=== PATIENT | male | born 1960 | race Caucasian/White ===

== ENCOUNTER 2017-05-15 12:25 | Emergency (ER) | payer BC, MEDICARE ==
[2017-05-15 12:45] VITALS: BP 142/89; PULSE 74; RESP 17; TEMP 98
--- NOTE | 2017-05-15 12:57 | ED ---
Extremity Problem HPI - General Chief complaint: Extremity Problem,Nontraumatic Stated complaint: Pain in left hand Time Seen by Provider: 05/15/17 12:48 Source: patient, RN notes reviewed Mode of arrival: ambulatory Limitations: no limitations - History of Present Illness Initial comments: This is a 56 year old male who presents with a chief complaint of left dorsal hand pain and arm pain which began this morning. Patient states he woke up with her after sleeping on his left arm The patient denies injury. He denies shortness of breath, difficulty breathing, chest pain or jaw pain. He states he recently went to the chiropractor 3 days ago and believes his pain is likely related to this. He reports a nonspecific pain from his posterior arm through his wrist that is not tingling and is more of a "dull" type of pain. He states that his pain is currently mild. - Related Data Home Medications Medication Instructions Recorded Confirmed RX: Lovastatin [Mevacor] 40 mg PO HS 10/18/13 01/23/16 Aspirin EC [Ecotrin] 325 mg PO DAILY 01/23/16 01/23/16 Previous Rx's Medication Instructions Recorded RX: Ibuprofen [Motrin] 600 mg PO Q8HR PRN #30 tab 05/15/17 Allergies Allergy/AdvReac Type Severity Reaction Status Date / Time No Known Allergies Allergy Verified 05/15/17 12:45 Review of Systems ROS Statement: Those systems with pertinent positive or pertinent negative responses have been documented in the HPI. ROS Other: All systems not noted in ROS Statement are negative. Past Medical History Past Medical History: Coronary Artery Disease (CAD), Chest Pain / Angina, Deep Vein Thrombosis (DVT), GERD/Reflux, Hyperlipidemia, Myocardial Infarction ([place]), Sleep Apnea/CPAP/BIPAP Additional Past Medical History / Comment(s): DVT 2002, no current problems w/ chest pain, uses CPAP Last Myocardial Infarction Date:: 08/2006 History of Any Multi-Drug Resistant Organisms: None Reported Past Surgical History: Heart Catheterization With Stent Additional Past Surgical History / Comment(s): left leg surgery r/t DVT, ORIF right femur Past Anesthesia/Blood Transfusion Reactions: No Reported Reaction Additional Past Anesthesia/Blood Transfusion Reaction / Comment(s): no previous transfusion Date of Last Stent Placement:: 2006 Past Psychological History: No Psychological Hx Reported Smoking Status: Former smoker Past Alcohol Use History: Occasional Past Drug Use History: None Reported - Past Family History Mother Family Medical History: COPD, Diabetes Mellitus, Myocardial Infarction ([place]) General Exam Limitations: no limitations General appearance: alert, in no apparent distress Head exam: Present: atraumatic, normocephalic, normal inspection Eye exam: Present: normal appearance, PERRL, EOMI. Absent: scleral icterus, conjunctival injection, periorbital swelling ENT exam: Present: normal exam, mucous membranes moist Neck exam: Present: normal inspection, tenderness (Mild tenderness along the left paraspinal), full ROM. Absent: meningismus, lymphadenopathy Respiratory exam: Present: normal lung sounds bilaterally. Absent: respiratory distress, wheezes, rales, rhonchi, stridor Cardiovascular Exam: Present: regular rate, normal rhythm, normal heart sounds. Absent: systolic murmur, diastolic murmur, rubs, gallop, clicks Extremities exam: Present: normal inspection, full ROM, normal capillary refill , other (The left arm and hand is nontender with palpation. There are no visible signs of ecchymosis or abnormalities. Upper extremity strength equal bilaterally, neurovascular intact). Absent: tenderness, pedal edema, joint swelling, calf tenderness Neurological exam: Present: alert, oriented X3, CN II-XII intact, reflexes normal. Absent: motor sensory deficit Psychiatric exam: Present: normal affect, normal mood Skin exam: Present: warm, dry, intact, normal color. Absent: rash Course Vital Signs 05/15/17 12:41 Temperature 98 F Pulse Rate 74 Respiratory 17 Rate Blood Pressure 142/89 O2 Sat by Pulse 98 Oximetry Medical Decision Making - Medical Decision Making This 56 year old male presented for left arm pain . He was not having chest pain , shortness of breath or diaphoretic. EKG was negative for myocardial infarction. The patient's symptoms are consistent with cervical radiculopathy, likely exacerbated by chiropractor adjustments. The physical exam and clinical findings were discussed with the patient. The patient was instructed to take anti-inflammatory medication to relieve the symptoms. - EKG Data EKG Comments: EKG performed at 13:21 sinus bradycardia first-degree block, rate 57 ID interval 220 QRS 100 QT/QTC 412/401 Disposition Clinical Impression: Cervical radiculopathy Disposition: HOME SELF-CARE Condition: Stable Instructions: Cervical Radiculopathy (ED) Additional Instructions: Please return to the emergency department if experiencing new or worsening symptoms. Prescriptions: RX: Ibuprofen [Motrin] 600 mg PO Q8HR PRN #30 tab PRN Reason: Pain Referrals: Hank Lopes MD [Primary Care Provider] - 1-2 days Time of Disposition: 13:20
== END 2017-05-15 13:34 | disposition home or self-care (01) ==
LOC: EC 12:25
DX: M54.12 Radiculopathy, cervical region (principal); E78.5 Hyperlipidemia, unspecified; G47.30 Sleep apnea, unspecified; Z99.89 Dependence on other enabling machines and devices; Z86.718 Personal history of other venous thrombosis and embolism; Z87.891 Personal history of nicotine dependence; Z79.82 Long term (current) use of aspirin; Z79.899 Other long term (current) drug therapy
CPT/HCPCS: 93005; 99283

== ENCOUNTER 2017-05-15 20:15 | Emergency (ER) | payer MEDICARE ==
[2017-05-15] MEDS ORDERED: RX INFO: IV CONTRAST WAS GIVEN 1 EACH MISC MISCELLANE PRN (21:57)
[2017-05-15] MEDS ORDERED: KETOROLAC 30 MG/ML 1 ML VIAL IVP STA (21:57)
[2017-05-15 22:29] LABS: Basophils % (A) 1 %; Eosinophils # (A) 0.2 k/uL (0-0.7); Eosinophils % (A) 3 %; HCT 40.7 % (39.0-53.0); HGB 13.6 gm/dL (13.0-17.5); Lymphocytes # (A) 2.2 k/uL (1.0-4.8); Lymphocytes % (A) 29 %; MCH 30.5 pg (25.0-35.0); MCHC 33.4 g/dL (31.0-37.0); MCV 91.1 fL (80.0-100.0); Mean Platelet Volume 6.4; Monocytes # (A) 0.5 k/uL (0-1.0); Monocytes % (A) 7 %; Neutrophils # (A) 4.5 k/uL (1.3-7.7); Neutrophils % (A) 58 %; Platelet Count 285 k/uL (150-450); RBC 4.47 m/uL (4.30-5.90); RDW 12.7 % (11.5-15.5); WBC 7.7 k/uL (3.8-10.6)
[2017-05-15 22:35] VITALS: RESP 16
[2017-05-15 22:37] LABS: ALT 21 U/L (21-72); AST 14 U/L (17-59); Albumin 4.1 g/dL (3.5-5.0); Alkaline Phosphatase 66 U/L (38-126); Anion Gap 13 mmol/L; Blood Urea Nitrogen 15 mg/dL (9-20); Calcium 9.8 mg/dL (8.4-10.2); Carbon Dioxide 25 mmol/L (22-30); Chloride 103 mmol/L (98-107); Glucose 98 mg/dL (74-99); Magnesium 1.9 mg/dL (1.6-2.3); Potassium 3.7 mmol/L (3.5-5.1); Sodium 141 mmol/L (137-145); Total Bilirubin 0.3 mg/dL (0.2-1.3); Total Protein 6.8 g/dL (6.3-8.2)
--- NOTE | 2017-05-15 22:51 | CT ---
EXAMINATION TYPE: CT abdomen pelvis w con DATE OF EXAM: 05/15/2017 COMPARISON: NONE HISTORY: left groin pain CT DLP: 1159.10 mGycm Automated exposure control for dose reduction was used. TECHNIQUE: Helical acquisition of images was performed from the lung bases through the pelvis. CONTRAST: Performed without Oral Contrast and with IV Contrast, patient injected with 100 mL of Omnipaque 300. FINDINGS: The lung bases are clear. There is no pleural effusion. Heart size is normal. Liver and spleen appear normal. Bile ducts are not dilated. Pancreas appears normal. Gallbladder appe ars normal. There is no adrenal mass. Kidneys show satisfactory contrast opacification. There is no hydronephrosi s. There is no ascites. Bladder distends smoothly. There is no sign of a pelvic mass. Appendix appear s normal. There is no sign of free air. There are few sigmoid diverticula. There is no sign of divert iculitis. Bony structures appear intact. There are bilateral varicose veins in the upper left and rig ht scrotum region. There is no evidence of inguinal mass. There is no evidence of a hernia. The lumba r spine is intact. Vertebra have normal alignment. I see no bony destructive process. IMPRESSION: THERE ARE A FEW SIGMOID DIVERTICULA WITHOUT EVIDENCE OF DIVERTICULITIS. NORMAL APPENDIX. THERE ARE BILATERAL VARICOSE VEINS IN THE PUBIC REGION AND WORSE ON THE LEFT SIDE THAT COULD BE CLINI MARTHA SIGNIFICANT. I DO NOT SEE EVIDENCE FOR VENOUS OBSTRUCTION.
[2017-05-15 23:52] LABS: Appearance,Urine Clear (Clear); Bilirubin,Urine Negative (Negative); Blood,Urine Negative (Negative); Color,Urine Light Yellow; Glucose,Urine (UA) Negative (Negative); Ketones,Urine Negative (Negative); Leukocyte Esterase,Urine Negative (Negative); Nitrite,Urine Negative (Negative); Protein,Urine Negative (Negative); Specific Gravity,Urine 1.031 (1.001-1.035); Urobilinogen,Urine <2.0 mg/dL (<2.0)
--- NOTE | 2017-05-15 23:55 | ED ---
Abdominal Pain HPI - General Chief Complaint: Abdominal Pain Stated Complaint: Abd pain Time Seen by Provider: 05/15/17 21:37 Source: patient Mode of arrival: ambulatory Limitations: no limitations - History of Present Illness Initial Comments: Patient is a 56-year-old male presenting for left inguinal pain. Patient states that it started tonight and feels an achy sharp sensation with radiation upwards. Her no modifying factors and not associated with nausea/vomiting/ diarrhea. He also denies any fevers or chills as well as dysuria or testicular pain. He states that he has no history of STDs he currently denies any penile discharge. - Related Data Home Medications Medication Instructions Recorded Confirmed Lovastatin [Mevacor] 40 mg PO HS 10/18/13 01/23/16 Aspirin EC [Ecotrin] 325 mg PO DAILY 01/23/16 01/23/16 Previous Rx's Medication Instructions Recorded Hydrocodone/Acetaminophen [[place] 1 tab PO Q6HR PRN #15 tab 05/15/17 7.5-325] Ibuprofen [Motrin] 600 mg PO Q8HR PRN #30 tab 05/15/17 Allergies Allergy/AdvReac Type Severity Reaction Status Date / Time No Known Allergies Allergy Verified 05/15/17 20:58 Review of Systems ROS Statement: Those systems with pertinent positive or pertinent negative responses have been documented in the HPI. Constitutional: Negative for chills, fatigue and fever. HENT: Negative for congestion. Respiratory: Negative for chest tightness, shortness of breath and wheezing. Cardiovascular: Negative for chest pain and palpitations. Gastrointestinal: Positive for abdominal pain. Negative for abdominal distention , diarrhea, nausea and vomiting. Genitourinary: Negative for dysuria. Negative for testicular pain or discharge Musculoskeletal: Negative for back pain, neck pain and neck stiffness. Skin: Negative for color change. Neurological: Negative for dizziness, speech difficulty, weakness and light- headedness. Psychiatric/Behavioral: Negative for agitation and confusion. The patient is not nervous/anxious. ROS Other: All systems not noted in ROS Statement are negative. Past Medical History Past Medical History: Coronary Artery Disease (CAD), Chest Pain / Angina, Deep Vein Thrombosis (DVT), GERD/Reflux, Hyperlipidemia, Myocardial Infarction ([place]), Sleep Apnea/CPAP/BIPAP Additional Past Medical History / Comment(s): DVT 2002, no current problems w/ chest pain, uses CPAP Last Myocardial Infarction Date:: 08/2006 History of Any Multi-Drug Resistant Organisms: None Reported Past Surgical History: Heart Catheterization With Stent Additional Past Surgical History / Comment(s): left leg surgery r/t DVT, ORIF right femur Past Anesthesia/Blood Transfusion Reactions: No Reported Reaction Additional Past Anesthesia/Blood Transfusion Reaction / Comment(s): no previous transfusion Date of Last Stent Placement:: 2006 Past Psychological History: No Psychological Hx Reported Smoking Status: Former smoker Past Alcohol Use History: None Reported, Occasional Past Drug Use History: None Reported - Past Family History Mother Family Medical History: COPD, Diabetes Mellitus, Myocardial Infarction ([place]) General Exam - General Exam Comments Initial Comments: Physical Exam Constitutional: Pt is oriented to person, place, and time. Pt appears well- developed and well-nourished. No distress. HENT: Head: Normocephalic and atraumatic. Eyes: EOM are normal. Neck: Normal range of motion. Neck supple. Cardiovascular: Normal rate, regular rhythm, S1 normal, S2 normal and normal heart sounds. Exam reveals no gallop and no friction rub. No murmur heard. Pulmonary/Chest: Effort normal and breath sounds normal. No tachypnea and no bradypnea. No respiratory distress. No wheezes or rales noted. Abdominal: Soft. Bowel sounds are normal. Pt exhibits no shifting dullness, no distension, no pulsatile liver, no fluid wave, no abdominal bruit and no ascites. There is no tenderness. There is no rigidity, no rebound, no guarding, no tenderness at McBurney's point and negative Montalvo's sign. Musculoskeletal: Normal range of motion. Neurological: Pt is alert and oriented to person, place, and time. No cranial nerve deficit. : Testicular lie bilaterally is normal. There is no evidence of inguinal hernias. There is no tenderness to palpation of the testes there is mild tenderness to palpation on the suprapubic region in the inguinal crease on the left side. There is no lymphadenopathy Skin: Skin is warm and dry. No rash noted. Pt is not diaphoretic. No erythema. No pallor. Psychiatric: Pt has a normal mood and affect. Pt behavior is normal. Thought content normal. Limitations: no limitations Course Vital Signs 05/15/17 05/15/17 20:54 22:34 Temperature 98 F Pulse Rate 70 Respiratory 18 16 Rate Blood Pressure 125/73 O2 Sat by Pulse 99 Oximetry Medical Decision Making - Medical Decision Making Laboratory studies revealed that there was no significant leukocytosis and urinalysis was also negative for infection. CT of the abdomen was performed and showed that there is prominent varicose veins with the left greater than the right. It is felt that this is a reasonable next phonation for the patient' s pain and the patient did state that he had surgery for varicose veins approximately 2015. Therefore he was advised to follow back up with that surgeon. Patient was agreeable to plan and noted to be resting in bed comfortably prior to discharge. - Lab Data Result diagrams: 05/15/17 22:17 05/15/17 22:17 Lab Results 05/15/17 05/15/17 05/15/17 Range/Units 22:17 22:17 23:44 WBC 7.7 (3.8-10.6) k/uL RBC 4.47 (4.30-5.90) m/uL Hgb 13.6 (13.0-17.5) gm/dL Hct 40.7 (39.0-53.0) % MCV 91.1 (80.0-100.0) fL MCH 30.5 (25.0-35.0) pg MCHC 33.4 (31.0-37.0) g/dL RDW 12.7 (11.5-15.5) % Plt Count 285 (150-450) k/uL Neutrophils % 58 % Lymphocytes % 29 % Monocytes % 7 % Eosinophils % 3 % Basophils % 1 % Neutrophils # 4.5 (1.3-7.7) k/uL Lymphocytes # 2.2 (1.0-4.8) k/uL Monocytes # 0.5 (0-1.0) k/uL Eosinophils # 0.2 (0-0.7) k/uL Basophils # 0.0 (0-0.2) k/uL Sodium 141 (137-145) mmol/L Potassium 3.7 (3.5-5.1) mmol/L Chloride 103 (98-107) mmol/L Carbon Dioxide 25 (22-30) mmol/L Anion Gap 13 mmol/L BUN 15 (9-20) mg/dL Creatinine 1.10 (0.66-1.25) mg/dL Est GFR (MDRD) Af Amer >60 (>60 ml/min/1.73 sqM) Est GFR (MDRD) Non-Af >60 (>60 ml/min/1.73 sqM) Glucose 98 (74-99) mg/dL Calcium 9.8 (8.4-10.2) mg/dL Magnesium 1.9 (1.6-2.3) mg/dL Total Bilirubin 0.3 (0.2-1.3) mg/dL AST 14 L (17-59) U/L ALT 21 (21-72) U/L Alkaline Phosphatase 66 (38-126) U/L Total Protein 6.8 (6.3-8.2) g/dL Albumin 4.1 (3.5-5.0) g/dL Urine Color Light Yellow Urine Appearance Clear (Clear) Urine pH 6.0 (5.0-8.0) Ur Specific [place] 1.031 (1.001-1.035) Urine Protein Negative (Negative) Urine Glucose (UA) Negative (Negative) Urine Ketones Negative (Negative) Urine Blood Negative (Negative) Urine Nitrite Negative (Negative) Urine Bilirubin Negative (Negative) Urine Urobilinogen <2.0 (<2.0) mg/dL Ur Leukocyte Esterase Negative (Negative) Disposition Clinical Impression: Abdominal pain Disposition: HOME SELF-CARE Condition: Good Instructions: Abdominal Pain (ED) Prescriptions: Hydrocodone/Acetaminophen [[place] 7.5-325] 1 tab PO Q6HR PRN #15 tab PRN Reason: Pain Referrals: Hank Lopes MD [Primary Care Provider] - 1-2 days Time of Disposition: 23:59
[2017-05-16 00:37] VITALS: BP 126/62; PULSE 60; TEMP 98.4
== END 2017-05-16 00:30 | disposition home or self-care (01) ==
LOC: EC 20:15
DX: R10.32 Left lower quadrant pain (principal); I86.1 Scrotal varices; E78.5 Hyperlipidemia, unspecified; I25.10 Atherosclerotic heart disease of native coronary artery without angina pectoris; G47.30 Sleep apnea, unspecified; I25.2 Old myocardial infarction; Z87.891 Personal history of nicotine dependence; Z79.82 Long term (current) use of aspirin; Z79.899 Other long term (current) drug therapy; Z99.89 Dependence on other enabling machines and devices
CPT/HCPCS: 99284 ×2; 96374 ×2; 99283; 36415; 93005; 80053; 83735; 85025; 81003; 74177; J1885; Q9967

== ENCOUNTER 2017-08-01 19:03 | Emergency (ER) | payer MEDICARE ==
[2017-08-01 19:18] VITALS: RESP 18
--- NOTE | 2017-08-01 19:46 | ED ---
Extremity Problem HPI - General Chief complaint: Extremity Problem,Nontraumatic Stated complaint: Poss Blood Clot L Leg Time Seen by Provider: 08/01/17 19:22 Source: patient Mode of arrival: ambulatory Limitations: no limitations - History of Present Illness Initial comments: 57-year-old male patient presents to the emergency department today for complaints of left lower leg swelling and calf pain. Patient states that symptoms started yesterday. Patient states that he does have a history of DVT and is concerned that they may have another one. Patient states that the pain to the calf is resolved today however the swelling remains. Patient states that he stopped taking Coumadin approximately 2 years ago. Denies any recent travel. Denies any injury to the leg. He denies any palpitations, shortness of breath, or chest pain. Patient denies any recent rash, fever, chills, abdominal pain, nausea, vomiting, diarrhea, constipation, back pain, numbness, tingling, dizziness, weakness, hematuria, dysuria, urinary urgency, urinary frequency, headache, visual changes, or any other complaints. - Related Data Home Medications Medication Instructions Recorded Confirmed Lovastatin [Mevacor] 40 mg PO HS 10/18/13 01/23/16 Aspirin EC [Ecotrin] 325 mg PO DAILY 01/23/16 01/23/16 Previous Rx's Medication Instructions Recorded Hydrocodone/Acetaminophen [[place] 1 tab PO Q6HR PRN #15 tab 05/15/17 7.5-325] Ibuprofen [Motrin] 600 mg PO Q8HR PRN #30 tab 05/15/17 Apixaban [Eliquis] 0 mg PO BID #70 tab 08/01/17 Allergies Allergy/AdvReac Type Severity Reaction Status Date / Time No Known Allergies Allergy Verified 05/15/17 20:58 Review of Systems ROS Statement: Those systems with pertinent positive or pertinent negative responses have been documented in the HPI. ROS Other: All systems not noted in ROS Statement are negative. Past Medical History Past Medical History: Coronary Artery Disease (CAD), Chest Pain / Angina, Deep Vein Thrombosis (DVT), GERD/Reflux, Hyperlipidemia, Myocardial Infarction ([place]), Sleep Apnea/CPAP/BIPAP Additional Past Medical History / Comment(s): DVT 2002, no current problems w/ chest pain, uses CPAP Last Myocardial Infarction Date:: 08/2006 History of Any Multi-Drug Resistant Organisms: None Reported Past Surgical History: Heart Catheterization With Stent Additional Past Surgical History / Comment(s): left leg surgery r/t DVT, ORIF right femur Past Anesthesia/Blood Transfusion Reactions: No Reported Reaction Additional Past Anesthesia/Blood Transfusion Reaction / Comment(s): no previous transfusion Date of Last Stent Placement:: 2006 Past Psychological History: No Psychological Hx Reported Smoking Status: Former smoker Past Alcohol Use History: None Reported, Occasional Past Drug Use History: None Reported - Past Family History Mother Family Medical History: COPD, Diabetes Mellitus, Myocardial Infarction ([place]) General Exam Limitations: no limitations General appearance: alert, in no apparent distress, other (This is a well- developed, well-nourished adult male patient in no acute distress. Vital signs upon presentation are temperature 98.1F, pulse 72, respirations 18, blood pressure 111/67, pulse ox 98% on room air.) Eye exam: Present: normal appearance, PERRL, EOMI. Absent: scleral icterus, conjunctival injection, periorbital swelling ENT exam: Present: normal exam, normal oropharynx, mucous membranes moist Respiratory exam: Present: normal lung sounds bilaterally. Absent: respiratory distress, wheezes, rales, rhonchi, stridor Cardiovascular Exam: Present: regular rate, normal rhythm, normal heart sounds. Absent: systolic murmur, diastolic murmur, rubs, gallop, clicks GI/Abdominal exam: Present: soft, normal bowel sounds. Absent: distended, tenderness, guarding, rebound, rigid Extremities exam: Present: full ROM, normal capillary refill, calf tenderness ( Left), other (Patient has nonpitting edema to the left lower leg and ankle. Skin is warm, pink, and dry. Cap refills less than 3 seconds. Pedal and posttibial pulses are 2+ and equal bilaterally.). Absent: normal inspection, tenderness, pedal edema, joint swelling Neurological exam: Present: alert, oriented X3, CN II-XII intact Psychiatric exam: Present: normal affect, normal mood Skin exam: Present: warm, dry, intact, normal color. Absent: rash Course Vital Signs 08/01/17 08/01/17 19:15 21:30 Temperature 98.1 F 97.8 F Pulse Rate 72 87 Respiratory 18 18 Rate Blood Pressure 111/67 145/77 O2 Sat by Pulse 98 98 Oximetry Medical Decision Making - Medical Decision Making 57-year-old male patient presented to the emergency department today for complaints of left leg swelling and calf pain. Physical examination did reveal nonpitting edema to the left lower extremity. Distal pulses are intact. Skin was pink warm and dry. We did perform ultrasound of the left lower extremity which did show a DVT extending from the common femoral vein to the popliteal vein. I did discuss findings with the patient. Patient will be started on Eliquis. We did discuss safe use of anticoagulants. We did discuss risk of bleeding and head injury. He is instructed to follow-up with his primary care physician for recheck as soon as possible. Return parameters discussed in detail. He verbalizes understanding and agrees with this plan. - Radiology Data Radiology results: report reviewed Ultrasound of the left lower extremity was obtained. Left leg was positive for DVT. 34 with incomplete compression of the left CFV extending into popliteal vein. Impression by Dr. Wesley shows deep venous thrombosis within the distal left common femoral vein extending into the popliteal vein. Disposition Clinical Impression: Left leg DVT Disposition: HOME SELF-CARE Condition: Good Instructions: Deep Venous Thrombosis (ED), Safe Use of Anticoagulants (ED), Blood Thinners (ED) Additional Instructions: Take medications as directed. Follow-up with your primary care physician for recheck in 1-2 days. Return here immediately for any new, worsening, or concerning symptoms. Prescriptions: Apixaban [Eliquis] 0 mg PO BID #70 tab Is patient prescribed a controlled substance at d/c from ED?: No Referrals: Hank Lopes MD [Primary Care Provider] - 1-2 days Time of Disposition: 21:05
--- NOTE | 2017-08-01 20:49 | US ---
EXAMINATION TYPE: US venous doppler duplex LE LT DATE OF EXAM: 08/01/2017 8:20 PM COMPARISON: NONE CLINICAL HISTORY: Pain. Pain and edema left lower leg. History of DVT left leg SIDE PERFORMED: Left TECHNIQUE: The lower extremity deep venous system is examined utilizing real time linear array sonog lenore with graded compression, doppler sonography and color-flow sonography. VESSELS IMAGED: External Iliac Vein (EIV) Common Femoral Vein Deep Femoral Vein Greater Saphenous Vein * Femoral Vein Popliteal Vein Small Saphenous Vein * Proximal Calf Veins (* superficial vessels) Left Leg: +Positive for DVT. Thready flow with incomplete compression left CFV extending into poplit eal vein IMPRESSION: 1. Deep venous thrombosis within the distal left common femoral vein extending into the popliteal vei n.
[2017-08-01] MEDS ORDERED: APIXABAN 5 MG TAB PO STA (21:01)
[2017-08-01 21:30] VITALS: BP 145/77; PULSE 87; TEMP 97.8
== END 2017-08-01 21:33 | disposition home or self-care (01) ==
LOC: EC 19:03
DX: I82.4Z2 Acute embolism and thrombosis of unspecified deep veins of left distal lower extremity (principal); I25.10 Atherosclerotic heart disease of native coronary artery without angina pectoris; E78.5 Hyperlipidemia, unspecified; I25.2 Old myocardial infarction; G47.30 Sleep apnea, unspecified; Z99.89 Dependence on other enabling machines and devices; Z95.5 Presence of coronary angioplasty implant and graft; Z87.891 Personal history of nicotine dependence; Z79.82 Long term (current) use of aspirin; Z79.899 Other long term (current) drug therapy
CPT/HCPCS: 99283

== ENCOUNTER → 2017-08-25 | Outpatient (CLI) | payer MEDICARE ==
[2017-08-25 14:14] LABS: INR 1.1 (<1.2); Prothrombin Time 10.8 sec (9.0-12.0)
== END | disposition home or self-care (01) ==
LOC: LABWHC1 13:00
PROVIDERS: ATTEND Nurse Practitioner Primary Care
DX: R25.2 Cramp and spasm (principal)
CPT/HCPCS: 36415; 85610

== ENCOUNTER 2017-08-29 19:40 | Emergency (ER) | payer MEDICARE ==
[2017-08-29 19:53] VITALS: RESP 18
--- NOTE | 2017-08-29 20:14 | ED ---
General Adult HPI - General Chief complaint: Extremity Injury, Lower Stated complaint: left leg heaviness Time Seen by Provider: 08/29/17 19:59 Source: patient Mode of arrival: ambulatory Limitations: no limitations - History of Present Illness Initial comments: Patient is a 57-year-old male presenting for complaints of left leg abnormalities. He states that approximately at the end of June, he was diagnosed with a DVT in that left leg and that he was started on L Santy. Since then intermittently he has been having charley horses and decided to come into the emergency department because he described a "heaviness" of the left leg while he was watching TV today. However, he adamantly denies any pain in the leg as well as paresthesias weakness or other abnormal sensations and he stated that at this sensation lasted only seconds. He also states that he is a "a hypochondriac and has a lot of weird sensations"and is not sure really what he felt. He denies any other symptoms such as facial droop, slurred speech, generalized weakness, chest pain, shortness of breath, nausea/vomiting/diarrhea. - Related Data Home Medications Medication Instructions Recorded Confirmed Lovastatin [Mevacor] 40 mg PO HS 10/18/13 01/23/16 Aspirin EC [Ecotrin] 325 mg PO DAILY 01/23/16 01/23/16 Previous Rx's Medication Instructions Recorded Hydrocodone/Acetaminophen [[place] 1 tab PO Q6HR PRN #15 tab 05/15/17 7.5-325] Ibuprofen [Motrin] 600 mg PO Q8HR PRN #30 tab 05/15/17 Apixaban [Eliquis] 0 mg PO BID #70 tab 08/01/17 Allergies Allergy/AdvReac Type Severity Reaction Status Date / Time No Known Allergies Allergy Verified 08/29/17 19:53 Review of Systems ROS Statement: Those systems with pertinent positive or pertinent negative responses have been documented in the HPI. Constitutional: Negative for chills, fatigue and fever. HENT: Negative for congestion. Respiratory: Negative for chest tightness, shortness of breath and wheezing. Negative for cough Cardiovascular: Negative for chest pain and palpitations. Gastrointestinal: Negative for abdominal pain. Negative for abdominal distention , diarrhea, nausea and vomiting. Genitourinary: Negative for dysuria. Musculoskeletal: Negative for back pain, neck pain and neck stiffness. "Left leg heaviness" Skin: Negative for color change. Neurological: Negative for dizziness, speech difficulty, weakness and light- headedness. Psychiatric/Behavioral: Negative for agitation and confusion. The patient is not nervous/anxious. ROS Other: All systems not noted in ROS Statement are negative. Past Medical History Past Medical History: Coronary Artery Disease (CAD), Chest Pain / Angina, Deep Vein Thrombosis (DVT), GERD/Reflux, Hyperlipidemia, Myocardial Infarction ([place]), Sleep Apnea/CPAP/BIPAP Additional Past Medical History / Comment(s): DVT 2002, no current problems w/ chest pain, uses CPAP Last Myocardial Infarction Date:: 08/2006 History of Any Multi-Drug Resistant Organisms: None Reported Past Surgical History: Heart Catheterization With Stent Additional Past Surgical History / Comment(s): left leg surgery r/t DVT, ORIF right femur Past Anesthesia/Blood Transfusion Reactions: No Reported Reaction Additional Past Anesthesia/Blood Transfusion Reaction / Comment(s): no previous transfusion Date of Last Stent Placement:: 2006 Past Psychological History: No Psychological Hx Reported Smoking Status: Former smoker Past Alcohol Use History: None Reported, Occasional Past Drug Use History: None Reported - Past Family History Mother Family Medical History: COPD, Diabetes Mellitus, Myocardial Infarction ([place]) General Exam - General Exam Comments Initial Comments: Constitutional: Pt is oriented to person, place, and time. Pt appears well- developed and well-nourished. No distress. HENT: Head: Normocephalic and atraumatic. Eyes: EOM are normal. Neck: Normal range of motion. Neck supple. Cardiovascular: Normal rate, regular rhythm, S1 normal, S2 normal and normal heart sounds. Exam reveals no gallop and no friction rub. No murmur heard. 2+ PT/DP pulses in both feet Pulmonary/Chest: Effort normal and breath sounds normal. No tachypnea and no bradypnea. No respiratory distress. No wheezes or rales noted. Abdominal: Soft. Bowel sounds are normal. Pt exhibits no shifting dullness, no distension, no pulsatile liver, no fluid wave, no abdominal bruit and no ascites. There is no tenderness. There is no rigidity, no rebound, no guarding, no tenderness at McBurney's point and negative Montalvo's sign. Musculoskeletal: Normal range of motion. Muscle strength 5 out of 5 in the lower extremities, no neurosensory deficits Neurological: Pt is alert and oriented to person, place, and time. No cranial nerve deficit. Skin: Skin is warm and dry. No rash noted. Pt is not diaphoretic. No erythema. No pallor. Psychiatric: Pt has a normal mood and affect. Pt behavior is normal. Thought content normal. Limitations: no limitations Course Vital Signs 08/29/17 19:50 Temperature 98.2 F Pulse Rate 76 Respiratory 18 Rate Blood Pressure 123/87 O2 Sat by Pulse 98 Oximetry Medical Decision Making - Medical Decision Making Laboratory studies show that hemoglobin was stable and a letter lites were within normal limits. Extensive discussion was had with the patient and it was decided that because the patient is currently on appropriate anticoagulation, ultrasound of the legs would not reveal any significant information that would change the management especially since the patient was pain-free and had no symptoms upon examination. Patient was advised to follow up with PCP in 1-2 days and results were discussed with the patient. Patient is agreeable to plan. - Lab Data Result diagrams: 08/29/17 20:28 08/29/17 20:28 Lab Results 08/29/17 08/29/17 Range/Units 20:28 20:28 WBC 5.3 (3.8-10.6) k/uL RBC 4.32 (4.30-5.90) m/uL Hgb 12.9 L (13.0-17.5) gm/dL Hct 39.2 (39.0-53.0) % MCV 90.7 (80.0-100.0) fL MCH 29.9 (25.0-35.0) pg MCHC 33.0 (31.0-37.0) g/dL RDW 13.4 (11.5-15.5) % Plt Count 267 (150-450) k/uL Neutrophils % 47 % Lymphocytes % 38 % Monocytes % 8 % Eosinophils % 4 % Basophils % 0 % Neutrophils # 2.5 (1.3-7.7) k/uL Lymphocytes # 2.0 (1.0-4.8) k/uL Monocytes # 0.4 (0-1.0) k/uL Eosinophils # 0.2 (0-0.7) k/uL Basophils # 0.0 (0-0.2) k/uL Sodium 144 (137-145) mmol/L Potassium 4.4 (3.5-5.1) mmol/L Chloride 106 (98-107) mmol/L Carbon Dioxide 26 (22-30) mmol/L Anion Gap 12 mmol/L BUN 17 (9-20) mg/dL Creatinine 0.90 (0.66-1.25) mg/dL Est GFR (CKD-EPI)AfAm >90 (>60 ml/min/1.73 sqM) Est GFR (CKD-EPI)NonAf >90 (>60 ml/min/1.73 sqM) Glucose 94 (74-99) mg/dL Calcium 9.5 (8.4-10.2) mg/dL Magnesium 1.8 (1.6-2.3) mg/dL Disposition Clinical Impression: DVT (deep venous thrombosis) Disposition: HOME SELF-CARE Condition: Good Instructions: Deep Venous Thrombosis (ED) Is patient prescribed a controlled substance at d/c from ED?: No Referrals: Hank Lopes MD [Primary Care Provider] - 1-2 days Time of Disposition: 22:52
[2017-08-29 22:21] LABS: Basophils % (A) 0 %; Eosinophils # (A) 0.2 k/uL (0-0.7); Eosinophils % (A) 4 %; HCT 39.2 % (39.0-53.0); HGB 12.9 gm/dL (13.0-17.5); Lymphocytes % (A) 38 %; MCH 29.9 pg (25.0-35.0); MCV 90.7 fL (80.0-100.0); Monocytes # (A) 0.4 k/uL (0-1.0); Monocytes % (A) 8 %; Neutrophils # (A) 2.5 k/uL (1.3-7.7); Neutrophils % (A) 47 %; Platelet Count 267 k/uL (150-450); RBC 4.32 m/uL (4.30-5.90); RDW 13.4 % (11.5-15.5); WBC 5.3 k/uL (3.8-10.6)
[2017-08-29 22:35] LABS: Anion Gap 12 mmol/L; Blood Urea Nitrogen 17 mg/dL (9-20); Calcium 9.5 mg/dL (8.4-10.2); Carbon Dioxide 26 mmol/L (22-30); Chloride 106 mmol/L (98-107); Glucose 94 mg/dL (74-99); Magnesium 1.8 mg/dL (1.6-2.3); Potassium 4.4 mmol/L (3.5-5.1); Sodium 144 mmol/L (137-145)
[2017-08-29 23:02] VITALS: BP 124/69; PULSE 68; TEMP 98.3
== END 2017-08-29 23:06 | disposition home or self-care (01) ==
LOC: EC 19:40
DX: I82.4Z2 Acute embolism and thrombosis of unspecified deep veins of left distal lower extremity (principal); I25.119 Atherosclerotic heart disease of native coronary artery with unspecified angina pectoris; I25.2 Old myocardial infarction; E78.5 Hyperlipidemia, unspecified; G47.30 Sleep apnea, unspecified; Z99.89 Dependence on other enabling machines and devices; Z87.891 Personal history of nicotine dependence; Z95.5 Presence of coronary angioplasty implant and graft; Z79.82 Long term (current) use of aspirin; Z79.899 Other long term (current) drug therapy
CPT/HCPCS: 36415; 80048; 83735; 85025; 99283

== ENCOUNTER 2017-10-06 18:51 | Emergency (ER) | payer MEDICARE ==
[2017-10-06 18:57] VITALS: RESP 18
--- NOTE | 2017-10-06 21:03 | ED ---
Chest Pain HPI - General Chief Complaint: Chest Pain Stated Complaint: left side pain from arm Time Seen by Provider: 10/06/17 20:43 Source: patient Mode of arrival: ambulatory Limitations: no limitations - History of Present Illness Initial Comments: 57-year-old male patient presents to emergency department today for evaluation of left lateral chest pain. Patient states the pain did radiate up into his shoulder. States that it started earlier today. Patient states that the pain has been intermittent. States he did have an episode where he became very hot and sweaty, and then started to have chills. Patient states he has been doing a lot of yard work over the last couple of days including mowing the lawn. Patient does have an extensive cardiac history with myocardial infarction, stents, and DVT. Patient denies any shortness of breath, nausea, or vomiting with this. States this does feel different than his previous [place]. Patient states the area was tender to touch earlier today. Patient denies any recent rash, fever, chills, abdominal pain, diarrhea, constipation, back pain, numbness , tingling, dizziness, weakness, hematuria, dysuria, urinary urgency, urinary frequency, headache, visual changes, or any other complaints. - Related Data Home Medications Medication Instructions Recorded Confirmed Aspirin EC [Ecotrin Low Dose] 81 mg PO DAILY 10/06/17 10/06/17 Cholecalciferol [Vitamin D3] 1,000 unit PO DAILY 10/06/17 10/06/17 Allergies Allergy/AdvReac Type Severity Reaction Status Date / Time No Known Allergies Allergy Verified 10/06/17 20:53 Review of Systems ROS Statement: Those systems with pertinent positive or pertinent negative responses have been documented in the HPI. ROS Other: All systems not noted in ROS Statement are negative. EKG Findings - EKG Comments: EKG Findings:: EKG obtained at 1916 shows sinus rhythm with first-degree AV block. Ventricular rate is 69, CO interval 242, QRS duration 100, QT 390, QTC 417. Past Medical History Past Medical History: Coronary Artery Disease (CAD), Chest Pain / Angina, Deep Vein Thrombosis (DVT), GERD/Reflux, Hyperlipidemia, Myocardial Infarction ([place]), Sleep Apnea/CPAP/BIPAP Additional Past Medical History / Comment(s): DVT 2002, no current problems w/ chest pain, uses CPAP Last Myocardial Infarction Date:: 08/2006 History of Any Multi-Drug Resistant Organisms: None Reported Past Surgical History: Heart Catheterization With Stent Additional Past Surgical History / Comment(s): left leg surgery r/t DVT, ORIF right femur Past Anesthesia/Blood Transfusion Reactions: No Reported Reaction Additional Past Anesthesia/Blood Transfusion Reaction / Comment(s): no previous transfusion Date of Last Stent Placement:: 2006 Past Psychological History: No Psychological Hx Reported Smoking Status: Former smoker Past Alcohol Use History: None Reported, Occasional Past Drug Use History: None Reported - Past Family History Mother Family Medical History: COPD, Diabetes Mellitus, Myocardial Infarction ([place]) General Exam Limitations: no limitations General appearance: alert, in no apparent distress, other (This is a well- developed, well-nourished adult male patient in no acute distress. Vital signs upon presentation are temperature 97.8F, pulse 83, respirations 18, blood pressure 128/76, pulse ox 97% on room air.) Eye exam: Present: normal appearance, PERRL, EOMI. Absent: scleral icterus, conjunctival injection, periorbital swelling ENT exam: Present: normal exam, normal oropharynx, mucous membranes moist Respiratory exam: Present: normal lung sounds bilaterally, chest wall tenderness (Left lateral at the midaxillary line around ribs 6 and 7. ). Absent : respiratory distress, wheezes, rales, rhonchi, stridor Cardiovascular Exam: Present: regular rate, normal rhythm, normal heart sounds. Absent: systolic murmur, diastolic murmur, rubs, gallop, clicks GI/Abdominal exam: Present: soft, normal bowel sounds. Absent: distended, tenderness, guarding, rebound, rigid Neurological exam: Present: alert, oriented X3, CN II-XII intact Psychiatric exam: Present: normal affect, normal mood Skin exam: Present: warm, dry, intact, normal color. Absent: rash Course Vital Signs 10/06/17 10/06/17 10/06/17 18:52 21:05 22:23 Temperature 97.8 F Pulse Rate 83 58 L 67 Respiratory 18 18 18 Rate Blood Pressure 128/76 129/79 139/63 O2 Sat by Pulse 97 99 100 Oximetry 10/06/17 10/07/17 23:26 00:02 Temperature 98.4 F Pulse Rate 71 Respiratory 18 Rate Blood Pressure 122/66 O2 Sat by Pulse 100 Oximetry Chest Pain MDM - [facility] RADIOLOGY:Two-view x-ray of the chest is obtained. Heart mediastinum are normal. Lungs are clear. Diaphragm is normal. Bony thorax is intact. There are chest leads. Impression by Dr. Brito shows normal chest with no change. MDM: 57-year-old male patient presented to the emergency department today for complaints of atypical left lateral chest pain near the midaxillary line. Area was tender to touch. He did have an episode of diaphoresis earlier today so I did perform cardiac evaluation. Initial troponin was negative. Symptoms started around 3 PM this afternoon. Chest x-ray showed no acute cardiopulmonary process. Labs were unremarkable. Did discuss findings and results with the patient. I did offer admission to see cardiology in the morning and given his history, He does feel comfortable being discharged home at this time to follow-up with his coach cleaner. Return parameters were discussed in detail. He verbalizes understanding and agreed with this plan. Disposition Clinical Impression: Chest wall pain, Atypical chest pain Disposition: HOME SELF-CARE Condition: Good Instructions: Chest Pain (ED) Additional Instructions: Follow-up through primary care physician for recheck as soon as possible. Have repeat labs performed as directed. Follow-up with your coach cleaner for recheck as soon as possible. Return here immediately for any new, worsening, or concerning symptoms. Is patient prescribed a controlled substance at d/c from ED?: No Referrals: Hank Lopes MD [Primary Care Provider] - 1-2 days Time of Disposition: 23:50
[2017-10-06 21:20] LABS: Basophils % (A) 0 %; Eosinophils # (A) 0.1 k/uL (0-0.7); Eosinophils % (A) 2 %; HCT 42.9 % (39.0-53.0); HGB 14.4 gm/dL (13.0-17.5); Lymphocytes # (A) 2.2 k/uL (1.0-4.8); Lymphocytes % (A) 25 %; MCH 30.3 pg (25.0-35.0); MCHC 33.5 g/dL (31.0-37.0); MCV 90.4 fL (80.0-100.0); Mean Platelet Volume 6.3; Monocytes # (A) 0.6 k/uL (0-1.0); Monocytes % (A) 7 %; Neutrophils # (A) 5.5 k/uL (1.3-7.7); Neutrophils % (A) 64 %; Platelet Count 284 k/uL (150-450); RBC 4.74 m/uL (4.30-5.90); RDW 13.1 % (11.5-15.5); WBC 8.6 k/uL (3.8-10.6)
[2017-10-06 21:38] LABS: INR 1.1 (<1.2); Prothrombin Time 10.4 sec (9.0-12.0)
[2017-10-06 21:39] LABS: Partial Thromboplastin Time 20.9 sec (22.0-30.0)
[2017-10-06 21:43] LABS: Albumin 4.7 g/dL (3.5-5.0); Creatine Kinase 100 U/L (55-170); Potassium 3.9 mmol/L (3.5-5.1); Total Bilirubin 0.5 mg/dL (0.2-1.3); Total Protein 7.5 g/dL (6.3-8.2)
[2017-10-06 21:56] LABS: Creatine Kinase MB 0.6 ng/mL (0.0-2.4); Troponin I <0.012 ng/mL (0.000-0.034)
[2017-10-06] MEDS ORDERED: SODIUM CHLORIDE 0.9% 1,000 ML IV ONE (22:05)
--- NOTE | 2017-10-06 23:12 | XR ---
EXAMINATION TYPE: XR chest 2V DATE OF EXAM: 10/06/2017 COMPARISON: 08/07/2014 HISTORY: Heart attack. Left-sided chest pain TECHNIQUE: Frontal and lateral views of the chest are obtained. FINDINGS: Heart and mediastinum are normal. Lungs are clear. Diaphragm is normal. Bony thorax is int act. There are chest leads. IMPRESSION: Normal chest. No change.
[2017-10-06 23:27] VITALS: BP 122/66; PULSE 71
[2017-10-07 00:02] VITALS: TEMP 98.4
== END 2017-10-07 00:02 | disposition home or self-care (01) ==
LOC: EC 18:51
DX: R07.89 Other chest pain (principal); R61 Generalized hyperhidrosis; R68.83 Chills (without fever); I25.10 Atherosclerotic heart disease of native coronary artery without angina pectoris; K21.9 Gastro-esophageal reflux disease without esophagitis; I25.2 Old myocardial infarction; G47.30 Sleep apnea, unspecified; Z90.89 Acquired absence of other organs; Z95.5 Presence of coronary angioplasty implant and graft; Z87.891 Personal history of nicotine dependence; Z79.82 Long term (current) use of aspirin
CPT/HCPCS: 36415; 71046; 80053; 82550; 82553; 83735; 84484; 85025; 85610; 85730; 93005; 96360; 99285

== ENCOUNTER 2017-10-08 05:58 | Emergency (ER) | payer MEDICARE ==
--- NOTE | 2017-10-08 06:25 | ED ---
General Adult HPI - General Source: patient, RN notes reviewed, old records reviewed Mode of arrival: wheelchair Limitations: no limitations <London Cruz - Last Filed: 10/08/17 06:48> <London Burton - Last Filed: 10/08/17 08:40> - General Chief complaint: Chest Pain Stated complaint: chest pain Time Seen by Provider: 10/08/17 06:07 - History of Present Illness Initial comments: 57-year-old male presents for evaluation of central chest pain. Patient states he has been dealing with chest pain for the past 6 months. He has history of CAD with previous stenting. He states that he was seen at an outside hospital 6 months ago and diagnosed with costochondritis. He states his symptoms have been ongoing and he is seeking reevaluation. Patient was in the emergency department 2 days ago with left lateral chest pain and left arm pain. He was offered admission for cardiology evaluation he declined. 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 Patient describes central chest pain that went to his neck. This sharp in nature. It has been dull and aggravating since its initial onset. No nausea or vomiting. No diaphoresis. No abdominal pain. Back pain. (London Cruz) - Related Data Home Medications Medication Instructions Recorded Confirmed Aspirin EC [Ecotrin Low Dose] 81 mg PO DAILY 10/06/17 10/08/17 Cholecalciferol [Vitamin D3] 1,000 unit PO DAILY 10/06/17 10/08/17 Allergies Allergy/AdvReac Type Severity Reaction Status Date / Time No Known Allergies Allergy Verified 10/08/17 07:36 Review of Systems ROS Other: All systems not noted in ROS Statement are negative. <London Cruz - Last Filed: 10/08/17 06:48> ROS Other: All systems not noted in ROS Statement are negative. <London Burton - Last Filed: 10/08/17 08:40> ROS Statement: Those systems with pertinent positive or pertinent negative responses have been documented in the HPI. Past Medical History Past Medical History: Coronary Artery Disease (CAD), Chest Pain / Angina, Deep Vein Thrombosis (DVT), GERD/Reflux, Hyperlipidemia, Myocardial Infarction ([place]), Sleep Apnea/CPAP/BIPAP Additional Past Medical History / Comment(s): DVT 2002, no current problems w/ chest pain, uses CPAP Last Myocardial Infarction Date:: 08/2006 History of Any Multi-Drug Resistant Organisms: None Reported Past Surgical History: Heart Catheterization With Stent Additional Past Surgical History / Comment(s): left leg surgery r/t DVT, ORIF right femur Past Anesthesia/Blood Transfusion Reactions: No Reported Reaction Additional Past Anesthesia/Blood Transfusion Reaction / Comment(s): no previous transfusion Date of Last Stent Placement:: 2006 Past Psychological History: No Psychological Hx Reported Smoking Status: Former smoker Past Alcohol Use History: None Reported Past Drug Use History: None Reported - Past Family History Mother Family Medical History: COPD, Diabetes Mellitus, Myocardial Infarction ([place]) <London Cruz - Last Filed: 10/08/17 06:48> General Exam Limitations: no limitations General appearance: alert, in no apparent distress Head exam: Present: atraumatic, normocephalic Eye exam: Present: normal appearance, PERRL ENT exam: Present: normal exam, normal oropharynx Neck exam: Present: normal inspection. Absent: tenderness, meningismus Respiratory exam: Present: normal lung sounds bilaterally. Absent: respiratory distress, wheezes Cardiovascular Exam: Present: regular rate, normal rhythm GI/Abdominal exam: Present: soft. Absent: distended, tenderness Extremities exam: Present: normal inspection, normal capillary refill. Absent: pedal edema Neurological exam: Present: alert, oriented X3, CN II-XII intact. Absent: motor sensory deficit Psychiatric exam: Present: normal affect, normal mood Skin exam: Present: warm, dry, intact. Absent: cyanosis, diaphoretic <London Cruz N - Last Filed: 10/08/17 06:48> Vital Signs 10/08/17 10/08/17 06:00 08:15 Temperature 98.1 F 97.4 F L Pulse Rate 65 64 Respiratory 18 18 Rate Blood Pressure 118/74 114/75 O2 Sat by Pulse 98 98 Oximetry EKG Findings - EKG Comments: EKG Findings:: EKG: Sinus rhythm with first-degree AV block, inferior infarct age indeterminate, rate of 64, NC interval 246, QTC 412, QRS duration [address] segment elevation or depression <London Cruz - Last Filed: 10/08/17 06:48> Medical Decision Making <London Cruz - Last Filed: 10/08/17 06:48> - Lab Data Result diagrams: 10/08/17 06:52 10/08/17 06:52 - Radiology Data Radiology results: report reviewed (I did review the imaging and report no acute findings are seen.), image reviewed <London Burton - Last Filed: 10/08/17 08:40> - Medical Decision Making I did reevaluate the patient did discuss findings with him. Thus far the workup was negative for acute findings. He does relate that the pain seems to be reproducible. Is very similarly to his had over the past with respect to chest wall pain. He does have an appointment with his asphalt spreader operator to 1:30 PM today. He was offered admission he would prefer to follow up with asphalt spreader operator. He will do this. (London Burton) - Lab Data Lab Results 10/08/17 10/08/17 10/08/17 Range/Units 06:52 06:52 06:52 WBC 5.9 (3.8-10.6) k/uL RBC 4.43 (4.30-5.90) m/uL Hgb 13.5 (13.0-17.5) gm/dL Hct 40.0 (39.0-53.0) % MCV 90.3 (80.0-100.0) fL MCH 30.6 (25.0-35.0) pg MCHC 33.8 (31.0-37.0) g/dL RDW 13.0 (11.5-15.5) % Plt Count 255 (150-450) k/uL Neutrophils % 63 % Lymphocytes % 23 % Monocytes % 9 % Eosinophils % 2 % Basophils % 0 % Neutrophils # 3.7 (1.3-7.7) k/uL Lymphocytes # 1.3 (1.0-4.8) k/uL Monocytes # 0.6 (0-1.0) k/uL Eosinophils # 0.1 (0-0.7) k/uL Basophils # 0.0 (0-0.2) k/uL PT (9.0-12.0) sec INR (<1.2) APTT (22.0-30.0) sec Sodium 140 (137-145) mmol/L Potassium 4.3 (3.5-5.1) mmol/L Chloride 106 (98-107) mmol/L Carbon Dioxide 26 (22-30) mmol/L Anion Gap 8 mmol/L BUN 17 (9-20) mg/dL Creatinine 0.90 (0.66-1.25) mg/dL Est GFR (CKD-EPI)AfAm >90 (>60 ml/min/1.73 sqM) Est GFR (CKD-EPI)NonAf >90 (>60 ml/min/1.73 sqM) Glucose 101 H (74-99) mg/dL Calcium 9.5 (8.4-10.2) mg/dL Magnesium 1.9 (1.6-2.3) mg/dL Total Bilirubin 0.8 (0.2-1.3) mg/dL AST 17 (17-59) U/L ALT 29 (21-72) U/L Alkaline Phosphatase 64 (38-126) U/L Total Creatine Kinase 95 (55-170) U/L CK-MB (CK-2) 0.6 (0.0-2.4) ng/mL CK-MB (CK-2) Rel Index 0.6 Troponin I <0.012 (0.000-0.034) ng/mL Total Protein 6.8 (6.3-8.2) g/dL Albumin 4.3 (3.5-5.0) g/dL Lipase 50 (23-300) U/L 10/08/17 Range/Units 06:52 WBC (3.8-10.6) k/uL RBC (4.30-5.90) m/uL Hgb (13.0-17.5) gm/dL Hct (39.0-53.0) % MCV (80.0-100.0) fL MCH (25.0-35.0) pg MCHC (31.0-37.0) g/dL RDW (11.5-15.5) % Plt Count (150-450) k/uL Neutrophils % % Lymphocytes % % Monocytes % % Eosinophils % % Basophils % % Neutrophils # (1.3-7.7) k/uL Lymphocytes # (1.0-4.8) k/uL Monocytes # (0-1.0) k/uL Eosinophils # (0-0.7) k/uL Basophils # (0-0.2) k/uL PT 10.8 (9.0-12.0) sec INR 1.1 (<1.2) APTT 18.6 L (22.0-30.0) sec Sodium (137-145) mmol/L Potassium (3.5-5.1) mmol/L Chloride (98-107) mmol/L Carbon Dioxide (22-30) mmol/L Anion Gap mmol/L BUN (9-20) mg/dL Creatinine (0.66-1.25) mg/dL Est GFR (CKD-EPI)AfAm (>60 ml/min/1.73 sqM) Est GFR (CKD-EPI)NonAf (>60 ml/min/1.73 sqM) Glucose (74-99) mg/dL Calcium (8.4-10.2) mg/dL Magnesium (1.6-2.3) mg/dL Total Bilirubin (0.2-1.3) mg/dL AST (17-59) U/L ALT (21-72) U/L Alkaline Phosphatase (38-126) U/L Total Creatine Kinase (55-170) U/L CK-MB (CK-2) (0.0-2.4) ng/mL CK-MB (CK-2) Rel Index Troponin I (0.000-0.034) ng/mL Total Protein (6.3-8.2) g/dL Albumin (3.5-5.0) g/dL Lipase (23-300) U/L Disposition <London Cruz - Last Filed: 10/08/17 06:48> Is patient prescribed a controlled substance at d/c from ED?: No <London Burton - Last Filed: 10/08/17 08:40> Clinical Impression: Chest wall syndrome, Atypical chest pain Disposition: HOME SELF-CARE Condition: Good Instructions: Chest Pain (ED), Costochondritis (ED) Additional Instructions: Keep your follow-up appointment with cardiology today at 1:30 PM Referrals: Hank Lopes MD [Primary Care Provider] - 1-2 days
[2017-10-08 07:02] LABS: Basophils % (A) 0 %; Eosinophils # (A) 0.1 k/uL (0-0.7); Eosinophils % (A) 2 %; HGB 13.5 gm/dL (13.0-17.5); Lymphocytes # (A) 1.3 k/uL (1.0-4.8); Lymphocytes % (A) 23 %; MCH 30.6 pg (25.0-35.0); MCHC 33.8 g/dL (31.0-37.0); MCV 90.3 fL (80.0-100.0); Mean Platelet Volume 6.4; Monocytes # (A) 0.6 k/uL (0-1.0); Monocytes % (A) 9 %; Neutrophils # (A) 3.7 k/uL (1.3-7.7); Neutrophils % (A) 63 %; Platelet Count 255 k/uL (150-450); RBC 4.43 m/uL (4.30-5.90); WBC 5.9 k/uL (3.8-10.6)
[2017-10-08 07:12] LABS: ALT 29 U/L (21-72); AST 17 U/L (17-59); Albumin 4.3 g/dL (3.5-5.0); Alkaline Phosphatase 64 U/L (38-126); Anion Gap 8 mmol/L; Blood Urea Nitrogen 17 mg/dL (9-20); Calcium 9.5 mg/dL (8.4-10.2); Carbon Dioxide 26 mmol/L (22-30); Chloride 106 mmol/L (98-107); Glucose 101 mg/dL (74-99); Lipase 50 U/L (23-300); Magnesium 1.9 mg/dL (1.6-2.3); Potassium 4.3 mmol/L (3.5-5.1); Sodium 140 mmol/L (137-145); Total Bilirubin 0.8 mg/dL (0.2-1.3); Total Protein 6.8 g/dL (6.3-8.2)
[2017-10-08 07:23] LABS: Creatine Kinase 95 U/L (55-170); INR 1.1 (<1.2); Prothrombin Time 10.8 sec (9.0-12.0)
--- NOTE | 2017-10-08 07:28 | XR ---
EXAMINATION TYPE: XR chest 2V DATE OF EXAM: 10/08/2017 COMPARISON: 10/06/2017 HISTORY: Chest pain TECHNIQUE: Frontal and lateral views of the chest are obtained. FINDINGS: There is no focal air space opacity, pleural effusion, or pneumothorax seen. The cardiac silhouette size is within normal limits. The osseous structures are intact. IMPRESSION: No acute cardiopulmonary process, unchanged from the prior.
[2017-10-08 07:35] LABS: Creatine Kinase MB 0.6 ng/mL (0.0-2.4); Troponin I <0.012 ng/mL (0.000-0.034)
[2017-10-08 07:40] LABS: Partial Thromboplastin Time 18.6 sec (22.0-30.0)
[2017-10-08 08:48] VITALS: BP 116/64; PULSE 69; RESP 16; TEMP 98.3
== END 2017-10-08 08:59 | disposition home or self-care (01) ==
LOC: EC 05:58
DX: R07.1 Chest pain on breathing (principal); R07.89 Other chest pain; I25.10 Atherosclerotic heart disease of native coronary artery without angina pectoris; K21.9 Gastro-esophageal reflux disease without esophagitis; I25.2 Old myocardial infarction; G47.30 Sleep apnea, unspecified; Z99.89 Dependence on other enabling machines and devices; Z95.5 Presence of coronary angioplasty implant and graft; Z87.891 Personal history of nicotine dependence; Z79.82 Long term (current) use of aspirin
CPT/HCPCS: 36415; 71046; 80053; 82550; 82553; 83690; 83735; 84484; 85025; 85610; 85730; 93005; 99285

== ENCOUNTER 2017-10-17 23:58 | Observation (INO) | payer MEDICARE ==
[2017-10-18] MEDS ORDERED: SODIUM CHLORIDE 0.9% 1,000 ML IV STA (00:26)
[2017-10-18] MEDS ORDERED: ASPIRIN 81 MG PO STA (00:26)
[2017-10-18] MEDS ORDERED: NITROGLYCERIN OINT 1 INCH/GM PACKET TOPICAL STA (00:26)
[2017-10-18 00:38] LABS: Basophils % (A) 0 %; Eosinophils # (A) 0.1 k/uL (0-0.7); Eosinophils % (A) 2 %; HCT 38.7 % (39.0-53.0); HGB 12.9 gm/dL (13.0-17.5); Lymphocytes # (A) 1.8 k/uL (1.0-4.8); Lymphocytes % (A) 31 %; MCH 30.3 pg (25.0-35.0); MCHC 33.4 g/dL (31.0-37.0); MCV 90.9 fL (80.0-100.0); Mean Platelet Volume 6.3; Monocytes # (A) 0.5 k/uL (0-1.0); Monocytes % (A) 8 %; Neutrophils # (A) 3.3 k/uL (1.3-7.7); Neutrophils % (A) 57 %; Platelet Count 252 k/uL (150-450); RBC 4.26 m/uL (4.30-5.90); WBC 5.9 k/uL (3.8-10.6)
[2017-10-18 00:48] LABS: ALT 26 U/L (21-72); AST 15 U/L (17-59); Albumin 3.9 g/dL (3.5-5.0); Alkaline Phosphatase 59 U/L (38-126); Anion Gap 9 mmol/L; Blood Urea Nitrogen 20 mg/dL (9-20); Calcium 9.2 mg/dL (8.4-10.2); Carbon Dioxide 25 mmol/L (22-30); Chloride 106 mmol/L (98-107); Glucose 97 mg/dL (74-99); Magnesium 1.8 mg/dL (1.6-2.3); Sodium 140 mmol/L (137-145); Total Bilirubin 0.2 mg/dL (0.2-1.3); Total Protein 6.4 g/dL (6.3-8.2)
[2017-10-18 00:58] LABS: INR 1.1 (<1.2); Prothrombin Time 10.8 sec (9.0-12.0)
[2017-10-18 00:59] LABS: Creatine Kinase 60 U/L (55-170)
[2017-10-18 01:01] LABS: Partial Thromboplastin Time 20.7 sec (22.0-30.0)
[2017-10-18 01:11] LABS: Creatine Kinase MB 0.6 ng/mL (0.0-2.4); Troponin I <0.012 ng/mL (0.000-0.034)
--- NOTE | 2017-10-18 01:22 | XR ---
EXAMINATION TYPE: XR chest 2V DATE OF EXAM: 10/18/2017 COMPARISON: 10/08/2017 HISTORY: Chest pain TECHNIQUE: Frontal and lateral views of the chest are obtained. FINDINGS: Heart and mediastinum are normal. Lungs are clear. Diaphragm is normal. Bony thorax appear s intact. There are chest leads. IMPRESSION: Normal chest. No change.
--- NOTE | 2017-10-18 02:31 | ED ---
Chest Pain HPI - General Chief Complaint: Chest Pain Stated Complaint: chest pain Time Seen by Provider: 10/18/17 00:18 Source: patient Mode of arrival: EMS Limitations: no limitations - History of Present Illness Initial Comments: 87 years old male with a known history of ischemic heart disease has a history of myocardial infarction and stent in place he comes in with the chest pain started at 11 PM denies any nausea no vomiting he had a cold sweats he denies any pleuritic chest pain chest pain is all resolved now and is not short winded either review of systems all unremarkable at this point - Related Data Home Medications Medication Instructions Recorded Confirmed Aspirin EC [Ecotrin Low Dose] 81 mg PO DAILY 10/06/17 10/08/17 Cholecalciferol [Vitamin D3] 1,000 unit PO DAILY 10/06/17 10/08/17 Allergies Allergy/AdvReac Type Severity Reaction Status Date / Time No Known Allergies Allergy Verified 10/08/17 07:36 Review of Systems ROS Statement: Those systems with pertinent positive or pertinent negative responses have been documented in the HPI. ROS Other: All systems not noted in ROS Statement are negative. EKG Findings - EKG Comments: EKG Findings:: EKG is normal sinus ventricular rate is 68 MN interval is 258 QRS duration is 108 QT/QTC 392/416 review of this EKG does not reveal any ST elevation or ST depression Past Medical History Past Medical History: Coronary Artery Disease (CAD), Chest Pain / Angina, Deep Vein Thrombosis (DVT), GERD/Reflux, Hyperlipidemia, Myocardial Infarction ([place]), Sleep Apnea/CPAP/BIPAP Additional Past Medical History / Comment(s): DVT 2002, no current problems w/ chest pain, uses CPAP Last Myocardial Infarction Date:: 08/2006 History of Any Multi-Drug Resistant Organisms: None Reported Past Surgical History: Heart Catheterization With Stent Additional Past Surgical History / Comment(s): left leg surgery r/t DVT, ORIF right femur Past Anesthesia/Blood Transfusion Reactions: No Reported Reaction Additional Past Anesthesia/Blood Transfusion Reaction / Comment(s): no previous transfusion Date of Last Stent Placement:: 2006 Past Psychological History: No Psychological Hx Reported Smoking Status: Former smoker Past Alcohol Use History: None Reported Past Drug Use History: None Reported - Past Family History Mother Family Medical History: COPD, Diabetes Mellitus, Myocardial Infarction ([place]) General Exam Limitations: no limitations Course Vital Signs 10/18/17 10/18/17 00:09 01:05 Temperature 97.8 F Pulse Rate 69 63 Respiratory 18 19 Rate Blood Pressure 140/73 133/72 O2 Sat by Pulse 98 95 Oximetry Shouldn't is reassessed at term to 30, his troponin is EKG, INR, CBC, comprehensive metabolic panel all looked quite considering his age and known history of heart disease and admit him observation will consult cardiology this was discussed with the patient he agrees with that Disposition Clinical Impression: Chest pain Disposition: ADMITTED IP TO THIS HOSP Condition: Good Referrals: Hank Lopes MD [Primary Care Provider] - 1-2 days
[2017-10-18] MEDS ORDERED: MORPHINE SULFATE 2 MG/ML SYRINGE IVP PRN (02:45)
[2017-10-18] MEDS ORDERED: NITROGLYCERIN SL TABS 0.4 MG TAB SUBLINGUAL PRN (02:45)
[2017-10-18 03:23] VITALS: RESP 16
[2017-10-18 04:14] VITALS: BMI 29.5
[2017-10-18 07:00] LABS: Creatine Kinase 57 U/L (55-170)
[2017-10-18 07:12] LABS: Creatine Kinase MB 0.5 ng/mL (0.0-2.4); Troponin I <0.012 ng/mL (0.000-0.034)
[2017-10-18 08:52] VITALS: TEMP 97.1
[2017-10-18] MEDS ORDERED: CHOLECALCIFEROL 1,000 UNIT TAB PO SCH (09:00)
--- NOTE | 2017-10-18 09:06 | P.CRDCN ---
History of Present Illness Consult date: 10/18/17 Requesting physician: Marques Peacock Consult reason: chest pain Chief complaint: Chest pain History of present illness: This is a 57-year-old gentleman who follows regularly with Dr. Rodriguez in the office. He has a known history of coronary artery disease with prior stent placement, hyperlipidemia, nicotine dependence, patient states he has quit smoking, history of DVT, sleep apnea, hyperlipidemia, he presents to the hospital with symptoms of chest discomfort. Patient states that he always has some form of chest pain and was told by Dr. Rodriguez in the past to have costochondritis. Patient states that he woke up in the middle of the night with back discomfort, he refused to 2 pillows from behind his head and shortly thereafter developed a sharp stabbing chest pain in the center of his chest. He states that this pain was worse than what he normally experiences and for this reason he came to the hospital for further evaluation. According to the patient, he was scheduled to have an outpatient stress test with Dr. Rodriguez just over a week ago, he did miss that appointment. EKG on arrival here showed a normal sinus rhythm with first-degree AV block. Chest x-ray normal. Blood pressure 126/60 with a heart rate in the 70s, 98% on room air. White blood cell count 5.9, hemoglobin 12.9, sodium 140, potassium 4.0, BUN 20, creatinine 0.9, magnesium 1.8, troponins negative 2. At the time of my examination this morning, patient does state that he has mild chest discomfort, but he states this is his usual pain that he has all of the time. Blood pressure 126/60 with a heart rate in the 60s to 70s, 98% on room air. Past Medical History Past Medical History: Coronary Artery Disease (CAD), Chest Pain / Angina, Deep Vein Thrombosis (DVT), GERD/Reflux, Hyperlipidemia, Myocardial Infarction ([place]), Sleep Apnea/CPAP/BIPAP Additional Past Medical History / Comment(s): DVT 2002, no current problems w/ chest pain, uses CPAP Last Myocardial Infarction Date:: 08/2006 History of Any Multi-Drug Resistant Organisms: None Reported Past Surgical History: Heart Catheterization With Stent Additional Past Surgical History / Comment(s): left leg surgery r/t DVT, ORIF right femur Past Anesthesia/Blood Transfusion Reactions: No Reported Reaction Additional Past Anesthesia/Blood Transfusion Reaction / Comment(s): no previous transfusion Date of Last Stent Placement:: 2006 Past Psychological History: Anxiety Smoking Status: Former smoker Past Alcohol Use History: None Reported Additional Past Alcohol Use History / Comment(s): quit smoking this year, smoked for 30 yrs. Past Drug Use History: None Reported Additional Drug Use History / Comment(s): smokes approximately 6 cigarettes a day - Past Family History Mother Family Medical History: COPD, Diabetes Mellitus, Myocardial Infarction ([place]) Medications and Allergies Home Medications Medication Instructions Recorded Confirmed Type Aspirin EC [Ecotrin Low Dose] 81 mg PO DAILY 10/06/17 10/18/17 History Cholecalciferol [Vitamin D3] 1,000 unit PO DAILY 10/06/17 10/18/17 History Ibuprofen [Motrin] 800 mg PO Q8H PRN 10/18/17 10/18/17 History Allergies Allergy/AdvReac Type Severity Reaction Status Date / Time No Known Allergies Allergy Verified 10/18/17 08:44 Physical Exam Vitals: Vital Signs Temp Pulse Pulse Resp BP BP Pulse Ox 10/18/17 08:00 97.1 F L 73 126/66 98 10/18/17 04:00 16 10/18/17 03:23 97.8 F 59 L 16 121/64 99 10/18/17 03:22 97.8 F 66 16 131/67 96 10/18/17 02:45 99 10/18/17 01:05 63 19 133/72 95 10/18/17 00:09 97.8 F 69 18 140/73 98 Intake and Output 10/17/17 10/18/17 10/18/17 22:59 06:59 14:59 Intake Total 200 Balance 200 Intake: IV 200 Sodium Chloride 0.9% 1, 200 000 ml @ 100 mls/hr IV . Q10H STA Rx#:[id number] Other: Voiding Method Toilet Urinal Weight 88 kg PHYSICAL EXAMINATION: GENERAL: 57-year-old gentleman in no acute distress at the time of my examination HEENT: Head is atraumatic, normocephalic. Pupils equal, round. Sclera anicteric. Conjunctiva are clear. Mucous membranes of the mouth are moist. Neck is supple. There is no elevated jugular venous pressure. No carotid bruit is heard. HEART EXAMINATION: Heart S1, S2 normal. No murmur or gallop heard. CHEST EXAMINATION: Lungs are clear to auscultation and precussion. Positive chest wall tenderness is noted on palpation and with deep breathing. ABDOMEN: [Soft, nontender. Bowel sounds are heard. No organomegaly noted] EXTREMITIES:[1+ peripheral pulses with no evidence of peripheral edema, patient does have chronic discoloration of the left lower extremity no calf tenderness noted]. NUROLOGIC [patint is awake, alert and oriented X3.] . Results 10/18/17 00:20 10/18/17 00:20 Cardiac Enzymes 10/18/17 10/18/17 10/18/17 Range/Units 00:20 00:20 06:11 AST 15 L (17-59) U/L CK-MB (CK-2) 0.6 0.5 (0.0-2.4) ng/mL Troponin I <0.012 <0.012 (0.000-0.034) ng/mL Coagulation 10/18/17 Range/Units 00:20 PT 10.8 (9.0-12.0) sec APTT 20.7 L (22.0-30.0) sec CBC 10/18/17 Range/Units 00:20 WBC 5.9 (3.8-10.6) k/uL RBC 4.26 L (4.30-5.90) m/uL Hgb 12.9 L (13.0-17.5) gm/dL Hct 38.7 L (39.0-53.0) % Plt Count 252 (150-450) k/uL Comprehensive Metabolic Panel 10/18/17 Range/Units 00:20 Sodium 140 (137-145) mmol/L Potassium 4.0 (3.5-5.1) mmol/L Chloride 106 (98-107) mmol/L Carbon Dioxide 25 (22-30) mmol/L BUN 20 (9-20) mg/dL Creatinine 0.90 (0.66-1.25) mg/dL Glucose 97 (74-99) mg/dL Calcium 9.2 (8.4-10.2) mg/dL AST 15 L (17-59) U/L ALT 26 (21-72) U/L Alkaline Phosphatase 59 (38-126) U/L Total Protein 6.4 (6.3-8.2) g/dL Albumin 3.9 (3.5-5.0) g/dL Current Medications Generic Name Dose Route Start Last Admin Trade Name Kyle PRN Reason Stop Dose Admin Aspirin 325 mg 10/19/17 09:00 Aspirin PO DAILY CHANDANA Cholecalciferol 1,000 unit 10/18/17 09:00 Vitamin D3 PO DAILY CHANDANA Sodium Chloride 1,000 mls @ 100 mls/hr 10/18/17 00:26 10/18/17 00:46 Saline 0.9% IV 10/18/17 10:25 100 mls/hr .Q10H STA Administration Morphine Sulfate 2 mg 10/18/17 02:45 Morphine Sulfate (Inj) IVP Q5M PRN Chest Pain Nitroglycerin 0.4 mg 10/18/17 02:45 Nitrostat SUBLINGUAL Q5M PRN Chest Pain Intake and Output 10/17/17 10/18/17 10/18/17 22:59 06:59 14:59 Intake Total 200 Balance 200 Intake: IV 200 Sodium Chloride 0.9% 1, 200 000 ml @ 100 mls/hr IV . Q10H STA Rx#:[id number] Other: Voiding Method Toilet Urinal Weight 88 kg 10/18/17 00:20 10/18/17 00:20 EKG Interpretations (text) EKG shows normal sinus rhythm with first-degree AV block Assessment and Plan Plan: Assessment and plan #1 chest pain, atypical for acute coronary syndrome. Troponins negative 2. EKG shows normal sinus rhythm with first-degree AV block #2 known history of coronary artery disease with prior LAD stenting in 2006 #3 hypertension #4 hyperlipidemia #5 history of nicotine dependence although patient states he has quit smoking #6 sleep apnea #7 prior history of DVT Plan Upon review of the office note, it appears that the patient had been taking a statin although he states his cholesterol has been running normal so he stopped taking it. Patient also has been on Coumadin which she no longer takes. He takes only an aspirin and vitamin D at home. The patient's pain is very atypical and pleuritic in nature. We will decrease the aspirin to 81 mg daily, we will also add a statin to the patient's medication regime. We recommend patient undergo stress testing, further recommendations will be based on these findings and the patient's clinical course. DNP note has been reviewed, I agree with a documented findings and plan of care. Patient was seen and examined.
--- NOTE | 2017-10-18 11:56 | ECHOS ---
STRESS ECHOCARDIOGRAM DATE OF SERVICE: 10/18/2017 INDICATIONS: Chest pain. MEDICATIONS: BASELINE HEART RATE: 79 BASELINE BLOOD PRESSURE: 124/55 MAXIMUM HEART RATE: 139 MAXIMUM BLOOD PRESSURE: 157/43 85% MPHR: 139 100% MPHR: 163 METS: 6.4 MAXIMUM STAGE REACHED: II TOTAL EXERCISE TIME: 5 minutes CLINICAL INFORMATION: Baseline EKG shows sinus rhythm, normal axis, normal intervals, with nonspecific ST-T wave changes. Patient exercised on [place]o protocol for a total of 5 minutes achieving 6 METs, 85% of predicted maximal heart rate without chest pain or diagnostic ST-segment depression. Baseline echo shows normal left ventricular size, wall motion and systolic function. Postexercise, there is normal hyperdynamic response of all segments of myocardium noted. CONCLUSIONS: 1. Limited exercise tolerance. 2. Negative stress test by EKG criteria. 3. Negative stress echo. ABENA / CHUCKN: [id number] /
[2017-10-18 12:53] LABS: Creatine Kinase 58 U/L (55-170)
[2017-10-18 13:04] LABS: Creatine Kinase MB 0.5 ng/mL (0.0-2.4); Troponin I <0.012 ng/mL (0.000-0.034)
[2017-10-18 14:18] VITALS: BP 126/67; PULSE 75
--- NOTE | 2017-10-18 15:08 | P.HPIM ---
History of Present Illness H&P Date: 10/18/17 Chief Complaint: Chest pain This is a 57-year-old male patient of Dr. Lopes ([facility] ) with past history of coronary artery disease status post percutaneous coronary intervention stent placement of the LAD back in 2006, hypertension, hypertensive cardiovascular disease with left ventricular hypertrophy, hyperlipidemia myocardial infarction 2, DVT of the left lower extremity diagnosed in 2002 followed by locally infused TPA via catheter and attempted inferior vena cava filter placement without success. Patient's last hospitalization here was in 2013 at which time he was admitted for observation status for noncardiac chest pain. His echocardiogram at that time showed an 8F a 55-60% and mild mitral calcification, mild mitral regurgitation, normal TV with mild regurgitation, trace total pulmonic regurgitation and no pericardial effusion. He underwent stress testing with Cardiolite stress test that was negative for stress-induced ischemia and patient was discharged home. His last stress test was done in 2014 before he underwent septal deviation surgery. 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 He states his chest pain has been ongoing since March on and off. Pain is not worse with activity. He can do yard work okay. Seems to bother him more at nighttime. Regarding DVT, patient follows with Dr. Mccloud and had an appointment last week and was taken off eliquis. Patient states that he was trying to sleep when he was having back pain got up to take a drink of water and then he went back to bed. He then developed shooting pain that was sharp in the mid sternal area. He states he was hot and sweaty and the pain was coming and going. He took 4 aspirin at home and called EMS and was brought into [facility] emergency center for evaluation. His troponins have been negative on 3 draws. Electrolytes within normal limits , creatinine 0.9, hemoglobin 12.9. Patient was seen by cardiology. Stress echocardiogram was done and this was negative and patient will be discharged home in stable condition. Review of Systems All systems: negative Constitutional: Reports sweats, Denies chills, Denies fever, Denies poor appetite Eyes: denies blurred vision, denies pain Ears, nose, mouth and throat: Denies headache, Denies sore throat Cardiovascular: Reports chest pain, Denies lightheadedness, Denies shortness of breath, Denies syncope Respiratory: Denies cough Gastrointestinal: Denies abdominal pain, Denies diarrhea, Denies nausea, Denies vomiting Musculoskeletal: Denies frequent falls, Denies myalgias Integumentary: Denies pruritus, Denies rash Neurological: Denies change in mentation, Denies numbness, Denies weakness Psychiatric: Denies anxiety, Denies depression Endocrine: Denies fatigue, Denies weight change Past Medical History Past Medical History: Coronary Artery Disease (CAD), Chest Pain / Angina, Deep Vein Thrombosis (DVT), GERD/Reflux, Hyperlipidemia, Myocardial Infarction ([place]), Sleep Apnea/CPAP/BIPAP Additional Past Medical History / Comment(s): DVT 2002, uses CPAP Last Myocardial Infarction Date:: 08/2006 History of Any Multi-Drug Resistant Organisms: None Reported Past Surgical History: Heart Catheterization With Stent Additional Past Surgical History / Comment(s): left leg surgery r/t DVT, ORIF right femur septal deviation surgery in 2014, varicose vein removal in the left leg. Past Anesthesia/Blood Transfusion Reactions: No Reported Reaction Additional Past Anesthesia/Blood Transfusion Reaction / Comment(s): no previous transfusion Date of Last Stent Placement:: 2006 Past Psychological History: Anxiety Smoking Status: Former smoker Past Alcohol Use History: None Reported Additional Past Alcohol Use History / Comment(s): Patient was a smoker of half pack cigarette for 26 years and quit in 2014. He denies alcohol use. He denies any drug use or abuse. 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 Past Drug Use History: None Reported Additional Drug Use History / Comment(s): smokes approximately 6 cigarettes a day - Past Family History Mother Family Medical History: COPD, Diabetes Mellitus, Myocardial Infarction ([place]) Additional Family Medical History / Comment(s): Mother at age 75 with history of hypertension, renal failure on dialysis, CVA 6, diabetes mellitus type 2, congestive heart failure and COPD. Patient does not know his father. He has no brothers or sisters. He is single and no children. Medications and Allergies Home Medications Medication Instructions Recorded Confirmed Type Aspirin EC [Ecotrin Low Dose] 81 mg PO DAILY 10/06/17 10/18/17 History Cholecalciferol [Vitamin D3] 1,000 unit PO DAILY 10/06/17 10/18/17 History Atorvastatin [Lipitor] 40 mg PO HS #30 tab 10/18/17 Rx Ibuprofen [Motrin] 800 mg PO Q8H PRN 10/18/17 10/18/17 History Allergies Allergy/AdvReac Type Severity Reaction Status Date / Time No Known Allergies Allergy Verified 10/18/17 08:44 Physical Exam Vitals: Vital Signs Temp Pulse Pulse Resp BP BP Pulse Ox 10/18/17 08:00 97.1 F L 73 126/66 98 10/18/17 04:00 16 10/18/17 03:23 97.8 F 59 L 16 121/64 99 10/18/17 03:22 97.8 F 66 16 131/67 96 10/18/17 02:45 99 10/18/17 01:05 63 19 133/72 95 10/18/17 00:09 97.8 F 69 18 140/73 98 Intake and Output 10/17/17 10/18/17 10/18/17 22:59 06:59 14:59 Intake Total 200 Balance 200 Intake: IV 200 Sodium Chloride 0.9% 1, 200 000 ml @ 100 mls/hr IV . Q10H STA Rx#:[id number] Other: Voiding Method Toilet Urinal Weight 88 kg Gen: This is a 57-year-old male patient is sitting up in bed and appears to be comfortable and in no acute distress. HEENT: Head is atraumatic, normocephalic. Pupils equal, round. Sclerae is anicteric. NECK: Supple. No JVD. No lymphadenopathy. No thyromegaly. LUNGS: Clear to auscultation. No wheezes or rhonchi. No intercostal retractions. HEART: Regular rate and rhythm. No murmur. ABDOMEN: Soft. Bowel sounds are present. No masses. No tenderness. EXTREMITIES: No pedal edema. No calf tenderness. Dorsalis pedis +1 bilaterally. NEUROLOGICAL: Patient is awake, alert and oriented x3. Cranial nerves 2 through 12 are grossly intact. Results CBC & Chem 7: 10/18/17 00:20 10/18/17 00:20 Labs: Abnormal Lab Results - Last 24 Hours (Table) 10/18/17 10/18/17 10/18/17 Range/Units 00:20 00:20 00:20 RBC 4.26 L (4.30-5.90) m/uL Hgb 12.9 L (13.0-17.5) gm/dL Hct 38.7 L (39.0-53.0) % APTT 20.7 L (22.0-30.0) sec AST 15 L (17-59) U/L Thrombosis Risk Factor Assmnt - Choose All That Apply Any of the Below Risk Factors Present?: Yes Each Factor Represents 1 point: Acute [place], Age 41-60 years Other Risk Factors: No Other congenital or acquired thrombophilia - If yes, enter type in comment: No Thrombosis Risk Factor Assessment Total Risk Factor Score: 2 Thrombosis Risk Factor Assessment Level: Low Risk Assessment and Plan Plan: 1. Chest pain. Acute coronary syndrome ruled out. Stress testing is negative patient will be discharged home. 2. History of coronary artery disease status post PCI of the LAD, stable. 3. Hyperlipidemia. 4. Remote history of tobacco use and dependence. 5. History of DVT recently taken off eliquis. 6. Obstructive sleep apnea on CPAP. Patient placed as an observation status. Discharge plan: Return home Impression and plan of care have been directed as dictated by the signing physician. Fifi Reina nurse practitioner acting as scribe for signing physician.
[2017-10-18] MEDS ORDERED: ATORVASTATIN 40 MG TAB PO SCH (21:00)
[2017-10-19] MEDS ORDERED: ASPIRIN 325 MG TAB PO SCH (09:00)
[2017-10-19] MEDS ORDERED: ASPIRIN 81 MG PO SCH (09:00)
== END 2017-10-18 14:20 | disposition home or self-care (01) ==
LOC: EC 23:58 → 6SEL 10-18 02:45
PROVIDERS: ADMIT Internal Medicine Geriatric Medicine; ATTEND Internal Medicine Geriatric Medicine
DX: R07.89 Other chest pain (principal); R61 Generalized hyperhidrosis; I25.10 Atherosclerotic heart disease of native coronary artery without angina pectoris; I11.9 Hypertensive heart disease without heart failure; F41.9 Anxiety disorder, unspecified; I44.0 Atrioventricular block, first degree; M54.9 Dorsalgia, unspecified; K21.9 Gastro-esophageal reflux disease without esophagitis; E78.5 Hyperlipidemia, unspecified; G47.33 Obstructive sleep apnea (adult) (pediatric); Z99.89 Dependence on other enabling machines and devices; Z79.82 Long term (current) use of aspirin; I25.2 Old myocardial infarction; Z95.5 Presence of coronary angioplasty implant and graft; Z86.718 Personal history of other venous thrombosis and embolism; Z87.891 Personal history of nicotine dependence; Z83.3 Family history of diabetes mellitus; Z82.5 Family history of asthma and other chronic lower respiratory diseases; Z82.49 Family history of ischemic heart disease and other diseases of the circulatory system; Z84.1 Family history of disorders of kidney and ureter; Z82.3 Family history of stroke
CPT/HCPCS: 99285 ×2; 96360 ×2; 96361 ×12; 36415; 93005; 93351; 83880; 80053; 82550; 82553; 83735; 84484; 85025; 85610; 85730; 71046; G0378

== ENCOUNTER 2019-01-04 16:36 | Observation (INO) | payer MEDICARE ==
[2019-01-04] MEDS ORDERED: ASPIRIN 81 MG PO STA (17:15)
[2019-01-04] MEDS ORDERED: NITROGLYCERIN OINT 1 INCH/GM PACKET TOPICAL STA (17:15)
--- NOTE | 2019-01-04 17:18 | ED ---
General Adult HPI - General Chief complaint: Chest Pain Stated complaint: pain under lt arm Time Seen by Provider: 01/04/19 17:07 Source: patient, RN notes reviewed Mode of arrival: ambulatory Limitations: no limitations - History of Present Illness Initial comments: Patient is a pleasant 58-year-old male presenting to the emergency Department with left axillary discomfort. Patient was driving at the time of onset, prior to arrival. Patient had sudden sharp discomfort that lasted for a few minutes. Patient became sweaty. Patient denies having actual discomfort in his chest. Patient denies dyspnea or nausea. Patient did get sweaty with the discomfort. No history of similar symptoms previously. No radiation. Patient is currently symptom-free. - Related Data Home Medications Medication Instructions Recorded Confirmed Aspirin EC [Ecotrin Low Dose] 81 mg PO DAILY 10/06/17 01/04/19 Cholecalciferol [Vitamin D3 (25 5,000 unit PO DAILY 10/06/17 01/04/19 Mcg = 1000 Iu)] Atorvastatin [Lipitor] 20 mg PO AC-SUPPER 01/04/19 01/04/19 Allergies Allergy/AdvReac Type Severity Reaction Status Date / Time No Known Allergies Allergy Verified 01/04/19 17:12 Review of Systems ROS Statement: Those systems with pertinent positive or pertinent negative responses have been documented in the HPI. ROS Other: All systems not noted in ROS Statement are negative. Constitutional: Denies: fever Eyes: Denies: eye pain ENT: Denies: ear pain Respiratory: Denies: cough Cardiovascular: Reports: as per HPI Endocrine: Denies: fatigue Gastrointestinal: Denies: abdominal pain Genitourinary: Denies: urgency Musculoskeletal: Denies: back pain Skin: Denies: rash Neurological: Denies: headache, weakness Past Medical History Past Medical History: Coronary Artery Disease (CAD), Chest Pain / Angina, Deep Vein Thrombosis (DVT), GERD/Reflux, Hyperlipidemia, Myocardial Infarction ([place]), Sleep Apnea/CPAP/BIPAP Additional Past Medical History / Comment(s): DVT 2002, uses CPAP Last Myocardial Infarction Date:: 08/2006 History of Any Multi-Drug Resistant Organisms: None Reported Past Surgical History: Heart Catheterization With Stent Additional Past Surgical History / Comment(s): left leg surgery r/t DVT, ORIF right femur septal deviation surgery in 2014, varicose vein removal in the left leg. Past Anesthesia/Blood Transfusion Reactions: No Reported Reaction Additional Past Anesthesia/Blood Transfusion Reaction / Comment(s): no previous transfusion Date of Last Stent Placement:: 2006 Past Psychological History: Anxiety Smoking Status: Former smoker Past Alcohol Use History: None Reported Past Drug Use History: None Reported - Past Family History Mother Family Medical History: COPD, Diabetes Mellitus, Myocardial Infarction (OR) Additional Family Medical History / Comment(s): Mother at age 75 with history of hypertension, renal failure on dialysis, CVA 6, diabetes mellitus type 2, congestive heart failure and COPD. Patient does not know his father. He has no brothers or sisters. He is single and no children. General Exam Limitations: no limitations General appearance: alert, in no apparent distress Head exam: Present: normocephalic Eye exam: Present: normal appearance, PERRL ENT exam: Present: normal oropharynx Neck exam: Present: normal inspection Respiratory exam: Present: normal lung sounds bilaterally. Absent: chest wall tenderness Cardiovascular Exam: Present: regular rate, normal rhythm Expanded Peripheral pulses: 2+: Radial (R), Radial (L), Posterior Tibialis (R), Posterior Tibialis (L), Dorsalis Pedis (R), Dorsalis Pedis (L) Extremities exam: Present: normal inspection, other (No tenderness or erythema or swelling or warmth to the left axilla. Left leg is slightly swollen that patient states is unchanged and chronic.). Absent: tenderness, calf tenderness Neurological exam: Present: alert Psychiatric exam: Present: normal affect, normal mood Skin exam: Present: normal color Course Vital Signs 01/04/19 16:40 Temperature 97.3 F L Pulse Rate 84 Respiratory 16 Rate Blood Pressure 128/67 O2 Sat by Pulse 97 Oximetry EKG Findings - EKG Comments: EKG Findings:: Sinus rhythm at 75. For screening AV block NH 210. QRS 94. QT 390. QTC 435. Left axis. Normal QRS. No acute ST change. Medical Decision Making - Medical Decision Making Patient reevaluated and resting comfortably in bed. Patient updated on results and plan. Case was discussed in detail with Dr. moss, covering for hospital call, who will admit. - Lab Data Result diagrams: 01/04/19 17:08 01/04/19 17:08 Lab Results 01/04/19 01/04/19 01/04/19 Range/Units 17:08 17:08 17:08 WBC 7.3 (3.8-10.6) k/uL RBC 4.55 (4.30-5.90) m/uL Hgb 13.6 (13.0-17.5) gm/dL Hct 42.6 (39.0-53.0) % MCV 93.5 (80.0-100.0) fL MCH 29.8 (25.0-35.0) pg MCHC 31.9 (31.0-37.0) g/dL RDW 12.7 (11.5-15.5) % Plt Count 269 (150-450) k/uL Neutrophils % 59 % Lymphocytes % 27 % Monocytes % 8 % Eosinophils % 3 % Basophils % 1 % Neutrophils # 4.3 (1.3-7.7) k/uL Lymphocytes # 2.0 (1.0-4.8) k/uL Monocytes # 0.6 (0-1.0) k/uL Eosinophils # 0.2 (0-0.7) k/uL Basophils # 0.1 (0-0.2) k/uL PT 10.6 (9.0-12.0) sec INR 1.0 (<1.2) APTT 22.4 (22.0-30.0) sec D-Dimer 1.21 H (<0.60) mg/L FEU Sodium 139 (137-145) mmol/L Potassium 4.3 (3.5-5.1) mmol/L Chloride 103 (98-107) mmol/L Carbon Dioxide 25 (22-30) mmol/L Anion Gap 11 mmol/L BUN 21 H (9-20) mg/dL Creatinine 0.99 (0.66-1.25) mg/dL Est GFR (CKD-EPI)AfAm >90 (>60 ml/min/1.73 sqM) Est GFR (CKD-EPI)NonAf 84 (>60 ml/min/1.73 sqM) Glucose 95 (74-99) mg/dL Calcium 9.6 (8.4-10.2) mg/dL Magnesium 2.0 (1.6-2.3) mg/dL Total Bilirubin 0.6 (0.2-1.3) mg/dL AST 21 (17-59) U/L ALT 26 (21-72) U/L Alkaline Phosphatase 82 (38-126) U/L Troponin I (0.000-0.034) ng/mL Total Protein 7.7 (6.3-8.2) g/dL Albumin 4.5 (3.5-5.0) g/dL 01/04/19 Range/Units 17:08 WBC (3.8-10.6) k/uL RBC (4.30-5.90) m/uL Hgb (13.0-17.5) gm/dL Hct (39.0-53.0) % MCV (80.0-100.0) fL MCH (25.0-35.0) pg MCHC (31.0-37.0) g/dL RDW (11.5-15.5) % Plt Count (150-450) k/uL Neutrophils % % Lymphocytes % % Monocytes % % Eosinophils % % Basophils % % Neutrophils # (1.3-7.7) k/uL Lymphocytes # (1.0-4.8) k/uL Monocytes # (0-1.0) k/uL Eosinophils # (0-0.7) k/uL Basophils # (0-0.2) k/uL PT (9.0-12.0) sec INR (<1.2) APTT (22.0-30.0) sec D-Dimer (<0.60) mg/L FEU Sodium (137-145) mmol/L Potassium (3.5-5.1) mmol/L Chloride (98-107) mmol/L Carbon Dioxide (22-30) mmol/L Anion Gap mmol/L BUN (9-20) mg/dL Creatinine (0.66-1.25) mg/dL Est GFR (CKD-EPI)AfAm (>60 ml/min/1.73 sqM) Est GFR (CKD-EPI)NonAf (>60 ml/min/1.73 sqM) Glucose (74-99) mg/dL Calcium (8.4-10.2) mg/dL Magnesium (1.6-2.3) mg/dL Total Bilirubin (0.2-1.3) mg/dL AST (17-59) U/L ALT (21-72) U/L Alkaline Phosphatase (38-126) U/L Troponin I <0.012 (0.000-0.034) ng/mL Total Protein (6.3-8.2) g/dL Albumin (3.5-5.0) g/dL - Radiology Data Radiology results: report reviewed (Computed tomography scan of the chest shows no evidence of PE, no axillary abnormality. No acute process.), image reviewed (X-ray shows no acute) Disposition Clinical Impression: Chest pain Disposition: ADMITTED IP TO THIS HOSP Is patient prescribed a controlled substance at d/c from ED?: No Referrals: Niles Foster NPC [Primary Care Provider] - 1-2 days Decision Time: 19:09
[2019-01-04 17:25] LABS: Basophils # (A) 0.1 k/uL (0-0.2); Basophils % (A) 1 %; Eosinophils # (A) 0.2 k/uL (0-0.7); Eosinophils % (A) 3 %; HCT 42.6 % (39.0-53.0); HGB 13.6 gm/dL (13.0-17.5); Lymphocytes % (A) 27 %; MCH 29.8 pg (25.0-35.0); MCHC 31.9 g/dL (31.0-37.0); MCV 93.5 fL (80.0-100.0); Mean Platelet Volume 6.6; Monocytes # (A) 0.6 k/uL (0-1.0); Monocytes % (A) 8 %; Neutrophils # (A) 4.3 k/uL (1.3-7.7); Neutrophils % (A) 59 %; Platelet Count 269 k/uL (150-450); RBC 4.55 m/uL (4.30-5.90); RDW 12.7 % (11.5-15.5); WBC 7.3 k/uL (3.8-10.6)
[2019-01-04 17:33] LABS: ALT 26 U/L (21-72); AST 21 U/L (17-59); African American GFR (CKD) >90 (>60 ml/min/1.73 sqM); Albumin 4.5 g/dL (3.5-5.0); Alkaline Phosphatase 82 U/L (38-126); Anion Gap 11 mmol/L; Blood Urea Nitrogen 21 mg/dL (9-20); Calcium 9.6 mg/dL (8.4-10.2); Carbon Dioxide 25 mmol/L (22-30); Chloride 103 mmol/L (98-107); Glucose 95 mg/dL (74-99); Potassium 4.3 mmol/L (3.5-5.1); Sodium 139 mmol/L (137-145); Total Bilirubin 0.6 mg/dL (0.2-1.3); Total Protein 7.7 g/dL (6.3-8.2)
[2019-01-04 17:42] LABS: Partial Thromboplastin Time 22.4 sec (22.0-30.0); Prothrombin Time 10.6 sec (9.0-12.0)
[2019-01-04 17:50] LABS: D-Dimer 1.21 mg/L FEU (<0.60)
--- NOTE | 2019-01-04 17:50 | XR ---
EXAMINATION TYPE: XR chest 2V DATE OF EXAM: 01/04/2019 COMPARISON: Chest x-ray October 18, 2017. HISTORY: Chest pain. TECHNIQUE: Frontal and lateral views of the chest are obtained. FINDINGS: Overlying EKG leads are redemonstrated. There is some chronic parenchymal change without s uspicious new focal air space opacity, pleural effusion, or pneumothorax seen. The cardiac silhouett e size remains within normal limits. The osseous structures are intact. IMPRESSION: No acute cardiopulmonary process. No significant change from prior.
--- NOTE | 2019-01-04 18:33 | CT ---
EXAMINATION TYPE: CT angio chest DATE OF EXAM: 01/04/2019 COMPARISON: Chest x-ray earlier today HISTORY: SOB, pain under left axilla. hx of DVT, heart disease. CT DLP: 500.3 mGycm. Automated Exposure Control for Dose Reduction was Utilized. CONTRAST: CTA scan of the thorax is performed with IV Contrast, patient injected with 74cc mL of Isovue 370, pu lmonary embolism protocol. MIP Images are created on CT scanner and reviewed. FINDINGS: LUNGS: The lungs are grossly clear, there is no concerning parenchymal mass or nodule identified. T here is no pleural effusion or pneumothorax seen. The tracheobronchial tree is patent. MEDIASTINUM: There is satisfactory enhancement of the pulmonary artery and its branches, there is no CT evidence for pulmonary embolism. There are no greater than 1 cm hilar or mediastinal lymph nodes. No cardiomegaly or pericardial effusion is seen. Incidental satisfactory opacification of thoracic aorta without aneurysm or dissection. OTHER: Left axillary region shows no suspicious mass or adenopathy. No suspicious fluid collection. S mall degree of bilateral gynecomastia noted near axial image 68. Mild multilevel spurring in thoracic spine. IMPRESSION: No CT evidence for acute pulmonary embolism. Images acute pulmonary process.
[2019-01-04] MEDS ORDERED: NITROGLYCERIN SL TABS 0.4 MG TAB SUBLINGUAL PRN (19:09)
[2019-01-04 20:04] VITALS: RESP 18
[2019-01-05] MEDS ORDERED: NITROGLYCERIN OINT 1 INCH/GM PACKET TOPICAL SCH
[2019-01-05 06:27] LABS: Cholesterol 107 mg/dL (<200); HDL Cholesterol 33 mg/dL (40-60); LDL Cholesterol,Calculated 61 mg/dL (0-99); Triglycerides 67 mg/dL (<150)
[2019-01-05] MEDS ORDERED: ASPIRIN 325 MG TAB PO SCH (09:00)
--- NOTE | 2019-01-05 11:54 | P.CRDCN ---
History of Present Illness History of present illness: This is a pleasant 58-year-old male past medical history significant for coronary artery disease status post stent placement, history of DVT in left lower extremity, dyslipidemia, obstructive sleep apnea regular CPAP use and chronic nicotine dependence. We have been asked to see him in consultation secondary to chest discomfort. He follows in the office with Dr. Rodriguez. He states yesterday while driving he had an acute onset of a sharp pain in the left axillary region associated with intense sweaty and flushed". The symptoms persisted for approximately 3-4 minutes and ultimately subsided on their own. This was not associated with shortness of breath, dizziness, nausea, vomiting or palpitations. He is seen and examined sitting up in bed in no acute distress he has had no further symptoms of chest discomfort. EKG reveals sinus mechanism with a first-degree AV block. No acute ST or T wave abnormalities noted. Chest x-ray negative for an acute cardiopulmonary process. Laboratory data reviewed, CBC unremarkable, d-dimer 1.21, sodium 139, potassium 4.3, creatinine 0.99, GFR 84, magnesium 2.0, cardiac enzymes negative 3, LDL 61. Current cardiac medications include aspirin 81 mg daily and atorvastatin 20 mg daily., Most recent stress test performed in the office with a Lexiscan stress test in 2014 was negative for reversible cardiac ischemia. At the time of my exam: CONSTITUTIONAL: Denies fever. Denies chills. EYES: Denies blurred vision. Denies vision changes. Denies eye pain. EARS, NOSE, MOUTH & THROAT: Denies headache. Denies sore throat. Denies ear pain. CARDIOVASCULAR: Denies chest pain. Denies shortness of breath. Denies orthopnea. Denies PND. Denies palpitations. RESPIRATORY: Denies cough. GASTROINTESTINAL: Denies abdominal pain. Denies diarrhea. Denies constipation. Denies nausea. Denies vomiting. MUSCULOSKELETAL: Denies myalgias. INTEGUMENTARY: Denies pruitis. Denies rash. NEUROLOGIC: Denies numbness. Denies tingling. Denies weakness. PSYCHIATRIC: Denies anxiety. Denies depression. ENDOCRINE: Denies fatigue. Denies weight change. Denies polydipsia. Denies polyurina. GENITOURINARY: Denies burning, hematuria or urgency with micturation. HEMATOLOGIC: Denies history of anemia. Denies bleeding. Blood pressure 113/68 heart rate 60 afebrile maintaining oxygen saturation on room air GENERAL: This is a 58-year-old male in no apparent distress at the time of my examination. HEENT: Head is atraumatic, normocephalic. Pupils are equal, round. Sclerae anicteric. Conjunctivae are clear. Mucous membranes of the mouth are moist. Neck is supple. There is no jugular venous distention. No carotid bruit is heard. LUNGS: Clear to auscultation no wheezes, rales or rhonchi. No chest wall tenderness is noted on palpation or with deep breathing. HEART: Regular rate and rhythm without murmurs, rubs or gallops. S1 and S2 heard. ABDOMEN: Soft, nontender. Bowel sounds are heard. No organomegaly noted. EXTREMITIES: No evidence of peripheral edema and no calf tenderness noted. VASCULAR: Radial and dorsalis pedis pulses palpated, no evidence of clubbing. NEUROLOGIC: Patient is awake, alert and oriented x3. ASSESSMENT Chest pain, atypical. An acute coronary event has been ruled out. 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 Follows with a vascular surgeon. Obstructive sleep apnea Chronic nicotine dependence PLAN An acute coronary event has been ruled out. Recommend bilateral lower extremity venous duplex to assess for recurrence of DVT, the patient is declining and states he wants to follow with his physician as an outpatient. Discussion with the patient regarding proceeding with stress testing and he would prefer to do this as an outpatient in the office Dr. Rodriguez. This is a reasonable request. We will make sure he has an appointment to see him in the office next week. Thank you kindly for this consultation. Nurse Practitioner note has been reviewed, I agree with a documented findings and plan of care. Patient was seen and examined. Past Medical History Past Medical History: Coronary Artery Disease (CAD), Chest Pain / Angina, Deep Vein Thrombosis (DVT), GERD/Reflux, Hyperlipidemia, Myocardial Infarction ([place]), Sleep Apnea/CPAP/BIPAP Additional Past Medical History / Comment(s): DVT 2002, uses CPAP Last Myocardial Infarction Date:: 08/2006 History of Any Multi-Drug Resistant Organisms: None Reported Past Surgical History: Heart Catheterization With Stent Additional Past Surgical History / Comment(s): left leg surgery r/t DVT, ORIF right femur septal deviation surgery in 2015, varicose vein removal in the left leg. Past Anesthesia/Blood Transfusion Reactions: No Reported Reaction Additional Past Anesthesia/Blood Transfusion Reaction / Comment(s): no previous transfusion Date of Last Stent Placement:: 2006 Past Psychological History: Anxiety Smoking Status: Former smoker Past Alcohol Use History: None Reported Additional Past Alcohol Use History / Comment(s): Patient was a smoker of half pack cigarette for 26 years and quit in 2014. He denies alcohol use. He denies any drug use or abuse. 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 Past Drug Use History: None Reported - Past Family History Mother Family Medical History: COPD, Diabetes Mellitus, Myocardial Infarction ([place]) Additional Family Medical History / Comment(s): Mother at age 75 with history of hypertension, renal failure on dialysis, CVA 6, diabetes mellitus type 2, congestive heart failure and COPD. Patient does not know his father. He has no brothers or sisters. He is single and no children. Medications and Allergies Home Medications Medication Instructions Recorded Confirmed Type Aspirin EC [Ecotrin Low Dose] 81 mg PO DAILY 10/06/17 01/04/19 History Cholecalciferol [Vitamin D3 (25 5,000 unit PO DAILY 10/06/17 01/04/19 History Mcg = 1000 Iu)] Atorvastatin [Lipitor] 20 mg PO AC-SUPPER 01/04/19 01/04/19 History Allergies Allergy/AdvReac Type Severity Reaction Status Date / Time No Known Allergies Allergy Verified 01/04/19 17:12 Physical Exam Vitals: Vital Signs Temp Pulse Pulse Resp BP BP Pulse Ox 01/05/19 07:38 97.7 F 60 18 113/68 94 L 01/05/19 04:00 98.1 F 66 18 118/72 93 L 01/05/19 00:00 73 18 01/04/19 23:57 97.5 F L 73 18 124/68 98 01/04/19 20:30 75 18 01/04/19 20:25 97.6 F 75 18 132/70 99 01/04/19 20:00 77 113/62 94 L 01/04/19 18:30 77 18 126/73 95 01/04/19 18:00 80 18 147/86 96 01/04/19 17:30 70 13 148/84 96 01/04/19 17:24 74 20 148/84 97 01/04/19 16:40 97.3 F L 84 16 128/67 97 Intake and Output 01/04/19 01/05/19 01/05/19 22:59 06:59 14:59 Intake Total 200 Balance 200 Intake: Oral 200 Other: # Voids 1 Weight 88.451 kg Results 01/04/19 17:08 01/04/19 17:08 Cardiac Enzymes 01/04/19 01/04/19 01/04/19 Range/Units 17:08 17:08 23:11 AST 21 (17-59) U/L Troponin I <0.012 <0.012 (0.000-0.034) ng/mL 01/05/19 Range/Units 05:36 AST (17-59) U/L Troponin I <0.012 (0.000-0.034) ng/mL Coagulation 01/04/19 Range/Units 17:08 PT 10.6 (9.0-12.0) sec APTT 22.4 (22.0-30.0) sec Lipids 01/05/19 Range/Units 05:36 Triglycerides 67 (<150) mg/dL Cholesterol 107 (<200) mg/dL HDL Cholesterol 33 L (40-60) mg/dL CBC 01/04/19 Range/Units 17:08 WBC 7.3 (3.8-10.6) k/uL RBC 4.55 (4.30-5.90) m/uL Hgb 13.6 (13.0-17.5) gm/dL Hct 42.6 (39.0-53.0) % Plt Count 269 (150-450) k/uL Comprehensive Metabolic Panel 01/04/19 Range/Units 17:08 Sodium 139 (137-145) mmol/L Potassium 4.3 (3.5-5.1) mmol/L Chloride 103 (98-107) mmol/L Carbon Dioxide 25 (22-30) mmol/L BUN 21 H (9-20) mg/dL Creatinine 0.99 (0.66-1.25) mg/dL Glucose 95 (74-99) mg/dL Calcium 9.6 (8.4-10.2) mg/dL AST 21 (17-59) U/L ALT 26 (21-72) U/L Alkaline Phosphatase 82 (38-126) U/L Total Protein 7.7 (6.3-8.2) g/dL Albumin 4.5 (3.5-5.0) g/dL Current Medications Generic Name Dose Route Start Last Admin Trade Name Freq PRN Reason Stop Dose Admin Aspirin 325 mg 01/05/19 09:00 Aspirin PO DAILY CHANDANA Nitroglycerin 0.4 mg 01/04/19 19:09 Nitrostat SUBLINGUAL Q5M PRN Chest Pain Nitroglycerin 1 inch 01/05/19 00:00 01/04/19 23:12 Nitro-Bid Oint TOPICAL Not Given Q6HR CHANDANA Sodium Chloride 10 ml 01/04/19 21:00 01/04/19 20:30 Saline Flush IV 10 ml BID CHANDANA Administration Intake and Output 01/04/19 01/05/19 01/05/19 22:59 06:59 14:59 Intake Total 200 Balance 200 Intake: Oral 200 Other: # Voids 1 Weight 88.451 kg 01/04/19 17:08 01/04/19 17:08
[2019-01-05 11:58] VITALS: BP 117/74; PULSE 64; TEMP 97.4
--- NOTE | 2019-01-05 12:30 | P.HPIM ---
History of Present Illness This is combined H&P and discharge summary Neck no disease Chest pain, evaluated by rigging up man and recommended outpatient follow-up Elevated d-dimer with negative CTA of the chest for pulmonary embolism History of coronary artery disease GERD Hyperlipidemia Sleep apnea on CPAP/BiPAP Remote history of deep venous thrombosis not on anticoagulation Hospital course: This is a pleasant 58 years old male with past medical history of coronary artery disease, deep venous thrombosis, GERD, hyperlipidemia, sleep apnea on CPAP/BiPAP. He presents because of chest pain who presents because of chest pain. Patient states that chest pain on the left lateral side, nonradiating, nonspecific about 6-7/10 in severity thus completely resolved now Patient underwent chest CTA of the thorax showing no pulmonary embolism. Chest x-ray sh owing no acute process. Labs were unremarkable. Serial troponins were negative Patient has been evaluated by rigging up man, his chest pain has resolved and rigging up man commended patient can have a stress test and Doppler of the lower extremity to rule out recurrent DVT, however patient declined to do these tests in the hospital and wants to be discharged and follow-up as an outpatient. Risks benefits and alternatives are explained to the patient including but not limited to the risk of and he verbalized understanding of her distal wants to do the studies as an outpatient. On the time of discharge patient denies chest pain or dyspnea, no change in urine or bowel habits, no abdominal pain, no nausea or vomiting. No fever Problems and management plan were discussed with the patient and he verbalized understanding and acceptance Patient was found stable and can be discharged home however he needs follow-up as an outpatient. Patient was instructed to follow up with PCP within one week and patient agrees. Patient agrees with that appointment and timing with his rigging up man assessment follow-up Gen: patient is a AAOx3, no distress CVS: S1-S2, RRR, no murmur Lungs: B/L CTA, no wheezing Abdomen: soft, no distention, no tenderness, positive bowel sounds Extremity: no leg edema or induration Time spent more than 35 minutes Past Medical History Past Medical History: Coronary Artery Disease (CAD), Chest Pain / Angina, Deep Vein Thrombosis (DVT), GERD/Reflux, Hyperlipidemia, Myocardial Infarction ([place]), Sleep Apnea/CPAP/BIPAP Additional Past Medical History / Comment(s): DVT 2002, uses CPAP Last Myocardial Infarction Date:: 08/2006 History of Any Multi-Drug Resistant Organisms: None Reported Past Surgical History: Heart Catheterization With Stent Additional Past Surgical History / Comment(s): left leg surgery r/t DVT, ORIF right femur septal deviation surgery in 2015, varicose vein removal in the left leg. Past Anesthesia/Blood Transfusion Reactions: No Reported Reaction Additional Past Anesthesia/Blood Transfusion Reaction / Comment(s): no previous transfusion Date of Last Stent Placement:: 2006 Past Psychological History: Anxiety Smoking Status: Former smoker Past Alcohol Use History: None Reported Additional Past Alcohol Use History / Comment(s): Patient was a smoker of half pack cigarette for 26 years and quit in 2014. He denies alcohol use. He denies any drug use or abuse. 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 Past Drug Use History: None Reported - Past Family History Mother Family Medical History: COPD, Diabetes Mellitus, Myocardial Infarction ([place]) Additional Family Medical History / Comment(s): Mother at age 75 with history of hypertension, renal failure on dialysis, CVA 6, diabetes mellitus type 2, congestive heart failure and COPD. Patient does not know his father. He has no brothers or sisters. He is single and no children. Medications and Allergies Home Medications Medication Instructions Recorded Confirmed Type Aspirin EC [Ecotrin Low Dose] 81 mg PO DAILY 10/06/17 01/04/19 History Cholecalciferol [Vitamin D3 (25 5,000 unit PO DAILY 10/06/17 01/04/19 History Mcg = 1000 Iu)] Atorvastatin [Lipitor] 20 mg PO AC-SUPPER 01/04/19 01/04/19 History Nitroglycerin Sl Tabs [Nitrostat] 0.4 mg SUBLINGUAL Q5M PRN #20 tab 01/05/19 Rx Allergies Allergy/AdvReac Type Severity Reaction Status Date / Time No Known Allergies Allergy Verified 01/04/19 17:12 Physical Exam Vitals: Vital Signs Temp Pulse Pulse Resp BP BP Pulse Ox 01/05/19 11:56 97.4 F L 64 18 117/74 96 01/05/19 07:38 97.7 F 60 18 113/68 94 L 01/05/19 04:00 98.1 F 66 18 118/72 93 L 01/05/19 00:00 73 18 01/04/19 23:57 97.5 F L 73 18 124/68 98 01/04/19 20:30 75 18 01/04/19 20:25 97.6 F 75 18 132/70 99 01/04/19 20:00 77 113/62 94 L 01/04/19 18:30 77 18 126/73 95 01/04/19 18:00 80 18 147/86 96 01/04/19 17:30 70 13 148/84 96 01/04/19 17:24 74 20 148/84 97 01/04/19 16:40 97.3 F L 84 16 128/67 97 Intake and Output 01/04/19 01/05/19 01/05/19 22:59 06:59 14:59 Intake Total 200 Balance 200 Intake: Oral 200 Other: Voiding Method Toilet # Voids 1 Weight 88.451 kg Results CBC & Chem 7: 01/04/19 17:08 01/04/19 17:08 Labs: Abnormal Lab Results - Last 24 Hours (Table) 01/04/19 01/04/19 01/05/19 Range/Units 17:08 17:08 05:36 D-Dimer 1.21 H (<0.60) mg/L FEU BUN 21 H (9-20) mg/dL HDL Cholesterol 33 L (40-60) mg/dL Thrombosis Risk Factor Assmnt - Choose All That Apply Any of the Below Risk Factors Present?: Yes Each Factor Represents 1 point: Acute IA, Age 41-60 years, Obesity (BMI >25) Other Risk Factors: No Other congenital or acquired thrombophilia - If yes, enter type in comment: No Thrombosis Risk Factor Assessment Total Risk Factor Score: 3 Thrombosis Risk Factor Assessment Level: Moderate Risk
[2019-01-06] MEDS ORDERED: ASPIRIN 81 MG PO SCH (09:00)
== END 2019-01-05 12:45 | disposition home or self-care (01) ==
LOC: EC 16:36 → 1SOBS 19:11
PROVIDERS: ADMIT Internal Medicine; ATTEND Internal Medicine
DX: R07.89 Other chest pain (principal); R79.89 Other specified abnormal findings of blood chemistry; R61 Generalized hyperhidrosis; I25.10 Atherosclerotic heart disease of native coronary artery without angina pectoris; E78.5 Hyperlipidemia, unspecified; K21.9 Gastro-esophageal reflux disease without esophagitis; I44.0 Atrioventricular block, first degree; G47.33 Obstructive sleep apnea (adult) (pediatric); E66.9 Obesity, unspecified; Z68.29 Body mass index [BMI] 29.0-29.9, adult; F41.9 Anxiety disorder, unspecified; R23.2 Flushing; R22.42 Localized swelling, mass and lump, left lower limb; Z79.82 Long term (current) use of aspirin; Z79.899 Other long term (current) drug therapy; I25.2 Old myocardial infarction; Z86.718 Personal history of other venous thrombosis and embolism; Z99.89 Dependence on other enabling machines and devices; Z87.891 Personal history of nicotine dependence; Z95.5 Presence of coronary angioplasty implant and graft; Z83.3 Family history of diabetes mellitus; Z82.5 Family history of asthma and other chronic lower respiratory diseases; Z82.49 Family history of ischemic heart disease and other diseases of the circulatory system; Z82.3 Family history of stroke; Z84.1 Family history of disorders of kidney and ureter
CPT/HCPCS: 99285; 36415; 93005; 85379; 80061; 80053; 83735; 84484 ×2; 85025; 85610; 85730; 71046; 71275; G0378 ×2; Q9967

== ENCOUNTER → 2019-01-31 | Outpatient (CLI) | payer MEDICARE ==
--- NOTE | 2019-02-01 05:54 | MR ---
EXAMINATION TYPE: MR humerus LT wo con DATE OF EXAM: 01/31/2019 COMPARISON: None HISTORY: Pain in left shoulder /Left arm pain Standard multiplanar, multisequence MRI departmental protocol Multiplanar, multisequence images of the left humerus were acquired. FINDINGS: Left humerus has fairly normal signal pattern. There is no bone edema. There is no evidence of a fracture. I see no evidence of soft tissue mass. Muscle structures have normal signal pattern. There is no pathologic fluid collection. Elbow joint is not included on the exam. Shoulder joint appe ars anatomic. IMPRESSION: Negative MR scan of the left humerus. No fracture. No evidence of a mass.
== END | disposition home or self-care (01) ==
LOC: RADMRIMAIN 14:54
PROVIDERS: ATTEND Orthopaedic Surgery Sports Medicine
DX: M25.512 Pain in left shoulder (principal)

== ENCOUNTER → 2019-04-26 | Outpatient (CLI) | payer MEDICARE ==
--- NOTE | 2019-04-26 22:41 | CT ---
EXAMINATION TYPE: CT humerus LT wo con DATE OF EXAM: 04/26/2019 COMPARISON: MRI 01/31/2019 HISTORY: 58-year-old male with neoplasm of connective tissue, left-sided arm pain TECHNIQUE: Contiguous axial scanning of the left humerus without IV contrast. Coronal and sagittal re constructions performed. 3-D reconstructions generated on a dedicated independent workstation. CT DLP: 1275 mGycm Automated exposure control for dose reduction was used. FINDINGS: There is a 4.7 cm craniocaudal by 1.8 cm AP by 1.0 cm wide bony projection that seems to extend anter iorly from the lateral crest of the lower bicipital groove. Possible inserting fibers of the pectoral is major here, refer to axial image 43. The bony projection shows some chronic fragmentation. Adjacent mild cortical irregularity along the anterior margin of the upper humeral shaft. No suspicious periostitis or lytic destruction or evident soft tissue component. Moderate degenerative joint space narrowing at the AC joint. No atrophy of the rotator cuff musculature. Subacromial spaces preserved. Visualized left hemithorax is clear. IMPRESSION: 1. A 4.7 X 1.8 X 1.0 CM CHRONICALLY FRAGMENTED, BONY PROJECTION EXTENDING ANTERIORLY FROM THE LATERAL CREST OF THE LOWER BICIPITAL GROOVE. FINDINGS COULD REPRESENT CHRONIC AVULSION FRAGMENT OR HETEROTOP IC OSSIFICATION RELATING TO PRIOR INJURY TO THE PECTORALIS MAJOR INSERTION. CHRONICALLY FRACTURED OST EOCHONDROMA IS ALSO A LIKELY CONSIDERATION SUGGESTED ON THE 01/31/2019 MRI. 2. NO SUSPICIOUS SOFT TISSUE COMPONENT, SUSPICIOUS PERIOSTITIS, OR LYTIC DESTRUCTION.
== END | disposition home or self-care (01) ==
LOC: RADCTMAIN 14:14
PROVIDERS: ATTEND Surgery Surgical Oncology
DX: D48.1 Neoplasm of uncertain behavior of connective and other soft tissue (principal)

== ENCOUNTER → 2019-05-18 | Outpatient (CLI) | payer MEDICARE ==
--- NOTE | 2019-05-18 19:59 | MR ---
MR left humerus within without contrast HISTORY: D 48.1, pain Multiplanar multisequence and postcontrast images obtained through the proximal left humerus followin g 8.5 cc Gadavist IV Correlation to prior CT humerus 04/26/2019, MR left humerus 01/31/2019 The previously described excrescence at the level of the proximal humerus is again noted and is likel y related to chronic avulsion fragment with or without heterotopic ossification related to prior inju ry to the pectoralis major insertion. Excrescence extends medially along the course of the expected t endinous insertion of the pectoralis major. Fragmented appearance is again seen. There is no associat ed soft tissue mass or cartilage cap to suggest osteochondroma. Bone marrow signal is maintained. No abnormal enhancement following contrast menstruation. Soft tissues are otherwise unremarkable. IMPRESSION: Stable findings as described.
== END | disposition home or self-care (01) ==
LOC: RADMRIMAIN 14:38
PROVIDERS: ATTEND Surgery Surgical Oncology
DX: D48.1 Neoplasm of uncertain behavior of connective and other soft tissue (principal)
CPT/HCPCS: 73220; A9585

== ENCOUNTER 2019-12-24 07:52 | Emergency (ER) | payer MEDICARE ==
[2019-12-24 07:57] VITALS: TEMP 97.5
[2019-12-24] MEDS ORDERED: MAG HYDROX/AL HYDROX/SIMETH 30 ML, HYOSCYAMINE ELIXIR 10 ML PO STA ×2 (08:06)
[2019-12-24] MEDS ORDERED: FAMOTIDINE 20 MG/2 ML VIAL IV STA (08:06)
--- NOTE | 2019-12-24 08:09 | ED ---
General Adult HPI - General Chief complaint: Chest Pain Stated complaint: poss hernia Time Seen by Provider: 12/24/19 07:59 Source: patient, RN notes reviewed Mode of arrival: ambulatory Limitations: no limitations - History of Present Illness Initial comments: This is a 59-year-old male presents emergency from chief complaint reflux. Patient states she's been having issues over the last several weeks. Patient did see his primary care physician days ago was placed on Protonix. Patient states has not helped. Patient states he has been changing his diet and states his [place] strides to improve his symptoms states that he went to bed feeling well woke up around 6 and was having heartburn again. Patient states he always has it at nighttime does not feel daytime. Denies any current chest pain he states he just has not stomach, burning sensation. Patient denies fevers or chills no shortness of breath he does have prior cardiac history including the sent and is on hyperlipidemia meds. Patient denies any melena, hematochezia no diarrhea no constipation. - Related Data Home Medications Medication Instructions Recorded Confirmed Aspirin EC [Ecotrin Low Dose] 81 mg PO DAILY 10/06/17 01/04/19 Cholecalciferol [Vitamin D3 (25 5,000 unit PO DAILY 10/06/17 01/04/19 Mcg = 1000 Iu)] Atorvastatin [Lipitor] 20 mg PO AC-SUPPER 01/04/19 01/04/19 Previous Rx's Medication Instructions Recorded Nitroglycerin Sl Tabs [Nitrostat] 0.4 mg SUBLINGUAL Q5M PRN #20 tab 01/05/19 Allergies Allergy/AdvReac Type Severity Reaction Status Date / Time No Known Allergies Allergy Verified 12/24/19 07:57 Review of Systems ROS Statement: Those systems with pertinent positive or pertinent negative responses have been documented in the HPI. ROS Other: All systems not noted in ROS Statement are negative. Past Medical History Past Medical History: Coronary Artery Disease (CAD), Chest Pain / Angina, Deep Vein Thrombosis (DVT), GERD/Reflux, Hyperlipidemia, Myocardial Infarction (SC), Sleep Apnea/CPAP/BIPAP Additional Past Medical History / Comment(s): DVT 2002, uses CPAP Last Myocardial Infarction Date:: 08/2006 History of Any Multi-Drug Resistant Organisms: None Reported Past Surgical History: Heart Catheterization With Stent Additional Past Surgical History / Comment(s): left leg surgery r/t DVT, ORIF right femur septal deviation surgery in 2015, varicose vein removal in the left leg. Past Anesthesia/Blood Transfusion Reactions: No Reported Reaction Additional Past Anesthesia/Blood Transfusion Reaction / Comment(s): no previous transfusion Date of Last Stent Placement:: 2006 Past Psychological History: Anxiety Smoking Status: Former smoker Past Alcohol Use History: None Reported Past Drug Use History: None Reported - Past Family History Mother Family Medical History: COPD, Diabetes Mellitus, Myocardial Infarction (SC) Additional Family Medical History / Comment(s): Mother at age 75 with history of hypertension, renal failure on dialysis, CVA 6, diabetes mellitus type 2, congestive heart failure and COPD. Patient does not know his father. He has no brothers or sisters. He is single and no children. General Exam Limitations: no limitations General appearance: alert, in no apparent distress Head exam: Present: atraumatic, normocephalic, normal inspection Eye exam: Present: normal appearance, PERRL, EOMI. Absent: scleral icterus, conjunctival injection, periorbital swelling ENT exam: Present: normal exam, normal oropharynx, mucous membranes moist Neck exam: Present: normal inspection, full ROM. Absent: tenderness, meningismus, lymphadenopathy Respiratory exam: Present: normal lung sounds bilaterally. Absent: respiratory distress, wheezes, rales, rhonchi, stridor Cardiovascular Exam: Present: regular rate, normal rhythm, normal heart sounds. Absent: systolic murmur, diastolic murmur, rubs, gallop, clicks GI/Abdominal exam: Present: soft, tenderness (Mild epigastric), normal bowel sounds. Absent: distended, guarding, rebound, rigid Neurological exam: Present: alert, oriented X3 Skin exam: Present: warm, dry, intact, normal color. Absent: rash Course Vital Signs 12/24/19 12/24/19 07:55 09:00 Temperature 97.5 F L Pulse Rate 78 68 Respiratory 16 18 Rate Blood Pressure 128/78 110/82 O2 Sat by Pulse 99 95 Oximetry EKG Findings - EKG Comments: EKG Findings:: EKG performed at 8:10 sinus rhythm with first-degree block rate of 74 FL 222 QRS 94 QT/QTC 394/437 - EKG Results: EKG: interpreted by [facility] Medical Decision Making - Medical Decision Making 59-year-old male presented for epigastric some, burning feeling. Recent diagnosis of GERD patient's improved after GI cocktail there are still concerns about possible atypical chest pain but patient does not want to stay in the spital. Patient will be discharged he will follow-up with PCP tomorrow return for any worsening symptoms. - Lab Data Result diagrams: 12/24/19 08:14 12/24/19 08:14 Lab Results 12/24/19 12/24/19 12/24/19 Range/Units 08:14 08:14 08:14 WBC 5.6 (3.8-10.6) k/uL RBC 4.70 (4.30-5.90) m/uL Hgb 13.8 (13.0-17.5) gm/dL Hct 41.7 (39.0-53.0) % MCV 88.8 (80.0-100.0) fL MCH 29.3 (25.0-35.0) pg MCHC 33.1 (31.0-37.0) g/dL RDW 12.5 (11.5-15.5) % Plt Count 249 (150-450) k/uL Neutrophils % 59 % Lymphocytes % 29 % Monocytes % 7 % Eosinophils % 2 % Basophils % 1 % Neutrophils # 3.4 (1.3-7.7) k/uL Lymphocytes # 1.6 (1.0-4.8) k/uL Monocytes # 0.4 (0-1.0) k/uL Eosinophils # 0.1 (0-0.7) k/uL Basophils # 0.0 (0-0.2) k/uL PT (9.0-12.0) sec INR (<1.2) APTT (22.0-30.0) sec Sodium 139 (137-145) mmol/L Potassium 4.2 (3.5-5.1) mmol/L Chloride 106 (98-107) mmol/L Carbon Dioxide 24 (22-30) mmol/L Anion Gap 9 mmol/L BUN 22 H (9-20) mg/dL Creatinine 0.95 (0.66-1.25) mg/dL Est GFR (CKD-EPI)AfAm >90 (>60 ml/min/1.73 sqM) Est GFR (CKD-EPI)NonAf 88 (>60 ml/min/1.73 sqM) Glucose 104 H (74-99) mg/dL Calcium 9.6 (8.4-10.2) mg/dL Magnesium 1.9 (1.6-2.3) mg/dL Total Bilirubin 1.0 (0.2-1.3) mg/dL AST 21 (17-59) U/L ALT 15 (4-49) U/L Alkaline Phosphatase 62 (38-126) U/L Troponin I <0.012 (0.000-0.034) ng/mL Total Protein 7.3 (6.3-8.2) g/dL Albumin 4.6 (3.5-5.0) g/dL Lipase 108 (23-300) U/L 12/24/19 Range/Units 08:36 WBC (3.8-10.6) k/uL RBC (4.30-5.90) m/uL Hgb (13.0-17.5) gm/dL Hct (39.0-53.0) % MCV (80.0-100.0) fL MCH (25.0-35.0) pg MCHC (31.0-37.0) g/dL RDW (11.5-15.5) % Plt Count (150-450) k/uL Neutrophils % % Lymphocytes % % Monocytes % % Eosinophils % % Basophils % % Neutrophils # (1.3-7.7) k/uL Lymphocytes # (1.0-4.8) k/uL Monocytes # (0-1.0) k/uL Eosinophils # (0-0.7) k/uL Basophils # (0-0.2) k/uL PT 10.7 (9.0-12.0) sec INR 1.0 (<1.2) APTT 20.3 L (22.0-30.0) sec Sodium (137-145) mmol/L Potassium (3.5-5.1) mmol/L Chloride (98-107) mmol/L Carbon Dioxide (22-30) mmol/L Anion Gap mmol/L BUN (9-20) mg/dL Creatinine (0.66-1.25) mg/dL Est GFR (CKD-EPI)AfAm (>60 ml/min/1.73 sqM) Est GFR (CKD-EPI)NonAf (>60 ml/min/1.73 sqM) Glucose (74-99) mg/dL Calcium (8.4-10.2) mg/dL Magnesium (1.6-2.3) mg/dL Total Bilirubin (0.2-1.3) mg/dL AST (17-59) U/L ALT (4-49) U/L Alkaline Phosphatase (38-126) U/L Troponin I (0.000-0.034) ng/mL Total Protein (6.3-8.2) g/dL Albumin (3.5-5.0) g/dL Lipase (23-300) U/L Disposition Clinical Impression: GERD (gastroesophageal reflux disease) Disposition: HOME SELF-CARE Condition: Stable Instructions (If sedation given, give patient instructions): Gastroesophageal Reflux Disease (DC) Additional Instructions: Please return to the Emergency Department if symptoms worsen or any other concerns. Is patient prescribed a controlled substance at d/c from ED?: No Referrals: Jona Jaramillo MD [Primary Care Provider] - 1-2 days Time of Disposition: 09:31
[2019-12-24 08:33] LABS: Basophils % (A) 1 %; Eosinophils # (A) 0.1 k/uL (0-0.7); Eosinophils % (A) 2 %; HCT 41.7 % (39.0-53.0); HGB 13.8 gm/dL (13.0-17.5); Lymphocytes # (A) 1.6 k/uL (1.0-4.8); Lymphocytes % (A) 29 %; MCH 29.3 pg (25.0-35.0); MCHC 33.1 g/dL (31.0-37.0); MCV 88.8 fL (80.0-100.0); Mean Platelet Volume 6.8; Monocytes # (A) 0.4 k/uL (0-1.0); Monocytes % (A) 7 %; Neutrophils # (A) 3.4 k/uL (1.3-7.7); Neutrophils % (A) 59 %; Platelet Count 249 k/uL (150-450); RDW 12.5 % (11.5-15.5); WBC 5.6 k/uL (3.8-10.6)
[2019-12-24 08:43] LABS: ALT 15 U/L (4-49); AST 21 U/L (17-59); African American GFR (CKD) >90 (>60 ml/min/1.73 sqM); Albumin 4.6 g/dL (3.5-5.0); Alkaline Phosphatase 62 U/L (38-126); Anion Gap 9 mmol/L; Blood Urea Nitrogen 22 mg/dL (9-20); Calcium 9.6 mg/dL (8.4-10.2); Carbon Dioxide 24 mmol/L (22-30); Chloride 106 mmol/L (98-107); Glucose 104 mg/dL (74-99); Magnesium 1.9 mg/dL (1.6-2.3); Non-African American GFR(CKD) 88 (>60 ml/min/1.73 sqM); Potassium 4.2 mmol/L (3.5-5.1); Sodium 139 mmol/L (137-145); Total Protein 7.3 g/dL (6.3-8.2)
--- NOTE | 2019-12-24 08:45 | XR ---
EXAMINATION TYPE: XR chest 2V DATE OF EXAM: 12/24/2019 COMPARISON: 01/04/2019 INDICATION: Heartburn acid reflux chest pain TECHNIQUE: Frontal and lateral views of the chest are obtained. FINDINGS: The heart size is normal. The pulmonary vasculature is normal. The lungs are clear. IMPRESSION: 1. No acute pulmonary process.
[2019-12-24 09:11] LABS: Prothrombin Time 10.7 sec (9.0-12.0)
[2019-12-24 09:12] LABS: Partial Thromboplastin Time 20.3 sec (22.0-30.0)
[2019-12-24 09:51] VITALS: BP 115/70; PULSE 71; RESP 16
== END 2019-12-24 09:52 | disposition home or self-care (01) ==
LOC: EC 07:52
DX: K21.9 Gastro-esophageal reflux disease without esophagitis (principal); E78.5 Hyperlipidemia, unspecified; I25.119 Atherosclerotic heart disease of native coronary artery with unspecified angina pectoris; I25.2 Old myocardial infarction; R07.9 Chest pain, unspecified; G47.30 Sleep apnea, unspecified; Z79.82 Long term (current) use of aspirin; Z79.899 Other long term (current) drug therapy; Z82.49 Family history of ischemic heart disease and other diseases of the circulatory system; Z86.718 Personal history of other venous thrombosis and embolism; Z99.89 Dependence on other enabling machines and devices; Z95.5 Presence of coronary angioplasty implant and graft; Z87.891 Personal history of nicotine dependence
CPT/HCPCS: 36415; 71046; 80053; 83690; 83735; 84484; 85025; 85610; 85730; 96374; 99285

== ENCOUNTER 2021-05-27 08:17 | Observation (INO) | payer MEDICARE ==
[2021-05-27] MEDS ORDERED: LORazepam 2 MG/ML INJ IV STA (08:30)
[2021-05-27] MEDS ORDERED: NITROGLYCERIN OINT 1 INCH/GM PACKET TOPICAL STA (08:46)
[2021-05-27] MEDS ORDERED: ASPIRIN 81 MG PO STA (08:46)
--- NOTE | 2021-05-27 08:52 | ED ---
General Adult HPI - General Chief complaint: Chest Pain Stated complaint: chest pain Time Seen by Provider: 05/27/21 08:20 Source: patient, RN notes reviewed, old records reviewed Mode of arrival: ambulatory Limitations: no limitations - History of Present Illness Initial comments: This is a 60-year-old male who presents emergency Department with a past medical history significant for high cholesterol and a heart attack in the past. Patient also states he has a clot in his left calf. Patient states he has had a clot previously but he was taken off his anticoagulants years ago. Patient states today he was going to see his doctor for repeat ultrasound when he started expressing chest pain in the center of his chest. Patient states it lasted about 5 minutes he denied any radiation denied any difficulty breathing shortness of breath. Patient states he heard a taken 2 baby aspirin earlier today so he took nothing else at that time. Patient denied any recent fever chills or cough. Patient states the pain lasted for about 5-10 minutes. Bryant huynh denied abdominal pain patient denies nausea vomiting diarrhea. - Related Data Home Medications Medication Instructions Recorded Confirmed Aspirin EC [Ecotrin Low Dose] 81 mg PO PC-BRKFST 10/06/17 05/27/21 Atorvastatin [Lipitor] 20 mg PO PC-SUPPER 01/04/19 05/27/21 Cholecalciferol [Vitamin D3 (125 125 mcg PO PC-BRKFST 05/27/21 05/27/21 Mcg = 5000 Iu)] Pantoprazole [Protonix] 40 mg PO AC-BID 05/27/21 05/27/21 Allergies Allergy/AdvReac Type Severity Reaction Status Date / Time No Known Allergies Allergy Verified 05/27/21 09:09 Review of Systems ROS Statement: Those systems with pertinent positive or pertinent negative responses have been documented in the HPI. ROS Other: All systems not noted in ROS Statement are negative. Past Medical History Past Medical History: Coronary Artery Disease (CAD), Chest Pain / Angina, Deep Vein Thrombosis (DVT), GERD/Reflux, Hyperlipidemia, Myocardial Infarction (SC), Sleep Apnea/CPAP/BIPAP Additional Past Medical History / Comment(s): DVT 2002, uses CPAP Last Myocardial Infarction Date:: 08/2006 History of Any Multi-Drug Resistant Organisms: None Reported Past Surgical History: Heart Catheterization With Stent Additional Past Surgical History / Comment(s): left leg surgery r/t DVT, ORIF right femur septal deviation surgery in 2015, varicose vein removal in the left leg. Past Anesthesia/Blood Transfusion Reactions: No Reported Reaction Additional Past Anesthesia/Blood Transfusion Reaction / Comment(s): no previous transfusion Date of Last Stent Placement:: 2006 Past Psychological History: Anxiety Smoking Status: Former smoker Past Alcohol Use History: None Reported Past Drug Use History: None Reported - Past Family History Mother Family Medical History: COPD, Diabetes Mellitus, Myocardial Infarction (SC) Additional Family Medical History / Comment(s): Mother at age 75 with history of hypertension, renal failure on dialysis, CVA 6, diabetes mellitus type 2, congestive heart failure and COPD. Patient does not know his father. He has no brothers or sisters. He is single and no children. General Exam - General Exam Comments Initial Comments: GENERAL: Patient is well-developed and well-nourished. Patient is nontoxic and well- hydrated and is in no acute distress. ENT: Neck is soft and supple. No significant lymphadenopathy is noted. Oropharynx is clear. Moist mucous membranes. Neck has full range of motion without eliciting any pain. EYES: The sclera were anicteric and conjunctiva were pink and moist. Extraocular movements were intact and pupils were equal round and reactive to light. Eyelids were unremarkable. PULMONARY: Unlabored respirations. Good breath sounds bilaterally. No audible rales rhonchi or wheezing was noted. CARDIOVASCULAR: There is a regular rate and rhythm without any murmurs gallops or rubs. ABDOMEN: Soft and nontender with normal bowel sounds. SKIN: Skin is clear with no lesions or rashes and otherwise unremarkable. NEUROLOGIC: Patient is alert and oriented x3. Cranial nerves II through XII are grossly intact. Motor and sensory are also intact. Normal speech, volume and content. Symmetrical smile. MUSCULOSKELETAL: Normal extremities with adequate strength and full range of motion. Left leg looks swollen in comparison to the right. No calf tenderness. LYMPHATICS: No significant lymphadenopathy is noted PSYCHIATRIC: Normal psychiatric evaluation. Limitations: no limitations Course Vital Signs 05/27/21 05/27/21 05/27/21 08:19 09:36 11:32 Temperature 97.8 F 98.0 F Pulse Rate 74 68 75 Respiratory 18 16 18 Rate Blood Pressure 143/84 130/76 124/73 O2 Sat by Pulse 99 99 100 Oximetry Medical Decision Making - Medical Decision Making EKG shows sinus rhythm at 62 bpm SC interval is 263 QRS is 96 Q-T intervals 382 QTC is 390. Patient's EKG shows no ST segment elevation or depression. Ultrasound shows an acute blood clot in the saphenous vein right at the junction of the deep system. Patient was started on high dose heparin. I spoke with Dr. Fountain she agreed to admit the patient admitted the patient wrote admitting orders I consulted cardiology. - Lab Data Result diagrams: 05/27/21 09:00 05/27/21 09:00 Lab Results 05/27/21 05/27/21 05/27/21 Range/Units 09:00 09:00 09:00 WBC 4.5 (3.8-10.6) k/uL RBC 4.46 (4.30-5.90) m/uL Hgb 13.6 (13.0-17.5) gm/dL Hct 40.0 (39.0-53.0) % MCV 89.8 (80.0-100.0) fL MCH 30.4 (25.0-35.0) pg MCHC 33.9 (31.0-37.0) g/dL RDW 13.4 (11.5-15.5) % Plt Count 245 (150-450) k/uL MPV 6.4 Neutrophils % 65 % Lymphocytes % 23 % Monocytes % 7 % Eosinophils % 2 % Basophils % 0 % Neutrophils # 3.0 (1.3-7.7) k/uL Lymphocytes # 1.0 (1.0-4.8) k/uL Monocytes # 0.3 (0-1.0) k/uL Eosinophils # 0.1 (0-0.7) k/uL Basophils # 0.0 (0-0.2) k/uL PT 10.8 (9.0-12.0) sec INR 1.0 (<1.2) APTT 22.6 (22.0-30.0) sec Sodium 136 L (137-145) mmol/L Potassium 4.1 (3.5-5.1) mmol/L Chloride 103 (98-107) mmol/L Carbon Dioxide 27 (22-30) mmol/L Anion Gap 6 mmol/L BUN 16 (9-20) mg/dL Creatinine 0.96 (0.66-1.25) mg/dL Est GFR (CKD-EPI)AfAm >90 (>60 ml/min/1.73 sqM) Est GFR (CKD-EPI)NonAf 86 (>60 ml/min/1.73 sqM) Glucose 115 H (74-99) mg/dL Calcium 9.3 (8.4-10.2) mg/dL Magnesium 2.0 (1.6-2.3) mg/dL Total Bilirubin 1.1 (0.2-1.3) mg/dL AST 22 (17-59) U/L ALT 21 (4-49) U/L Alkaline Phosphatase 92 (38-126) U/L Troponin I (0.000-0.034) ng/mL Total Protein 7.2 (6.3-8.2) g/dL Albumin 4.1 (3.5-5.0) g/dL 05/27/21 Range/Units 09:00 WBC (3.8-10.6) k/uL RBC (4.30-5.90) m/uL Hgb (13.0-17.5) gm/dL Hct (39.0-53.0) % MCV (80.0-100.0) fL MCH (25.0-35.0) pg MCHC (31.0-37.0) g/dL RDW (11.5-15.5) % Plt Count (150-450) k/uL MPV Neutrophils % % Lymphocytes % % Monocytes % % Eosinophils % % Basophils % % Neutrophils # (1.3-7.7) k/uL Lymphocytes # (1.0-4.8) k/uL Monocytes # (0-1.0) k/uL Eosinophils # (0-0.7) k/uL Basophils # (0-0.2) k/uL PT (9.0-12.0) sec INR (<1.2) APTT (22.0-30.0) sec Sodium (137-145) mmol/L Potassium (3.5-5.1) mmol/L Chloride (98-107) mmol/L Carbon Dioxide (22-30) mmol/L Anion Gap mmol/L BUN (9-20) mg/dL Creatinine (0.66-1.25) mg/dL Est GFR (CKD-EPI)AfAm (>60 ml/min/1.73 sqM) Est GFR (CKD-EPI)NonAf (>60 ml/min/1.73 sqM) Glucose (74-99) mg/dL Calcium (8.4-10.2) mg/dL Magnesium (1.6-2.3) mg/dL Total Bilirubin (0.2-1.3) mg/dL AST (17-59) U/L ALT (4-49) U/L Alkaline Phosphatase (38-126) U/L Troponin I <0.012 (0.000-0.034) ng/mL Total Protein (6.3-8.2) g/dL Albumin (3.5-5.0) g/dL Disposition Clinical Impression: DVT (deep venous thrombosis), Unstable angina Disposition: ADMITTED IP TO THIS [facility] Referrals: Jona Jaramillo MD [Primary Care Provider] - 1-2 days Time of Disposition: 12:12
[2021-05-27 09:09] LABS: Basophils % (A) 0 %; Eosinophils # (A) 0.1 k/uL (0-0.7); Eosinophils % (A) 2 %; HGB 13.6 gm/dL (13.0-17.5); Lymphocytes % (A) 23 %; MCH 30.4 pg (25.0-35.0); MCHC 33.9 g/dL (31.0-37.0); MCV 89.8 fL (80.0-100.0); Mean Platelet Volume 6.4; Monocytes # (A) 0.3 k/uL (0-1.0); Monocytes % (A) 7 %; Neutrophils % (A) 65 %; Platelet Count 245 k/uL (150-450); RBC 4.46 m/uL (4.30-5.90); RDW 13.4 % (11.5-15.5); WBC 4.5 k/uL (3.8-10.6)
--- NOTE | 2021-05-27 09:12 | XR ---
EXAMINATION TYPE: XR chest 2V DATE OF EXAM: 05/27/2021 COMPARISON: Chest x-ray December 24, 2019 HISTORY: Chest pain today. TECHNIQUE: Frontal and lateral views of the chest are obtained. FINDINGS: There is no suspicious focal air space opacity, pleural effusion, or pneumothorax seen. T he cardiac silhouette size remains within normal limits. The osseous structures are intact. IMPRESSION: No acute process.
[2021-05-27 09:18] LABS: Partial Thromboplastin Time 22.6 sec (22.0-30.0); Prothrombin Time 10.8 sec (9.0-12.0)
[2021-05-27 09:19] LABS: ALT 21 U/L (4-49); AST 22 U/L (17-59); African American GFR (CKD) >90 (>60 ml/min/1.73 sqM); Albumin 4.1 g/dL (3.5-5.0); Alkaline Phosphatase 92 U/L (38-126); Anion Gap 6 mmol/L; Blood Urea Nitrogen 16 mg/dL (9-20); Calcium 9.3 mg/dL (8.4-10.2); Carbon Dioxide 27 mmol/L (22-30); Chloride 103 mmol/L (98-107); Glucose 115 mg/dL (74-99); Non-African American GFR(CKD) 86 (>60 ml/min/1.73 sqM); Potassium 4.1 mmol/L (3.5-5.1); Sodium 136 mmol/L (137-145); Total Bilirubin 1.1 mg/dL (0.2-1.3); Total Protein 7.2 g/dL (6.3-8.2)
[2021-05-27] MEDS ORDERED: HEPARIN SODIUM 1,000 UN/ML (10ML VL) IV ONE (12:10)
[2021-05-27] MEDS ORDERED: NITROGLYCERIN SL TABS 0.4 MG TAB SUBLINGUAL PRN (12:12)
[2021-05-27] MEDS: HEPARIN SOD,PORK IN 0.45% NACL 25,000 UNIT in 0.45% NACL 1 250ML.BAG IV SCH (12:31)
--- NOTE | 2021-05-27 12:54 | US ---
EXAMINATION TYPE: US venous doppler duplex LE LT DATE OF EXAM: 05/27/2021 10:54 AM COMPARISON: Venous Doppler dated 08/01/2017 CLINICAL HISTORY: DVT. h/o dvt 2018, pain in left thigh SIDE PERFORMED: Left TECHNIQUE: The lower extremity deep venous system is examined utilizing real time linear array sonog lenore with graded compression, doppler sonography and color-flow sonography. VESSELS IMAGED: Common Femoral Vein Deep Femoral Vein Greater Saphenous Vein * Femoral Vein Popliteal Vein Small Saphenous Vein * Proximal Calf Veins (* superficial vessels) Left Leg: Appearance of chronic nonocclusive DVT within popiteal vein, otherwise acute thrombus with in GSV seen extensively throughout leg and is very close to the GSV/CFV junction. IMPRESSION: Chronic nonocclusive DVT within the popliteal vein. Extensive acute thrombus within the g reater saphenous vein almost reaching the saphenofemoral junction. Patent remainder of the deep veins of the left lower extremity
--- NOTE | 2021-05-27 16:28 | P.HPIM ---
History of Present Illness H&P Date: 05/27/21 Chief Complaint: Chest pain 60 years old male with past medical history of hyperlipidemia, coronary artery disease, history of DVT in left leg around 2002 has been on Coumadin until 2012, history of GERD, hyperlipidemia, sleep apnea on CPAP at home comes in when the patient started experiencing chest pain while he was going to his appointment to his vascular physician for a repeat Doppler. This chest pain lasted 5 minutes but patient decided to come to the emergency room for evaluation. He did take 2 baby aspirin before he came to the hospital. He is currently denying any chest pain or shortness of breath, no nausea or vomiting or diarrhea. On evaluation in the emergency room, patient's vitals were reviewed afebrile pulse 68 respiratory rate 16 blood pressure 1:30/76 oxygenating at 99% on room air CBC is unremarkable on sodium 136 potassium 4.2 BUN 16 creatinine 0.96 troponin 2 negative EKG reviewed shows sinus rhythm with first-degree AV block. Venous Doppler shows chronic nonocclusive DVT within completely of vein extensive acute thrombus within the greater saphenous vein on was reaching the saphenofemoral junction. On further discussion patient does suggest that he is swelling involving the left lower extremity and has been seen the vascular surgeon as outpatient. No hypercoagulable workup has been done. ROS Constitutional: Denies chills, Denies fever, Denies lethargy, Denies malaise, Denies poor appetite, Denies weakness, Denies weight loss Eyes: denies decreased vision, denies diplopia, denies discharge, denies pain Ears: deny: decreased hearing Ears, nose, mouth and throat: Denies dental pain, Denies headache, Denies nasal discharge, Denies nose pain Cardiovascular: endorses chest pain, Denies decreased exercise tolerance, Denies edema, Denies high blood pressure, Denies irregular heart beat, Denies palpitations, Denies paroxysmal nocturnal dyspnea, Denies rapid heart beat, Denies shortness of breath Respiratory: Denies congestion, Denies cough, Denies cough with sputum, Denies dyspnea, Denies home oxygen, Denies wheezing Gastrointestinal: Denies abdominal pain, Denies change in bowel habits, Denies coffee ground emesis, Denies early satiety, Denies excessive gas, Denies heart burn, Denies hematemesis, Denies hematochezia, Denies loss of appetite, Denies nausea, Denies vomiting Genitourinary: Denies dysuria, Denies flank pain, Denies kidney stones, Denies menorrhagia, Denies urgency, Denies urinary frequency Musculoskeletal: Denies gait dysfunction, Denies limitation of motion, Denies morning stiffness, Denies muscle cramps Integumentary: Denies rash, Denies wounds, Denies brittle nails, Denies change in hair/nails, Denies darkening of skin Neurological: Denies balance difficulties, Denies change in speech, Denies double vision, Denies gait dysfunction, Denies loss of vision, Denies motor disturbance, Denies numbness, Denies paralysis, Denies paresthesias, Denies seizures Psychiatric: Denies anxiety, Denies depression Endocrine: Denies excessive sweating, Denies excessive thirst, Denies high blood sugars, Denies palpitations Hematologic/Lymphatic: Denies easy bruising, Denies lymphadenopathy, swelling left lower ext, skin changes Social history Smoker of half pack significant for 26 years quit in 2014 denies alcohol use denies any illicit drug use. Family history Mother at age 75 with history of hypertension and renal failure, stroke and diabetes, congestive heart failure and COPD. Does not know his father has no brothers or sisters single has noted Physical exam - Constitutional General appearance: cooperative, no acute distress, obese - EENT Eyes: anicteric sclerae, PERRLA, normal appearance ENT: hearing grossly normal - Neck Neck: no lymphadenopathy, normal ROM, no other, no rigidity, no stridor, no thyromegaly - Respiratory Respiratory: bilateral: CTA, negative: diminished, dullness, rales, rhonchi - Cardiovascular Rhythm: regular Heart sounds: normal: S1, S2 Abnormal Heart Sounds: no systolic murmur, no diastolic murmur, no rub, no S3 Gallop, no S4 Gallop, no click, no other - Gastrointestinal General gastrointestinal: normal bowel sounds, soft - Integumentary Integumentary: no rash, chronic dermatitis changes noted in the left lower extremity with swelling involving the lower extremity. - Neurologic Neurologic: No motor or sensory deficit in - Musculoskeletal Musculoskeletal: gait not assessed, strength equal bilaterally - Psychiatric Psychiatric: A&O x's 3, appropriate affect Assessment and plan #1 acute chest pain appears atypical. ECG with no ST or T wave changes . heparin drip . aspirin 81 mg po daily. Cardiology consult . Last stress test was 1 year ago and was normal #2 Acute saphenofemoral junction venous thromboembolism extending to saphenous vein with history of DVT in 2002. Continue heparin drip and transitioned to Eliquis on discharge. Patient follows up with the outpatient vascular surgeon for repeat Doppler in few weeks. Patient needs a hypercoagulable workup are to be performed as outpatient as this is his second DVT #3 hyperlipidemia on Lipitor 20 mg daily at bedtime #4 coronary artery disease with stent follows Dr. Rodriguez continue aspirin 81 mg by mouth dailycontinue Lipitor 20 mg daily at bedtime #5 GERD continue Protonix 40 twice a day #6 CODE STATUS full code #7 DVT prophylaxis encourage ambulation #8 disposition likely discharge tomorrow Past Medical History Past Medical History: Coronary Artery Disease (CAD), Chest Pain / Angina, Deep Vein Thrombosis (DVT), GERD/Reflux, Hyperlipidemia, Myocardial Infarction ([place]), Sleep Apnea/CPAP/BIPAP Additional Past Medical History / Comment(s): DVT 2002, uses CPAP Last Myocardial Infarction Date:: 08/2006 History of Any Multi-Drug Resistant Organisms: None Reported Past Surgical History: Heart Catheterization With Stent Additional Past Surgical History / Comment(s): left leg surgery r/t DVT, ORIF right femur septal deviation surgery in 2014, varicose vein removal in the left leg. Past Anesthesia/Blood Transfusion Reactions: No Reported Reaction Additional Past Anesthesia/Blood Transfusion Reaction / Comment(s): no previous transfusion Date of Last Stent Placement:: 2006 Smoking Status: Former smoker Past Alcohol Use History: None Reported Additional Past Alcohol Use History / Comment(s): Patient was a smoker of half pack cigarette for 26 years and quit in 2014. He denies alcohol use. He denies any drug use or abuse. 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 Past Drug Use History: None Reported Additional Drug Use History / Comment(s): smokes approximately 6 cigarettes a day - Past Family History Mother Family Medical History: COPD, Diabetes Mellitus, Myocardial Infarction ([place]) Additional Family Medical History / Comment(s): Mother at age 75 with history of hypertension, renal failure on dialysis, CVA 6, diabetes mellitus type 2, congestive heart failure and COPD. Patient does not know his father. He has no brothers or sisters. He is single and no children. Medications and Allergies Home Medications Medication Instructions Recorded Confirmed Type Aspirin EC [Ecotrin Low Dose] 81 mg PO PC-BRKFST 10/06/17 05/27/21 History Atorvastatin [Lipitor] 20 mg PO PC-SUPPER 01/04/19 05/27/21 History Cholecalciferol [Vitamin D3 (125 125 mcg PO PC-BRKFST 05/27/21 05/27/21 History Mcg = 5000 Iu)] Pantoprazole [Protonix] 40 mg PO AC-BID 05/27/21 05/27/21 History Allergies Allergy/AdvReac Type Severity Reaction Status Date / Time No Known Allergies Allergy Verified 05/27/21 09:09 Physical Exam Vitals: Vital Signs Temp Pulse Resp BP Pulse Ox 05/27/21 16:02 66 16 108/54 98 05/27/21 14:13 71 18 109/65 99 05/27/21 11:32 75 18 124/73 100 05/27/21 09:36 98.0 F 68 16 130/76 99 05/27/21 08:19 97.8 F 74 18 143/84 99 Intake and Output 05/27/21 05/27/21 05/27/21 06:59 14:59 22:59 Other: Weight 88.451 kg Results CBC & Chem 7: 05/27/21 09:00 05/27/21 09:00 Labs: Abnormal Lab Results - Last 24 Hours (Table) 05/27/21 Range/Units 09:00 Sodium 136 L (137-145) mmol/L Glucose 115 H (74-99) mg/dL Thrombosis Risk Factor Assmnt - Choose All That Apply Each Factor Represents 1 point: Age 41-60 years Each Risk Factor Represents 3 Points: History of DVT/PE Thrombosis Risk Factor Assessment Total Risk Factor Score: 4 Thrombosis Risk Factor Assessment Level: Moderate Risk
[2021-05-27] MEDS: PANTOPRAZOLE 40 MG TABLET PO SCH (18:02)
[2021-05-27] MEDS: NITROGLYCERIN OINT 1 INCH/GM PACKET TOPICAL SCH (18:11)
[2021-05-27] MEDS ORDERED: ATORVASTATIN 20 MG TAB PO SCH (18:30)
[2021-05-28] MEDS: NITROGLYCERIN OINT 1 INCH/GM PACKET TOPICAL SCH ×2 (00:50→06:22)
[2021-05-28] MEDS: HEPARIN SOD,PORK IN 0.45% NACL 25,000 UNIT in 0.45% NACL 1 250ML.BAG IV SCH (06:16)
[2021-05-28] MEDS: PANTOPRAZOLE 40 MG TABLET PO SCH (08:29)
[2021-05-28] MEDS ORDERED: ASPIRIN 81 MG PO SCH (08:30)
[2021-05-28] MEDS ORDERED: ASPIRIN 325 MG TAB PO SCH (09:00)
[2021-05-28] MEDS ORDERED: APIXABAN 5 MG TAB PO SCH (09:15)
[2021-05-28 09:56] LABS: Chol/HDL Ratio 2.59 Ratio; LDL Cholesterol,Calculated 56.2 mg/dL (0.0-131.0); VLDL Calculation 10.08 mg/dL (5.00-40.00)
--- NOTE | 2021-05-28 10:27 | P.CRDCN ---
History of Present Illness History of present illness: HISTORY OF PRESENTING ILLNESS This is a pleasant 60-year-old male past medical history significant for coronary artery disease status post stent placement in 2006, history of DVT in left lower extremity, dyslipidemia, obstructive sleep apnea regular CPAP use and fromer nicotine dependence. We have been asked to see him in consultation secondary to chest discomfort. He follows in the office with Dr. Rodriguez. Patient presents to the emergency department with complaints of epigastric aching discomfort. He states he was driving to his appointment to get a follow up ultrasound on his left leg. He states while he was driving he had epigastric aching pain. Non radiating. He had no other symptoms. He states it resolved on its own in about 5 minutes. He denies shortness of breath, nausea, diaphoresis, lightheadedness or dizziness. He also denies any symptoms of orthopnea or PND. This discomfort only occurred once and has not returned. DIAGNOSTICS EKG reveals sinus rhythm with first-degree AV block, heart rate 63, T wave inversion in lead III, Telemetry tracings indicate sinus mechanism Chest xray No acute cardiopulmonary process Laboratory reviewed, troponin negative x 3, CBC unremarkable, sodium 136, potassium 4.1, BUN 16, serum creatinine 0.9 Most recent echocardiogram in the 11/2020 revealed EF 55%, no significant wall motion abnormalities Most recent stress test in the office 01/2019 Lexiscan was negative for reversible ischemia, fixed defects involving the inferior lateral wall suggestive of previous myocardial infarction, fixed defect in the mid anterior wall appears to be secondary to soft tissue and tissue attenuation Current cardiac medications include aspirin 81 mg daily, atorvastatin 20 mg daily REVIEW OF SYSTEMS At the time of my exam: CONSTITUTIONAL: Denies fever or chills. CARDIOVASCULAR: Denies chest pain, shortness of breath, orthopnea, PND or palpitations. RESPIRATORY: Denies cough. GASTROINTESTINAL: Denies abdominal pain, diarrhea, constipation, nausea or vomiting. MUSCULOSKELETAL: Denies myalgias. NEUROLOGIC: Denies numbness, tingling, headacbe or weakness. ENDOCRINE: Denies fatigue, weight change, polydipsia or polyurina. GENITOURINARY: Denies burning, hematuria or urgency with micturation. HEMATOLOGIC: Denies history of anemia or bleeding. PHYSICAL EXAMINATION Blood pressure 107/63, heart rate 56, afebrile, saturations 98% on room air CONSTITUTIONAL: No apparent distress. HEENT: Head is normocephalic. Pupils are equal, round. Sclerae anicteric. Mucous membranes of the mouth are moist. No JVD. No carotid bruit. CHEST EXAMINATION: Lungs are clear to auscultation. No chest wall tenderness is noted on palpation or with deep breathing. HEART EXAMINATION: Regular rate and rhythm. S1, S2 heard. No murmurs, gallops or rub. ABDOMEN: Soft, nontender. Positive bowel sounds. EXTREMITIES: 2+ peripheral pulses, no lower extremity edema and no calf tenderness. NEUROLOGIC EXAMINATION: Patient is awake, alert and oriented x3. ASSESSMENT Chest pain, atypical acute coronary syndrome has been ruled out Acute saphenofemoral junction venous thromboembolism extending to saphenous vein Coronary artery disease status post stent placement in 2006 History of DVT in left lower extremity Dyslipidemia Obstructive sleep apnea Former nicotine dependence PLAN An acute coronary event has been ruled out with no EKG evidence of ischemia and negative cardiac enzymes. From a cardiology perspective, no inpatient workup is needed at this time. Recommend transition to PO anticoagulation. Patient may follow-up in the office with Dr. Rodriguez, cardiac testing as a stress test can be evaluated in the office. Continue home cardiac medications Nurse practitioner note has been reviewed by physician. Signing provider agrees with the documented findings, assessment, and plan of care. Past Medical History Past Medical History: Coronary Artery Disease (CAD), Chest Pain / Angina, Deep Vein Thrombosis (DVT), GERD/Reflux, Hyperlipidemia, Myocardial Infarction ([place]), Sleep Apnea/CPAP/BIPAP Additional Past Medical History / Comment(s): DVT 2002, uses CPAP Last Myocardial Infarction Date:: 08/2006 History of Any Multi-Drug Resistant Organisms: None Reported Past Surgical History: Heart Catheterization With Stent Additional Past Surgical History / Comment(s): left leg surgery r/t DVT, ORIF right femur septal deviation surgery in 2015, varicose vein removal in the left leg. Past Anesthesia/Blood Transfusion Reactions: No Reported Reaction Additional Past Anesthesia/Blood Transfusion Reaction / Comment(s): no previous transfusion Date of Last Stent Placement:: 2006 Past Psychological History: Anxiety Smoking Status: Former smoker Past Alcohol Use History: None Reported Past Drug Use History: None Reported - Past Family History Mother Family Medical History: COPD, Diabetes Mellitus, Myocardial Infarction ([place]) Additional Family Medical History / Comment(s): Mother at age 75 with history of hypertension, renal failure on dialysis, CVA 6, diabetes mellitus type 2, congestive heart failure and COPD. Patient does not know his father. He has no brothers or sisters. He is single and no children. Medications and Allergies Home Medications Medication Instructions Recorded Confirmed Type Aspirin EC [Ecotrin Low Dose] 81 mg PO PC-BRKFST 10/06/17 05/27/21 History Atorvastatin [Lipitor] 20 mg PO PC-SUPPER 01/04/19 05/27/21 History Cholecalciferol [Vitamin D3 (125 125 mcg PO PC-BRKFST 05/27/21 05/27/21 History Mcg = 5000 Iu)] Pantoprazole [Protonix] 40 mg PO AC-BID 05/27/21 05/27/21 History Apixaban [Eliquis Starter Pack 5 - 10 mg PO DIRECTED 30 Days 05/28/21 Rx (for VTE)] #1 each Allergies Allergy/AdvReac Type Severity Reaction Status Date / Time No Known Allergies Allergy Verified 05/27/21 09:09 Physical Exam Vitals: Vital Signs Temp Pulse Resp BP Pulse Ox 05/27/21 11:32 75 18 124/73 100 05/27/21 09:36 98.0 F 68 16 130/76 99 05/27/21 08:19 97.8 F 74 18 143/84 99 Intake and Output 05/26/21 05/27/21 05/27/21 22:59 06:59 14:59 Other: Weight 88.451 kg Results 05/27/21 09:00 05/27/21 09:00 Cardiac Enzymes 05/27/21 05/27/21 Range/Units 09:00 09:00 AST 22 (17-59) U/L Troponin I <0.012 (0.000-0.034) ng/mL Coagulation 05/27/21 Range/Units 09:00 PT 10.8 (9.0-12.0) sec APTT 22.6 (22.0-30.0) sec CBC 05/27/21 Range/Units 09:00 WBC 4.5 (3.8-10.6) k/uL RBC 4.46 (4.30-5.90) m/uL Hgb 13.6 (13.0-17.5) gm/dL Hct 40.0 (39.0-53.0) % Plt Count 245 (150-450) k/uL Comprehensive Metabolic Panel 05/27/21 Range/Units 09:00 Sodium 136 L (137-145) mmol/L Potassium 4.1 (3.5-5.1) mmol/L Chloride 103 (98-107) mmol/L Carbon Dioxide 27 (22-30) mmol/L BUN 16 (9-20) mg/dL Creatinine 0.96 (0.66-1.25) mg/dL Glucose 115 H (74-99) mg/dL Calcium 9.3 (8.4-10.2) mg/dL AST 22 (17-59) U/L ALT 21 (4-49) U/L Alkaline Phosphatase 92 (38-126) U/L Total Protein 7.2 (6.3-8.2) g/dL Albumin 4.1 (3.5-5.0) g/dL Current Medications Generic Name Dose Route Start Last Admin Trade Name Freq PRN Reason Stop Dose Admin Aspirin 81 mg 05/28/21 08:30 Aspirin 81 Mg PO PC-BRKFST [facility] Atorvastatin Calcium 20 mg 05/27/21 18:30 Atorvastatin 20 Mg Tab PO PC-SUPPER [facility] Heparin Sodium/Sodium Chloride 250 mls @ 15.921 mls/hr 05/27/21 12:15 05/27/21 12:31 25,000 unit/ Sodium Chloride IV 18 units/kg/hr .[id number] CHANDANA 15.921 mls/hr Administration Protocol 18 UNITS/KG/HR Nitroglycerin 0.4 mg 05/27/21 12:12 Nitroglycerin Sl Tabs 0.4 Mg Tab SUBLINGUAL Q5M PRN Chest Pain Nitroglycerin 1 inch 05/27/21 18:00 Nitroglycerin Oint 1 Inch/Gm Packet TOPICAL Q6HR [facility] Pantoprazole Sodium 40 mg 05/27/21 17:30 Pantoprazole 40 Mg Tablet PO AC-BID [facility] Intake and Output 05/26/21 05/27/21 05/27/21 22:59 06:59 14:59 Other: Weight 88.451 kg Patient Weight 05/28/21 06:59 Weight 88.451 kg 05/27/21 09:00 05/27/21 09:00
--- NOTE | 2021-05-28 12:18 | P.DS ---
Providers Date of admission: 05/27/21 12:13 Expected date of discharge: 05/28/21 Attending physician: Ermelinda Fountain MD Consults: 05/27/21 12:12 Consult Physician Urgent Consulting Provider: [facility] Consult Reason/Comments: Unstable angina Do you want consulting provider notified?: Yes Primary care physician: Jona Lane [facility] Course: 60 years old male with past medical history of hyperlipidemia, coronary artery disease, history of DVT in left leg around 2002 has been on Coumadin until 2012, history of GERD, hyperlipidemia, sleep apnea on CPAP at home comes in when the patient started experiencing chest pain while he was going to his appointment to his vascular physician for a repeat Doppler. This chest pain lasted 5 minutes but patient decided to come to the emergency room for evaluation. He did take 2 baby aspirin before he came to the hospital. He is currently denying any chest pain or shortness of breath, no nausea or vomiting or diarrhea. On evaluation in the emergency room, patient's vitals were reviewed afebrile pulse 68 respiratory rate 16 blood pressure 1:30/76 oxygenating at 99% on room air CBC is unremarkable on sodium 136 potassium 4.2 BUN 16 creatinine 0.96 troponin 2 negative EKG reviewed shows sinus rhythm with first-degree AV block. Venous Doppler shows chronic nonocclusive DVT within completely of vein extensive acute thrombus within the greater saphenous vein on was reaching the saphenofemoral junction. On further discussion patient does suggest that he is swelling involving the left lower extremity and has been seen the vascular surgeon as outpatient. No hypercoagulable workup has been done. 3/2: Patient is seen today in the emergency center waiting for a bed on the observation unit. He has been seen by cardiology and he normally follows with Dr. Rodriguez, plan is for outpatient workup. Patient is on heparin drip and will be transitioned to eliquis and prescription has been sent to pharmacy. Patient has been afebrile, heart rate in the 50s to 70s, blood pressure 107/63, pulse ox 90% on room air. Triglycerides 50.4, cholesterol 108, LDL 56, HDL 41. DISCHARGE DIAGNOSES #1 acute chest pain appears atypical. #2 Acute saphenofemoral junction venous thromboembolism extending to saphenous vein with history of DVT in 2002. #3 hyperlipidemia #4 coronary artery disease with stent follows Dr. Rodriguez #5 GERD DISCHARGE PLAN Home Discharge no Impression and plan of care have been directed as dictated by the signing physician. Fifi Reina nurse practitioner acting as scribe for signing physician. Patient Condition at Discharge: Good Plan - Discharge Summary New Discharge Prescriptions: New Apixaban [Eliquis Starter Pack (for VTE)] 5 - 10 mg PO DIRECTED 30 Days #1 each No Action Aspirin EC [Ecotrin Low Dose] 81 mg PO PC-BRKFST Atorvastatin [Lipitor] 20 mg PO PC-SUPPER Pantoprazole [Protonix] 40 mg PO AC-BID Cholecalciferol [Vitamin D3 (125 Mcg = 5000 Iu)] 125 mcg PO PC-BRKFST Discharge Medication List Aspirin EC [Ecotrin Low Dose] 81 mg PO PC-BRKFST 10/06/17 [History] Atorvastatin [Lipitor] 20 mg PO PC-SUPPER 01/04/19 [History] Cholecalciferol [Vitamin D3 (125 Mcg = 5000 Iu)] 125 mcg PO PC-BRKFST 05/27/21 [History] Pantoprazole [Protonix] 40 mg PO AC-BID 05/27/21 [History] Apixaban [Eliquis Starter Pack (for VTE)] 5 - 10 mg PO DIRECTED 30 Days #1 each 05/28/21 [Rx] Follow up Appointment(s)/Referral(s): Liz Rodriguez MD [STAFF PHYSICIAN] - 1 Week Randy Mahoney DO [REFERRING] - 1-2 Days Jona Jaramillo MD [Primary Care Provider] - 1 Week Discharge Disposition: HOME SELF-CARE
[2021-05-28 13:24] VITALS: BP 110/65; PULSE 60; RESP 18; TEMP 98
== END 2021-05-28 14:00 | disposition home or self-care (01) ==
LOC: EC 08:17 → 1SOBS 12:13 → 6NMEDSUR 17:59
PROVIDERS: ADMIT Internal Medicine; ATTEND Internal Medicine
DX: R07.89 Other chest pain (principal); E78.5 Hyperlipidemia, unspecified; I25.10 Atherosclerotic heart disease of native coronary artery without angina pectoris; K21.9 Gastro-esophageal reflux disease without esophagitis; I82.819 Embolism and thrombosis of superficial veins of unspecified lower extremity; I44.0 Atrioventricular block, first degree; E66.9 Obesity, unspecified; Z68.29 Body mass index [BMI] 29.0-29.9, adult; I25.2 Old myocardial infarction; G47.33 Obstructive sleep apnea (adult) (pediatric); R10.13 Epigastric pain; F41.9 Anxiety disorder, unspecified; E78.00 Pure hypercholesterolemia, unspecified; Z86.718 Personal history of other venous thrombosis and embolism; Z95.5 Presence of coronary angioplasty implant and graft; Z87.891 Personal history of nicotine dependence; Z86.711 Personal history of pulmonary embolism; Z79.899 Other long term (current) drug therapy; Z79.01 Long term (current) use of anticoagulants; Z79.82 Long term (current) use of aspirin; Z82.3 Family history of stroke; Z82.5 Family history of asthma and other chronic lower respiratory diseases; Z82.49 Family history of ischemic heart disease and other diseases of the circulatory system; Z83.3 Family history of diabetes mellitus; Z84.1 Family history of disorders of kidney and ureter
CPT/HCPCS: 96376; 96365; 96366 ×2; 99285; 36415; 93005; 80061; 80053; 83735; 84484; 85025; 85610; 85730 ×2; 71046; 93971; G0378 ×3; J1644 ×3

== ENCOUNTER 2021-06-05 06:36 | Emergency (ER) | payer MEDICARE ==
[2021-06-05 07:14] LABS: Appearance,Urine Clear (Clear); Bilirubin,Urine Negative (Negative); Blood,Urine Negative (Negative); Color,Urine Yellow; Glucose,Urine (UA) Negative (Negative); Ketones,Urine Negative (Negative); Leukocyte Esterase,Urine Negative (Negative); Nitrite,Urine Negative (Negative); PH, Urine 5.5 (5.0-8.0); Protein,Urine Negative (Negative); Specific Gravity,Urine 1.022 (1.001-1.035); Urobilinogen,Urine <2.0 mg/dL (<2.0)
--- NOTE | 2021-06-05 07:32 | ED ---
Back Pain HPI - General Chief Complaint: Back Pain/Injury Stated Complaint: Back Pain Time Seen by Provider: 06/05/21 06:45 Source: patient, RN notes reviewed Mode of arrival: ambulatory Limitations: no limitations - History of Present Illness Initial Comments: This a 61-year-old male presents emergency from chief complaint right flank pain. Patient states started swearing states she started having some tightness which was worse when he laid back or twisted. Patient denies any falls. Denies any abdominal pain nausea and diarrhea constipation or dysuria no hematuria he does have history kidney stones and felt initially that it seemed to be similar. Patient denies any other complaints at this time. He states the pain has actually improved prior arrival. - Related Data Home Medications Medication Instructions Recorded Confirmed Aspirin EC [Ecotrin Low Dose] 81 mg PO PC-BRKFST 10/06/17 05/27/21 Atorvastatin [Lipitor] 20 mg PO PC-SUPPER 01/04/19 05/27/21 Cholecalciferol [Vitamin D3 (125 125 mcg PO PC-BRKFST 05/27/21 05/27/21 Mcg = 5000 Iu)] Pantoprazole [Protonix] 40 mg PO AC-BID 05/27/21 05/27/21 Previous Rx's Medication Instructions Recorded Rivaroxaban [Xarelto Starter Pack] 0 mg PO DIRECTED 30 Days #1 05/28/21 packet Cyclobenzaprine [Flexeril] 10 mg PO TID PRN #15 tab 06/05/21 Allergies Allergy/AdvReac Type Severity Reaction Status Date / Time No Known Allergies Allergy Verified 06/05/21 06:41 Review of Systems ROS Statement: Those systems with pertinent positive or pertinent negative responses have been documented in the HPI. ROS Other: All systems not noted in ROS Statement are negative. Past Medical History Past Medical History: Coronary Artery Disease (CAD), Chest Pain / Angina, Deep Vein Thrombosis (DVT), GERD/Reflux, Hyperlipidemia, Myocardial Infarction ([place]), Sleep Apnea/CPAP/BIPAP Additional Past Medical History / Comment(s): DVT 2002, uses CPAP Last Myocardial Infarction Date:: 08/2006 History of Any Multi-Drug Resistant Organisms: None Reported Past Surgical History: Heart Catheterization With Stent Additional Past Surgical History / Comment(s): left leg surgery r/t DVT, ORIF right femur septal deviation surgery in 2014, varicose vein removal in the left leg. Past Anesthesia/Blood Transfusion Reactions: No Reported Reaction Additional Past Anesthesia/Blood Transfusion Reaction / Comment(s): no previous transfusion Date of Last Stent Placement:: 2006 Past Psychological History: Anxiety Smoking Status: Former smoker Past Alcohol Use History: None Reported Past Drug Use History: None Reported - Past Family History Mother Family Medical History: COPD, Diabetes Mellitus, Myocardial Infarction ([place]) Additional Family Medical History / Comment(s): Mother at age 75 with history of hypertension, renal failure on dialysis, CVA 6, diabetes mellitus type 2, congestive heart failure and COPD. Patient does not know his father. He has no brothers or sisters. He is single and no children. General Exam Limitations: no limitations General appearance: alert, in no apparent distress Head exam: Present: atraumatic, normocephalic, normal inspection Eye exam: Present: normal appearance, PERRL, EOMI. Absent: scleral icterus, conjunctival injection, periorbital swelling Neck exam: Present: normal inspection. Absent: tenderness, meningismus, lymphadenopathy Respiratory exam: Present: normal lung sounds bilaterally. Absent: respiratory distress, wheezes, rales, rhonchi, stridor Cardiovascular Exam: Present: regular rate, normal rhythm, normal heart sounds. Absent: systolic murmur, diastolic murmur, rubs, gallop, clicks GI/Abdominal exam: Present: soft, normal bowel sounds. Absent: distended, tenderness, guarding, rebound, rigid Extremities exam: Present: normal inspection, full ROM, normal capillary refill, other (Lower extremity pulses equal bilaterally, equal color equal warmth). Absent: tenderness, pedal edema, joint swelling, calf tenderness Back exam: Present: normal inspection, full ROM, tenderness (Right paraspinal), muscle spasm, paraspinal tenderness. Absent: CVA tenderness (R), CVA tenderness (L), vertebral tenderness Neurological exam: Present: alert, oriented X3, CN II-XII intact, reflexes normal. Absent: motor sensory deficit Course Vital Signs 06/05/21 06:37 Temperature 97.0 F L Pulse Rate 73 Respiratory 18 Rate Blood Pressure 126/72 O2 Sat by Pulse 99 Oximetry Medical Decision Making - Medical Decision Making Patient urinalysis unremarkable patient's pain is resolved at this time. Patient has no red flag symptoms I do believe this is related to muscle spasms. Patient feels comfortable discharge and return for any changing or worsening symptoms. - Lab Data Lab Results 06/05/21 Range/Units 06:57 Urine Color Yellow Urine Appearance Clear (Clear) Urine pH 5.5 (5.0-8.0) Ur Specific [place] 1.022 (1.001-1.035) Urine Protein Negative (Negative) Urine Glucose (UA) Negative (Negative) Urine Ketones Negative (Negative) Urine Blood Negative (Negative) Urine Nitrite Negative (Negative) Urine Bilirubin Negative (Negative) Urine Urobilinogen <2.0 (<2.0) mg/dL Ur Leukocyte Esterase Negative (Negative) Disposition Clinical Impression: Back pain Disposition: HOME SELF-CARE Condition: Stable Instructions (If sedation given, give patient instructions): Back Pain (ED) Additional Instructions: Please return to the Emergency Department if symptoms worsen or any other concerns. Prescriptions: Cyclobenzaprine [Flexeril] 10 mg PO TID PRN #15 tab PRN Reason: Muscle Spasm Is patient prescribed a controlled substance at d/c from ED?: No Referrals: Jona Jaramillo MD [Primary Care Provider] - 1-2 days Time of Disposition: 07:32
[2021-06-05 07:54] VITALS: BP 125/78; PULSE 78; RESP 16; TEMP 98
== END 2021-06-05 07:53 | disposition home or self-care (01) ==
LOC: EC 06:36
DX: M54.9 Dorsalgia, unspecified (principal); K21.9 Gastro-esophageal reflux disease without esophagitis; E78.5 Hyperlipidemia, unspecified; I25.2 Old myocardial infarction; Z87.891 Personal history of nicotine dependence; Z79.899 Other long term (current) drug therapy; Z79.82 Long term (current) use of aspirin; X58.XXXA Exposure to other specified factors, initial encounter
CPT/HCPCS: 81003; 99283

== ENCOUNTER 2021-06-09 07:19 | Emergency (ER) | payer MEDICARE ==
[2021-06-09 07:26] VITALS: RESP 18
--- NOTE | 2021-06-09 08:06 | ED ---
General Adult HPI - General Chief complaint: Abdominal Pain Stated complaint: heartburn Time Seen by Provider: 06/09/21 07:28 Source: patient Mode of arrival: ambulatory Limitations: no limitations - History of Present Illness Initial comments: Dictation was produced using [employer] dictation software. please excuse any grammatical, word or spelling errors. Chief Complaint: Patient's 64-year-old male presents to the emergency department for symptoms of reflux. History of Present Illness: 64-year-old male who states that he presents to the emergency department for increased symptoms of reflux. She reports that his symptoms have been ongoing for the last several days. He states that it started when he began taking Xarelto to treat a lower extremity DVT. Patient denies any chest pain or shortness of breath. He reports that he does not have any symptoms currently. Patient reports that he only gets his symptoms at night. He has past medical history of hiatal hernia that was last scoped 2 years ago. Patient does take an acid medications. Does not report any symptoms in his chest. He states that it's in his epigastric area. Nonradiating. Not associated with diaphoresis or nausea vomiting. The ROS documented in this emergency department record has been reviewed and confirmed by me. Those systems with pertinent positive or negative responses have been documented in the HPI. All other systems are other negative and/or noncontributory. PHYSICAL EXAM: General Impression: Alert and oriented x3, not in acute distress HEENT: Normocephalic atraumatic, extra-ocular movements intact, pupils equal and reactive to light bilaterally, mucous membranes moist. Cardiovascular: Heart regular rate and rhythm Chest: Able to complete full sentences, no retractions, no tachypnea Abdomen: abdomen soft, non-tender, non-distended, no organomegaly Musculoskeletal: Pulses present and equal in all extremities, no peripheral edema Motor: no focal deficits noted Neurological: CN II-XII grossly intact, no focal motor or sensory deficits noted Skin: Intact with no visualized rashes Psych: Normal affect and mood ED course: 64-year-old asymptomatic male presents to the emergency department for symptoms of reflux. Signs upon arrival shows findings within acceptable limits. EKG does not show any signs of ischemia or infarction. Patient reevaluated bedside at 10:50 AM he still asymptomatic. Blood work is unremarkable. Chest x-ray and abdominal x-ray shows no significant processes. Patient has an appointment with his primary care physician, not the near future. Patient will be discharge. Told of behavioral changes to help reduce feelings of gastroesophageal reflux disease. Return precautions discussed Discussed. Patient be discharge. EKG interpretation: Ventricular rate 79, sinus rhythm,. Interval to 34, care is 14, QTC 414. No DC prolongation, no QTC prolongation, no ST or T-wave changes noted. EKG compared to 05/27/2021 showing no changes. Overall, this EKG is unremarkable - Related Data Home Medications Medication Instructions Recorded Confirmed Aspirin EC [Ecotrin Low Dose] 81 mg PO PC-BRKFST 10/06/17 06/09/21 Atorvastatin [Lipitor] 20 mg PO PC-SUPPER 01/04/19 06/09/21 Cholecalciferol [Vitamin D3 (125 125 mcg PO PC-BRKFST 05/27/21 06/09/21 Mcg = 5000 Iu)] Pantoprazole [Protonix] 40 mg PO AC-BID 05/27/21 06/09/21 Rivaroxaban [Xarelto Starter Pack] See Taper PO DIRECTED 06/09/21 06/09/21 Previous Rx's Medication Instructions Recorded Cyclobenzaprine [Flexeril] 10 mg PO TID PRN #15 tab 06/05/21 Allergies Allergy/AdvReac Type Severity Reaction Status Date / Time No Known Allergies Allergy Verified 06/09/21 09:13 Review of Systems ROS Statement: Those systems with pertinent positive or pertinent negative responses have been documented in the HPI. ROS Other: All systems not noted in ROS Statement are negative. Past Medical History Past Medical History: Coronary Artery Disease (CAD), Chest Pain / Angina, Deep Vein Thrombosis (DVT), GERD/Reflux, Hyperlipidemia, Myocardial Infarction ([place]), Sleep Apnea/CPAP/BIPAP Additional Past Medical History / Comment(s): DVT 2002, uses CPAP Last Myocardial Infarction Date:: 08/2006 History of Any Multi-Drug Resistant Organisms: None Reported Past Surgical History: Heart Catheterization With Stent Additional Past Surgical History / Comment(s): left leg surgery r/t DVT, ORIF right femur septal deviation surgery in 2014, varicose vein removal in the left leg. Past Anesthesia/Blood Transfusion Reactions: No Reported Reaction Additional Past Anesthesia/Blood Transfusion Reaction / Comment(s): no previous transfusion Date of Last Stent Placement:: 2006 Past Psychological History: Anxiety Smoking Status: Former smoker Past Alcohol Use History: None Reported Past Drug Use History: None Reported - Past Family History Mother Family Medical History: COPD, Diabetes Mellitus, Myocardial Infarction ([place]) Additional Family Medical History / Comment(s): Mother at age 75 with history of hypertension, renal failure on dialysis, CVA 6, diabetes mellitus type 2, congestive heart failure and COPD. Patient does not know his father. He has no brothers or sisters. He is single and no children. General Exam Limitations: no limitations Course Vital Signs 06/09/21 06/09/21 06/09/21 07:21 07:40 09:30 Temperature 97.0 F L Pulse Rate 84 80 86 Respiratory 18 18 18 Rate Blood Pressure 133/75 130/73 132/74 O2 Sat by Pulse 100 97 99 Oximetry Medical Decision Making - Lab Data Result diagrams: 06/09/21 07:40 06/09/21 07:40 Lab Results 06/09/21 06/09/21 06/09/21 Range/Units 07:40 07:40 07:40 WBC 6.2 (3.8-10.6) k/uL RBC 4.40 (4.30-5.90) m/uL Hgb 13.2 (13.0-17.5) gm/dL Hct 39.9 (39.0-53.0) % MCV 90.8 (80.0-100.0) fL MCH 29.9 (25.0-35.0) pg MCHC 32.9 (31.0-37.0) g/dL RDW 13.6 (11.5-15.5) % Plt Count 276 (150-450) k/uL MPV 7.1 Neutrophils % 70 % Lymphocytes % 21 % Monocytes % 6 % Eosinophils % 1 % Basophils % 0 % Neutrophils # 4.3 (1.3-7.7) k/uL Lymphocytes # 1.3 (1.0-4.8) k/uL Monocytes # 0.4 (0-1.0) k/uL Eosinophils # 0.1 (0-0.7) k/uL Basophils # 0.0 (0-0.2) k/uL PT 12.5 H (9.0-12.0) sec INR 1.2 H (<1.2) APTT 25.9 (22.0-30.0) sec Sodium 137 (137-145) mmol/L Potassium 4.0 (3.5-5.1) mmol/L Chloride 105 (98-107) mmol/L Carbon Dioxide 26 (22-30) mmol/L Anion Gap 6 mmol/L BUN 22 H (9-20) mg/dL Creatinine 1.12 (0.66-1.25) mg/dL Est GFR (CKD-EPI)AfAm 82 (>60 ml/min/1.73 sqM) Est GFR (CKD-EPI)NonAf 71 (>60 ml/min/1.73 sqM) Glucose 109 H (74-99) mg/dL Calcium 9.2 (8.4-10.2) mg/dL Total Bilirubin 0.9 (0.2-1.3) mg/dL AST 21 (17-59) U/L ALT 18 (4-49) U/L Alkaline Phosphatase 92 (38-126) U/L Troponin I (0.000-0.034) ng/mL Total Protein 7.2 (6.3-8.2) g/dL Albumin 4.2 (3.5-5.0) g/dL Lipase 112 (23-300) U/L 06/09/21 Range/Units 07:40 WBC (3.8-10.6) k/uL RBC (4.30-5.90) m/uL Hgb (13.0-17.5) gm/dL Hct (39.0-53.0) % MCV (80.0-100.0) fL MCH (25.0-35.0) pg MCHC (31.0-37.0) g/dL RDW (11.5-15.5) % Plt Count (150-450) k/uL MPV Neutrophils % % Lymphocytes % % Monocytes % % Eosinophils % % Basophils % % Neutrophils # (1.3-7.7) k/uL Lymphocytes # (1.0-4.8) k/uL Monocytes # (0-1.0) k/uL Eosinophils # (0-0.7) k/uL Basophils # (0-0.2) k/uL PT (9.0-12.0) sec INR (<1.2) APTT (22.0-30.0) sec Sodium (137-145) mmol/L Potassium (3.5-5.1) mmol/L Chloride (98-107) mmol/L Carbon Dioxide (22-30) mmol/L Anion Gap mmol/L BUN (9-20) mg/dL Creatinine (0.66-1.25) mg/dL Est GFR (CKD-EPI)AfAm (>60 ml/min/1.73 sqM) Est GFR (CKD-EPI)NonAf (>60 ml/min/1.73 sqM) Glucose (74-99) mg/dL Calcium (8.4-10.2) mg/dL Total Bilirubin (0.2-1.3) mg/dL AST (17-59) U/L ALT (4-49) U/L Alkaline Phosphatase (38-126) U/L Troponin I <0.012 (0.000-0.034) ng/mL Total Protein (6.3-8.2) g/dL Albumin (3.5-5.0) g/dL Lipase (23-300) U/L Disposition Clinical Impression: Reflux esophagitis Disposition: HOME SELF-CARE Condition: Good Instructions (If sedation given, give patient instructions): GERD (Brenda roesophageal Reflux Disease) (ED) Is patient prescribed a controlled substance at d/c from ED?: No Referrals: Jona Jaramillo MD [Primary Care Provider] - 1-2 days
[2021-06-09 08:29] LABS: Basophils % (A) 0 %; Eosinophils # (A) 0.1 k/uL (0-0.7); Eosinophils % (A) 1 %; HCT 39.9 % (39.0-53.0); HGB 13.2 gm/dL (13.0-17.5); Lymphocytes # (A) 1.3 k/uL (1.0-4.8); Lymphocytes % (A) 21 %; MCH 29.9 pg (25.0-35.0); MCHC 32.9 g/dL (31.0-37.0); MCV 90.8 fL (80.0-100.0); Mean Platelet Volume 7.1; Monocytes # (A) 0.4 k/uL (0-1.0); Monocytes % (A) 6 %; Neutrophils # (A) 4.3 k/uL (1.3-7.7); Neutrophils % (A) 70 %; Platelet Count 276 k/uL (150-450); RDW 13.6 % (11.5-15.5); WBC 6.2 k/uL (3.8-10.6)
[2021-06-09 08:31] LABS: Albumin 4.2 g/dL (3.5-5.0); Calcium 9.2 mg/dL (8.4-10.2); Total Bilirubin 0.9 mg/dL (0.2-1.3); Total Protein 7.2 g/dL (6.3-8.2)
[2021-06-09 10:29] LABS: INR 1.2 (<1.2); Partial Thromboplastin Time 25.9 sec (22.0-30.0); Prothrombin Time 12.5 sec (9.0-12.0)
--- NOTE | 2021-06-09 10:31 | XR ---
EXAMINATION TYPE: XR abdomen acute w cxr DATE OF EXAM: 06/09/2021 COMPARISON: Chest 05/27/2021 HISTORY: 61-year-old male reflux symptoms, history of hiatal hernia TECHNIQUE: Supine, upright, and left side down lateral decubitus views of the abdomen are obtained. FINDINGS: Frontal view of the chest shows normal heart size, aorta, and pulmonary vasculature. There is mild hy perinflation which may relate to depth of inspiration or underlying emphysema. No consolidation or pl eural effusion. There is no evidence for pneumoperitoneum. Gassy but nondilated small bowel loops. No air-fluid levels are seen. Scattered air throughout the co [place] extending distally to the rectum. Mild stool within the right side of the colon. No suspicious calcifications are seen. IMPRESSION: 1. Hyperinflation may relate to depth of inspiration or underlying emphysema. Clinically correlate. 2. No evidence for free air or bowel obstruction. 3. Mild overall stool.
[2021-06-09 11:06] VITALS: BP 117/66; PULSE 79
[2021-06-09 11:10] VITALS: TEMP 98.4
== END 2021-06-09 11:11 | disposition home or self-care (01) ==
LOC: EC 07:19
DX: K21.00 Gastro-esophageal reflux disease with esophagitis, without bleeding (principal); Z87.891 Personal history of nicotine dependence; I10 Essential (primary) hypertension; I25.2 Old myocardial infarction
CPT/HCPCS: 36415; 74022; 80053; 83690; 84484; 85025; 85610; 85730; 93005; 99284

== ENCOUNTER 2021-06-13 04:23 | Emergency (ER) | payer MEDICARE ==
[2021-06-13 04:41] VITALS: RESP 18; TEMP 97.8
[2021-06-13] MEDS ORDERED: FAMOTIDINE 20 MG/2 ML VIAL IV STA (07:38)
[2021-06-13] MEDS ORDERED: MAG HYDROX/AL HYDROX/SIMETH 30 ML, HYOSCYAMINE ELIXIR 10 ML, LIDOCAINE VISCOUS 2% 10 ML PO STA ×3 (07:38)
--- NOTE | 2021-06-13 07:42 | ED ---
General Adult HPI - General Chief complaint: Abdominal Pain Stated complaint: Hiatal hernia Time Seen by Provider: 06/13/21 07:30 Source: patient, RN notes reviewed, old records reviewed Mode of arrival: ambulatory Limitations: no limitations - History of Present Illness Initial comments: 61-year-old male presents to the emergency room alert and oriented 4 with complaints of epigastric burning pain that woke him at 3:30 this morning. Patient does have a history of hiatal hernia and GERD. He has had these same symptoms in the past and diagnosed with reflux. His primary care doctor is told him that he needs to take Protonix which he has and also been taking Tums with only short relief. Patient states that he had a friend recently from car diac arrest and he is concerned that this may be his heart. He does have a history of DVTs and is on xarelto which he started 2 weeks ago. He believes that the Xarelto that maybe worsening his reflux. He is a non smoker, history of coronary artery disease and [place]. -: week(s) (2) Location: abdomen (epigastric) Severity scale (1-10): 9 Quality: burning Consistency: intermittent - Related Data Home Medications Medication Instructions Recorded Confirmed Aspirin EC [Ecotrin Low Dose] 81 mg PO PC-BRKFST 10/06/17 06/13/21 Atorvastatin [Lipitor] 20 mg PO PC-SUPPER 01/04/19 06/13/21 Cholecalciferol [Vitamin D3 (125 125 mcg PO PC-BRKFST 05/27/21 06/13/21 Mcg = 5000 Iu)] Pantoprazole [Protonix] 40 mg PO AC-BID 05/27/21 06/13/21 Rivaroxaban [Xarelto Starter Pack] See Taper PO DIRECTED 06/09/21 06/13/21 Previous Rx's Medication Instructions Recorded Cyclobenzaprine [Flexeril] 10 mg PO TID PRN #15 tab 06/05/21 Allergies Allergy/AdvReac Type Severity Reaction Status Date / Time No Known Allergies Allergy Verified 06/13/21 08:18 Review of Systems ROS Statement: Those systems with pertinent positive or pertinent negative responses have been documented in the HPI. ROS Other: All systems not noted in ROS Statement are negative. Past Medical History Past Medical History: Coronary Artery Disease (CAD), Chest Pain / Angina, Deep Vein Thrombosis (DVT), GERD/Reflux, Hyperlipidemia, Myocardial Infarction ([place]), Sleep Apnea/CPAP/BIPAP Additional Past Medical History / Comment(s): DVT 2002, uses CPAP Last Myocardial Infarction Date:: 08/2006 History of Any Multi-Drug Resistant Organisms: None Reported Past Surgical History: Heart Catheterization With Stent Additional Past Surgical History / Comment(s): left leg surgery r/t DVT, ORIF right femur septal deviation surgery in 2014, varicose vein removal in the left leg. Past Anesthesia/Blood Transfusion Reactions: No Reported Reaction Additional Past Anesthesia/Blood Transfusion Reaction / Comment(s): no previous transfusion Date of Last Stent Placement:: 2006 Past Psychological History: Anxiety Smoking Status: Former smoker Past Alcohol Use History: None Reported Past Drug Use History: None Reported - Past Family History Mother Family Medical History: COPD, Diabetes Mellitus, Myocardial Infarction ([place]) Additional Family Medical History / Comment(s): Mother at age 75 with history of hypertension, renal failure on dialysis, CVA 6, diabetes mellitus type 2, congestive heart failure and COPD. Patient does not know his father. He has no brothers or sisters. He is single and no children. General Exam Limitations: no limitations General appearance: alert, in no apparent distress Head exam: Present: atraumatic Eye exam: Present: normal appearance Respiratory exam: Present: normal lung sounds bilaterally. Absent: respiratory distress, accessory muscle use Cardiovascular Exam: Present: regular rate, normal rhythm, normal heart sounds. Absent: JVD GI/Abdominal exam: Present: soft, normal bowel sounds. Absent: distended, tenderness, guarding, rebound, rigid Extremities exam: Present: normal inspection, normal capillary refill. Absent: pedal edema Back exam: Present: normal inspection, full ROM. Absent: tenderness, rash noted Neurological exam: Present: alert, oriented X3 Psychiatric exam: Present: anxious Skin exam: Present: warm, dry, intact, normal color. Absent: cyanosis, diaphoretic, petechiae, pallor Course Vital Signs 06/13/21 06/13/21 04:37 07:57 Temperature 97.8 F Pulse Rate 86 71 Respiratory 18 18 Rate Blood Pressure 119/82 125/71 O2 Sat by Pulse 96 100 Oximetry EKG Findings - EKG Results: EKG: sinus rhythm (Ventricular rate of 65, CA interval 0.258, QRS 0.99, QTC 0.396) Medical Decision Making - Medical Decision Making 61-year-old male presents with epigastric burning that awoke him from sleep at 3:30 this morning. He does have a history of GERD. He is currently taking Protonix. Patient believes that his symptoms may be related to recently being placed on Xarelto for DVT. EKG shows no ST elevation or EKG changes. Troponin is negative. CBC and electrolytes are unremarkable. Patient states that he received immediate relief with the GI cocktail. He denies any chest pain, nausea vomiting or diarrhea. No fevers. No shortness of breath. Vital signs are stable. Pulse ox 100% on room air. He was directed to continue taking Protonix twice a day. Follow-up with your primary care doctor next week. Return to the emergency room with any new or concerning symptoms. Patient is agreeable to this plan of care. - Lab Data Result diagrams: 06/13/21 07:57 06/13/21 07:57 Lab Results 06/13/21 06/13/21 06/13/21 Range/Units 07:57 07:57 07:57 WBC 5.7 (3.8-10.6) k/uL RBC 4.72 (4.30-5.90) m/uL Hgb 14.1 (13.0-17.5) gm/dL Hct 43.0 (39.0-53.0) % MCV 91.1 (80.0-100.0) fL MCH 29.8 (25.0-35.0) pg MCHC 32.7 (31.0-37.0) g/dL RDW 13.0 (11.5-15.5) % Plt Count 254 (150-450) k/uL MPV 6.5 Neutrophils % 72 % Lymphocytes % 19 % Monocytes % 6 % Eosinophils % 1 % Basophils % 0 % Neutrophils # 4.1 (1.3-7.7) k/uL Lymphocytes # 1.1 (1.0-4.8) k/uL Monocytes # 0.4 (0-1.0) k/uL Eosinophils # 0.1 (0-0.7) k/uL Basophils # 0.0 (0-0.2) k/uL Sodium 137 (137-145) mmol/L Potassium 4.1 (3.5-5.1) mmol/L Chloride 104 (98-107) mmol/L Carbon Dioxide 27 (22-30) mmol/L Anion Gap 6 mmol/L BUN 20 (9-20) mg/dL Creatinine 1.15 (0.66-1.25) mg/dL Est GFR (CKD-EPI)AfAm 80 (>60 ml/min/1.73 sqM) Est GFR (CKD-EPI)NonAf 69 (>60 ml/min/1.73 sqM) Glucose 103 H (74-99) mg/dL Calcium 9.3 (8.4-10.2) mg/dL Total Bilirubin 1.2 (0.2-1.3) mg/dL AST 25 (17-59) U/L ALT 21 (4-49) U/L Alkaline Phosphatase 101 (38-126) U/L Troponin I <0.012 (0.000-0.034) ng/mL Total Protein 7.5 (6.3-8.2) g/dL Albumin 4.3 (3.5-5.0) g/dL Amylase 63 (30-110) U/L Lipase 91 (23-300) U/L Disposition Clinical Impression: Reflux esophagitis Disposition: HOME SELF-CARE Condition: Good Additional Instructions: Continue taking your Protonix twice a day, 30 minutes before breakfast and 30 minutes before dinner. Follow-up with your primary care doctor next week. Return to the emergency room with any new or concerning symptoms. Is patient prescribed a controlled substance at d/c from ED?: No Referrals: Jona Jaramillo MD [Primary Care Provider] - 1-2 days Time of Disposition: 09:22
[2021-06-13 08:01] VITALS: BP 125/71; PULSE 71
[2021-06-13 08:27] LABS: Basophils % (A) 0 %; Eosinophils # (A) 0.1 k/uL (0-0.7); Eosinophils % (A) 1 %; HGB 14.1 gm/dL (13.0-17.5); Lymphocytes # (A) 1.1 k/uL (1.0-4.8); Lymphocytes % (A) 19 %; MCH 29.8 pg (25.0-35.0); MCHC 32.7 g/dL (31.0-37.0); MCV 91.1 fL (80.0-100.0); Mean Platelet Volume 6.5; Monocytes # (A) 0.4 k/uL (0-1.0); Monocytes % (A) 6 %; Neutrophils # (A) 4.1 k/uL (1.3-7.7); Neutrophils % (A) 72 %; Platelet Count 254 k/uL (150-450); RBC 4.72 m/uL (4.30-5.90); WBC 5.7 k/uL (3.8-10.6)
[2021-06-13 08:39] LABS: Albumin 4.3 g/dL (3.5-5.0); Calcium 9.3 mg/dL (8.4-10.2); Potassium 4.1 mmol/L (3.5-5.1); Total Bilirubin 1.2 mg/dL (0.2-1.3); Total Protein 7.5 g/dL (6.3-8.2)
== END 2021-06-13 09:30 | disposition home or self-care (01) ==
LOC: EC 04:23
DX: K21.00 Gastro-esophageal reflux disease with esophagitis, without bleeding (principal); I10 Essential (primary) hypertension; I25.2 Old myocardial infarction; Z87.891 Personal history of nicotine dependence
CPT/HCPCS: 36415; 80053; 82150; 83690; 84484; 85025; 93005; 96374; 99284

== ENCOUNTER 2021-07-22 22:28 | Emergency (ER) | payer MEDICARE ==
[2021-07-23 00:34] VITALS: RESP 18
--- NOTE | 2021-07-23 04:32 | ED ---
General Adult HPI - General Chief complaint: Dizziness Stated complaint: Near Syncope Time Seen by Provider: 07/23/21 03:47 Source: patient Mode of arrival: ambulatory Limitations: no limitations - History of Present Illness Initial comments: Yousif is a pleasant 61-year-old gentleman with extensive past medical history. Patient reports that he was in his usual state of health throughout the day, this evening he was laying in bed wearing his CPAP when he realized he needed to fill the water reservoir in a CPAP machine he sat up and then leaned over to empty with the machine and got somewhat lightheaded. He then decided that he needed to go outside and get some fresh air, and sibling back down he stood up and walked outside, when standing up and walking he continued to feel lightheaded, he did not lose his balance he did not lay back down and he did not pass out. Patient reports to the persistence of lightheadedness he decided to come the hospital however when sitting in his car driving here is completely asymptomatic. He never had any chest pain palpitations or shortness of breath. - Related Data Home Medications Medication Instructions Recorded Confirmed Aspirin EC [Ecotrin Low Dose] 81 mg PO PC-BRKFST 10/06/17 06/13/21 Atorvastatin [Lipitor] 20 mg PO PC-SUPPER 01/04/19 06/13/21 Cholecalciferol [Vitamin D3 (125 125 mcg PO PC-BRKFST 05/27/21 06/13/21 Mcg = 5000 Iu)] Pantoprazole [Protonix] 40 mg PO AC-BID 05/27/21 06/13/21 Rivaroxaban [Xarelto Starter Pack] See Taper PO DIRECTED 06/09/21 06/13/21 Previous Rx's Medication Instructions Recorded Cyclobenzaprine [Flexeril] 10 mg PO TID PRN #15 tab 06/05/21 Allergies Allergy/AdvReac Type Severity Reaction Status Date / Time No Known Allergies Allergy Verified 07/23/21 00:29 Review of Systems ROS Statement: Those systems with pertinent positive or pertinent negative responses have been documented in the HPI. ROS Other: All systems not noted in ROS Statement are negative. Past Medical History Past Medical History: Coronary Artery Disease (CAD), Chest Pain / Angina, Deep Vein Thrombosis (DVT), GERD/Reflux, Hyperlipidemia, Myocardial Infarction ([place]), Sleep Apnea/CPAP/BIPAP Additional Past Medical History / Comment(s): DVT 2002, uses CPAP Last Myocardial Infarction Date:: 08/2006 History of Any Multi-Drug Resistant Organisms: None Reported Past Surgical History: Heart Catheterization With Stent Additional Past Surgical History / Comment(s): left leg surgery r/t DVT, ORIF right femur septal deviation surgery in 2015, varicose vein removal in the left leg. Past Anesthesia/Blood Transfusion Reactions: No Reported Reaction Additional Past Anesthesia/Blood Transfusion Reaction / Comment(s): no previous transfusion Date of Last Stent Placement:: 2006 Past Psychological History: Anxiety Smoking Status: Former smoker Past Alcohol Use History: None Reported Past Drug Use History: None Reported - Past Family History Mother Family Medical History: COPD, Diabetes Mellitus, Myocardial Infarction ([place]) Additional Family Medical History / Comment(s): Mother at age 75 with history of hypertension, renal failure on dialysis, CVA 6, diabetes mellitus ty pe 2, congestive heart failure and COPD. Patient does not know his father. He has no brothers or sisters. He is single and no children. General Exam - General Exam Comments Initial Comments: Physical Exam GENERAL: Patient is well-developed and well-nourished. Patient is nontoxic and well- hydrated and is in no distress. HENT: Normocephalic, Atraumatic. EYES: PERRL, EOMI PULMONARY: Unlabored respirations. No audible rales rhonchi or wheezing was noted. CARDIOVASCULAR: There is a regular rate and rhythm without any murmurs gallops or rubs. ABDOMEN: Soft and nontender with normal bowel sounds. SKIN: Skin is clear with no lesions or rashes and otherwise unremarkable. : Deferred NEUROLOGIC: Patient is alert and oriented x3. Moving all extremities spontaneously MUSCULOSKELETAL: Normal extremities with adequate strength and full range of motion. No lower extremity swelling or edema. No calf tenderness. PSYCHIATRIC: Normal psychiatric evaluation. Limitations: no limitations Course Vital Signs 07/23/21 07/23/21 00:30 04:56 Temperature 97.4 F L 98 F Pulse Rate 93 69 Respiratory 18 18 Rate Blood Pressure 128/64 122/77 O2 Sat by Pulse 96 Oximetry EKG Findings - EKG Comments: EKG Findings:: EKG was obtained due to near syncope, EKG obtained 417, rate is 55 rhythm is sinus bradycardia with a first-degree AV block, AR prolonged at 231, QRS 106, QTC 400. There are no acute ST elevations or depressions no evidence of ischemia, infarction or arrhythmia. When this EKG was compared to previous over the past year there was no change in morphology. Medical Decision Making - Medical Decision Making The patient was seen and evaluated, history is obtained from the patient and review of medical record. Patient had episode of lightheadedness when going from lying to sitting upright leaning forward and instead of laying back down and got up to walk around and continued to feel lightheaded. He had no sick giving of palpitations no shortness of breath. EKG was sinus bradycardia and unchanged from previous. Chest x-ray was unremarkable. Patient has normal vital signs here in the ER he's been asymptomatic waiting in the ER for nearly 5 hours. At this time and I'll feel further workup is indicated in a stable for discharge home. Disposition Clinical Impression: Near syncope Disposition: HOME SELF-CARE Condition: Stable Instructions (If sedation given, give patient instructions): Lightheadedness (ED) Is patient prescribed a controlled substance at d/c from ED?: No Referrals: Jona Jaramillo MD [Primary Care Provider] - 1-2 days
--- NOTE | 2021-07-23 04:45 | XR ---
EXAMINATION TYPE: XR chest 2V DATE OF EXAM: 07/23/2021 COMPARISON: 07/23/2021 HISTORY: Syncope TECHNIQUE: 2 views FINDINGS: Heart is normal. Lungs are clear of infiltrate. There is no heart failure. There are no hil ar masses. Costophrenic angles are clear. IMPRESSION: No active cardiopulmonary disease. Normal heart. No change.
[2021-07-23 04:58] VITALS: BP 122/77; PULSE 69; TEMP 98
== END 2021-07-23 04:56 | disposition home or self-care (01) ==
LOC: EC 22:28
DX: R55 Syncope and collapse (principal); I25.2 Old myocardial infarction; K21.9 Gastro-esophageal reflux disease without esophagitis; E78.5 Hyperlipidemia, unspecified; I25.10 Atherosclerotic heart disease of native coronary artery without angina pectoris; Z87.891 Personal history of nicotine dependence; Z79.82 Long term (current) use of aspirin; Z79.899 Other long term (current) drug therapy; Z79.01 Long term (current) use of anticoagulants
CPT/HCPCS: 71046; 93005; 99284

== ENCOUNTER 2021-07-23 08:02 | Emergency (ER) | payer MEDICARE ==
[2021-07-23 08:10] VITALS: RESP 18; TEMP 97
[2021-07-23] MEDS ORDERED: MAG HYDROX/AL HYDROX/SIMETH 30 ML, HYOSCYAMINE ELIXIR 10 ML, LIDOCAINE VISCOUS 2% 10 ML PO STA ×3 (08:32)
--- NOTE | 2021-07-23 09:16 | ED ---
Abdominal Pain HPI - General Chief Complaint: Abdominal Pain Stated Complaint: Revisit/Recheck Time Seen by Provider: 07/23/21 08:05 Source: patient Mode of arrival: ambulatory Limitations: no limitations - History of Present Illness Initial Comments: 61-year-old male presents emergency department and that his hiatal hernia and peptic ulcer are acting up on him. He was diagnosed with an ulcer one year ago by Dr. Sepulveda after endoscopy. States he is on Protonix twice daily and takes it as directed. He has not been using any NSAIDs or alcohol. No steroid use. He was seen in the emergency department 2 hours ago for complaint of near syncope. States that upon discharge he began having intense epigastric pain. He did not take any medications for his symptoms but does have Carafate available. He was directed to take this medication by his primary care office however reports that he does not take it as it causes ill side effects. He denies any chest pain or shortness of breath. No hematemesis. Denies any black or bloody stools. No fevers. Patient concerned as a friend from cardiac issues but had similar symptoms. Patient was seen in the emergency department twice last month for similar. No other alleviating, precipitating or modifying factors - Related Data Home Medications Medication Instructions Recorded Confirmed Aspirin EC [Ecotrin Low Dose] 81 mg PO PC-BRKFST 10/06/17 06/13/21 Atorvastatin [Lipitor] 20 mg PO PC-SUPPER 01/04/19 06/13/21 Cholecalciferol [Vitamin D3 (125 125 mcg PO PC-BRKFST 05/27/21 06/13/21 Mcg = 5000 Iu)] Pantoprazole [Protonix] 40 mg PO AC-BID 05/27/21 06/13/21 Rivaroxaban [Xarelto Starter Pack] See Taper PO DIRECTED 06/09/21 06/13/21 Previous Rx's Medication Instructions Recorded Cyclobenzaprine [Flexeril] 10 mg PO TID PRN #15 tab 06/05/21 Allergies Allergy/AdvReac Type Severity Reaction Status Date / Time No Known Allergies Allergy Verified 07/23/21 08:10 Review of Systems ROS Statement: Those systems with pertinent positive or pertinent negative responses have been documented in the HPI. ROS Other: All systems not noted in ROS Statement are negative. Past Medical History Past Medical History: Coronary Artery Disease (CAD), Chest Pain / Angina, Deep Vein Thrombosis (DVT), GERD/Reflux, Hyperlipidemia, Myocardial Infarction ([place]), Sleep Apnea/CPAP/BIPAP Additional Past Medical History / Comment(s): DVT 2002, uses CPAP Last Myocardial Infarction Date:: 08/2006 History of Any Multi-Drug Resistant Organisms: None Reported Past Surgical History: Heart Catheterization With Stent Additional Past Surgical History / Comment(s): left leg surgery r/t DVT, ORIF right femur septal deviation surgery in 2014, varicose vein removal in the left leg. Past Anesthesia/Blood Transfusion Reactions: No Reported Reaction Additional Past Anesthesia/Blood Transfusion Reaction / Comment(s): no previous transfusion Date of Last Stent Placement:: 2006 Past Psychological History: Anxiety Smoking Status: Former smoker Past Alcohol Use History: None Reported Past Drug Use History: None Reported - Past Family History Mother Family Medical History: COPD, Diabetes Mellitus, Myocardial Infarction ([place]) Additional Family Medical History / Comment(s): Mother at age 75 with history of hypertension, renal failure on dialysis, CVA 6, diabetes mellitus type 2, congestive heart failure and COPD. Patient does not know his father. He has no brothers or sisters. He is single and no children. General Exam Limitations: no limitations General appearance: alert, in no apparent distress Head exam: Present: atraumatic, normocephalic, normal inspection Eye exam: Present: normal appearance, PERRL, EOMI. Absent: scleral icterus, conjunctival injection, periorbital swelling ENT exam: Present: normal exam, mucous membranes moist Neck exam: Present: normal inspection. Absent: tenderness, meningismus, lymphadenopathy Respiratory exam: Present: normal lung sounds bilaterally. Absent: respiratory distress, wheezes, rales, rhonchi, stridor Cardiovascular Exam: Present: regular rate, normal rhythm, normal heart sounds. Absent: systolic murmur, diastolic murmur, rubs, gallop, clicks GI/Abdominal exam: Present: soft, normal bowel sounds. Absent: distended, tenderness, guarding, rebound, rigid Extremities exam: Present: normal inspection, full ROM, normal capillary refill. Absent: tenderness, pedal edema, joint swelling, calf tenderness Back exam: Present: normal inspection Neurological exam: Present: alert, oriented X3, CN II-XII intact Psychiatric exam: Present: normal affect, normal mood Skin exam: Present: warm, dry, intact, normal color. Absent: rash Course Vital Signs 07/23/21 07/23/21 08:05 09:40 Temperature 97.0 F L Pulse Rate 73 66 Respiratory 18 18 Rate Blood Pressure 129/69 117/66 O2 Sat by Pulse 99 99 Oximetry Medical Decision Making - Medical Decision Making Upon arrival patient was placed in room 30. A thorough history and physical exam was performed. EKG was obtained which demonstrates no acute changes. Patient given a GI cocktail for which she does have improvement in her symptoms. I discussed diagnosis, differential and treatment options. If patient is concerned about the status of his ulcer he needs to follow-up with Dr. Sepulveda. Patient reports that he woke over to Dr. Valenzuela's office today to make an appointment. He is to return for any new or worsening symptoms. Patient agreed to the treatment plan and was discharged home. - EKG Data EKG Comments: EKG demonstrates sinus rhythm with a rate of 66. NE interval 231. QRS 100. QTC of 402. No acute ST segment elevations or depressions Disposition Clinical Impression: GERD (gastroesophageal reflux disease) Disposition: HOME SELF-CARE Condition: Stable Instructions (If sedation given, give patient instructions): GERD (Gastroesophageal Reflux Disease) (ED) Additional Instructions: Please follow-up with Dr. Sepulveda for further evaluation. You may need endoscopy. Take Maalox, Pepcid or Tums when you have onset of worsening symptoms. Return for any new or worsening symptoms Is patient prescribed a controlled substance at d/c from ED?: No Referrals: Jona Jaramillo MD [Primary Care Provider] - 1-2 days Kailey Sepulveda DO [Doctor of Osteopathic Medicine] - 1-2 days Time of Disposition: 09:26
[2021-07-23 09:47] VITALS: BP 117/66; PULSE 66
== END 2021-07-23 09:47 | disposition home or self-care (01) ==
LOC: EC 08:02
DX: K21.9 Gastro-esophageal reflux disease without esophagitis (principal); I25.2 Old myocardial infarction; E78.5 Hyperlipidemia, unspecified; I25.10 Atherosclerotic heart disease of native coronary artery without angina pectoris; Z87.891 Personal history of nicotine dependence; Z79.899 Other long term (current) drug therapy; Z79.02 Long term (current) use of antithrombotics/antiplatelets; Z79.82 Long term (current) use of aspirin
CPT/HCPCS: 93005; 99284

== ENCOUNTER 2021-07-24 19:44 | Emergency (ER) | payer MEDICARE ==
[2021-07-24 20:45] VITALS: BP 141/76; PULSE 86; RESP 18; TEMP 98.2
[2021-07-24 21:16] LABS: Basophils % (A) 1 %; Eosinophils # (A) 0.1 k/uL (0-0.7); Eosinophils % (A) 2 %; HCT 43.5 % (39.0-53.0); HGB 14.3 gm/dL (13.0-17.5); Lymphocytes # (A) 1.8 k/uL (1.0-4.8); Lymphocytes % (A) 25 %; MCH 29.7 pg (25.0-35.0); MCHC 32.8 g/dL (31.0-37.0); MCV 90.5 fL (80.0-100.0); Mean Platelet Volume 6.6; Monocytes # (A) 0.4 k/uL (0-1.0); Monocytes % (A) 6 %; Neutrophils # (A) 4.6 k/uL (1.3-7.7); Neutrophils % (A) 64 %; Platelet Count 321 k/uL (150-450); RBC 4.81 m/uL (4.30-5.90); RDW 13.7 % (11.5-15.5); WBC 7.2 k/uL (3.8-10.6)
[2021-07-24 21:24] LABS: INR 1.4 (<1.2); Partial Thromboplastin Time 29.4 sec (22.0-30.0); Prothrombin Time 14.1 sec (9.0-12.0)
[2021-07-24 21:26] LABS: Albumin 4.7 g/dL (3.5-5.0)
[2021-07-24 21:27] LABS: Calcium 9.7 mg/dL (8.4-10.2)
--- NOTE | 2021-07-24 23:21 | ED ---
Recheck HPI - General Chief Complaint: Recheck/Abnormal Lab/Rx Stated Complaint: Took increased dose of blood thinner, Concerned Time Seen by Provider: 07/24/21 22:20 Source: patient, RN notes reviewed, old records reviewed Mode of arrival: ambulatory Limitations: no limitations - History of Present Illness Initial Comments: This is a 61-year-old male DF for evaluation. Patient is presenting for evaluation of a recheck recheck in regards to trying to find out if his blood thinner medication is off her not. Patient otherwise has no complaints no tr nikkie history or sick contacts no other change in medications. States his been doing with diarrhea lately which makes him concern for the mono his blood thinner medication is been taking. He has been changing his dose at home. Otherwise he has no complaints MD Complaint: medication refill request (Patient here for recheck of how much medication she's been taking) -: days(s) Returns Today for: Called Because of Abnormal Lab/Test, request for prescription Symptoms Since Prior Visit: no new symptoms Context: planned re-check Associated Symptoms: none Treatments Prior to Arrival: other medications - Related Data Home Medications Medication Instructions Recorded Confirmed Aspirin EC [Ecotrin Low Dose] 81 mg PO PC-BRKFST 10/06/17 06/13/21 Atorvastatin [Lipitor] 20 mg PO PC-SUPPER 01/04/19 06/13/21 Cholecalciferol [Vitamin D3 (125 125 mcg PO PC-BRKFST 05/27/21 06/13/21 Mcg = 5000 Iu)] Pantoprazole [Protonix] 40 mg PO AC-BID 05/27/21 06/13/21 Rivaroxaban [Xarelto Starter Pack] See Taper PO DIRECTED 06/09/21 06/13/21 Previous Rx's Medication Instructions Recorded Cyclobenzaprine [Flexeril] 10 mg PO TID PRN #15 tab 06/05/21 Allergies Allergy/AdvReac Type Severity Reaction Status Date / Time No Known Allergies Allergy Verified 07/24/21 20:45 Review of Systems ROS Statement: Those systems with pertinent positive or pertinent negative responses have been documented in the HPI. ROS Other: All systems not noted in ROS Statement are negative. Past Medical History Past Medical History: Coronary Artery Disease (CAD), Chest Pain / Angina, Deep Vein Thrombosis (DVT), GERD/Reflux, Hyperlipidemia, Myocardial Infarction ([place]), Sleep Apnea/CPAP/BIPAP Additional Past Medical History / Comment(s): DVT 2002, uses CPAP Last Myocardial Infarction Date:: 08/2006 History of Any Multi-Drug Resistant Organisms: None Reported Past Surgical History: Heart Catheterization With Stent Additional Past Surgical History / Comment(s): left leg surgery r/t DVT, ORIF right femur septal deviation surgery in 2014, varicose vein removal in the left leg. Past Anesthesia/Blood Transfusion Reactions: No Reported Reaction Additional Past Anesthesia/Blood Transfusion Reaction / Comment(s): no previous transfusion Date of Last Stent Placement:: 2006 Past Psychological History: Anxiety Smoking Status: Former smoker Past Alcohol Use History: None Reported Past Drug Use History: None Reported - Past Family History Mother Family Medical History: COPD, Diabetes Mellitus, Myocardial Infarction ([place]) Additional Family Medical History / Comment(s): Mother at age 75 with history of hypertension, renal failure on dialysis, CVA 6, diabetes mellitus type 2, congestive heart failure and COPD. Patient does not know his father. He has no brothers or sisters. He is single and no children. General Exam Limitations: no limitations General appearance: alert, in no apparent distress Head exam: Present: atraumatic, normocephalic, normal inspection Eye exam: Present: normal appearance, PERRL, EOMI. Absent: scleral icterus, conjunctival injection, periorbital swelling ENT exam: Present: normal exam, mucous membranes moist Neck exam: Present: normal inspection. Absent: tenderness, meningismus, lymphadenopathy Respiratory exam: Present: normal lung sounds bilaterally. Absent: respiratory distress, wheezes, rales, rhonchi, stridor Cardiovascular Exam: Present: regular rate, normal rhythm, normal heart sounds. Absent: systolic murmur, diastolic murmur, rubs, gallop, clicks GI/Abdominal exam: Present: soft, normal bowel sounds. Absent: distended, tenderness, guarding, rebound, rigid Extremities exam: Present: normal inspection, full ROM, normal capillary refill. Absent: tenderness, pedal edema, joint swelling, calf tenderness Back exam: Present: normal inspection Neurological exam: Present: alert, oriented X3, CN II-XII intact Psychiatric exam: Present: normal affect, normal mood Skin exam: Present: warm, dry, intact, normal color. Absent: rash Course Vital Signs 07/24/21 20:41 Temperature 98.2 F Pulse Rate 86 Respiratory 18 Rate Blood Pressure 141/76 O2 Sat by Pulse 98 Oximetry - Reevaluation(s) Reevaluation #1: 07/24/21 23:19 Medical record is reviewed Reevaluation #2: 07/24/21 23:19 Patient is without significant complaint here in the ER Reevaluation #3: 07/24/21 23:19 Patient informed results and questions are answered Medical Decision Making - Medical Decision Making 61 male to the emergency department for evaluation. Patient here for evaluation regards to how much of his blood thinning medications been taking. Medication results are evaluated here in the ER patient can be discharged - Lab Data Result diagrams: 07/24/21 21:08 07/24/21 21:08 Lab Results 07/24/21 07/24/21 07/24/21 Range/Units 21:08 21:08 21:08 WBC 7.2 (3.8-10.6) k/uL RBC 4.81 (4.30-5.90) m/uL Hgb 14.3 (13.0-17.5) gm/dL Hct 43.5 (39.0-53.0) % MCV 90.5 (80.0-100.0) fL MCH 29.7 (25.0-35.0) pg MCHC 32.8 (31.0-37.0) g/dL RDW 13.7 (11.5-15.5) % Plt Count 321 (150-450) k/uL MPV 6.6 Neutrophils % 64 % Lymphocytes % 25 % Monocytes % 6 % Eosinophils % 2 % Basophils % 1 % Neutrophils # 4.6 (1.3-7.7) k/uL Lymphocytes # 1.8 (1.0-4.8) k/uL Monocytes # 0.4 (0-1.0) k/uL Eosinophils # 0.1 (0-0.7) k/uL Basophils # 0.0 (0-0.2) k/uL PT 14.1 H (9.0-12.0) sec INR 1.4 H (<1.2) APTT 29.4 (22.0-30.0) sec Sodium 134 L (137-145) mmol/L Potassium 4.0 (3.5-5.1) mmol/L Chloride 100 (98-107) mmol/L Carbon Dioxide 24 (22-30) mmol/L Anion Gap 10 mmol/L BUN 22 H (9-20) mg/dL Creatinine 1.58 H (0.66-1.25) mg/dL Est GFR (CKD-EPI)AfAm 54 (>60 ml/min/1.73 sqM) Est GFR (CKD-EPI)NonAf 47 (>60 ml/min/1.73 sqM) Glucose 101 H (74-99) mg/dL Calcium 9.7 (8.4-10.2) mg/dL Total Bilirubin 1.0 (0.2-1.3) mg/dL AST 21 (17-59) U/L ALT 18 (4-49) U/L Alkaline Phosphatase 105 (38-126) U/L Total Protein 8.0 (6.3-8.2) g/dL Albumin 4.7 (3.5-5.0) g/dL Disposition Clinical Impression: Normal exam Disposition: HOME SELF-CARE Condition: Good Instructions (If sedation given, give patient instructions): Normal Exam (ED), Rivaroxaban (By mouth) Is patient prescribed a controlled substance at d/c from ED?: No Referrals: Jona Jaramillo MD [Primary Care Provider] - 1-2 days
== END 2021-07-24 23:42 | disposition home or self-care (01) ==
LOC: EC 19:44
DX: Z76.0 Encounter for issue of repeat prescription (principal); Z00.00 Encounter for general adult medical examination without abnormal findings; I25.10 Atherosclerotic heart disease of native coronary artery without angina pectoris; K21.9 Gastro-esophageal reflux disease without esophagitis; E78.5 Hyperlipidemia, unspecified; I25.2 Old myocardial infarction; F41.9 Anxiety disorder, unspecified; Z79.82 Long term (current) use of aspirin; Z86.718 Personal history of other venous thrombosis and embolism; Z87.891 Personal history of nicotine dependence
CPT/HCPCS: 36415; 80053; 85025; 85610; 85730; 99282

== ENCOUNTER 2021-10-31 04:32 | Emergency (ER) | payer MEDICARE ==
[2021-10-31 04:37] VITALS: RESP 18
[2021-10-31 06:01] LABS: Basophils % (A) 1 %; Eosinophils # (A) 0.1 k/uL (0-0.7); Eosinophils % (A) 2 %; HCT 43.1 % (39.0-53.0); HGB 14.1 gm/dL (13.0-17.5); Lymphocytes # (A) 1.1 k/uL (1.0-4.8); Lymphocytes % (A) 18 %; MCH 29.6 pg (25.0-35.0); MCHC 32.7 g/dL (31.0-37.0); MCV 90.4 fL (80.0-100.0); Mean Platelet Volume 7.1; Monocytes # (A) 0.4 k/uL (0-1.0); Monocytes % (A) 7 %; Neutrophils # (A) 4.4 k/uL (1.3-7.7); Neutrophils % (A) 72 %; Platelet Count 247 k/uL (150-450); RBC 4.77 m/uL (4.30-5.90); RDW 12.9 % (11.5-15.5); WBC 6.2 k/uL (3.8-10.6)
[2021-10-31 06:01] LABS: Appearance,Urine Clear (Clear); Bilirubin,Urine Negative (Negative); Blood,Urine Negative (Negative); Color,Urine Yellow; Glucose,Urine (UA) Negative (Negative); Ketones,Urine Trace (Negative); Leukocyte Esterase,Urine Negative (Negative); Nitrite,Urine Negative (Negative); PH, Urine 5.5 (5.0-8.0); Protein,Urine Negative (Negative); Specific Gravity,Urine 1.018 (1.001-1.035); Urobilinogen,Urine <2.0 mg/dL (<2.0)
[2021-10-31 06:10] LABS: Albumin 4.6 g/dL (3.5-5.0); Calcium 9.5 mg/dL (8.4-10.2); Potassium 4.1 mmol/L (3.5-5.1); Total Bilirubin 0.6 mg/dL (0.2-1.3); Total Protein 7.5 g/dL (6.3-8.2)
[2021-10-31 06:40] VITALS: BP 129/76; PULSE 72; TEMP 98.2
--- NOTE | 2021-12-09 17:35 | ED ---
Male Urogenital HPI - General Chief complaint: Urogenital Stated complaint: groin pain Time Seen by Provider: 10/31/21 05:03 Source: patient Limitations: no limitations - History of Present Illness MD Complaint: other (Groin pain) Onset/Timin -: hour(s) Location: left inguinal region Radiation: none Severity: mild Quality: other (Like a pinching) Consistency: now resolved Improves with: none Worsens with: none Reports: denies other symptoms - Related Data Home Medications Medication Instructions Recorded Confirmed Aspirin EC [Ecotrin Low Dose] 81 mg PO PC-BRKFST 10/06/17 06/13/21 Atorvastatin [Lipitor] 20 mg PO PC-SUPPER 01/04/19 06/13/21 Cholecalciferol [Vitamin D3 (125 125 mcg PO PC-BRKFST 05/27/21 06/13/21 Mcg = 5000 Iu)] Pantoprazole [Protonix] 40 mg PO AC-BID 05/27/21 06/13/21 Rivaroxaban [Xarelto Starter Pack] See Taper PO DIRECTED 06/09/21 06/13/21 Previous Rx's Medication Instructions Recorded Cyclobenzaprine [Flexeril] 10 mg PO TID PRN #15 tab 06/05/21 Allergies Allergy/AdvReac Type Severity Reaction Status Date / Time No Known Allergies Allergy Verified 11/30/21 20:38 Review of Systems ROS Statement: Those systems with pertinent positive or pertinent negative responses have been documented in the HPI. ROS Other: All systems not noted in ROS Statement are negative. Constitutional: Denies: fever, chills Respiratory: Denies: cough, dyspnea Cardiovascular: Denies: chest pain Gastrointestinal: Reports: as per HPI, abdominal pain. Denies: nausea, vomiting, diarrhea, constipation Genitourinary: Denies: dysuria, hematuria Musculoskeletal: Denies: back pain Skin: Denies: rash Past Medical History Past Medical History: Coronary Artery Disease (CAD), Chest Pain / Angina, Deep Vein Thrombosis (DVT), GERD/Reflux, Hyperlipidemia, Myocardial Infarction ([place]), Sleep Apnea/CPAP/BIPAP Additional Past Medical History / Comment(s): DVT 2002, uses CPAP Last Myocardial Infarction Date:: 08/2006 History of Any Multi-Drug Resistant Organisms: None Reported Past Surgical History: Heart Catheterization With Stent Additional Past Surgical History / Comment(s): left leg surgery r/t DVT, ORIF right femur septal deviation surgery in 2015, varicose vein removal in the left leg. Past Anesthesia/Blood Transfusion Reactions: No Reported Reaction Additional Past Anesthesia/Blood Transfusion Reaction / Comment(s): no previous transfusion Date of Last Stent Placement:: 2006 Past Psychological History: Anxiety Smoking Status: Former smoker Past Alcohol Use History: None Reported Past Drug Use History: None Reported - Past Family History Mother Family Medical History: COPD, Diabetes Mellitus, Myocardial Infarction ([place]) Additional Family Medical History / Comment(s): Mother at age 75 with history of hypertension, renal failure on dialysis, CVA 6, diabetes mellitus type 2, congestive heart failure and COPD. Patient does not know his father. He has no brothers or sisters. He is single and no children. General Exam Limitations: no limitations General appearance: alert, in no apparent distress Respiratory exam: Present: normal lung sounds bilaterally. Absent: respiratory distress, wheezes, rales, rhonchi, stridor Cardiovascular Exam: Present: regular rate, normal rhythm, normal heart sounds. Absent: systolic murmur, diastolic murmur, rubs, gallop GI/Abdominal exam: Present: soft. Absent: distended, tenderness, guarding, rebound, rigid, mass, pulsatile mass, hernia Extremities exam: Present: normal inspection, normal capillary refill. Absent: pedal edema, calf tenderness Back exam: Present: normal inspection. Absent: CVA tenderness (R), CVA tenderness (L) Neurological exam: Present: alert Skin exam: Present: warm, dry, intact, normal color. Absent: rash Course Vital Signs 10/31/21 10/31/21 04:35 06:39 Temperature 98 F 98.2 F Pulse Rate 80 72 Respiratory 18 18 Rate Blood Pressure 130/63 129/76 O2 Sat by Pulse 100 99 Oximetry Medical Decision Making - Lab Data Result diagrams: 10/31/21 05:47 10/31/21 05:47 Lab Results 10/31/21 10/31/21 10/31/21 Range/Units 05:47 05:47 05:48 WBC 6.2 (3.8-10.6) k/uL RBC 4.77 (4.30-5.90) m/uL Hgb 14.1 (13.0-17.5) gm/dL Hct 43.1 (39.0-53.0) % MCV 90.4 (80.0-100.0) fL MCH 29.6 (25.0-35.0) pg MCHC 32.7 (31.0-37.0) g/dL RDW 12.9 (11.5-15.5) % Plt Count 247 (150-450) k/uL MPV 7.1 Neutrophils % 72 % Lymphocytes % 18 % Monocytes % 7 % Eosinophils % 2 % Basophils % 1 % Neutrophils # 4.4 (1.3-7.7) k/uL Lymphocytes # 1.1 (1.0-4.8) k/uL Monocytes # 0.4 (0-1.0) k/uL Eosinophils # 0.1 (0-0.7) k/uL Basophils # 0.0 (0-0.2) k/uL Sodium 138 (137-145) mmol/L Potassium 4.1 (3.5-5.1) mmol/L Chloride 103 (98-107) mmol/L Carbon Dioxide 27 (22-30) mmol/L Anion Gap 8 mmol/L BUN 23 H (9-20) mg/dL Creatinine 1.12 (0.66-1.25) mg/dL Est GFR (CKD-EPI)AfAm 82 (>60 ml/min/1.73 sqM) Est GFR (CKD-EPI)NonAf 71 (>60 ml/min/1.73 sqM) Glucose 100 H (74-99) mg/dL Calcium 9.5 (8.4-10.2) mg/dL Total Bilirubin 0.6 (0.2-1.3) mg/dL AST 20 (17-59) U/L ALT 13 (4-49) U/L Alkaline Phosphatase 93 (38-126) U/L Total Protein 7.5 (6.3-8.2) g/dL Albumin 4.6 (3.5-5.0) g/dL Urine Color Yellow Urine Appearance Clear (Clear) Urine pH 5.5 (5.0-8.0) Ur Specific Garrett 1.018 (1.001-1.035) Urine Protein Negative (Negative) Urine Glucose (UA) Negative (Negative) Urine Ketones Trace H (Negative) Urine Blood Negative (Negative) Urine Nitrite Negative (Negative) Urine Bilirubin Negative (Negative) Urine Urobilinogen <2.0 (<2.0) mg/dL Ur Leukocyte Esterase Negative (Negative) Disposition Clinical Impression: Left groin pain Disposition: HOME SELF-CARE Condition: Good Is patient prescribed a controlled substance at d/c from ED?: No Referrals: Jona Jaramillo MD [Primary Care Provider] - 1-2 days
== END 2021-10-31 06:43 | disposition home or self-care (01) ==
LOC: EC 04:32
DX: R10.32 Left lower quadrant pain (principal); I25.10 Atherosclerotic heart disease of native coronary artery without angina pectoris; E07.9 Disorder of thyroid, unspecified; K21.9 Gastro-esophageal reflux disease without esophagitis; Z79.83 Long term (current) use of bisphosphonates; Z87.891 Personal history of nicotine dependence; Z79.899 Other long term (current) drug therapy; Z79.82 Long term (current) use of aspirin; Z82.49 Family history of ischemic heart disease and other diseases of the circulatory system
CPT/HCPCS: 36415; 80053; 81003; 85025; 99284

== ENCOUNTER 2021-11-03 18:19 | Emergency (ER) | payer MEDICARE ==
--- NOTE | 2021-11-03 22:34 | ED ---
General Adult HPI - General Chief complaint: Chest Pain Stated complaint: chest pain - cardiac history Time Seen by Provider: 11/03/21 22:28 Source: patient Mode of arrival: wheelchair Limitations: no limitations - History of Present Illness Initial comments: This is a pleasant 61-year-old male with a history of heart disease, hypertension, DVT. Patient presents to the emergency department stating that he was sitting and eating dinner. Patient was leaning on with both elbows on the table. Patient felt a fleeting, mild pain to the area of his lower sternum as well as some tingling in his left arm. Patient states it was only there for a few seconds. When he sat up straight it went completely away. Patient denied any diaphoresis. No subsequent chest pain. No shortness of breath. Patient believes it was related to the position he was sitting. No headache, no fever or chills, no changes in vision or hearing, no sore throat or difficulty with speech, no neck pain, no current chest pain or shortness of breath, no abdominal pain, no nausea or vomiting, no changes in urination or bowel movements, no numbness or tingling, no extremity pain, no skin rashes or lesions. Past medical, surgical, social, and family history reviewed. - Related Data Home Medications Medication Instructions Recorded Confirmed Aspirin EC [Ecotrin Low Dose] 81 mg PO PC-BRKFST 10/06/17 06/13/21 Atorvastatin [Lipitor] 20 mg PO PC-SUPPER 01/04/19 06/13/21 Cholecalciferol [Vitamin D3 (125 125 mcg PO PC-BRKFST 05/27/21 06/13/21 Mcg = 5000 Iu)] Pantoprazole [Protonix] 40 mg PO AC-BID 05/27/21 06/13/21 Rivaroxaban [Xarelto Starter Pack] See Taper PO DIRECTED 06/09/21 06/13/21 Previous Rx's Medication Instructions Recorded Cyclobenzaprine [Flexeril] 10 mg PO TID PRN #15 tab 06/05/21 Allergies Allergy/AdvReac Type Severity Reaction Status Date / Time No Known Allergies Allergy Verified 11/03/21 18:32 Review of Systems ROS Statement: Those systems with pertinent positive or pertinent negative responses have been documented in the HPI. ROS Other: All systems not noted in ROS Statement are negative. Past Medical History Past Medical History: Coronary Artery Disease (CAD), Chest Pain / Angina, Deep Vein Thrombosis (DVT), GERD/Reflux, Hyperlipidemia, Myocardial Infarction ([place]), Sleep Apnea/CPAP/BIPAP Additional Past Medical History / Comment(s): DVT 2002, uses CPAP Last Myocardial Infarction Date:: 08/2006 History of Any Multi-Drug Resistant Organisms: None Reported Past Surgical History: Heart Catheterization With Stent Additional Past Surgical History / Comment(s): left leg surgery r/t DVT, ORIF right femur septal deviation surgery in 2014, varicose vein removal in the left leg. Past Anesthesia/Blood Transfusion Reactions: No Reported Reaction Additional Past Anesthesia/Blood Transfusion Reaction / Comment(s): no previous transfusion Date of Last Stent Placement:: 2006 Past Psychological History: Anxiety Smoking Status: Former smoker Past Alcohol Use History: None Reported Past Drug Use History: None Reported - Past Family History Mother Family Medical History: COPD, Diabetes Mellitus, Myocardial Infarction ([place]) Additional Family Medical History / Comment(s): Mother at age 75 with history of hypertension, renal failure on dialysis, CVA 6, diabetes mellitus type 2, congestive heart failure and COPD. Patient does not know his father. He has no brothers or sisters. He is single and no children. General Exam - General Exam Comments Initial Comments: Vital signs noted, patient in no distress. Limitations: no limitations General appearance: alert, in no apparent distress Head exam: Present: atraumatic, normocephalic, normal inspection Eye exam: Present: normal appearance, PERRL, EOMI. Absent: scleral icterus, conjunctival injection, periorbital swelling ENT exam: Present: normal exam, mucous membranes moist, normal external ear exam. Absent: normal oropharynx, mucous membranes dry Neck exam: Present: normal inspection, full ROM. Absent: tenderness, meningismus, lymphadenopathy Respiratory exam: Present: normal lung sounds bilaterally, chest wall tenderness (Anterior lower sternal area--mild). Absent: respiratory distress, wheezes, rales, rhonchi, stridor, accessory muscle use, decreased breath sounds, prolonged expiratory Cardiovascular Exam: Present: regular rate, normal rhythm, normal heart sounds. Absent: systolic murmur, diastolic murmur, rubs, gallop, clicks GI/Abdominal exam: Present: soft, normal bowel sounds. Absent: distended, tenderness, guarding, rebound, rigid Extremities exam: Present: normal inspection, full ROM, normal capillary refill. Absent: tenderness, pedal edema, joint swelling, calf tenderness Back exam: Present: normal inspection Neurological exam: Present: alert, oriented X3, CN II-XII intact Psychiatric exam: Present: normal affect, normal mood Skin exam: Present: warm, dry, intact, normal color. Absent: rash Course Vital Signs 11/03/21 18:26 Temperature 98.2 F Pulse Rate 80 Respiratory 18 Rate Blood Pressure 124/82 O2 Sat by Pulse 98 Oximetry Medical Decision Making - Medical Decision Making Patient asymptomatic at the time I saw him. I told the patient out of the waiting room to see him. Reviewed the EKG. Review due to the previous study. Reviewed with ED attending physician, Dr. Awan. Patient's pain was very fleeting, only there for a few seconds, not consistent with ischemic pain. Went away as soon as he sat up straight. I suspect this was related to the position the patient was in. However, I did advise cardiac workup to include troponin to the patient. Patient does not want blood work done. Patient states he only wanted an EKG. I did discuss risks versus benefits with the patient. Patient is alert and oriented 4. Patient is lucid and able to make his own medical decisions. After discussion with the ED attending physician. Patient was discharged to shared decision-making. Patient concurs to the risks. All questions answered. Patient was told to return to the ER for any signs or symptoms worsen. Told to return immediately if any other problems arise. All questions answered. Treatment plan discussed. Patient in agreement Every effort has been made to ensure accuracy of this dictation. However, due to the limitations of electronic medical records and dictation devices, errors in charting still occur. Protohistorian Dr. Awan - EKG Data EKG Comments: EKG done at 1832 and regular the ED attending physician reveals normal sinus rhythm with first-degree AV block, RSR pattern in lead V1. Normal intervals otherwise. Normal axis. Normal QS morphology otherwise. When compared to the previous study from June 2021 there is no significant change. Disposition Clinical Impression: Anterior chest wall pain Narrative: Transient paresthesia, left arm Disposition: HOME SELF-CARE Condition: Good Instructions (If sedation given, give patient instructions): Chest Wall Pain (ED) Additional Instructions: Follow-up with your regular physician as directed. Return to the ER immediately if any symptoms worsen, new symptoms arise, or any other problems develop. Is patient prescribed a controlled substance at d/c from ED?: No Referrals: Jona Jaramillo MD [Primary Care Provider] - 1-2 days Time of Disposition: 22:34
[2021-11-03 22:40] VITALS: BP 123/68; PULSE 73; RESP 16; TEMP 98.1
== END 2021-11-03 22:48 | disposition home or self-care (01) ==
LOC: EC 18:19
DX: R07.89 Other chest pain (principal); I25.10 Atherosclerotic heart disease of native coronary artery without angina pectoris; I25.2 Old myocardial infarction; I11.9 Hypertensive heart disease without heart failure; E78.5 Hyperlipidemia, unspecified; K21.9 Gastro-esophageal reflux disease without esophagitis; Z87.891 Personal history of nicotine dependence; Z79.899 Other long term (current) drug therapy; Z79.82 Long term (current) use of aspirin; Z79.01 Long term (current) use of anticoagulants
CPT/HCPCS: 93005; 99284

== ENCOUNTER 2021-11-30 20:14 | Emergency (ER) | payer MEDICARE ==
[2021-11-30 20:42] VITALS: BP 121/72; PULSE 65; RESP 16; TEMP 97.7
[2021-12-01 02:14] LABS: Glucose,Whole Blood 82 mg/dL (70-110)
--- NOTE | 2021-12-01 03:13 | CT ---
EXAMINATION TYPE: CT brain wo con DATE OF EXAM: 12/01/2021 COMPARISON: None HISTORY: facial numbness CT DLP: 1047.4 mGycm Automated exposure control for dose reduction was used. Exam performed with no contrast. Ventricles have fairly normal size. There is no mass effect or midline shift. No sign of intracranial hemorrhage. Calvarium is intact. There is normal aeration of the mastoid sinuses. Skull base is inta ct. IMPRESSION: Negative unenhanced head CT scan.
--- NOTE | 2021-12-01 03:13 | ED ---
General Adult HPI - General Chief complaint: Neuro Symptoms/Deficit Stated complaint: Facial numbness Time Seen by Provider: 12/01/21 01:35 Source: patient, RN notes reviewed, old records reviewed Mode of arrival: ambulatory Limitations: no limitations - History of Present Illness Initial comments: Patient is a 61-year-old male with past medical history remarkable for cardiac disease who presents emergency Department complaining of an episode of her seizures and tingling sensation over his face. States this occurred earlier today yesterday. Over 6 hours ago. Was having a paresthesia sensation that radiated from the right ear across his face to the left cheek. Lasted for approximately 30 minutes and resolved. No symptoms since. Is on blood thinners. Denies trauma. His no other acute complaints. We did a prolonged period in the emergency department for evaluation. Currently asymptomatic. Denies chest pain, shortness breath, abdominal pain, nausea, vomiting, headache, weakness, numbness. No other complaints at this time. - Related Data Home Medications Medication Instructions Recorded Confirmed Aspirin EC [Ecotrin Low Dose] 81 mg PO PC-BRKFST 10/06/17 06/13/21 Atorvastatin [Lipitor] 20 mg PO PC-SUPPER 01/04/19 06/13/21 Cholecalciferol [Vitamin D3 (125 125 mcg PO PC-BRKFST 05/27/21 06/13/21 Mcg = 5000 Iu)] Pantoprazole [Protonix] 40 mg PO AC-BID 05/27/21 06/13/21 Rivaroxaban [Xarelto Starter Pack] See Taper PO DIRECTED 06/09/21 06/13/21 Previous Rx's Medication Instructions Recorded Cyclobenzaprine [Flexeril] 10 mg PO TID PRN #15 tab 06/05/21 Allergies Allergy/AdvReac Type Severity Reaction Status Date / Time No Known Allergies Allergy Verified 11/30/21 20:38 Review of Systems ROS Statement: Those systems with pertinent positive or pertinent negative responses have been documented in the HPI. Review of Systems: CONST: Denies fever EYES: Denies blurry vision ENT: Denies nasal congestion C/V: Denies Chest pain RESP: Denies shortness of breath GI: Denies abdominal pain : Denies dysuria SKIN: Denies rash. MSK: Denies joint pain. NEURO: Denies headache ROS Other: All systems not noted in ROS Statement are negative. Past Medical History Past Medical History: Coronary Artery Disease (CAD), Chest Pain / Angina, Deep Vein Thrombosis (DVT), GERD/Reflux, Hyperlipidemia, Myocardial Infarction ([place]), Sleep Apnea/CPAP/BIPAP Additional Past Medical History / Comment(s): DVT 2002, uses CPAP Last Myocardial Infarction Date:: 08/2006 History of Any Multi-Drug Resistant Organisms: None Reported Past Surgical History: Heart Catheterization With Stent Additional Past Surgical History / Comment(s): left leg surgery r/t DVT, ORIF right femur septal deviation surgery in 2014, varicose vein removal in the left leg. Past Anesthesia/Blood Transfusion Reactions: No Reported Reaction Additional Past Anesthesia/Blood Transfusion Reaction / Comment(s): no previous transfusion Date of Last Stent Placement:: 2006 Past Psychological History: Anxiety Smoking Status: Former smoker Past Alcohol Use History: None Reported Past Drug Use History: None Reported - Past Family History Mother Family Medical History: COPD, Diabetes Mellitus, Myocardial Infarction ([place]) Additional Family Medical History / Comment(s): Mother at age 75 with history of hypertension, renal failure on dialysis, CVA 6, diabetes mellitus type 2, congestive heart failure and COPD. Patient does not know his father. He has no brothers or sisters. He is single and no children. General Exam - General Exam Comments Initial Comments: General: Appears in no acute distress. HEAD: Normal with no signs of head trauma. EYES: PERRLA, EOMI, conjunctiva normal, no discharge. Pupils are 3 mm equal bilaterally. ENT: Hearing grossly intact, normal oropharynx. RESPIRATORY: Clear breath sounds bilaterally. No wheezes, rales, or rhonchi. C/V: Regular rate and rhythm. S1 and S2 auscultated, no edema, peripheral pulses 2+ and intact throughout ABD: Abd is soft, nontender, nondistended EXT: Normal range of motion, no obvious deformity SKIN: No rashes or lesions observed on exposed skin. NEURO: Alert and oriented x 4. Cranial nerves II-XII intact. No focal sensory or strength deficits. ECG is a 15. NIH of 0. Limitations: no limitations Course Vital Signs 11/30/21 20:39 Temperature 97.7 F Pulse Rate 65 Respiratory 16 Rate Blood Pressure 121/72 O2 Sat by Pulse 98 Oximetry Medical Decision Making - Medical Decision Making Based on the patient's presentation and physical exam, I do suspicion for intracranial process but as he is on blood thinners with neuro complaints, I would like to obtain CT brain. He was in agreement this plan. We'll also obtain an Accu-Chek. CT brain shows no acute intra-cranial process. Accu-Chek is within normal limits. Vital signs are within normal limits. On reevaluation, patient remains asymptomatic. Updated him on his results. I believe it is safe for him to be discharged home. He was in agreement this plan. Strict return precautions were discussed. . I instructed the patient to follow up with their PCP in the next 1-3 days. I explained that the patient should return to the emergency department if they experience any worsening symptoms. Strict return precautions were discussed with the patient. The patient expressed understanding of these instructions. I answered all questions that the patient had. The patient was discharged home in good condition with their prescriptions and follow up information. - Lab Data Lab Results 12/01/21 Range/Units 02:13 POC Glucose (mg/dL) 82 (70-110) mg/dL POC Glu Tearoom Host ID Kuldip Duenas Disposition Clinical Impression: Paresthesia Disposition: HOME SELF-CARE Condition: Good Is patient prescribed a controlled substance at d/c from ED?: No Referrals: Jona Jaramillo MD [Primary Care Provider] - 1-2 days Time of Disposition: 03:40
== END 2021-12-01 03:59 | disposition home or self-care (01) ==
LOC: EC 20:14
DX: R20.2 Paresthesia of skin (principal); E78.5 Hyperlipidemia, unspecified; K21.9 Gastro-esophageal reflux disease without esophagitis; I25.10 Atherosclerotic heart disease of native coronary artery without angina pectoris; Z82.49 Family history of ischemic heart disease and other diseases of the circulatory system; Z79.83 Long term (current) use of bisphosphonates; Z79.82 Long term (current) use of aspirin; Z87.891 Personal history of nicotine dependence
CPT/HCPCS: 36415; 70450; 99284

== ENCOUNTER 2021-12-21 01:22 | Emergency (ER) | payer MEDICARE ==
[2021-12-21 01:44] VITALS: BP 95/62; PULSE 79; RESP 18; TEMP 98
--- NOTE | 2021-12-21 05:21 | XR ---
EXAMINATION TYPE: XR chest 2V DATE OF EXAM: 12/21/2021 COMPARISON: 07/23/2021 HISTORY: Chest pain TECHNIQUE: FINDINGS: Heart and mediastinum are normal. Lungs are clear. Diaphragm is normal. Bony thorax appears normal. IMPRESSION: Normal chest. No change.
[2021-12-21 05:52] LABS: Basophils % (A) 0 %; Eosinophils # (A) 0.1 k/uL (0-0.7); Eosinophils % (A) 3 %; HCT 38.2 % (39.0-53.0); HGB 12.8 gm/dL (13.0-17.5); Lymphocytes # (A) 1.2 k/uL (1.0-4.8); Lymphocytes % (A) 24 %; MCH 29.6 pg (25.0-35.0); MCHC 33.4 g/dL (31.0-37.0); MCV 88.5 fL (80.0-100.0); Mean Platelet Volume 6.8; Monocytes # (A) 0.4 k/uL (0-1.0); Monocytes % (A) 8 %; Neutrophils # (A) 3.2 k/uL (1.3-7.7); Neutrophils % (A) 64 %; Platelet Count 242 k/uL (150-450); RBC 4.32 m/uL (4.30-5.90); RDW 12.7 % (11.5-15.5)
[2021-12-21 06:01] LABS: INR 1.3 (<1.2); Partial Thromboplastin Time 28.9 sec (22.0-30.0); Prothrombin Time 13.6 sec (9.0-12.0)
[2021-12-21 06:06] LABS: Albumin 4.1 g/dL (3.5-5.0); Potassium 3.4 mmol/L (3.5-5.1); Total Bilirubin 0.8 mg/dL (0.2-1.3); Total Protein 6.3 g/dL (6.3-8.2)
--- NOTE | 2021-12-21 07:05 | ED ---
Recheck HPI - General Chief Complaint: Recheck/Abnormal Lab/Rx Stated Complaint: sleep issues, gerd, possible med reaction Time Seen by Provider: 12/21/21 04:36 Source: patient Mode of arrival: ambulatory Limitations: no limitations - History of Present Illness Initial Comments: This patient is a 61-year-old man who presents with concern that the last time he placed his CPAP on he was having a burning sensation. The patient had started new medication and was wondering if this was a side effect or if it was related to some the settings on the machine. -: days(s) Associated Symptoms: chest pain, shortness of breath - Related Data Home Medications Medication Instructions Recorded Confirmed Aspirin EC [Ecotrin Low Dose] 81 mg PO PC-BRKFST 10/06/17 06/13/21 Atorvastatin [Lipitor] 20 mg PO PC-SUPPER 01/04/19 06/13/21 Cholecalciferol [Vitamin D3 (125 125 mcg PO PC-BRKFST 05/27/21 06/13/21 Mcg = 5000 Iu)] Pantoprazole [Protonix] 40 mg PO AC-BID 05/27/21 06/13/21 Rivaroxaban [Xarelto Starter Pack] See Taper PO DIRECTED 06/09/21 06/13/21 Previous Rx's Medication Instructions Recorded Cyclobenzaprine [Flexeril] 10 mg PO TID PRN #15 tab 06/05/21 Allergies Allergy/AdvReac Type Severity Reaction Status Date / Time No Known Allergies Allergy Verified 12/21/21 01:44 Review of Systems ROS Statement: Those systems with pertinent positive or pertinent negative responses have been documented in the HPI. ROS Other: All systems not noted in ROS Statement are negative. Constitutional: Denies: fever, chills ENT: Denies: throat pain Respiratory: Reports: dyspnea. Denies: cough Cardiovascular: Reports: chest pain. Denies: palpitations, edema, syncope Gastrointestinal: Denies: abdominal pain, vomiting, diarrhea Musculoskeletal: Denies: back pain Skin: Denies: rash Neurological: Denies: headache, weakness, numbness Past Medical History Past Medical History: Coronary Artery Disease (CAD), Chest Pain / Angina, Deep Vein Thrombosis (DVT), GERD/Reflux, Hyperlipidemia, Myocardial Infarction ([place]), Sleep Apnea/CPAP/BIPAP Additional Past Medical History / Comment(s): DVT 2002, uses CPAP Last Myocardial Infarction Date:: 08/2006 History of Any Multi-Drug Resistant Organisms: None Reported Past Surgical History: Heart Catheterization With Stent Additional Past Surgical History / Comment(s): left leg surgery r/t DVT, ORIF right femur septal deviation surgery in 2014, varicose vein removal in the left leg. Past Anesthesia/Blood Transfusion Reactions: No Reported Reaction Additional Past Anesthesia/Blood Transfusion Reaction / Comment(s): no previous transfusion Date of Last Stent Placement:: 2006 Past Psychological History: Anxiety Smoking Status: Former smoker Past Alcohol Use History: None Reported Past Drug Use History: None Reported - Past Family History Mother Family Medical History: COPD, Diabetes Mellitus, Myocardial Infarction ([place]) Additional Family Medical History / Comment(s): Mother at age 75 with history of hypertension, renal failure on dialysis, CVA 6, diabetes mellitus type 2, congestive heart failure and COPD. Patient does not know his father. He has no brothers or sisters. He is single and no children. General Exam Limitations: no limitations General appearance: alert, in no apparent distress Head exam: Present: atraumatic, normocephalic Eye exam: Present: normal appearance. Absent: scleral icterus, conjunctival injection ENT exam: Present: normal oropharynx Neck exam: Present: normal inspection Respiratory exam: Present: normal lung sounds bilaterally. Absent: respiratory distress, wheezes, rales, rhonchi, stridor, chest wall tenderness, accessory muscle use Cardiovascular Exam: Present: regular rate, normal rhythm, normal heart sounds. Absent: systolic murmur, diastolic murmur, rubs, gallop GI/Abdominal exam: Present: soft. Absent: distended, tenderness, guarding, rebound, mass Extremities exam: Present: normal inspection, normal capillary refill. Absent: pedal edema, calf tenderness Back exam: Present: normal inspection. Absent: CVA tenderness (R), CVA tenderness (L) Neurological exam: Present: alert Skin exam: Present: warm, dry, intact, normal color. Absent: rash Course Vital Signs 12/21/21 01:41 Temperature 98 F Pulse Rate 79 Respiratory 18 Rate Blood Pressure 95/62 O2 Sat by Pulse 100 Oximetry Medical Decision Making - Lab Data Result diagrams: 12/21/21 05:42 12/21/21 05:42 Lab Results 12/21/21 12/21/21 12/21/21 Range/Units 05:42 05:42 05:42 WBC 5.0 (3.8-10.6) k/uL RBC 4.32 (4.30-5.90) m/uL Hgb 12.8 L (13.0-17.5) gm/dL Hct 38.2 L (39.0-53.0) % MCV 88.5 (80.0-100.0) fL MCH 29.6 (25.0-35.0) pg MCHC 33.4 (31.0-37.0) g/dL RDW 12.7 (11.5-15.5) % Plt Count 242 (150-450) k/uL MPV 6.8 Neutrophils % 64 % Lymphocytes % 24 % Monocytes % 8 % Eosinophils % 3 % Basophils % 0 % Neutrophils # 3.2 (1.3-7.7) k/uL Lymphocytes # 1.2 (1.0-4.8) k/uL Monocytes # 0.4 (0-1.0) k/uL Eosinophils # 0.1 (0-0.7) k/uL Basophils # 0.0 (0-0.2) k/uL PT 13.6 H (9.0-12.0) sec INR 1.3 H (<1.2) APTT 28.9 (22.0-30.0) sec Sodium 136 L (137-145) mmol/L Potassium 3.4 L (3.5-5.1) mmol/L Chloride 100 (98-107) mmol/L Carbon Dioxide 25 (22-30) mmol/L Anion Gap 11 mmol/L BUN 21 H (9-20) mg/dL Creatinine 1.14 (0.66-1.25) mg/dL Est GFR (CKD-EPI)AfAm 80 (>60 ml/min/1.73 sqM) Est GFR (CKD-EPI)NonAf 69 (>60 ml/min/1.73 sqM) Glucose 96 (74-99) mg/dL Calcium 9.0 (8.4-10.2) mg/dL Magnesium 2.0 (1.6-2.3) mg/dL Total Bilirubin 0.8 (0.2-1.3) mg/dL AST 22 (17-59) U/L ALT 16 (4-49) U/L Alkaline Phosphatase 71 (38-126) U/L Troponin I (0.000-0.034) ng/mL Total Protein 6.3 (6.3-8.2) g/dL Albumin 4.1 (3.5-5.0) g/dL 12/21/21 Range/Units 05:42 WBC (3.8-10.6) k/uL RBC (4.30-5.90) m/uL Hgb (13.0-17.5) gm/dL Hct (39.0-53.0) % MCV (80.0-100.0) fL MCH (25.0-35.0) pg MCHC (31.0-37.0) g/dL RDW (11.5-15.5) % Plt Count (150-450) k/uL MPV Neutrophils % % Lymphocytes % % Monocytes % % Eosinophils % % Basophils % % Neutrophils # (1.3-7.7) k/uL Lymphocytes # (1.0-4.8) k/uL Monocytes # (0-1.0) k/uL Eosinophils # (0-0.7) k/uL Basophils # (0-0.2) k/uL PT (9.0-12.0) sec INR (<1.2) APTT (22.0-30.0) sec Sodium (137-145) mmol/L Potassium (3.5-5.1) mmol/L Chloride (98-107) mmol/L Carbon Dioxide (22-30) mmol/L Anion Gap mmol/L BUN (9-20) mg/dL Creatinine (0.66-1.25) mg/dL Est GFR (CKD-EPI)AfAm (>60 ml/min/1.73 sqM) Est GFR (CKD-EPI)NonAf (>60 ml/min/1.73 sqM) Glucose (74-99) mg/dL Calcium (8.4-10.2) mg/dL Magnesium (1.6-2.3) mg/dL Total Bilirubin (0.2-1.3) mg/dL AST (17-59) U/L ALT (4-49) U/L Alkaline Phosphatase (38-126) U/L Troponin I <0.012 (0.000-0.034) ng/mL Total Protein (6.3-8.2) g/dL Albumin (3.5-5.0) g/dL Disposition Clinical Impression: Sleep apnea Disposition: HOME SELF-CARE Condition: Good Instructions (If sedation given, give patient instructions): Dyspnea (ED) Is patient prescribed a controlled substance at d/c from ED?: No Referrals: Jona Jaramillo MD [Primary Care Provider] - 1-2 days
== END 2021-12-21 08:08 | disposition home or self-care (01) ==
LOC: EC 01:22
DX: G47.30 Sleep apnea, unspecified (principal); K21.9 Gastro-esophageal reflux disease without esophagitis; I25.10 Atherosclerotic heart disease of native coronary artery without angina pectoris; I25.2 Old myocardial infarction; Z79.83 Long term (current) use of bisphosphonates; Z79.82 Long term (current) use of aspirin; Z87.891 Personal history of nicotine dependence
CPT/HCPCS: 36415; 71046; 80053; 83735; 84484; 85025; 85610; 85730; 99285

== ENCOUNTER 2022-01-12 17:40 | Emergency (ER) | payer MEDICARE ==
[2022-01-12 17:48] VITALS: TEMP 97.6
[2022-01-12 19:10] LABS: Basophils % (A) 1 %; Eosinophils # (A) 0.1 k/uL (0-0.7); Eosinophils % (A) 2 %; HCT 37.6 % (39.0-53.0); HGB 13.1 gm/dL (13.0-17.5); Lymphocytes # (A) 1.8 k/uL (1.0-4.8); Lymphocytes % (A) 31 %; MCH 31.3 pg (25.0-35.0); MCHC 34.8 g/dL (31.0-37.0); MCV 89.8 fL (80.0-100.0); Mean Platelet Volume 6.9; Monocytes # (A) 0.4 k/uL (0-1.0); Monocytes % (A) 7 %; Neutrophils # (A) 3.3 k/uL (1.3-7.7); Neutrophils % (A) 57 %; Platelet Count 197 k/uL (150-450); RBC 4.19 m/uL (4.30-5.90); RDW 12.9 % (11.5-15.5); WBC 5.7 k/uL (3.8-10.6)
[2022-01-12 19:19] LABS: INR 1.4 (<1.2); Partial Thromboplastin Time 29.8 sec (22.0-30.0); Prothrombin Time 14.9 sec (9.0-12.0)
[2022-01-12 19:23] LABS: Potassium 4.2 mmol/L (3.5-5.1)
[2022-01-12 19:24] LABS: Albumin 4.2 g/dL (3.5-5.0); Calcium 9.2 mg/dL (8.4-10.2); Magnesium 2.1 mg/dL (1.6-2.3); Total Bilirubin 0.8 mg/dL (0.2-1.3); Total Protein 6.5 g/dL (6.3-8.2)
[2022-01-12] MEDS ORDERED: ASPIRIN 81 MG PO STA (21:31)
[2022-01-12] MEDS ORDERED: MAG HYDROX/AL HYDROX/SIMETH 30 ML, HYOSCYAMINE ELIXIR 10 ML, LIDOCAINE VISCOUS 2% 10 ML PO STA ×3 (21:31)
--- NOTE | 2022-01-12 21:54 | XR ---
EXAMINATION TYPE: XR chest 2V DATE OF EXAM: 01/12/2022 9:48 PM COMPARISON: Chest radiographs from and 12/21/2021 TECHNIQUE: XR chest 2V Frontal and lateral views of the chest. CLINICAL INDICATION:Male, 61 years old with history of chest pain; FINDINGS: Lungs/Pleura: There is no evidence of pleural effusion, focal consolidation, or pneumothorax. Pulmonary vascularity: Unremarkable. Heart/mediastinum: Cardiomediastinal silhouette is unremarkable. Musculoskeletal: No acute osseous pathology. IMPRESSION: No acute cardiopulmonary disease/process.
--- NOTE | 2022-01-12 22:42 | ED ---
General Adult HPI - General Chief complaint: Chest Pain Stated complaint: Headache,chest pain Time Seen by Provider: 01/12/22 21:20 Source: patient, RN notes reviewed, old records reviewed Mode of arrival: ambulatory Limitations: no limitations - History of Present Illness Initial comments: Patient is a 61-year-old male with past medical history remarkable for DVT currently on xeralto, prior [place] with stent placement over 10 years ago, acid reflux who presents emergency Department complaining of a brief episode of chest pain earlier this evening. States he was making dinner, and leaning forward over the stove when he began having some nose pain where his glasses creatinine noticed a burning substernal/epigastric chest pain. Wasn't sure if it was chest pain or acid reflux. Patient states he sat down in symptoms all resolved within 40 seconds. Denied any shortness of breath.Has history of cardiac disease was concerned and wanted to be evaluated. Describe the pain as burning sensation. Did not radiate. Denied shortness of breath. The dye nausea or vomiting. Denies diarrhea, abdominal pain. He is compliant with blood thinner. Presents for further evaluation at this time. Did have Covid one month ago and states he occasionally still feels "off." But has a difficult time describing his exact symptoms other than he is not back to his normal self. I evaluated the patient after he was placed in a room.Patient is currently asymptomatic. - Related Data Home Medications Medication Instructions Recorded Confirmed Aspirin EC [Ecotrin Low Dose] 81 mg PO DAILY 10/06/17 01/12/22 Cholecalciferol [Vitamin D3 (125 125 mcg PO DAILY 05/27/21 01/12/22 Mcg = 5000 Iu)] Pantoprazole [Protonix] 40 mg PO AC-BID 05/27/21 01/12/22 Rivaroxaban [Xarelto] 20 mg PO W/SUPPER 01/12/22 01/12/22 Allergies Allergy/AdvReac Type Severity Reaction Status Date / Time No Known Allergies Allergy Verified 01/12/22 17:48 Review of Systems ROS Statement: Those systems with pertinent positive or pertinent negative responses have been documented in the HPI. Review of Systems: CONST: Denies fever EYES: Denies blurry vision ENT: Denies nasal congestion C/V: Denies Chest pain RESP: Denies shortness of breath GI: Denies abdominal pain : Denies dysuria SKIN: Denies rash. MSK: Denies joint pain. NEURO: Denies headache ROS Other: All systems not noted in ROS Statement are negative. Past Medical History Past Medical History: Coronary Artery Disease (CAD), Chest Pain / Angina, Deep Vein Thrombosis (DVT), GERD/Reflux, Hyperlipidemia, Myocardial Infarction ([place]), Sleep Apnea/CPAP/BIPAP Additional Past Medical History / Comment(s): DVT 2002, uses CPAP Last Myocardial Infarction Date:: 08/2006 History of Any Multi-Drug Resistant Organisms: None Reported Past Surgical History: Heart Catheterization With Stent Additional Past Surgical History / Comment(s): left leg surgery r/t DVT, ORIF right femur septal deviation surgery in 2014, varicose vein removal in the left leg. Past Anesthesia/Blood Transfusion Reactions: No Reported Reaction Additional Past Anesthesia/Blood Transfusion Reaction / Comment(s): no previous transfusion Date of Last Stent Placement:: 2006 Past Psychological History: Anxiety Smoking Status: Former smoker Past Alcohol Use History: None Reported Past Drug Use History: None Reported - Past Family History Mother Family Medical History: COPD, Diabetes Mellitus, Myocardial Infarction ([place]) Additional Family Medical History / Comment(s): Mother at age 75 with history of hypertension, renal failure on dialysis, CVA 6, diabetes mellitus type 2, congestive heart failure and COPD. Patient does not know his father. He has no brothers or sisters. He is single and no children. General Exam - General Exam Comments Initial Comments: General: Appears in no acute distress. HEAD: Normal with no signs of head trauma. EYES: PERRLA, EOMI, conjunctiva normal, no discharge. ENT: Hearing grossly intact, normal oropharynx. RESPIRATORY: Clear breath sounds bilaterally. No wheezes, rales, or rhonchi. C/V: Regular rate and rhythm. S1 and S2 auscultated, no edema, peripheral pulses 2+ and intact throughout ABD: Abd is soft, nontender, nondistended EXT: Normal range of motion, no obvious deformity SKIN: No rashes or lesions observed on exposed skin. NEURO: Alert and oriented x 4. Cranial nerves II-XII intact. No focal sensory or strength deficits. Limitations: no limitations Course Vital Signs 01/12/22 17:45 Temperature 97.6 F Pulse Rate 69 Respiratory 20 Rate Blood Pressure 120/59 O2 Sat by Pulse 100 Oximetry Medical Decision Making - Medical Decision Making Based on patient's presentation and physical exam, he presents complaining of chest pain. Is concerned that it may be cardiac in nature or could be acid reflux. Is currently asymptomatic. Laboratory studies were obtained upon arrival, and were remarkable for an EKG with no signs of acute ischemia. Troponin was undetectable. Remainder labs are unremarkable. Vital signs are within acceptable limits. I evaluated the patient is placed in a room. I discussed with him that as he is asymptomatic this was read the stomach acid reflux but cannot rule out cardiac etiology with this history. As it has been over 3 hours since the initial troponin, I did recommend that we obtain a repeat troponin. I also offered COVI D-19 testing, as the patient is concerned he suddenly be testing positive. I also recommended we obtain a chest x-ray. He was in agreement this plan. Chest x-ray shows no acute cardiopulmonary process. Repeat troponin is undetectable. Covid is negative. On reevaluation, patient remains asymptomatic. Still feels within normal limits. I believe it is safe to discharge him home. Heart score is low at 3. He was in agreement this plan. Strict return precautions were discussed. I did offer the patient medications for acid reflux which she refuses, as he states he has some at home already. I instructed the patient to follow up with their PCP in the next 1-3 days. I explained that the patient should return to the emergency department if they experience any worsening symptoms. Strict return precautions were discussed with the patient. The patient expressed understanding of these instructions. I answered all questions that the patient had. The patient was discharged home in good condition with their prescriptions and follow up information. - Lab Data Result diagrams: 01/12/22 18:58 01/12/22 18:58 Lab Results 01/12/22 01/12/22 01/12/22 Range/Units 18:58 18:58 18:58 WBC 5.7 (3.8-10.6) k/uL RBC 4.19 L (4.30-5.90) m/uL Hgb 13.1 (13.0-17.5) gm/dL Hct 37.6 L (39.0-53.0) % MCV 89.8 (80.0-100.0) fL MCH 31.3 (25.0-35.0) pg MCHC 34.8 (31.0-37.0) g/dL RDW 12.9 (11.5-15.5) % Plt Count 197 (150-450) k/uL MPV 6.9 Neutrophils % 57 % Lymphocytes % 31 % Monocytes % 7 % Eosinophils % 2 % Basophils % 1 % Neutrophils # 3.3 (1.3-7.7) k/uL Lymphocytes # 1.8 (1.0-4.8) k/uL Monocytes # 0.4 (0-1.0) k/uL Eosinophils # 0.1 (0-0.7) k/uL Basophils # 0.0 (0-0.2) k/uL PT 14.9 H (9.0-12.0) sec INR 1.4 H (<1.2) APTT 29.8 (22.0-30.0) sec Sodium 136 L (137-145) mmol/L Potassium 4.2 (3.5-5.1) mmol/L Chloride 99 (98-107) mmol/L Carbon Dioxide 25 (22-30) mmol/L Anion Gap 12 mmol/L BUN 19 (9-20) mg/dL Creatinine 1.11 (0.66-1.25) mg/dL Est GFR (CKD-EPI)AfAm 83 (>60 ml/min/1.73 sqM) Est GFR (CKD-EPI)NonAf 72 (>60 ml/min/1.73 sqM) Glucose 105 H (74-99) mg/dL Calcium 9.2 (8.4-10.2) mg/dL Magnesium 2.1 (1.6-2.3) mg/dL Total Bilirubin 0.8 (0.2-1.3) mg/dL AST 17 (17-59) U/L ALT 15 (4-49) U/L Alkaline Phosphatase 64 (38-126) U/L Troponin I (0.000-0.034) ng/mL Total Protein 6.5 (6.3-8.2) g/dL Albumin 4.2 (3.5-5.0) g/dL Coronavirus (PCR) (Not Detectd) 01/12/22 01/12/22 01/12/22 Range/Units 18:58 21:40 21:40 WBC (3.8-10.6) k/uL RBC (4.30-5.90) m/uL Hgb (13.0-17.5) gm/dL Hct (39.0-53.0) % MCV (80.0-100.0) fL MCH (25.0-35.0) pg MCHC (31.0-37.0) g/dL RDW (11.5-15.5) % Plt Count (150-450) k/uL MPV Neutrophils % % Lymphocytes % % Monocytes % % Eosinophils % % Basophils % % Neutrophils # (1.3-7.7) k/uL Lymphocytes # (1.0-4.8) k/uL Monocytes # (0-1.0) k/uL Eosinophils # (0-0.7) k/uL Basophils # (0-0.2) k/uL PT (9.0-12.0) sec INR (<1.2) APTT (22.0-30.0) sec Sodium (137-145) mmol/L Potassium (3.5-5.1) mmol/L Chloride (98-107) mmol/L Carbon Dioxide (22-30) mmol/L Anion Gap mmol/L BUN (9-20) mg/dL Creatinine (0.66-1.25) mg/dL Est GFR (CKD-EPI)AfAm (>60 ml/min/1.73 sqM) Est GFR (CKD-EPI)NonAf (>60 ml/min/1.73 sqM) Glucose (74-99) mg/dL Calcium (8.4-10.2) mg/dL Magnesium (1.6-2.3) mg/dL Total Bilirubin (0.2-1.3) mg/dL AST (17-59) U/L ALT (4-49) U/L Alkaline Phosphatase (38-126) U/L Troponin I <0.012 <0.012 (0.000-0.034) ng/mL Total Protein (6.3-8.2) g/dL Albumin (3.5-5.0) g/dL Coronavirus (PCR) Detected A (Not Detectd) - EKG Data -: EKG Interpreted by Me EKG Comments: 12-lead Electrocardiogram Interpretation Note EKG was reviewed and interpreted by myself. 12-lead ECG performed at 1852 is interpreted by me as revealing sinus bradycardia with first-degree AV block. At a rate of 49 beats per minute. Purcell is normal. MD interval is 234 ms, QRS duration is 97 ms, QTc is 373 ms.. Patient is a chronic T-wave inversion in lead III. Unchanged from prior EKGs from October 2021. There were no acute ST or T wave abnormalities to suggest myocardial ischemia or injury. R wave progression across the precordium was satisfactory. By my interpretation this EKG is non-diagnostic for acute ischemia. Disposition Clinical Impression: GERD (gastroesophageal reflux disease), Chest pain Disposition: HOME SELF-CARE Condition: Good Instructions (If sedation given, give patient instructions): GERD (Gastroesophageal Reflux Disease) ([place]) Is patient prescribed a controlled substance at d/c from ED?: No Referrals: Jona Jaramillo MD [Primary Care Provider] - 1-2 days Time of Disposition: 22:40
[2022-01-12 22:49] VITALS: BP 100/60; PULSE 67; RESP 18
== END 2022-01-12 22:59 | disposition home or self-care (01) ==
LOC: EC 17:40
DX: K21.9 Gastro-esophageal reflux disease without esophagitis (principal); R07.9 Chest pain, unspecified; I25.10 Atherosclerotic heart disease of native coronary artery without angina pectoris; Z86.718 Personal history of other venous thrombosis and embolism; E78.5 Hyperlipidemia, unspecified; I25.2 Old myocardial infarction; F41.9 Anxiety disorder, unspecified; Z87.891 Personal history of nicotine dependence; Z79.82 Long term (current) use of aspirin
CPT/HCPCS: 36415; 71046; 80053; 83735; 84484; 85025; 85610; 85730; 87635; 93005; 99285

== ENCOUNTER 2022-01-16 09:49 | Emergency (ER) | payer MEDICARE ==
[2022-01-16 09:59] VITALS: TEMP 97.8
[2022-01-16] MEDS ORDERED: SODIUM CHLORIDE 0.9% 1,000 ML IV STA (10:12)
[2022-01-16] MEDS ORDERED: FAMOTIDINE 20 MG/2 ML VIAL IV STA (10:26)
[2022-01-16 10:53] LABS: Basophils % (A) 1 %; Eosinophils # (A) 0.1 k/uL (0-0.7); Eosinophils % (A) 2 %; HCT 39.4 % (39.0-53.0); HGB 13.5 gm/dL (13.0-17.5); Lymphocytes # (A) 0.9 k/uL (1.0-4.8); Lymphocytes % (A) 23 %; MCH 30.7 pg (25.0-35.0); MCHC 34.4 g/dL (31.0-37.0); MCV 89.1 fL (80.0-100.0); Mean Platelet Volume 7.1; Monocytes # (A) 0.3 k/uL (0-1.0); Monocytes % (A) 8 %; Neutrophils # (A) 2.6 k/uL (1.3-7.7); Neutrophils % (A) 65 %; Platelet Count 203 k/uL (150-450); RBC 4.42 m/uL (4.30-5.90)
--- NOTE | 2022-01-16 11:14 | XR ---
EXAMINATION TYPE: XR chest 2V DATE OF EXAM: 01/16/2022 COMPARISON: 01/12/2022 HISTORY: 61-year-old male with chest pain TECHNIQUE: PA and lateral views FINDINGS: The cardiomediastinal silhouette, aorta, and pulmonary vasculature are within normal limits. Mild hyp erinflation. Lungs and pleural spaces are clear. IMPRESSION: Mild hyperinflation may relate to depth of inspiration or underlying emphysema. Clinically correlate. No acute cardiopulmonary process.
[2022-01-16 11:15] LABS: INR 1.2 (<1.2); Prothrombin Time 12.4 sec (9.0-12.0)
[2022-01-16 11:24] LABS: Albumin 4.2 g/dL (3.5-5.0); Calcium 9.4 mg/dL (8.4-10.2); Magnesium 2.1 mg/dL (1.6-2.3); Potassium 4.1 mmol/L (3.5-5.1); Total Bilirubin 0.8 mg/dL (0.2-1.3); Total Protein 6.6 g/dL (6.3-8.2)
--- NOTE | 2022-01-16 12:11 | ED ---
Chest Pain HPI - General Chief Complaint: Chest Pain Stated Complaint: chest pain using CPAP machine Time Seen by Provider: 01/16/22 10:10 Source: patient Mode of arrival: ambulatory Limitations: no limitations - History of Present Illness Initial Comments: Patient is a 61 year old male with a past medical history of coronary artery disease, myocardial infarction in 2006 s/p stenting, hyperlipidemia, GERD, hiatal hernia, and DVT who presents to the emergency department [facility] department with the chief complaint of moderately chest burning when using his CPAP for the past week. Patient states when he goes to bed and puts his CPAP on he has been experiencing chest burning episodes. These episodes usually last 10 minutes. Patient states he typically has one or 2 of them a night. There is no radiation. The pain is not associated with nausea, vomiting, abdominal pain, lightheadedness, dizziness, shortness of breath. Patient was evaluated for chest burning in her emergency department on 01/12. At this time for cardiac workup ruled out acute coronary event. Patient was also evaluated for chest discomfort this past May where he was cleared by cardiology. Patient is anxious for answers due to trouble sleeping because of the burning. He takes a baby aspirin daily and denies other anti-inflammatory use. He takes Protonix daily for GERD. He reports avoidance of GERD triggers. - Related Data Home Medications Medication Instructions Recorded Confirmed Aspirin EC [Ecotrin Low Dose] 81 mg PO DAILY 10/06/17 01/16/22 Cholecalciferol [Vitamin D3 (125 125 mcg PO DAILY 05/27/21 01/16/22 Mcg = 5000 Iu)] Pantoprazole [Protonix] 40 mg PO AC-BID 05/27/21 01/16/22 Rivaroxaban [Xarelto] 20 mg PO W/SUPPER 01/12/22 01/16/22 Previous Rx's Medication Instructions Recorded Famotidine [Pepcid] 20 mg PO BID 14 Days #28 tablet 01/16/22 Allergies Allergy/AdvReac Type Severity Reaction Status Date / Time No Known Allergies Allergy Verified 01/16/22 11:07 Review of Systems ROS Statement: Those systems with pertinent positive or pertinent negative responses have been documented in the HPI. ROS Other: All systems not noted in ROS Statement are negative. EKG Findings - EKG Comments: EKG Findings:: EKG taken at 10:16. EKG reveals sinus rhythm with first-degree AV block, chronic T-wave inversion in lead 3. Ventricular rate 76. HI interval 235. QRS duration 97. QTc 409 Past Medical History Past Medical History: Coronary Artery Disease (CAD), Chest Pain / Angina, Deep Vein Thrombosis (DVT), GERD/Reflux, Hyperlipidemia, Myocardial Infarction ([place]), Sleep Apnea/CPAP/BIPAP Additional Past Medical History / Comment(s): DVT 2002, uses CPAP Last Myocardial Infarction Date:: 08/2006 History of Any Multi-Drug Resistant Organisms: None Reported Past Surgical History: Heart Catheterization With Stent Additional Past Surgical History / Comment(s): left leg surgery r/t DVT, ORIF right femur septal deviation surgery in 2014, varicose vein removal in the left leg. Past Anesthesia/Blood Transfusion Reactions: No Reported Reaction Additional Past Anesthesia/Blood Transfusion Reaction / Comment(s): no previous transfusion Date of Last Stent Placement:: 2006 Past Psychological History: Anxiety Smoking Status: Former smoker Past Alcohol Use History: None Reported Past Drug Use History: None Reported - Past Family History Mother Family Medical History: COPD, Diabetes Mellitus, Myocardial Infarction ([place]) Additional Family Medical History / Comment(s): Mother at age 75 with history of hypertension, renal failure on dialysis, CVA 6, diabetes mellitus type 2, congestive heart failure and COPD. Patient does not know his father. He has no brothers or sisters. He is single and no children. General Exam Limitations: no limitations General appearance: alert, in no apparent distress Head exam: Present: atraumatic, normocephalic, normal inspection Neck exam: Present: normal inspection. Absent: tenderness, meningismus, lymphad enopathy Respiratory exam: Present: normal lung sounds bilaterally. Absent: respiratory distress, wheezes, rales, rhonchi, stridor Cardiovascular Exam: Present: regular rate, normal rhythm, normal heart sounds. Absent: systolic murmur, diastolic murmur, rubs, gallop, clicks GI/Abdominal exam: Present: soft, normal bowel sounds. Absent: distended, tenderness, guarding, rebound, rigid Neurological exam: Present: alert, oriented X3, CN II-XII intact Psychiatric exam: Present: normal affect, normal mood Skin exam: Present: warm, dry, intact, normal color. 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 Patient well-appearing and asymptomatic now. EKG reveals sinus rhythm with first-degree AV block, chronic T-wave inversion in lead III. Laboratory studies obtained and are relatively unremarkable. Troponin is within normal limits. Chest x-ray negative for acute process. Patient watch closely in the emergency department. He continued to be asymptomatic. I have suspicion symptoms are related to acid reflux and/or hiatal hernia. Patient will be placed on Pepcid twice daily. He will trial this medication while continuing home prescription of protonix and continue to avoid GERD triggers. If symptoms do not improve patient may need scope for further evaluation of possible gastritis or ulcer. This was discussed in detail with patient who verbalizes understanding. Dr. Burton is my attended. Disposition Clinical Impression: Burning chest pain, Hx of gastroesophageal reflux (GERD) Disposition: HOME SELF-CARE Instructions (If sedation given, give patient instructions): Hiatal Hernia (ED), GERD (Gastroesophageal Reflux Disease) (ED) Additional Instructions: Take medication as directed. Continue taking Protonix. Continue avoiding acid reflux triggers which we discussed. Follow up with Dr. Peacock in one to 2 days. If symptoms do not improve he may have to refer you to a GI specialist for another scope or even general surgery to further evaluate her hiatal hernia which may be worsening your symptoms. Return to the emergency department if you experience new, concerning, or worsening symptoms. Prescriptions: Famotidine [Pepcid] 20 mg PO BID 14 Days #28 tablet Is patient prescribed a controlled substance at d/c from ED?: No Referrals: Jona Jaramillo MD [Primary Care Provider] - 1-2 days Time of Disposition: 12:11
[2022-01-16 12:34] VITALS: BP 113/68; PULSE 64; RESP 16
== END 2022-01-16 12:34 | disposition home or self-care (01) ==
LOC: EC 09:49
DX: R07.9 Chest pain, unspecified (principal); K21.9 Gastro-esophageal reflux disease without esophagitis; I25.10 Atherosclerotic heart disease of native coronary artery without angina pectoris; J44.9 Chronic obstructive pulmonary disease, unspecified; E11.9 Type 2 diabetes mellitus without complications; I21.9 Acute myocardial infarction, unspecified; I10 Essential (primary) hypertension; E78.5 Hyperlipidemia, unspecified; G47.30 Sleep apnea, unspecified; I82.409 Acute embolism and thrombosis of unspecified deep veins of unspecified lower extremity; Z79.82 Long term (current) use of aspirin; Z79.899 Other long term (current) drug therapy
CPT/HCPCS: 36415; 71046; 80053; 83735; 84484; 85025; 85610; 85730; 93005; 96361; 96374; 99285

== ENCOUNTER → 2022-06-25 | Outpatient (CLI) | payer MEDICARE ==
[2022-06-25 15:43] LABS: ALT 22 U/L (10-49); AST 19 U/L (14-35); Chol/HDL Ratio 3.76 Ratio; LDL Cholesterol,Calculated 124.4 mg/dL (0.0-131.0); VLDL Calculation 16.52 mg/dL (5.00-40.00)
== END | disposition home or self-care (01) ==
LOC: LABWHC1 08:42
PROVIDERS: ATTEND Internal Medicine Cardiovascular Disease
DX: E78.2 Mixed hyperlipidemia (principal)
CPT/HCPCS: 36415; 80061; 84450; 84460

== ENCOUNTER 2022-11-27 04:25 | Emergency (ER) | payer MEDICARE ==
[2022-11-27 04:32] VITALS: BP 115/67; PULSE 79; RESP 18; TEMP 98.5
--- NOTE | 2022-11-27 04:45 | ED ---
General Adult HPI - General Chief complaint: Recheck/Abnormal Lab/Rx Stated complaint: Feels weird Time Seen by Provider: 11/27/22 04:38 Source: patient Mode of arrival: ambulatory Limitations: no limitations - History of Present Illness Initial comments: Dictation was produced using [employer] dictation software. please excuse any grammatical, word or spelling errors. Chief Complaint: 62-year-old male states he felt weird after taking Gas-X pills History of Present Illness: A 62-year-old male who took some Gas-X pills to treat some gas pain in his abdomen. Patient states to bed. He woke up in a friend's E proximal to 1 hour ago. States he felt weird. No point did he have any pain nausea vomiting. He did not feel lightheaded or dizzy. States that he came here to be evaluated not sure if he had an ALLERGY or adverse affect to the Gas-X processes never taken it before. Patient asymptomatic at the bedside. The ROS documented in this emergency department record has been reviewed and confirmed by me. Those systems with pertinent positive or negative responses have been documented in the HPI. All other systems are other negative and/or noncontributory. - Related Data Home Medications Medication Instructions Recorded Confirmed Aspirin EC [Ecotrin Low Dose] 81 mg PO DAILY 10/06/17 01/16/22 Cholecalciferol [Vitamin D3 (125 125 mcg PO DAILY 05/27/21 01/16/22 Mcg = 5000 Iu)] Pantoprazole [Protonix] 40 mg PO AC-BID 05/27/21 01/16/22 Rivaroxaban [Xarelto] 20 mg PO W/SUPPER 01/12/22 01/16/22 Previous Rx's Medication Instructions Recorded Famotidine [Pepcid] 20 mg PO BID 14 Days #28 tablet 01/16/22 Allergies Allergy/AdvReac Type Severity Reaction Status Date / Time No Known Allergies Allergy Verified 11/27/22 04:32 Review of Systems ROS Statement: Those systems with pertinent positive or pertinent negative responses have been documented in the HPI. ROS Other: All systems not noted in ROS Statement are negative. Past Medical History Past Medical History: Coronary Artery Disease (CAD), Chest Pain / Angina, Deep Vein Thrombosis (DVT), GERD/Reflux, Hyperlipidemia, Myocardial Infarction ([place]), Sleep Apnea/CPAP/BIPAP Additional Past Medical History / Comment(s): DVT 2002, uses CPAP Last Myocardial Infarction Date:: 08/2006 History of Any Multi-Drug Resistant Organisms: None Reported Past Surgical History: Heart Catheterization With Stent Additional Past Surgical History / Comment(s): left leg surgery r/t DVT, ORIF right femur septal deviation surgery in 2015, varicose vein removal in the left leg. Past Anesthesia/Blood Transfusion Reactions: No Reported Reaction Additional Past Anesthesia/Blood Transfusion Reaction / Comment(s): no previous transfusion Date of Last Stent Placement:: 2006 Past Psychological History: Anxiety Smoking Status: Former smoker Past Alcohol Use History: None Reported Past Drug Use History: None Reported - Past Family History Mother Family Medical History: COPD, Diabetes Mellitus, Myocardial Infarction ([place]) Additional Family Medical History / Comment(s): Mother at age 75 with history of hypertension, renal failure on dialysis, CVA 6, diabetes mellitus type 2, congestive heart failure and COPD. Patient does not know his father. He has no brothers or sisters. He is single and no children. General Exam - General Exam Comments Initial Comments: PHYSICAL EXAM: General Impression: Alert and oriented x3, not in acute distress HEENT: Normocephalic atraumatic, extra-ocular movements intact, pupils equal and reactive to light bilaterally, mucous membranes moist. Cardiovascular: Heart regular rate and rhythm Chest: Able to complete full sentences, no retractions, no tachypnea Abdomen: abdomen soft, non-tender, non-distended, no organomegaly Musculoskeletal: Pulses present and equal in all extremities, no peripheral edema Motor: no focal deficits noted Neurological: CN II-XII grossly intact, no focal motor or sensory deficits noted Skin: Intact with no visualized rashes Psych: Normal affect and mood Limitations: no limitations Course Vital Signs 11/27/22 04:30 Temperature 98.5 F Pulse Rate 79 Respiratory 18 Rate Blood Pressure 115/67 O2 Sat by Pulse 100 Oximetry Medical Decision Making - Medical Decision Making Was pt. sent in by a medical professional or institution (, [facility], [facility], urgent care, hospital, or penitentiary...) When possible be specific @ -[No] Did you speak to anyone other than the patient for history (EMS, parent, family, police, friend...)? What history was obtained from this source @ -[No] Did you review nursing and triage notes (agree or disagree)? Why? @ -[I reviewed and agree with nursing and triage notes] Were old charts reviewed (outside hosp., previous admission, EMS record, old EKG, old radiological studies, urgent care reports/EKG's, penitentiary records)? Report findings @ -[No old charts were reviewed] Differential Diagnosis (chest pain, altered mental status, abdominal pain women, abdominal pain men, vaginal bleeding, musculoskeletal, weakness, fever, dyspnea, syncope, headache, dizziness, GI bleed, back pain, seizure, CVA, palpatations, mental health)? @ -[not applicable] EKG interpreted by me (3pts min.). @ -[None done] X-rays interpreted by me (1pt min.). @ -[None done] CT interpreted by me (1pt min.). @ -[None done] U/S interpreted by me (1pt. min.). @ -[None done] What testing was considered but not performed or refused? (CT, X-rays, U/S, labs)? Why? @ -[None] What meds were considered but not given or refused? Why? @ -[None] Did you discuss the management of the patient with other professionals (professionals i.e. , PA, [facility], lab, RT, psych nurse, social psychologist, budget director, t eacher, guest services officer, foster care case manager)? Give summary @ -[No] Was smoking cessation discussed for >3mins.? @ -[No] Was critical care preformed (if so, how long)? @ -[No] Were there social determinants of health that impacted care today? How? (Homelessness, low income, unemployed, alcoholism, drug addiction, transportation, low edu. Level, literacy, decrease access to med. care, [facility], rehab)? @ -[No] Was there de-escalation of care discussed even if they declined (Discuss DNR or withdrawal of care, Hospice)? DNR status @ -[No] What co-morbidities impacted this encounter? (DM, HTN, Smoking, COPD, CAD, Cance r, CVA, ARF, Chemo, Hep., AIDS, mental health diagnosis, sleep apnea, morbid obesity)? @ -[None] Was patient admitted / discharged? Hospital course, mention meds given and route, prescriptions, significant lab abnormalities, going to OR and other pertinent info. @ -62-year-old male presents to the ER for chief complaint of feeling weird. V ital signs stable. Physical exam is unremarkable. Patient asymptomatic to bedside. Patient discharged told to follow [doctor. Undiagnosed new problem with uncertain prognosis? @ -[No] Drug Therapy requiring intensive monitoring for toxicity (Heparin, Nitro, Insulin, Cardizem)? @ -[No] Were any procedures done? @ -[No] Diagnosis/symptom? Acute, or Chronic, or Acute on Chronic? Uncomplicated (without systemic symptoms) or Complicated (systemic symptoms)? @ -Abnormal sensation Side effects of treatment? @ -[No] Exacerbation, Progression, or Severe Exacerbation? @ -[No] Poses a threat to life or bodily function? How? (Chest pain, [place], [place], pneumonia, PE, COPD, DKA, ARF, appy, cholecystitis, CVA, Diverticulitis, Homicidal, Suicidal, threat to staff... and all critical care pts) @ -[No] Disposition Clinical Impression: Adverse effect of drug Disposition: HOME SELF-CARE Condition: Good Is patient prescribed a controlled substance at d/c from ED?: No Referrals: Jona Jaramillo [Primary Care Provider] - 1-2 days Time of Disposition: 04:45
== END 2022-11-27 05:08 | disposition home or self-care (01) ==
LOC: EC 04:25
DX: R20.9 Unspecified disturbances of skin sensation (principal); T47.1X5A Adverse effect of other antacids and anti-gastric-secretion drugs, initial encounter; I25.10 Atherosclerotic heart disease of native coronary artery without angina pectoris; I25.2 Old myocardial infarction; K21.9 Gastro-esophageal reflux disease without esophagitis; Z79.82 Long term (current) use of aspirin; Z79.899 Other long term (current) drug therapy; Z87.891 Personal history of nicotine dependence; Z86.718 Personal history of other venous thrombosis and embolism
CPT/HCPCS: 99283

== ENCOUNTER 2022-11-27 14:47 | Observation (INO) | payer MEDICARE ==
[2022-11-27] MEDS ORDERED: ASPIRIN 81 MG PO STA (15:11)
--- NOTE | 2022-11-27 15:13 | ED ---
General Adult HPI - General Chief complaint: Chest Pain Stated complaint: Chest Pain Time Seen by Provider: 11/27/22 14:59 Source: patient, RN notes reviewed Mode of arrival: ambulatory Limitations: no limitations - History of Present Illness Initial comments: Patient is a pleasant 62-year-old male presenting to the emergency department with concern of chest discomfort. Onset of symptoms as prior to arrival while getting a haircut. Patient did have discomfort in his chest described as tightness. Patient did have associated sweating. Symptoms lasted a minute or 2 then resolved. Currently symptom-free. No associated dyspnea or diaphoresis. Patient does have history of previous stent. - Related Data Home Medications Medication Instructions Recorded Confirmed Aspirin EC [Ecotrin Low Dose] 81 mg PO DAILY 10/06/17 01/16/22 Cholecalciferol [Vitamin D3 (125 125 mcg PO DAILY 05/27/21 01/16/22 Mcg = 5000 Iu)] Pantoprazole [Protonix] 40 mg PO AC-BID 05/27/21 01/16/22 Rivaroxaban [Xarelto] 20 mg PO W/SUPPER 01/12/22 01/16/22 Previous Rx's Medication Instructions Recorded Famotidine [Pepcid] 20 mg PO BID 14 Days #28 tablet 01/16/22 Allergies Allergy/AdvReac Type Severity Reaction Status Date / Time No Known Allergies Allergy Verified 11/27/22 14:55 Review of Systems ROS Statement: Those systems with pertinent positive or pertinent negative responses have been documented in the HPI. ROS Other: All systems not noted in ROS Statement are negative. Constitutional: Denies: fever Eyes: Denies: eye pain ENT: Denies: ear pain Respiratory: Denies: dyspnea Cardiovascular: Reports: chest pain Endocrine: Denies: fatigue Gastrointestinal: Denies: abdominal pain Genitourinary: Denies: urgency Musculoskeletal: Denies: back pain Skin: Denies: rash Neurological: Denies: weakness Past Medical History Past Medical History: Coronary Artery Disease (CAD), Chest Pain / Angina, Deep Vein Thrombosis (DVT), GERD/Reflux, Hyperlipidemia, Myocardial Infarction (IA), Sleep Apnea/CPAP/BIPAP Additional Past Medical History / Comment(s): DVT 2002, uses CPAP Last Myocardial Infarction Date:: 08/2006 History of Any Multi-Drug Resistant Organisms: None Reported Past Surgical History: Heart Catheterization With Stent Additional Past Surgical History / Comment(s): left leg surgery r/t DVT, ORIF right femur septal deviation surgery in 2015, varicose vein removal in the left leg. Past Anesthesia/Blood Transfusion Reactions: No Reported Reaction Additional Past Anesthesia/Blood Transfusion Reaction / Comment(s): no previous transfusion Date of Last Stent Placement:: 2006 Past Psychological History: Anxiety Smoking Status: Former smoker Past Alcohol Use History: None Reported Past Drug Use History: None Reported - Past Family History Mother Family Medical History: COPD, Diabetes Mellitus, Myocardial Infarction (IA) Additional Family Medical History / Comment(s): Mother at age 75 with history of hypertension, renal failure on dialysis, CVA 6, diabetes mellitus type 2, congestive heart failure and COPD. Patient does not know his father. He has no brothers or sisters. He is single and no children. General Exam Limitations: no limitations General appearance: alert, in no apparent distress Head exam: Present: normocephalic Eye exam: Present: normal appearance Neck exam: Present: normal inspection Respiratory exam: Present: normal lung sounds bilaterally. Absent: chest wall tenderness Cardiovascular Exam: Present: regular rate, normal rhythm, normal heart sounds Expanded Peripheral pulses: 2+: Radial (R), Radial (L), Posterior Tibialis (R), Posterior Tibialis (L), Dorsalis Pedis (R), Dorsalis Pedis (L) GI/Abdominal exam: Present: soft. Absent: tenderness Extremities exam: Present: normal inspection. Absent: pedal edema, calf tenderness Neurological exam: Present: alert Psychiatric exam: Present: normal affect, normal mood Skin exam: Present: normal color Course Vital Signs 11/27/22 11/27/22 11/27/22 14:52 14:54 15:54 Temperature 97.5 F L Pulse Rate 80 75 77 Respiratory 20 16 16 Rate Blood Pressure 123/73 139/62 131/77 O2 Sat by Pulse 96 98 100 Oximetry 11/27/22 11/27/22 16:00 17:00 Temperature Pulse Rate 74 70 Respiratory 16 20 Rate Blood Pressure 131/77 136/88 O2 Sat by Pulse 98 99 Oximetry EKG Findings - EKG Results: EKG: interpreted by ERMD (First-degree AV block with a VA of 242.), sinus rhythm, normal axis, normal QRS, normal ST/T Medical Decision Making - Medical Decision Making Was pt. sent in by a medical professional or institution (DIANA Peterson, WELDING MACHINE OPERATOR, urgent care, hospital, or snf...) When possible be specific @ -No Did you speak to anyone other than the patient for history (EMS, parent, family, police, friend...)? What history was obtained from this source @ -No Did you review nursing and triage notes (agree or disagree)? Why? @ -I reviewed and agree with nursing and triage notes Were old charts reviewed (outside hosp., previous admission, EMS record, old EKG, old radiological studies, urgent care reports/EKG's, snf records)? Report findings @ -No old charts were reviewed Differential Diagnosis (chest pain, altered mental status, abdominal pain women, abdominal pain men, vaginal bleeding, weakness, fever, dyspnea, syncope, headache, dizziness, GI bleed, back pain, seizure, CVA, palpatations, mental health, musculoskeletal)? @ -Differential Chest Pain: Stable Angina, Unstable Angina, STEMI, NSTEMI Aortic Dissection, Pneumothorax, Musculoskeletal, Esophageal Spasm GERD, Cholecystitis, Pancreatitis, Zoster, this is not meant to be an all-inclusive list. EKG interpreted by me (3pts min.). @ -As above X-rays interpreted by me (1pt min.). @ -S2 x-ray shows no acute process CT interpreted by me (1pt min.). @ -None done U/S interpreted by me (1pt. min.). @ -None done What testing was considered but not performed or refused? (CT, X-rays, U/S, labs)? Why? @ -None What meds were considered but not given or refused? Why? @ -None Did you discuss the management of the patient with other professionals (professionals i.e. DIANA Peterson, WELDING MACHINE OPERATOR, lab, RT, psych nurse, geriatric social worker, supervisor, teacher, welfare officer, disability case manager)? Give summary @ -Case was discussed with Dr. Wu, who will admit covering Dr. Jaramillo Was smoking cessation discussed for >3mins.? @ -No Was critical care preformed (if so, how long)? @ -No Were there social determinants of health that impacted care today? How? (Homelessness, low income, unemployed, alcoholism, drug addiction, transport ation, low edu. Level, literacy, decrease access to med. care, [facility], rehab)? @ -No Was there de-escalation of care discussed even if they declined (Discuss DNR or withdrawal of care, Hospice)? DNR status @ -No What co-morbidities impacted this encounter? (DM, HTN, Smoking, COPD, CAD, Cancer, CVA, ARF, Chemo, Hep., AIDS, mental health diagnosis, sleep apnea, morbid obesity)? @ -None Was patient admitted / discharged? Hospital course, mention meds given and route, prescriptions, significant lab abnormalities, going to OR and other pertinent info. @ -Patient reevaluated and updated. Patient will be admitted. Admission orders written. Cardiology will be consulted. Undiagnosed new problem with uncertain prognosis? @ -No Drug Therapy requiring intensive monitoring for toxicity (Heparin, Nitro, Insulin, Cardizem)? @ -No Were any procedures done? @ -No Diagnosis/symptom? @ -Chest pain Acute, or Chronic, or Acute on Chronic? @ -Acute Uncomplicated (without systemic symptoms) or Complicated (systemic symptoms)? @ -default Side effects of treatment? @ -No Exacerbation, Progression, or Severe Exacerbation? @ -No Poses a threat to life or bodily function? How? (Chest pain, USA, IA, pneumonia, PE, COPD, DKA, ARF, appy, cholecystitis, CVA, Diverticulitis, Homicidal, Suicidal, threat to staff... and all critical care pts) @ -No - Lab Data Result diagrams: 11/27/22 15:00 11/27/22 15:00 Lab Results 11/27/22 11/27/22 11/27/22 Range/Units 15:00 15:00 15:00 WBC 4.4 (3.8-10.6) k/uL RBC 4.43 (4.30-5.90) m/uL Hgb 13.5 (13.0-17.5) gm/dL Hct 39.0 (39.0-53.0) % MCV 88.0 (80.0-100.0) fL MCH 30.5 (25.0-35.0) pg MCHC 34.7 (31.0-37.0) g/dL RDW 12.7 (11.5-15.5) % Plt Count 198 (150-450) k/uL MPV 7.3 Neutrophils % 64 % Lymphocytes % 22 % Monocytes % 9 % Eosinophils % 3 % Basophils % 0 % Neutrophils # 2.8 (1.3-7.7) k/uL Lymphocytes # 1.0 (1.0-4.8) k/uL Monocytes # 0.4 (0-1.0) k/uL Eosinophils # 0.1 (0-0.7) k/uL Basophils # 0.0 (0-0.2) k/uL PT 11.1 (9.0-12.0) sec INR 1.1 (<1.2) APTT 22.9 (22.0-30.0) sec Sodium 133 L (137-145) mmol/L Potassium 4.3 (3.5-5.1) mmol/L Chloride 101 (98-107) mmol/L Carbon Dioxide 25 (22-30) mmol/L Anion Gap 7 mmol/L BUN 22 H (9-20) mg/dL Creatinine 0.99 (0.66-1.25) mg/dL Est GFR (CKD-EPI)AfAm >90 (>60 ml/min/1.73 sqM) Est GFR (CKD-EPI)NonAf 81 (>60 ml/min/1.73 sqM) Glucose 94 (74-99) mg/dL Calcium 9.4 (8.4-10.2) mg/dL Magnesium 1.9 (1.6-2.3) mg/dL Total Bilirubin 0.8 (0.2-1.3) mg/dL AST 22 (17-59) U/L ALT 18 (4-49) U/L Alkaline Phosphatase 62 (38-126) U/L Troponin I (0.000-0.034) ng/mL Total Protein 7.1 (6.3-8.2) g/dL Albumin 4.2 (3.5-5.0) g/dL 11/27/22 Range/Units 15:00 WBC (3.8-10.6) k/uL RBC (4.30-5.90) m/uL Hgb (13.0-17.5) gm/dL Hct (39.0-53.0) % MCV (80.0-100.0) fL MCH (25.0-35.0) pg MCHC (31.0-37.0) g/dL RDW (11.5-15.5) % Plt Count (150-450) k/uL MPV Neutrophils % % Lymphocytes % % Monocytes % % Eosinophils % % Basophils % % Neutrophils # (1.3-7.7) k/uL Lymphocytes # (1.0-4.8) k/uL Monocytes # (0-1.0) k/uL Eosinophils # (0-0.7) k/uL Basophils # (0-0.2) k/uL PT (9.0-12.0) sec INR (<1.2) APTT (22.0-30.0) sec Sodium (137-145) mmol/L Potassium (3.5-5.1) mmol/L Chloride (98-107) mmol/L Carbon Dioxide (22-30) mmol/L Anion Gap mmol/L BUN (9-20) mg/dL Creatinine (0.66-1.25) mg/dL Est GFR (CKD-EPI)AfAm (>60 ml/min/1.73 sqM) Est GFR (CKD-EPI)NonAf (>60 ml/min/1.73 sqM) Glucose (74-99) mg/dL Calcium (8.4-10.2) mg/dL Magnesium (1.6-2.3) mg/dL Total Bilirubin (0.2-1.3) mg/dL AST (17-59) U/L ALT (4-49) U/L Alkaline Phosphatase (38-126) U/L Troponin I <0.012 (0.000-0.034) ng/mL Total Protein (6.3-8.2) g/dL Albumin (3.5-5.0) g/dL Disposition Clinical Impression: Chest pain Disposition: ADMITTED IP TO THIS HOSP Is patient prescribed a controlled substance at d/c from ED?: No Referrals: Jona Jaramillo [Primary Care Provider] - 1-2 days Time of Disposition: 17:25
[2022-11-27 15:32] LABS: INR 1.1 (<1.2); Partial Thromboplastin Time 22.9 sec (22.0-30.0); Prothrombin Time 11.1 sec (9.0-12.0)
[2022-11-27 15:42] LABS: Basophils % (A) 0 %; Eosinophils # (A) 0.1 k/uL (0-0.7); Eosinophils % (A) 3 %; HGB 13.5 gm/dL (13.0-17.5); Lymphocytes % (A) 22 %; MCH 30.5 pg (25.0-35.0); MCHC 34.7 g/dL (31.0-37.0); Mean Platelet Volume 7.3; Monocytes # (A) 0.4 k/uL (0-1.0); Monocytes % (A) 9 %; Neutrophils # (A) 2.8 k/uL (1.3-7.7); Neutrophils % (A) 64 %; Platelet Count 198 k/uL (150-450); RBC 4.43 m/uL (4.30-5.90); RDW 12.7 % (11.5-15.5); WBC 4.4 k/uL (3.8-10.6)
--- NOTE | 2022-11-27 15:53 | XR ---
EXAMINATION TYPE: XR chest 2V DATE OF EXAM: 11/27/2022 COMPARISON: 01/16/2022 HISTORY: 62-year-old male with chest pain TECHNIQUE: PA and lateral views FINDINGS: Heart normal size. Aorta and pulmonary vasculature within normal limits. Hyperinflation. No consolida tion or pleural effusion. IMPRESSION: Correlate for COPD. No acute cardiopulmonary process.
[2022-11-27 16:16] LABS: ALT 18 U/L (4-49); AST 22 U/L (17-59); African American GFR (CKD) >90 (>60 ml/min/1.73 sqM); Albumin 4.2 g/dL (3.5-5.0); Alkaline Phosphatase 62 U/L (38-126); Anion Gap 7 mmol/L; Blood Urea Nitrogen 22 mg/dL (9-20); Calcium 9.4 mg/dL (8.4-10.2); Carbon Dioxide 25 mmol/L (22-30); Chloride 101 mmol/L (98-107); Glucose 94 mg/dL (74-99); Magnesium 1.9 mg/dL (1.6-2.3); Non-African American GFR(CKD) 81 (>60 ml/min/1.73 sqM); Potassium 4.3 mmol/L (3.5-5.1); Sodium 133 mmol/L (137-145); Total Bilirubin 0.8 mg/dL (0.2-1.3); Total Protein 7.1 g/dL (6.3-8.2)
[2022-11-27] MEDS ORDERED: NITROGLYCERIN SL TABS 0.4 MG TAB SUBLINGUAL PRN (17:25)
[2022-11-27] MEDS ORDERED: PANTOPRAZOLE 40 MG/10 ML VIAL IVP STA (18:17)
[2022-11-28 08:19] VITALS: RESP 18
[2022-11-28] MEDS ORDERED: ASPIRIN 325 MG TAB PO SCH (09:00)
--- NOTE | 2022-11-28 09:30 | P.CRDCN ---
History of Present Illness Consult date: 11/28/22 Requesting physician: Lisa Su Reason for Consult (text): chest pain Chief complaint: groin/chest pain, diaphoresis History of present illness: This is a pleasant 62-year-old gentleman who follows in the office with tomorrow. 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 He recently had inguinal hernia repair for 5 weeks ago. He presented to the emergency department after developing some discomfort in his groin that radiated up into his chest at which time he became diaphoretic. Symptoms lasted a couple of minutes. They did not remind him of what he experienced prior to his stent placement in 2006. Up until his hernia repair his activity level was stable with no symptoms or limitations. He denies any shortness of breath. He's had no orthopnea or PND. He has not been taking his atorvastatin for about a year due to constipation. Most recent LDL available was 124. EKG on admission showed sinus mechanism with first-degree AV block and incomplete right bundle branch block similar to previous. Cardiac enzymes have been unremarkable. The patient has been up ambulating without difficulty. He has had no further discomfort. He denies any palpitations, dizziness, lightheadedness or syncope. He has chronic discoloration in the left lower leg due to prior DVTs. He had a Lexiscan MPI in February 2022 that showed evidence of prior inferior wall PR without evidence of ischemia. Past Medical History Past Medical History: Coronary Artery Disease (CAD), Chest Pain / Angina, Deep Vein Thrombosis (DVT), GERD/Reflux, Hyperlipidemia, Myocardial Infarction (PR), Sleep Apnea/CPAP/BIPAP Additional Past Medical History / Comment(s): DVT 2002, uses CPAP Last Myocardial Infarction Date:: 08/2006 History of Any Multi-Drug Resistant Organisms: None Reported Past Surgical History: Heart Catheterization With Stent, Hernia Repair Additional Past Surgical History / Comment(s): left leg surgery r/t DVT, ORIF right femur septal deviation surgery in 2014, varicose vein removal in the left leg. Past Anesthesia/Blood Transfusion Reactions: No Reported Reaction Additional Past Anesthesia/Blood Transfusion Reaction / Comment(s): no previous transfusion Date of Last Stent Placement:: 2006 Past Psychological History: Anxiety Smoking Status: Former smoker Past Alcohol Use History: None Reported Additional Past Alcohol Use History / Comment(s): Patient was a smoker of half pack cigarette for 26 years and quit in 2015. He denies alcohol use. He denies any drug use or abuse. 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 Past Drug Use History: None Reported Additional Drug Use History / Comment(s): smokes approximately 6 cigarettes a day - Past Family History Mother Family Medical History: COPD, Diabetes Mellitus, Myocardial Infarction (PR) Additional Family Medical History / Comment(s): Mother at age 75 with hi story of hypertension, renal failure on dialysis, CVA 6, diabetes mellitus type 2, congestive heart failure and COPD. Patient does not know his father. He has no brothers or sisters. He is single and no children. Medications and Allergies Home Medications Medication Instructions Recorded Confirmed Type Aspirin EC [Ecotrin Low Dose] 81 mg PO DAILY 10/06/17 11/27/22 History Cholecalciferol [Vitamin D3 (125 125 mcg PO DAILY 05/27/21 11/27/22 History Mcg = 5000 Iu)] Pantoprazole [Protonix] 40 mg PO BID-W/MEALS 05/27/21 11/27/22 History Rivaroxaban [Xarelto] 20 mg PO W/SUPPER 01/12/22 11/27/22 History Allergies Allergy/AdvReac Type Severity Reaction Status Date / Time No Known Allergies Allergy Verified 11/27/22 17:56 Physical Exam Vitals: Vital Signs Temp Pulse Pulse Resp BP BP Pulse Ox 11/28/22 08:00 79 18 11/28/22 07:17 97.6 F 79 18 98/64 99 11/28/22 02:56 97.6 F 74 16 128/75 100 11/27/22 19:22 97.7 F 74 16 133/74 98 11/27/22 18:40 65 16 135/60 98 11/27/22 18:22 170 H 34 H 98 11/27/22 18:00 86 16 128/73 98 11/27/22 17:00 70 20 136/88 99 11/27/22 16:00 74 16 131/77 98 11/27/22 15:54 77 16 131/77 100 11/27/22 14:54 75 16 139/62 98 11/27/22 14:52 97.5 F L 80 20 123/73 96 Intake and Output 11/27/22 11/28/22 11/28/22 22:59 06:59 14:59 Other: Voiding Method Toilet # Voids 2 2 Weight 72.575 kg PHYSICAL EXAMINATION: This is a 62-year-old male in no apparent distress at the time of my examination. HEENT: Head is atraumatic, normocephalic. Pupils are equal, round. Sclerae anicteric. Conjunctivae are clear. Mucous membranes of the mouth are moist. Neck is supple. There is no elevated jugular venous pressure. No carotid bruit is heard. CHEST EXAMINATION: Clear to auscultation bilaterally. No wheezes rales or rhonchi. Respirations even and nonlabored. HEART EXAMINATION: Heart regular, positive S1 and S2. No S3. No S4. No clicks, rubs or murmurs. ABDOMEN: Soft, nontender. Bowel sounds are heard. No organomegaly noted. EXTREMITIES: 2+ peripheral pulses with no evidence of peripheral edema and no calf tenderness noted. Left lower leg discoloration noted NEUROLOGIC EXAMINATION: Patient is awake, alert and oriented x3. Results 11/27/22 15:00 11/27/22 15:00 Cardiac Enzymes 11/27/22 11/27/22 11/27/22 Range/Units 15:00 15:00 17:44 AST 22 (17-59) U/L Troponin I <0.012 <0.012 (0.000-0.034) ng/mL 11/27/22 Range/Units 20:26 AST (17-59) U/L Troponin I <0.012 (0.000-0.034) ng/mL Coagulation 11/27/22 Range/Units 15:00 PT 11.1 (9.0-12.0) sec APTT 22.9 (22.0-30.0) sec CBC 11/27/22 Range/Units 15:00 WBC 4.4 (3.8-10.6) k/uL RBC 4.43 (4.30-5.90) m/uL Hgb 13.5 (13.0-17.5) gm/dL Hct 39.0 (39.0-53.0) % Plt Count 198 (150-450) k/uL Comprehensive Metabolic Panel 11/27/22 Range/Units 15:00 Sodium 133 L (137-145) mmol/L Potassium 4.3 (3.5-5.1) mmol/L Chloride 101 (98-107) mmol/L Carbon Dioxide 25 (22-30) mmol/L BUN 22 H (9-20) mg/dL Creatinine 0.99 (0.66-1.25) mg/dL Glucose 94 (74-99) mg/dL Calcium 9.4 (8.4-10.2) mg/dL AST 22 (17-59) U/L ALT 18 (4-49) U/L Alkaline Phosphatase 62 (38-126) U/L Total Protein 7.1 (6.3-8.2) g/dL Albumin 4.2 (3.5-5.0) g/dL Current Medications Generic Name Dose Route Start Last Admin Trade Name Freq PRN Reason Stop Dose Admin Aspirin 325 mg 11/28/22 09:00 Aspirin 325 Mg Tab PO DAILY CHANDANA Nitroglycerin 0.4 mg 11/27/22 17:25 Nitroglycerin Sl Tabs 0.4 Mg Tab SUBLINGUAL Q5M PRN Chest Pain Intake and Output 11/27/22 11/28/22 11/28/22 22:59 06:59 14:59 Other: Voiding Method Toilet # Voids 2 2 Weight 72.575 kg 11/27/22 15:00 11/27/22 15:00 EKG Interpretations (text) Sinus rhythm with first-degree AV block and incomplete right bundle branch block Assessment and Plan Assessment: #1 groin pain radiating to the chest with diaphoresis, acute coronary event has been ruled out, no changes noted on EKG and cardiac enzymes have been unremarkable with stress test less than a year ago showing no evidence of stress-induced ischemia #2 CAD with prior stenting in 2006 #3 hyperlipidemia, not currently on statin secondary to constipation #4 recent inguinal hernia repair #5 recurrent DVTs Plan: From cardiology's perspective we will resume anticoagulation and low-dose aspirin. Discussed importance of statin therapy with the patient and would recommend resuming atorvastatin or rosuvastatin. We will obtain a 2-D echo with Doppler study to assess cardiac structure and function. If there is no significant abnormalities noted on the echo patient may be discharged home and follow-up in the office with Dr. rEwin. ACID PATROLLER note has been reviewed, I agree with a documented findings and plan of care. Patient was seen and examined.
[2022-11-28 09:50] LABS: Chol/HDL Ratio 2.93 Ratio; LDL Cholesterol,Calculated 90.7 mg/dL (0.0-131.0); VLDL Calculation 11.36 mg/dL (5.00-40.00)
[2022-11-28] MEDS ORDERED: ASPIRIN 81 MG PO SCH (10:00)
[2022-11-28] MEDS ORDERED: PANTOPRAZOLE 40 MG TABLET PO SCH (11:15)
[2022-11-28 14:00] VITALS: BP 109/73; PULSE 81; TEMP 97.8
--- NOTE | 2022-11-28 14:40 | CA ---
Transthoracic Echo Report Name: Yousif Mitchell Age: 62 Gender: M : 1960 Exam Date: 11/28/2022 10:11 Exam Location: [facility] Ht (in): 68 Wt (lb): 160 Ordering Physician: Elo Nguyễn Attending/Referring Phys: [id number], Gop[employer] Adviser Cornelia Saldivar RDCS Procedure CPT: Indications: Chest Pain Cardiac Hx: Technical Quality: Fair Contrast 1: Total Dose (mL): Contrast 2: Total Dose (mL): MEASUREMENTS (Male / Female) Normal Values 2D ECHO LV Diastolic Diameter PLAX 3.8 cm 4.2 - 5.9 / 3.9 - 5.3 cm LV Systolic Diameter PLAX 2.2 cm IVS Diastolic Thickness 1.2 cm 0.6 - 1.0 / 0.6 - 0.9 cm LVPW Diastolic Thickness 1.3 cm 0.6 - 1.0 / 0.6 - 0.9 cm LV Relative Wall Thickness 0.7 RV Internal Dim ED PLAX 2.8 cm LA Volume 54.0 cm??? 18 - 58 / 22 - 52 cm??? M-MODE Aortic Root Diameter MM 3.1 cm LA Systolic Diameter MM 3.4 cm LA Ao Ratio MM 1.1 AV Cusp Separation MM 2.0 cm DOPPLER AV Peak Velocity 146.1 cm/s AV Peak Gradient 8.5 mmHg AV Mean Velocity 106.4 cm/s AV Mean Gradient 5.0 mmHg AV Velocity Time Integral 27.9 cm LVOT Peak Velocity 100.1 cm/s LVOT Peak Gradient 4.0 mmHg LVOT Velocity Time Integral 17.9 cm MV Area PHT 3.3 cm??? Mitral E Point Velocity 71.4 cm/s Mitral A Point Velocity 78.5 cm/s Mitral E to A Ratio 0.9 MV Deceleration Time 227.4 ms MV E' Velocity 7.1 cm/s Mitral E to MV E' Ratio 10.1 FINDINGS Left Ventricle Mildly increased left ventricular wall thickness. Left ventricular cavity size normal. Normal left ventricular systolic function with no obvious regional wall motion abnormalities. Left ventricular ejection fraction is estimated at 55-60 %. Right Ventricle Normal right ventricular size and function. Right ventricular systolic pressure within normal limits. Right Atrium Normal right atrial size. Left Atrium Normal left atrial size. Mitral Valve Structurally normal mitral valve. Trace mitral regurgitation. Aortic Valve Trileaflet aortic valve. No aortic valve stenosis or regurgitation. Diffuse thickening (sclerosis) of the aortic valve cusps without reduced excursion. Tricuspid Valve Structurally normal tricuspid valve. Mild tricuspid regurgitation. Pulmonic Valve Structurally normal pulmonic valve. Pericardium No pericardial effusion. Aorta Normal size aortic root and proximal ascending aorta. CONCLUSIONS 1. Normal left ventricle size and systolic function. 2. Trace mitral is mild tricuspid regurgitation Previewed by: Dr. Robert Remy MD (Electronically Signed) Final Date: 28 November 2022 14:39
[2022-11-28] MEDS ORDERED: RIVAROXABAN 20 MG TAB PO SCH (17:30)
[2022-11-29] MEDS ORDERED: NON FORMULARY DRUG (Aspirin Ec 81 MG Tablet.Dr) PO SCH (09:00)
[2022-11-29] MEDS ORDERED: CHOLECALCIFEROL 125 MCG (5000 IU) TABLET PO SCH (09:00)
--- NOTE | 2022-11-29 10:15 | P.HPIM ---
History of Present Illness H&P Date: 11/27/22 Chief Complaint: Chest pain 62-year-old male presenting to the emergency department with concern of chest discomfort. Onset of symptoms as prior to arrival while getting a haircut. Patient did have discomfort in his chest described as tightness. Patient did have associated sweating. Symptoms lasted a minute or 2 then resolved. Currently symptom-free. No associated dyspnea or diaphoresis. Patient does have history of previous stent. EKG on admission showed sinus mechanism with first-degree AV block and incomplete right bundle branch block similar to previous. Cardiac enzymes have been unremarkable. Blood feels sodium 133, potassium 4.3, BUN/creatinine of 22/0.90, blood glucose of 94, WBC 4.4, hemoglobin 13.5 and platelet count of 188, troponin is less than 0.012 Review of Systems REVIEW OF SYSTEMS: CONSTITUTIONAL: No fever, no malaise, no fatigue. HEENT: No recent visual problems or hearing problems. Denied any sore throat. CARDIOVASCULAR: No chest pain, orthopnea, PND, no palpitations, no syncope. PULMONARY: No shortness of breath, no cough, no hemoptysis. GASTROINTESTINAL: No diarrhea, no nausea, no vomiting, no abdominal pain. NEUROLOGICAL: No headaches, no weakness, no numbness. HEMATOLOGICAL: Denies any bleeding or petechiae. GENITOURINARY: Denies any burning micturition, frequency, or urgency. MUSCULOSKELETAL/RHEUMATOLOGICAL: Denies any joint pain, swelling, or any muscle pain. ENDOCRINE: Denies any polyuria or polydipsia. The rest of the 14-point review of systems is negative. Past Medical History Past Medical History: Coronary Artery Disease (CAD), Chest Pain / Angina, Deep Vein Thrombosis (DVT), GERD/Reflux, Hyperlipidemia, Myocardial Infarction (CT), Sleep Apnea/CPAP/BIPAP Additional Past Medical History / Comment(s): DVT 2002, uses CPAP Last Myocardial Infarction Date:: 08/2006 History of Any Multi-Drug Resistant Organisms: None Reported Past Surgical History: Heart Catheterization With Stent Additional Past Surgical History / Comment(s): left leg surgery r/t DVT, ORIF right femur septal deviation surgery in 2014, varicose vein removal in the left leg. Past Anesthesia/Blood Transfusion Reactions: No Reported Reaction Additional Past Anesthesia/Blood Transfusion Reaction / Comment(s): no previous transfusion Date of Last Stent Placement:: 2006 Past Psychological History: Anxiety Smoking Status: Former smoker Past Alcohol Use History: None Reported Past Drug Use History: None Reported - Past Family History Mother Family Medical History: COPD, Diabetes Mellitus, Myocardial Infarction (CT) Additional Family Medical History / Comment(s): Mother at age 75 with history of hypertension, renal failure on dialysis, CVA 6, diabetes mellitus type 2, congestive heart failure and COPD. Patient does not know his father. He has no brothers or sisters. He is single and no children. Medications and Allergies Home Medications Medication Instructions Recorded Confirmed Type Aspirin EC [Ecotrin Low Dose] 81 mg PO DAILY 10/06/17 11/27/22 History Cholecalciferol [Vitamin D3 (125 125 mcg PO DAILY 05/27/21 11/27/22 History Mcg = 5000 Iu)] Pantoprazole [Protonix] 40 mg PO BID-W/MEALS 05/27/21 11/27/22 History Rivaroxaban [Xarelto] 20 mg PO W/SUPPER 01/12/22 11/27/22 History Allergies Allergy/AdvReac Type Severity Reaction Status Date / Time No Known Allergies Allergy Verified 11/27/22 17:56 Physical Exam Vitals: Vital Signs Temp Pulse Resp BP Pulse Ox 11/27/22 16:00 74 16 131/77 98 11/27/22 15:54 77 16 131/77 100 11/27/22 14:54 75 16 139/62 98 11/27/22 14:52 97.5 F L 80 20 123/73 96 Intake and Output 11/27/22 11/27/22 11/27/22 06:59 14:59 22:59 Other: Weight 72.575 kg - Constitutional General appearance: Present: average body habitus, cooperative, no acute distress - EENT Eyes: Present: anicteric sclerae, EOMI, PERRLA, normal appearance ENT: Present: hearing grossly normal, normal oropharynx Ears: bilateral: normal - Neck Neck: Present: normal ROM. Absent: lymphadenopathy, rigidity, thyromegaly Carotids: negative: bruit present Thyroid: bilateral: normal size, negative: enlarged, nodule - Respiratory Respiratory: bilateral: CTA, negative: rales, rhonchi, wheezing - Cardiovascular Rhythm: regular Heart sounds: normal: S1, S2 Abnormal Heart Sounds: Absent: systolic murmur, diastolic murmur - Gastrointestinal General gastrointestinal: Present: normal bowel sounds, soft. Absent: distended, organomegaly, tenderness - Genitourinary Genitourinary Comment(s): deferred - Integumentary Integumentary: Present: normal turgor. Absent: jaundiced, rash, ulcer - Neurologic Neurologic: Present: CNII-XII intact. Absent: focal deficits - Musculoskeletal Musculoskeletal: Present: gait normal, strength equal bilaterally - Psychiatric Psychiatric: Present: A&O x's 3, appropriate affect, intact judgment & insight Results CBC & Chem 7: 11/27/22 15:00 11/27/22 15:00 Labs: Abnormal Lab Results - Last 24 Hours (Table) 11/27/22 Range/Units 15:00 Sodium 133 L (137-145) mmol/L BUN 22 H (9-20) mg/dL Assessment and Plan Assessment: 1. Chest pain with diaphoresis 2. History of coronary artery disease with prior stenting in 2006 3. Hyperlipidemia 4. Recurrent DVTs we will resume anticoagulation and low-dose aspirin. Discussed importance of statin therapy with the patient and would recommend resuming atorvastatin or rosuvastatin. We will obtain a 2-D echo with Doppler study to assess cardiac structure and function. If there is no significant abnormalities noted on the echo patient may be discharged home and follow-up in the office with Dr. Erwin.
--- NOTE | 2022-11-29 10:17 | P.DS ---
Providers Date of admission: 11/27/22 17:25 Expected date of discharge: 11/28/22 Attending physician: Lisa Su MD Consults: 11/27/22 17:25 Consult Physician Urgent Consulting Provider: Stefan Dey Consult Reason/Comments: cp Do you want consulting provider notified?: Yes Primary care physician: Jona Lane Bradley Hospital Course: 62-year-old male presenting to the emergency department with concern of chest discomfort. Onset of symptoms as prior to arrival while getting a haircut. Patient did have discomfort in his chest described as tightness. Patient did have associated sweating. Symptoms lasted a minute or 2 then resolved. Currently symptom-free. No associated dyspnea or diaphoresis. Patient does have history of previous stent. EKG on admission showed sinus mechanism with first-degree AV block and incomplete right bundle branch block similar to previous. Cardiac enzymes have been unremarkable. Blood feels sodium 133, potassium 4.3, BUN/creatinine of 22/0.90, blood glucose of 94, WBC 4.4, hemoglobin 13.5 and platelet count of 188, troponin is less than 0.012 1. Chest pain with diaphoresis 2. History of coronary artery disease with prior stenting in 2006 3. Hyperlipidemia 4. Recurrent DVTs we will resume anticoagulation and low-dose aspirin. Discussed importance of statin therapy with the patient and would recommend resuming atorvastatin or rosuvastatin. We will obtain a 2-D echo with Doppler study to assess cardiac structure and function. If there is no significant abnormalities noted on the echo patient may be discharged home and follow-up in the office with Dr. Erwin. Plan - Discharge Summary Discharge Rx Participant: Yes New Discharge Prescriptions: Continue Aspirin EC [Ecotrin Low Dose] 81 mg PO DAILY Pantoprazole [Protonix] 40 mg PO BID-W/MEALS Rivaroxaban [Xarelto] 20 mg PO W/SUPPER Cholecalciferol [Vitamin D3 (125 Mcg = 5000 Iu)] 125 mcg PO DAILY Discharge Medication List Aspirin EC [Ecotrin Low Dose] 81 mg PO DAILY 10/06/17 [History] Cholecalciferol [Vitamin D3 (125 Mcg = 5000 Iu)] 125 mcg PO DAILY 05/27/21 [History] Pantoprazole [Protonix] 40 mg PO BID-W/MEALS 05/27/21 [History] Rivaroxaban [Xarelto] 20 mg PO W/SUPPER 01/12/22 [History] Follow up Appointment(s)/Referral(s): Jona Jaramillo [Primary Care Provider] - 1-2 days Discharge Disposition: HOME SELF-CARE
== END 2022-11-28 16:48 | disposition home or self-care (01) ==
LOC: EC 14:47 → 6NMEDSUR 17:25
PROVIDERS: ADMIT Internal Medicine; ATTEND Internal Medicine
DX: R07.89 Other chest pain (principal); R61 Generalized hyperhidrosis; I44.0 Atrioventricular block, first degree; I45.10 Unspecified right bundle-branch block; E78.5 Hyperlipidemia, unspecified; R10.30 Lower abdominal pain, unspecified; I25.10 Atherosclerotic heart disease of native coronary artery without angina pectoris; K21.9 Gastro-esophageal reflux disease without esophagitis; I25.2 Old myocardial infarction; G47.33 Obstructive sleep apnea (adult) (pediatric); F41.9 Anxiety disorder, unspecified; Z79.82 Long term (current) use of aspirin; Z79.01 Long term (current) use of anticoagulants; Z98.890 Other specified postprocedural states; Z79.899 Other long term (current) drug therapy; Z95.5 Presence of coronary angioplasty implant and graft; Z86.718 Personal history of other venous thrombosis and embolism; Z87.891 Personal history of nicotine dependence; Z83.3 Family history of diabetes mellitus; Z82.49 Family history of ischemic heart disease and other diseases of the circulatory system; Z82.5 Family history of asthma and other chronic lower respiratory diseases; Z82.3 Family history of stroke; Z84.1 Family history of disorders of kidney and ureter
CPT/HCPCS: 96374; 99285; 36415; 93005; 93306; 80061; 80053; 83735; 84484; 85025; 85610; 85730; 71046; G0378 ×2; C9113

== ENCOUNTER 2022-12-08 20:16 | Emergency (ER) | payer MEDICARE ==
[2022-12-08 20:25] VITALS: TEMP 98
--- NOTE | 2022-12-08 22:00 | CT ---
EXAMINATION TYPE: CT brain wo con CT DLP: 1100.4 mGycm, Automated exposure control for dose reduction was used. DATE OF EXAM: 12/08/2022 9:41 PM COMPARISON: 12/01/2021. CLINICAL INDICATION:Male, 62 years old with history of tia, Left arm pain/numbness that radiated up i nto his head TECHNIQUE: Brain: Axial CT images of the brain were obtained with coronal and sagittal reformats created and rev iewed. Contrast used: None. Oral contrast used: None. FINDINGS: Brain: Extra-axial spaces: No abnormal extra-axial fluid collections. Ventricular system: Within normal limits Cerebral parenchyma: No acute intraparenchymal hemorrhage or mass effect. The khan-white junction is well differentiated. Cerebellum: Unremarkable. Mass effect: No evidence of midline shift. Intracranial vasculature: unremarkable Soft tissues: Normal. Calvarium/osseous structures: No depressed skull fracture. Paranasal sinuses and mastoid air cells: Mild scattered paranasal sinus disease. Visualized orbits: Orbital contents are intact. IMPRESSION: No acute intracranial process.
--- NOTE | 2022-12-08 22:35 | ED ---
Neuro HPI - General Chief Complaint: Neuro Symptoms/Deficit Stated Complaint: possible stroke sent from urgent care for scan Time Seen by Provider: 12/08/22 20:43 Source: patient, RN notes reviewed, old records reviewed Mode of arrival: ambulatory Limitations: no limitations - History of Present Illness Is the patient presenting with stroke symptoms?: No -: hour(s), days(s) Initial Comments: This is a 62-year-old male to the emergency department for evaluation of left shoulder numbness and tingling. Patient does have high cholesterol history of chest pain blood clots. Patient coming in for evaluation of left shoulder numbness and tingling or paresthesia. Patient symptoms resolved but did present to the urgent care today as he is having anxiety sent to the ER for evaluation of possible stroke or CVA Location: left arm Place: home Quality: weak Improves With: none Worsens With: none On Anticoagulants: Yes Associated Symptoms: denies other symptoms Treatments Prior to Arrival: none - Related Data Home Medications: Home Medications Medication Instructions Recorded Confirmed Aspirin EC [Ecotrin Low Dose] 81 mg PO DAILY 10/06/17 11/27/22 Cholecalciferol [Vitamin D3 (125 125 mcg PO DAILY 05/27/21 11/27/22 Mcg = 5000 Iu)] Pantoprazole [Protonix] 40 mg PO BID-W/MEALS 05/27/21 11/27/22 Rivaroxaban [Xarelto] 20 mg PO W/SUPPER 01/12/22 11/27/22 Allergies/Adverse Reactions: Allergies Allergy/AdvReac Type Severity Reaction Status Date / Time No Known Allergies Allergy Verified 12/11/22 21:23 Review of Systems ROS Statement: Those systems with pertinent positive or pertinent negative responses have been documented in the HPI. ROS Other: All systems not noted in ROS Statement are negative. General Exam Limitations: no limitations General appearance: alert, in no apparent distress Head exam: Present: atraumatic, normocephalic, normal inspection Eye exam: Present: normal appearance, PERRL, EOMI. Absent: scleral icterus, conjunctival injection, periorbital swelling ENT exam: Present: normal exam, mucous membranes moist Neck exam: Present: normal inspection. Absent: tenderness, meningismus, lymphadenopathy Respiratory exam: Present: normal lung sounds bilaterally. Absent: respiratory distress, wheezes, rales, rhonchi, stridor Cardiovascular Exam: Present: regular rate, normal rhythm, normal heart sounds. Absent: systolic murmur, diastolic murmur, rubs, gallop, clicks GI/Abdominal exam: Present: soft, normal bowel sounds. Absent: distended, tenderness, guarding, rebound, rigid Extremities exam: Present: normal inspection, full ROM, normal capillary refill. Absent: tenderness, pedal edema, joint swelling, calf tenderness Back exam: Present: normal inspection Neurological exam: Present: alert, oriented X3, CN II-XII intact Psychiatric exam: Present: normal affect, normal mood Skin exam: Present: warm, dry, intact, normal color. Absent: rash Stroke MDM - NIH Stroke Scale 1a. Level of Consciousness: (0) alert 1b. LOC Questions: (0) answers correctly 1c. LOC Commands: (0) performs tasks correctly 2. Best Gaze: (0) normal 3. Visual: (0) no visual loss 4. Facial Palsy: (0) normal symmetrical movement 5a. Motor Arm Left: (0) no drift 5b. Motor Arm Right: (0) no drift 6a. Motor Leg Left: (0) no drift 6b. Motor Leg Right: (0) no drift 7. Limb Ataxia: (0) absent 8. Sensory: (0) normal 9. Best Language: (0) no aphasia 10. Dysarthria: (0) normal 11. Extinction/Inattention: (0) no abnormality - Thrombolytic Inclusion/Exclusion Thrombolytic Exclusion Criteria: Symptom Onset > 4.5 Hours Thrombolytic Contraindications: NIH 0 - Medical Decision Making 62 male to the emergency department for evaluation of neurological deficit re solved. Patient numbness and tingling left arm. Patient has no current complaints scan is negative patient can be discharged home - Radiology Data Radiology results: report reviewed (CT brain is negative for acute disease), image reviewed Past Medical History Past Medical History: Coronary Artery Disease (CAD), Chest Pain / Angina, Deep Vein Thrombosis (DVT), GERD/Reflux, Hyperlipidemia, Myocardial Infarction (PR), Sleep Apnea/CPAP/BIPAP Additional Past Medical History / Comment(s): DVT 2002, uses CPAP Last Myocardial Infarction Date:: 08/2006 History of Any Multi-Drug Resistant Organisms: None Reported Past Surgical History: Heart Catheterization With Stent Additional Past Surgical History / Comment(s): left leg surgery r/t DVT, ORIF right femur septal deviation surgery in 2015, varicose vein removal in the left leg. Past Anesthesia/Blood Transfusion Reactions: No Reported Reaction Additional Past Anesthesia/Blood Transfusion Reaction / Comment(s): no previous transfusion Date of Last Stent Placement:: 2006 Past Psychological History: Anxiety Smoking Status: Former smoker Past Alcohol Use History: None Reported Past Drug Use History: None Reported - Past Family History Mother Family Medical History: COPD, Diabetes Mellitus, Myocardial Infarction (PR) Additional Family Medical History / Comment(s): Mother at age 75 with history of hypertension, renal failure on dialysis, CVA 6, diabetes mellitus type 2, congestive heart failure and COPD. Patient does not know his father. He has no brothers or sisters. He is single and no children. Course Vital Signs 12/08/22 12/08/22 20:21 22:46 Temperature 98.0 F Pulse Rate 76 69 Respiratory 16 17 Rate Blood Pressure 142/76 129/78 O2 Sat by Pulse 98 99 Oximetry - Reevaluation(s) Reevaluation #1: Medical records reviewed Reevaluation #2: Patient remains asymptomatic Reevaluation #3: Patient informed results questions answered Reevaluation #4: Was pt. sent in by a medical professional or institution (, PA, NURSING CONSULTANT, urgent care, hospital, or skilled nursing...) When possible be specific @ -no Did you speak to anyone other than the patient for history (EMS, parent, family, police, friend...)? What history was obtained from this source @ -no Did you review nursing and triage notes (agree or disagree)? Why? @ -agree Are old charts reviewed (outside hosp., previous admission, EMS record, old EKG, old radiological studies, urgent care reports/EKG's, skilled nursing records)? Report findings @ -yes Differential Diagnosis (chest pain, altered mental status, abdominal pain women, abdominal pain men, vaginal bleeding, weakness, fever, dyspnea, syncope, headache, dizziness, GI bleed, back pain, seizure, CVA, palpatations, mental health, musculoskeletal)? @ -prior EKG interpreted by me (3pts min.). @ -no X-rays interpreted by me (1pt min.). @ -no CT interpreted by me (1pt min.). @ -yes U/S interpreted by me (1pt. min.). @ -no What testing was considered but not performed or refused? (CT, X-rays, U/S, labs)? Why? @ -none What meds were considered but not given or refused? Why? @ -none Did you discuss the management of the patient with other professionals (professionals i.e. , PA, NURSING CONSULTANT, lab, RT, psych nurse, social group worker, staff toxicologist, teacher, police booking officer, telephonic nurse case manager)? Give summary @ -no Was smoking cessation discussed for >3mins.? @ -no Was critical care preformed (if so, how long)? @ -no Were there social determinants of health that impacted care today? How? (Homelessness, low income, unemployed, alcoholism, drug addiction, transportation, low edu. Level, literacy, decrease access to med. care, care home, rehab)? @ -none Was there de-escalation of care discussed even if they declined (Discuss DNR or withdrawal of care, Hospice)? DNR status @ -no What co-morbidities impacted this encounter? (DM, HTN, Smoking, COPD, CAD, Cancer, CVA, ARF, Chemo, Hep., AIDS, mental health diagnosis, sleep apnea, morbid obesity)? @ -none Was patient admitted / discharged? Hospital course, mention meds given and route, prescriptions, significant lab abnormalities, going to OR and other pertinent info. @ - 62 male presents today for evaluation of left upper extremity numbness until he which resolved resolved prior to urgent care visit, patient had urgent care sent him to the ER today for persistent symptoms all symptoms resolved prior to arrival. Patient has normal imaging here in the urine can be discharged home Discharge Undiagnosed new problem with uncertain prognosis? @ -no Drug Therapy requiring intensive monitoring for toxicity (Heparin, Nitro, Insulin, Cardizem)? @ -no Were any procedures done? @ -no Diagnosis/symptom? @ -TIA Acute, or Chronic, or Acute on Chronic? @ -Acute Uncomplicated (without systemic symptoms) or Complicated (systemic symptoms)? @ -Complicated Side effects of treatment? @ -no Exacerbation, Progression, or Severe Exacerbation? @ -exacerbation Poses a threat to life or bodily function? How? (Chest pain, USA, PR, pneumonia, PE, COPD, DKA, ARF, appy, cholecystitis, CVA, Diverticulitis, Homicidal, Suicidal, threat to staff... and all critical care pts) @ -yes Reevaluation #5: Differential CVA Ischemic stroke, hemorrhagic stroke, brain tumor, atypical migraine, Wernicke's encephalopathy, seizure, multiple sclerosis, meningitis, encephalitis, hypoglyc emia, Guillain-Person, electrolytes disturbance, myasthenia gravis.... This is not meant to be an all-inclusive list Disposition Clinical Impression: Transient cerebral ischemia Disposition: HOME SELF-CARE Condition: Fair Instructions (If sedation given, give patient instructions): Transient Ischemic Attack (ED) Is patient prescribed a controlled substance at d/c from ED?: No Referrals: Jona Jaramillo [Primary Care Provider] - 1-2 days Time of Disposition: 22:30
[2022-12-08 22:47] VITALS: BP 129/78; PULSE 69; RESP 17
== END 2022-12-08 22:47 | disposition home or self-care (01) ==
LOC: EC 20:16
DX: G45.9 Transient cerebral ischemic attack, unspecified (principal); I25.10 Atherosclerotic heart disease of native coronary artery without angina pectoris; I25.2 Old myocardial infarction; K21.9 Gastro-esophageal reflux disease without esophagitis; Z79.82 Long term (current) use of aspirin; Z79.01 Long term (current) use of anticoagulants; Z79.899 Other long term (current) drug therapy; Z86.718 Personal history of other venous thrombosis and embolism; Z87.891 Personal history of nicotine dependence
CPT/HCPCS: 70450; 99284

== ENCOUNTER 2022-12-09 03:30 | Emergency (ER) | payer MEDICARE ==
[2022-12-09 03:35] VITALS: BP 123/81; PULSE 73; RESP 18; TEMP 98.1
--- NOTE | 2022-12-09 04:00 | ED ---
General Adult HPI - General Chief complaint: Chest Pain Stated complaint: CHEST PAIN Time Seen by Provider: 12/09/22 03:32 Source: patient Mode of arrival: ambulatory Limitations: no limitations - History of Present Illness Initial comments: Dictation was produced using [employer] dictation software. please excuse any grammatical, word or spelling errors. Chief Complaint: 62-year-old male presents emergency Department with reflux History of Present Illness: This 62-year-old male he has extensive history of reflux. States that he tried taking this new supplement that he just got from the store it is a probiotic that he was instructed to take by another medical professional. States that he took this probiotic with dinner. He seems to have exacerbation of his reflux symptoms with pills. Patient with today when all of a sudden he felt burning sensation in his throat area. States that is typical of his acid reflux. Symptoms do not radiate down his arm. No shortness of breath. No nausea or diaphoresis. The ROS documented in this emergency department record has been reviewed and confirmed by me. Those systems with pertinent positive or negative responses have been documented in the HPI. All other systems are other negative and/or noncontributory. - Related Data Home Medications Medication Instructions Recorded Confirmed Aspirin EC [Ecotrin Low Dose] 81 mg PO DAILY 10/06/17 11/27/22 Cholecalciferol [Vitamin D3 (125 125 mcg PO DAILY 05/27/21 11/27/22 Mcg = 5000 Iu)] Pantoprazole [Protonix] 40 mg PO BID-W/MEALS 05/27/21 11/27/22 Rivaroxaban [Xarelto] 20 mg PO W/SUPPER 01/12/22 11/27/22 Allergies Allergy/AdvReac Type Severity Reaction Status Date / Time No Known Allergies Allergy Verified 12/09/22 03:33 Review of Systems ROS Statement: Those systems with pertinent positive or pertinent negative responses have been documented in the HPI. ROS Other: All systems not noted in ROS Statement are negative. Past Medical History Past Medical History: Coronary Artery Disease (CAD), Chest Pain / Angina, Deep Vein Thrombosis (DVT), GERD/Reflux, Hyperlipidemia, Myocardial Infarction (IA), Sleep Apnea/CPAP/BIPAP Additional Past Medical History / Comment(s): DVT 2002, uses CPAP Last Myocardial Infarction Date:: 08/2006 History of Any Multi-Drug Resistant Organisms: None Reported Past Surgical History: Heart Catheterization With Stent Additional Past Surgical History / Comment(s): left leg surgery r/t DVT, ORIF right femur septal deviation surgery in 2015, varicose vein removal in the left leg. Past Anesthesia/Blood Transfusion Reactions: No Reported Reaction Additional Past Anesthesia/Blood Transfusion Reaction / Comment(s): no previous transfusion Date of Last Stent Placement:: 2006 Past Psychological History: Anxiety Smoking Status: Former smoker Past Alcohol Use History: None Reported Past Drug Use History: None Reported - Past Family History Mother Family Medical History: COPD, Diabetes Mellitus, Myocardial Infarction (IA) Additional Family Medical History / Comment(s): Mother at age 75 with history of hypertension, renal failure on dialysis, CVA 6, diabetes mellitus type 2, congestive heart failure and COPD. Patient does not know his father. He has no brothers or sisters. He is single and no children. General Exam - General Exam Comments Initial Comments: PHYSICAL EXAM: General Impression: Alert and oriented x3, not in acute distress HEENT: Normocephalic atraumatic, extra-ocular movements intact, pupils equal and reactive to light bilaterally, mucous membranes moist. Cardiovascular: Heart regular rate and rhythm Chest: Able to complete full sentences, no retractions, no tachypnea Abdomen: abdomen soft, non-tender, non-distended, no organomegaly Musculoskeletal: Pulses present and equal in all extremities, no peripheral edema Motor: no focal deficits noted Neurological: CN II-XII grossly intact, no focal motor or sensory deficits noted Skin: Intact with no visualized rashes Psych: Normal affect and mood Limitations: no limitations Course Vital Signs 12/09/22 03:31 Temperature 98.1 F Pulse Rate 73 Respiratory 18 Rate Blood Pressure 123/81 O2 Sat by Pulse 99 Oximetry EKG Findings - EKG Comments: EKG Findings:: My EKG interpretation: Ventricular rate 62, sinus rhythm,. Interval to 45, QRS 12, QTc 392. No TX prolongation, no QTC prolongation, no ST or T-wave changes noted. Overall, this EKG is unremarkable Medical Decision Making - Medical Decision Making Was pt. sent in by a medical professional or institution (, PA, GEOLOGIC TECHNICIAN, urgent care, hospital, or correction...) When possible be specific @ -No Did you speak to anyone other than the patient for history (EMS, parent, family, police, friend...)? What history was obtained from this source @ -No Did you review nursing and triage notes (agree or disagree)? Why? @ -I reviewed and agree with nursing and triage notes Were old charts reviewed (outside hosp., previous admission, EMS record, old EKG, old radiological studies, urgent care reports/EKG's, correction records)? Report findings @ -No old charts were reviewed Differential Diagnosis (chest pain, altered mental status, abdominal pain women, abdominal pain men, vaginal bleeding, musculoskeletal, weakness, fever, dyspnea, syncope, headache, dizziness, GI bleed, back pain, seizure, CVA, palpatations, mental health)? @ -not applicable EKG interpreted by me (3pts min.). @ -see above X-rays interpreted by me (1pt min.). @ -None done CT interpreted by me (1pt min.). @ -None done U/S interpreted by me (1pt. min.). @ -None done What testing was considered but not performed or refused? (CT, X-rays, U/S, labs)? Why? @ -None What meds were considered but not given or refused? Why? @ -None Did you discuss the management of the patient with other professionals (professionals i.e. , PA, GEOLOGIC TECHNICIAN, lab, RT, psych nurse, healthcare social worker, automatic log cut off sawyer, teacher, chief science officer, bottle caser)? Give summary @ -No Was smoking cessation discussed for >3mins.? @ -No Was critical care preformed (if so, how long)? @ -No Were there social determinants of health that impacted care today? How? (Homelessness, low income, unemployed, alcoholism, drug addiction, transportation, low edu. Level, literacy, decrease access to med. care, prison, rehab)? @ -No Was there de-escalation of care discussed even if they declined (Discuss DNR or withdrawal of care, Hospice)? DNR status @ -No What co-morbidities impacted this encounter? (DM, HTN, Smoking, COPD, CAD, Cancer, CVA, ARF, Chemo, Hep., AIDS, mental health diagnosis, sleep apnea, morbid obesity)? @ -None Was patient admitted / discharged? Hospital course, mention meds given and route, prescriptions, significant lab abnormalities, going to OR and other pertinent info. @ -62-year-old male presents emergency Department with episode of reflux. Vital signs upon arrival are stable. Patient symptoms are very atypical. EKG is unremarkable. Patient asymptomatic. Patient will be discharged advised follow-up with primary care doctor. Undiagnosed new problem with uncertain prognosis? @ -No Drug Therapy requiring intensive monitoring for toxicity (Heparin, Nitro, Insulin, Cardizem)? @ -No Were any procedures done? @ -No Diagnosis/symptom? Acute, or Chronic, or Acute on Chronic? Uncomplicated (without systemic symptoms) or Complicated (systemic symptoms)? @ -GERD Side effects of treatment? @ -No Exacerbation, Progression, or Severe Exacerbation? @ -No Poses a threat to life or bodily function? How? (Chest pain, USA, IA, pneumonia, PE, COPD, DKA, ARF, appy, cholecystitis, CVA, Diverticulitis, Homicidal, Suicidal, threat to staff... and all critical care pts) @ -No Disposition Clinical Impression: GERD (gastroesophageal reflux disease) Disposition: HOME SELF-CARE Condition: Good Instructions (If sedation given, give patient instructions): GERD (Gastroesophageal Reflux Disease) (ED) Is patient prescribed a controlled substance at d/c from ED?: No Referrals: Jona Jaramillo [Primary Care Provider] - 1-2 days Time of Disposition: 04:20
== END 2022-12-09 04:25 | disposition home or self-care (01) ==
LOC: EC 03:30
DX: K21.9 Gastro-esophageal reflux disease without esophagitis (principal); I25.10 Atherosclerotic heart disease of native coronary artery without angina pectoris; I25.2 Old myocardial infarction; Z79.82 Long term (current) use of aspirin; Z79.01 Long term (current) use of anticoagulants; Z79.899 Other long term (current) drug therapy; Z87.891 Personal history of nicotine dependence; Z86.718 Personal history of other venous thrombosis and embolism
CPT/HCPCS: 93005; 99284

== ENCOUNTER 2022-12-11 21:13 | Observation (INO) | payer MEDICARE ==
[2022-12-11 21:23] VITALS: RESP 18; TEMP 97.9
[2022-12-11] MEDS ORDERED: SODIUM CHLORIDE 0.9% 1,000 ML IV SCH (23:00)
[2022-12-11] MEDS ORDERED: SODIUM CHLORIDE 0.9% 1,000 ML IV STA (23:00)
[2022-12-11] MEDS ORDERED: ASPIRIN 325 MG TAB PO STA (23:00)
--- NOTE | 2022-12-11 23:08 | ED ---
Neuro HPI - General Source: patient Mode of arrival: ambulatory Limitations: no limitations <Mark Awan - Last Filed: 12/11/22 23:01> - History of Present Illness Is the patient presenting with stroke symptoms?: No On Anticoagulants: Yes (xarelto) Associated Symptoms: denies other symptoms <Jeannie Lynn - Last Filed: 12/12/22 00:17> - General Chief Complaint: Dental/Oral Stated Complaint: tooth pain Time Seen by Provider: 12/11/22 21:24 - History of Present Illness Initial Comments: 62-year-old male presents to the emergency department chief complaint of left- sided facial and arm paresthesias since Wednesday. He reports worsening pain and tingling in his left sided face. He also reports tingling in his left arm that also started on Wednesday. He states that this comes and goes. He reports that the left arm numbness is worse after eating. He states that he has had TIA in the past. Denies headache, dizziness. Denies chest pain, shortness of breath, fever. (Jeannie Lynn) - Related Data Home Medications: Home Medications Medication Instructions Recorded Confirmed Aspirin EC [Ecotrin Low Dose] 81 mg PO DAILY 10/06/17 11/27/22 Cholecalciferol [Vitamin D3 (125 125 mcg PO DAILY 05/27/21 11/27/22 Mcg = 5000 Iu)] Pantoprazole [Protonix] 40 mg PO BID-W/MEALS 05/27/21 11/27/22 Rivaroxaban [Xarelto] 20 mg PO W/SUPPER 01/12/22 11/27/22 Allergies/Adverse Reactions: Allergies Allergy/AdvReac Type Severity Reaction Status Date / Time No Known Allergies Allergy Verified 12/11/22 21:23 Review of Systems ROS Other: All systems not noted in ROS Statement are negative. <Mark Awan - Last Filed: 12/11/22 23:01> ROS Other: All systems not noted in ROS Statement are negative. <Jeannie Lynn - Last Filed: 12/12/22 00:17> ROS Statement: Those systems with pertinent positive or pertinent negative responses have been documented in the HPI. General Exam Limitations: no limitations <Mark Awan - Last Filed: 12/11/22 23:01> Limitations: no limitations General appearance: alert, in no apparent distress Head exam: Present: atraumatic, normocephalic, normal inspection Eye exam: Present: normal appearance, PERRL, EOMI. Absent: scleral icterus, conjunctival injection, periorbital swelling ENT exam: Present: normal exam, mucous membranes moist Neck exam: Present: normal inspection. Absent: tenderness, meningismus, lympha denopathy Respiratory exam: Present: normal lung sounds bilaterally. Absent: respiratory distress, wheezes, rales, rhonchi, stridor Cardiovascular Exam: Present: regular rate, normal rhythm, normal heart sounds. Absent: systolic murmur, diastolic murmur, rubs, gallop, clicks GI/Abdominal exam: Present: soft, normal bowel sounds. Absent: distended, tenderness, guarding, rebound, rigid Extremities exam: Present: normal inspection, full ROM, normal capillary refill. Absent: tenderness, pedal edema, joint swelling, calf tenderness Back exam: Present: normal inspection Neurological exam: Present: alert, oriented X3, CN II-XII intact, normal gait Psychiatric exam: Present: normal affect, normal mood Skin exam: Present: warm, dry, intact, normal color. Absent: rash <Jeannie Lynn - Last Filed: 12/12/22 00:17> Stroke MDM - Lab Data Result diagrams: 12/11/22 23:19 12/11/22 23:19 <Jeannie Lynn - Last Filed: 12/12/22 00:17> - Medical Decision Making Was pt. sent in by a medical professional or institution (, PA, COMPLIANCE DIRECTOR, urgent care, hospital, or longterm...) When possible be specific @ -No Did you speak to anyone other than the patient for history (EMS, parent, family, police, friend...)? What history was obtained from this source @ -No Did you review nursing and triage notes (agree or disagree)? Why? @ -I reviewed and agree with nursing and triage notes Were old charts reviewed (outside hosp., previous admission, EMS record, old EKG, old radiological studies, urgent care reports/EKG's, longterm records)? Report findings @ -No old charts were reviewed Differential Diagnosis (chest pain, altered mental status, abdominal pain women, abdominal pain men, vaginal bleeding, weakness, fever, dyspnea, syncope, headache, dizziness, GI bleed, back pain, seizure, CVA, palpatations, mental health, musculoskeletal)? @ -TIA, CVA, SD, intracranial hemorrhage, this list is not all-inclusive EKG interpreted by me (3pts min.). @ -EKG at 2315 shows sinus rhythm rate 74, PR237, QRS 106, QT/QTc 379/407 X-rays interpreted by me (1pt min.). @ -None done CT interpreted by me (1pt min.). @ -None done U/S interpreted by me (1pt. min.). @ -None done What testing was considered but not performed or refused? (CT, X-rays, U/S, labs)? Why? @ -None What meds were considered but not given or refused? Why? @ -None Did you discuss the management of the patient with other professionals (professionals i.e. , PA, COMPLIANCE DIRECTOR, lab, RT, psych nurse, clinical social worker, food stylist, teacher, natural resource officer, telehealth case manager)? Give summary @ -X-ray discussed with Louise Power with [facility] [place] is accepting of the admission Was smoking cessation discussed for >3mins.? @ -No Was critical care preformed (if so, how long)? @ -No Were there social determinants of health that impacted care today? How? (Homelessness, low income, unemployed, alcoholism, drug addiction, transportation, low edu. Level, literacy, decrease access to med. care, [facility], rehab)? @ -No Was there de-escalation of care discussed even if they declined (Discuss DNR or withdrawal of care, Hospice)? DNR status @ -No What co-morbidities impacted this encounter? (DM, HTN, Smoking, COPD, CAD, Cancer, CVA, ARF, Chemo, Hep., AIDS, mental health diagnosis, sleep apnea, morb id obesity)? @ -None Was patient admitted / discharged? Hospital course, mention meds given and route, prescriptions, significant lab abnormalities, going to OR and other pertinent info. @ -Admitted. Patient presented to emergency department with chief complaint of left-sided facial paresthesias and left arm paresthesias 4 days. He states that he feels like to get worse after he eats. Patient was evaluated here on Wednesday and a computed tomography scan of his brain was obtained which showed no acute findings. On examination, patient has no focal neurological findings. CT brain and CTA pending at time of admission. CBC WNL, CMP shows mild hyponatremia with Na 132, CK 234, negative initial troponin. Patient was evaluated by my attending, Dr. Awan. Patient will be admitted for neurology consult. Case discussed with Louise with [facility] [place] who is accepting of the admission. Patient stable at time of admission Undiagnosed new problem with uncertain prognosis? @ -No Drug Therapy requiring intensive monitoring for toxicity (Heparin, Nitro, Insulin, Cardizem)? @ -No Were any procedures done? @ -No Diagnosis/symptom? @ -TIA Acute, or Chronic, or Acute on Chronic? @ -acute Uncomplicated (without systemic symptoms) or Complicated (systemic symptoms)? @ -uncomplicated Side effects of treatment? @ -No Exacerbation, Progression, or Severe Exacerbation? @ -No Poses a threat to life or bodily function? How? (Chest pain, USA, SD, pneumonia, PE, COPD, DKA, ARF, appy, cholecystitis, CVA, Diverticulitis, Homicidal, Suicidal, threat to staff... and all critical care pts) @ -No (Jeannie Lynn) Past Medical History Past Medical History: Coronary Artery Disease (CAD), Chest Pain / Angina, Deep Vein Thrombosis (DVT), GERD/Reflux, Hyperlipidemia, Myocardial Infarction (SD), Sleep Apnea/CPAP/BIPAP Additional Past Medical History / Comment(s): DVT 2002, uses CPAP Last Myocardial Infarction Date:: 08/2006 History of Any Multi-Drug Resistant Organisms: None Reported Past Surgical History: Heart Catheterization With Stent Additional Past Surgical History / Comment(s): left leg surgery r/t DVT, ORIF right femur septal deviation surgery in 2014, varicose vein removal in the left leg. Past Anesthesia/Blood Transfusion Reactions: No Reported Reaction Additional Past Anesthesia/Blood Transfusion Reaction / Comment(s): no previous transfusion Date of Last Stent Placement:: 2006 Past Psychological History: Anxiety Smoking Status: Former smoker Past Alcohol Use History: None Reported Past Drug Use History: None Reported - Past Family History Mother Family Medical History: COPD, Diabetes Mellitus, Myocardial Infarction (SD) Additional Family Medical History / Comment(s): Mother at age 75 with history of hypertension, renal failure on dialysis, CVA 6, diabetes mellitus type 2, congestive heart failure and COPD. Patient does not know his father. He has no brothers or sisters. He is single and no children. <Mark Awan - Last Filed: 12/11/22 23:01> Course Vital Signs 12/11/22 21:21 Temperature 97.9 F Pulse Rate 65 Respiratory 18 Rate Blood Pressure 120/63 O2 Sat by Pulse 100 Oximetry Disposition Is patient prescribed a controlled substance at d/c from ED?: No <Mark Awan - Last Filed: 12/11/22 23:01> <Jeannie Lynn - Last Filed: 12/12/22 00:17> Clinical Impression: Chest pain, TIA (transient ischemic attack), Facial paresthesia Disposition: ADMITTED IP TO THIS HOSP Condition: Stable
--- NOTE | 2022-12-11 23:18 | ED ---
General Adult HPI - General Chief complaint: Dental/Oral Stated complaint: tooth pain Time Seen by Provider: 12/11/22 21:24 Source: patient, RN notes reviewed Mode of arrival: ambulatory Limitations: no limitations - History of Present Illness Initial comments: 62-year-old male presents to the emergency department chief complaint of left- sided facial and arm paresthesias since Wednesday. He reports worsening pain and tingling in his left sided face. He also reports tingling in his left arm that also started on Wednesday. He states that this comes and goes. He reports that the left arm numbness is worse after eating. He states that he has had TIA in the past. Denies headache, dizziness. Denies chest pain, shortness of breath, fever. - Related Data Home Medications Medication Instructions Recorded Confirmed Aspirin EC [Ecotrin Low Dose] 81 mg PO DAILY 10/06/17 11/27/22 Cholecalciferol [Vitamin D3 (125 125 mcg PO DAILY 05/27/21 11/27/22 Mcg = 5000 Iu)] Pantoprazole [Protonix] 40 mg PO BID-W/MEALS 05/27/21 11/27/22 Rivaroxaban [Xarelto] 20 mg PO W/SUPPER 01/12/22 11/27/22 Allergies Allergy/AdvReac Type Severity Reaction Status Date / Time No Known Allergies Allergy Verified 12/11/22 21:23 Review of Systems ROS Statement: Those systems with pertinent positive or pertinent negative responses have been documented in the HPI. ROS Other: All systems not noted in ROS Statement are negative. Past Medical History Past Medical History: Coronary Artery Disease (CAD), Chest Pain / Angina, Deep Vein Thrombosis (DVT), GERD/Reflux, Hyperlipidemia, Myocardial Infarction ([place]), Sleep Apnea/CPAP/BIPAP Additional Past Medical History / Comment(s): DVT 2002, uses CPAP Last Myocardial Infarction Date:: 08/2006 History of Any Multi-Drug Resistant Organisms: None Reported Past Surgical History: Heart Catheterization With Stent Additional Past Surgical History / Comment(s): left leg surgery r/t DVT, ORIF right femur septal deviation surgery in 2014, varicose vein removal in the left leg. Past Anesthesia/Blood Transfusion Reactions: No Reported Reaction Additional Past Anesthesia/Blood Transfusion Reaction / Comment(s): no previous transfusion Date of Last Stent Placement:: 2006 Past Psychological History: Anxiety Smoking Status: Former smoker Past Alcohol Use History: None Reported Past Drug Use History: None Reported - Past Family History Mother Family Medical History: COPD, Diabetes Mellitus, Myocardial Infarction ([place]) Additional Family Medical History / Comment(s): Mother at age 75 with history of hypertension, renal failure on dialysis, CVA 6, diabetes mellitus type 2, congestive heart failure and COPD. Patient does not know his father. He has no brothers or sisters. He is single and no children. General Exam Limitations: no limitations General appearance: alert, in no apparent distress Head exam: Present: atraumatic, normocephalic, normal inspection Eye exam: Present: normal appearance, PERRL, EOMI. Absent: scleral icterus, conjunctival injection, periorbital swelling ENT exam: Present: normal exam, mucous membranes moist, TM's normal bilaterally, normal external ear exam Neck exam: Present: normal inspection, full ROM. Absent: tenderness, meningismus, lymphadenopathy Respiratory exam: Present: normal lung sounds bilaterally. Absent: respiratory distress, wheezes, rales, rhonchi, stridor Cardiovascular Exam: Present: regular rate, normal rhythm, normal heart sounds. Absent: systolic murmur, diastolic murmur, rubs, gallop, clicks GI/Abdominal exam: Present: soft, normal bowel sounds. Absent: distended, tenderness, guarding, rebound, rigid Extremities exam: Present: normal inspection, full ROM, normal capillary refill. Absent: tenderness, pedal edema, joint swelling, calf tenderness Back exam: Present: normal inspection Neurological exam: Present: alert, oriented X3, CN II-XII intact, normal gait Expanded Patient oriented to: Present: person, place, time Speech: Present: fluid speech Cranial nerves: EOM's Intact: Normal, Gag Reflex: Normal Cerebellar function: Finger to Nose: Normal Upper motor neuron: Pronator Drift: Normal Eye Response: (4) open spontaneously Motor Response: (6) obeys commands Verbal Response: (5) oriented Course Vital Signs 12/11/22 21:21 Temperature 97.9 F Pulse Rate 65 Respiratory 18 Rate Blood Pressure 120/63 O2 Sat by Pulse 100 Oximetry Medical Decision Making - Medical Decision Making Was pt. sent in by a medical professional or institution (, PA, BOARDING KENNEL OR CATTERY OPERATOR, urgent care, hospital, or retirement...) When possible be specific @ -[No] Did you speak to anyone other than the patient for history (EMS, parent, family, police, friend...)? What history was obtained from this source @ -[No] Did you review nursing and triage notes (agree or disagree)? Why? @ -[I reviewed and agree with nursing and triage notes] Were old charts reviewed (outside hosp., previous admission, EMS record, old EKG, old radiological studies, urgent care reports/EKG's, retirement records)? Report findings @ -[No old charts were reviewed] Differential Diagnosis (chest pain, altered mental status, abdominal pain women, abdominal pain men, vaginal bleeding, weakness, fever, dyspnea, syncope, headache, dizziness, GI bleed, back pain, seizure, CVA, palpatations, mental health, musculoskeletal)? @ -[TIA, [place], dental infection, CVA, this list is not all-inclusive] EKG interpreted by me (3pts min.). @ -[As above] X-rays interpreted by me (1pt min.). @ -[None done] CT interpreted by me (1pt min.). @ -[None done] U/S interpreted by me (1pt. min.). @ -[None done] What testing was considered but not performed or refused? (CT, X-rays, U/S, labs)? Why? @ -[None] What meds were considered but not given or refused? Why? @ -[None] Did you discuss the management of the patient with other professionals (professionals i.e. , PA, BOARDING KENNEL OR CATTERY OPERATOR, lab, RT, psych nurse, vp digital marketing social media and crm, medical affairs leader, teacher, custom protection officer, case operator)? Give summary @ -[Case discussed with Louise with [facility] who is accepting of the admission] Was smoking cessation discussed for >3mins.? @ -[No] Was critical care preformed (if so, how long)? @ -[No] Were there social determinants of health that impacted care today? How? (Homelessness, low income, unemployed, alcoholism, drug addiction, transportation, low edu. Level, literacy, decrease access to med. care, shelter, rehab)? @ -[No] Was there de-escalation of care discussed even if they declined (Discuss DNR or withdrawal of care, Hospice)? DNR status @ -[No] What co-morbidities impacted this encounter? (DM, HTN, Smoking, COPD, CAD, Cancer, CVA, ARF, Chemo, Hep., AIDS, mental health diagnosis, sleep apnea, morbid obesity)? @ -[None] Was patient admitted / discharged? Hospital course, mention meds given and route, prescriptions, significant lab abnormalities, going to OR and other pertinent info. @ -[Admitted. Patient presented to emergency department with chief complaint of left-sided facial paresthesias and left arm paresthesias 4 days. He states that he feels like to get worse after he eats. Patient was evaluated here on Wednesday and a computed tomography scan of his brain was obtained which showed no acute findings. On examination, patient has no focal neurological findings. Patient was evaluated by my attending, Dr. Awan. Patient will be admitted for neurology consult. Case discussed with Louise with [facility] who is accepting of the admission. ] Undiagnosed new problem with uncertain prognosis? @ -[No] Drug Therapy requiring intensive monitoring for toxicity (Heparin, Nitro, Insulin, Cardizem)? @ -[No] Were any procedures done? @ -[No] Diagnosis/symptom? @ -[TIA] Acute, or Chronic, or Acute on Chronic? @ -acute Uncomplicated (without systemic symptoms) or Complicated (systemic symptoms)? @ -uncomplicated Side effects of treatment? @ -[No] Exacerbation, Progression, or Severe Exacerbation? @ -[No] Poses a threat to life or bodily function? How? (Chest pain, [place], [place], pneumonia, PE, COPD, DKA, ARF, appy, cholecystitis, CVA, Diverticulitis, Homicidal, Suicidal, threat to staff... and all critical care pts) @ -[No] Disposition Clinical Impression: Facial paresthesia, TIA (transient ischemic attack) Disposition: ADMITTED IP TO THIS [facility] Condition: Stable Is patient prescribed a controlled substance at d/c from ED?: No Referrals: Jona Jaramillo [Primary Care Provider] - 1-2 days
[2022-12-11 23:32] LABS: Basophils % (A) 0 %; Eosinophils # (A) 0.2 k/uL (0-0.7); Eosinophils % (A) 2 %; HCT 40.1 % (39.0-53.0); HGB 13.8 gm/dL (13.0-17.5); Lymphocytes % (A) 29 %; MCH 30.7 pg (25.0-35.0); MCHC 34.3 g/dL (31.0-37.0); MCV 89.4 fL (80.0-100.0); Mean Platelet Volume 6.9; Monocytes # (A) 0.5 k/uL (0-1.0); Monocytes % (A) 7 %; Neutrophils % (A) 59 %; Platelet Count 241 k/uL (150-450); RBC 4.48 m/uL (4.30-5.90); RDW 12.7 % (11.5-15.5); WBC 6.7 k/uL (3.8-10.6)
[2022-12-11 23:41] LABS: INR 1.3 (<1.2); Partial Thromboplastin Time 27.4 sec (22.0-30.0); Prothrombin Time 12.8 sec (9.0-12.0)
[2022-12-11 23:47] LABS: ALT 24 U/L (4-49); AST 32 U/L (17-59); African American GFR (CKD) 85 (>60 ml/min/1.73 sqM); Albumin 4.3 g/dL (3.5-5.0); Alkaline Phosphatase 67 U/L (38-126); Anion Gap 9 mmol/L; Blood Urea Nitrogen 20 mg/dL (9-20); Calcium 9.4 mg/dL (8.4-10.2); Carbon Dioxide 23 mmol/L (22-30); Chloride 100 mmol/L (98-107); Creatine Kinase 234 U/L (55-170); Glucose 94 mg/dL (74-99); Non-African American GFR(CKD) 73 (>60 ml/min/1.73 sqM); Potassium 3.9 mmol/L (3.5-5.1); Sodium 132 mmol/L (137-145); Total Bilirubin 0.8 mg/dL (0.2-1.3); Total Protein 7.2 g/dL (6.3-8.2)
--- NOTE | 2022-12-12 01:49 | CT ---
EXAM: CT Head Without Intravenous Contrast CLINICAL HISTORY: ITS.REASON CT Reason: Neuro deficit, acute, stroke suspected TECHNIQUE: Axial computed tomography images of the head/brain without intravenous contrast. CTDI is 48.8 mGy and DLP is 1169 mGy-cm. This CT exam was performed using one or more of the following dose reduction techniques: automated exposure control, adjustment of the mA and/or kV according to patient size, and/or use of iterative reconstruction technique. COMPARISON: No relevant prior studies available. FINDINGS: Brain: No hemorrhage or mass effect. Ventricles: No hydrocephalus. Bones/joints: Unremarkable. Soft tissues: Unremarkable. Sinuses: No air fluid level. Mastoid air cells: Clear. IMPRESSION: No acute hemorrhage, hydrocephalus, or mass effect.
--- NOTE | 2022-12-12 01:55 | CT ---
EXAM: CT Angiography Head With Intravenous Contrast CLINICAL HISTORY: ITS.REASON CT Reason: Neuro deficit, acute, stroke suspected TECHNIQUE: Axial computed tomographic angiography images of the head with intravenous contrast. CTDI is 48.8 mGy and DLP is 1169 mGy-cm. This CT exam was performed using one or more of the following dose reduction techniques: automated exposure control, adjustment of the mA and/or kV according to patient size, and/or use of iterative reconstruction technique. MIP reconstructed images were created and reviewed. COMPARISON: No relevant prior studies available. FINDINGS: Right internal carotid artery: Intracranial segment is patent with no significant stenosis. No aneurysm. Right anterior cerebral artery: No occlusion or significant stenosis. No aneurysm. Right middle cerebral artery: No occlusion or significant stenosis. No aneurysm. Right posterior cerebral artery: No occlusion or significant stenosis. No aneurysm. Right vertebral artery: Unremarkable. Left internal carotid artery: Intracranial segment is patent with no significant stenosis. No aneurysm. Left anterior cerebral artery: No occlusion or significant stenosis. No aneurysm. Left middle cerebral artery: No occlusion or significant stenosis. No aneurysm. Left posterior cerebral artery: No occlusion or significant stenosis. No aneurysm. Left vertebral artery: Unremarkable. Basilar artery: No occlusion or significant stenosis. No aneurysm. IMPRESSION: No significant stenosis. EXAM: CT Angiography Neck With Intravenous Contrast CLINICAL HISTORY: ITS.REASON CT Reason: Neuro deficit, acute, stroke suspected TECHNIQUE: Axial computed tomographic angiography images of the neck with intravenous contrast. CTDI is 42.3 mGy and DLP is 1010 mGy-cm. This CT exam was performed using one or more of the following dose reduction techniques: automated exposure control, adjustment of the mA and/or kV according to patient size, and/or use of iterative reconstruction technique. MIP reconstructed images were created and reviewed. COMPARISON: No relevant prior studies available. FINDINGS: VASCULATURE: Right common carotid artery: No significant stenosis. No dissection. Right internal carotid artery: Extracranial has no significant stenosis. No dissection. Right vertebral artery: No significant stenosis. No dissection. Left common carotid artery: No significant stenosis. No dissection. Left internal carotid artery: Extracranial has no significant stenosis. No dissection. Left vertebral artery: No significant stenosis. No dissection. NECK: Bones/joints: No acute fracture. No dislocation. CAROTID STENOSIS REFERENCE USING NASCET CRITERIA: % ICA stenosis = (1 - narrowest ICA diameter/diameter of distal cervical ICA) x 100. Mild - <50% stenosis. Moderate - 50-69% stenosis. Severe - 70-94% stenosis. Near occlusion - 95-99% stenosis. Occluded - 100% stenosis. IMPRESSION: No significant stenosis.
[2022-12-12 05:27] VITALS: BP 114/62; PULSE 66
[2022-12-12] MEDS ORDERED: ASPIRIN 325 MG TAB PO SCH (09:00)
--- NOTE | 2022-12-12 11:10 | P.DS ---
Providers Date of admission: 12/11/22 23:00 Attending physician: Stew Nix Consults: 12/11/22 23:00 Consult Physician Routine Consulting Provider: Kale Babcock Consult Reason/Comments: tia Do you want consulting provider notified?: Yes Primary care physician: Jona Lane [facility] Course: Patient is a 62-year-old male came in with the complaints of a small localized area of numbness in the lower cheek on the left side. This numbness is transient and resolved and patient felt he may have infection of the salivary gland. Further questioning he did complain of numbness in the hand although this symptom appears it appears not to be associated with the numbness in the cheek and it doesn't involve the entire hand. More the symptoms resolved at this time CT of the head and CT and to the head negative patient is already on Xeralto for anticoagulation and aspirin. Patient is supposed to take statin and he believe it's causing constipation and stopped taking his statin. He is also found to have a COVID-19 he did complain of generalized fatigue. Patient is anticoagulation for history of DVT in the past patient had history of coronary artery disease [place] and stents in the past REVIEW OF SYSTEMS: CONSTITUTIONAL: No fever, no malaise, no fatigue. HEENT: No recent visual problems or hearing problems. Denied any sore throat. CARDIOVASCULAR: No chest pain, orthopnea, PND, no palpitations, no syncope. PULMONARY: No shortness of breath, no cough, no hemoptysis. GASTROINTESTINAL: No diarrhea, no nausea, no vomiting, no abdominal pain. NEUROLOGICAL: No headaches, no weakness, no numbness. HEMATOLOGICAL: Denies any bleeding or petechiae. GENITOURINARY: Denies any burning micturition, frequency, or urgency. MUSCULOSKELETAL/RHEUMATOLOGICAL: Denies any joint pain, swelling, or any muscle pain. ENDOCRINE: Denies any polyuria or polydipsia. The rest of the 14-point review of systems is negative. PHYSICAL EXAMINATION: GENERAL: The patient is alert and oriented x3, not in any acute distress. Well developed, well nourished. HEENT: Pupils are round and equally reacting to light. EOMI. No scleral icterus. No conjunctival pallor. Normocephalic, atraumatic. No pharyngeal erythema. No thyromegaly. CARDIOVASCULAR: S1 and S2 present. No murmurs, rubs, or gallops. PULMONARY: Chest is clear to auscultation, no wheezing or crackles. ABDOMEN: Soft, nontender, nondistended, normoactive bowel sounds. No palpable organomegaly. MUSCULOSKELETAL: No joint swelling or deformity. EXTREMITIES: No cyanosis, clubbing, or pedal edema. NEUROLOGICAL: Gross neurological examination did not reveal any focal deficits. SKIN: No rashes. Assessment and plan -COVID-19 infection and hyponatremia secondary to dehydration from COVID-19: Patient is on IV fluids patient's sodium was 132. -Transient numbness in small localized area on the cheek: Not consistent with TIA or stroke but neurology is recommending an echocardiogram which we'll order it to get it done as an outpatient, patient is already in anticoagulation and aspirin and statin will be reordered. -Coronary artery disease -Hypovolemic hyponatremia -History of DVT in the past next and-hyperlipidemia -Gastroesophageal reflux disease -Sleep apnea Patient will be discharged today with outpatient echocardiogram results to be faxed to PCP and crime data specialist Patient Condition at Discharge: Stable Plan - Discharge Summary New Discharge Prescriptions: New Atorvastatin [Lipitor] 40 mg PO HS #30 tab Clopidogrel [Plavix] 75 mg PO DAILY #30 tab Continue Pantoprazole [Protonix] 40 mg PO BID-W/MEALS Rivaroxaban [Xarelto] 20 mg PO W/SUPPER Cholecalciferol [Vitamin D3 (125 Mcg = 5000 Iu)] 125 mcg PO DAILY Discontinued Aspirin EC [Ecotrin Low Dose] 81 mg PO DAILY Discharge Medication List Cholecalciferol [Vitamin D3 (125 Mcg = 5000 Iu)] 125 mcg PO DAILY 05/27/21 [History] Pantoprazole [Protonix] 40 mg PO BID-W/MEALS 05/27/21 [History] Rivaroxaban [Xarelto] 20 mg PO W/SUPPER 01/12/22 [History] Atorvastatin [Lipitor] 40 mg PO HS #30 tab 12/12/22 [Rx] Clopidogrel [Plavix] 75 mg PO DAILY #30 tab 12/12/22 [Rx] Follow up Appointment(s)/Referral(s): Jona Jaramillo [Primary Care Provider] - 3 Days Discharge Disposition: HOME SELF-CARE
--- NOTE | 2022-12-12 11:10 | P.HPIM ---
History of Present Illness Patient is a 62-year-old male came in with the complaints of a small localized area of numbness in the lower cheek on the left side. This numbness is transient and resolved and patient felt he may have infection of the salivary gland. Further questioning he did complain of numbness in the hand although this symptom appears it appears not to be associated with the numbness in the cheek and it doesn't involve the entire hand. More the symptoms resolved at this time CT of the head and CT and to the head negative patient is already on Xeralto for anticoagulation and aspirin. Patient is supposed to take statin and he believe it's causing constipation and stopped taking his statin. He is also found to have a COVID-19 he did complain of generalized fatigue. Patient is anticoagulation for history of DVT in the past patient had history of coronary artery disease [place] and stents in the past REVIEW OF SYSTEMS: CONSTITUTIONAL: No fever, no malaise, no fatigue. HEENT: No recent visual problems or hearing problems. Denied any sore throat. CARDIOVASCULAR: No chest pain, orthopnea, PND, no palpitations, no syncope. PULMONARY: No shortness of breath, no cough, no hemoptysis. GASTROINTESTINAL: No diarrhea, no nausea, no vomiting, no abdominal pain. NEUROLOGICAL: No headaches, no weakness, no numbness. HEMATOLOGICAL: Denies any bleeding or petechiae. GENITOURINARY: Denies any burning micturition, frequency, or urgency. MUSCULOSKELETAL/RHEUMATOLOGICAL: Denies any joint pain, swelling, or any muscle pain. ENDOCRINE: Denies any polyuria or polydipsia. The rest of the 14-point review of systems is negative. PHYSICAL EXAMINATION: GENERAL: The patient is alert and oriented x3, not in any acute distress. Well developed, well nourished. HEENT: Pupils are round and equally reacting to light. EOMI. No scleral icterus. No conjunctival pallor. Normocephalic, atraumatic. No pharyngeal erythema. No thyromegaly. CARDIOVASCULAR: S1 and S2 present. No murmurs, rubs, or gallops. PULMONARY: Chest is clear to auscultation, no wheezing or crackles. ABDOMEN: Soft, nontender, nondistended, normoactive bowel sounds. No palpable organomegaly. MUSCULOSKELETAL: No joint swelling or deformity. EXTREMITIES: No cyanosis, clubbing, or pedal edema. NEUROLOGICAL: Gross neurological examination did not reveal any focal deficits. SKIN: No rashes. Assessment and plan -COVID-19 infection and hyponatremia secondary to dehydration from COVID-19: Patient is on IV fluids patient's sodium was 132. -Transient numbness in small localized area on the cheek: Not consistent with TIA or stroke but neurology is recommending an echocardiogram which we'll order it to get it done as an outpatient, patient is already in anticoagulation and aspirin and statin will be reordered. -Coronary artery disease -Hypovolemic hyponatremia -History of DVT in the past next and-hyperlipidemia -Gastroesophageal reflux disease -Sleep apnea Patient will be discharged today with outpatient echocardiogram results to be faxed to PCP and cardiovascular rn Past Medical History Past Medical History: Coronary Artery Disease (CAD), Chest Pain / Angina, Deep Vein Thrombosis (DVT), GERD/Reflux, Hyperlipidemia, Myocardial Infarction ([place]), Sleep Apnea/CPAP/BIPAP Additional Past Medical History / Comment(s): DVT 2002, uses CPAP Last Myocardial Infarction Date:: 08/2006 History of Any Multi-Drug Resistant Organisms: None Reported Past Surgical History: Heart Catheterization With Stent Additional Past Surgical History / Comment(s): left leg surgery r/t DVT, ORIF right femur septal deviation surgery in 2014, varicose vein removal in the left leg. Past Anesthesia/Blood Transfusion Reactions: No Reported Reaction Additional Past Anesthesia/Blood Transfusion Reaction / Comment(s): no previous transfusion Date of Last Stent Placement:: 2006 Past Psychological History: Anxiety Smoking Status: Former smoker Past Alcohol Use History: None Reported Past Drug Use History: None Reported - Past Family History Mother Family Medical History: COPD, Diabetes Mellitus, Myocardial Infarction ([place]) Additional Family Medical History / Comment(s): Mother at age 75 with history of hypertension, renal failure on dialysis, CVA 6, diabetes mellitus type 2, congestive heart failure and COPD. Patient does not know his father. He has no brothers or sisters. He is single and no children. Medications and Allergies Home Medications Medication Instructions Recorded Confirmed Type Cholecalciferol [Vitamin D3 (125 125 mcg PO DAILY 05/27/21 11/27/22 History Mcg = 5000 Iu)] Pantoprazole [Protonix] 40 mg PO BID-W/MEALS 05/27/21 11/27/22 History Rivaroxaban [Xarelto] 20 mg PO W/SUPPER 01/12/22 11/27/22 History Atorvastatin [Lipitor] 40 mg PO HS #30 tab 12/12/22 Rx Clopidogrel [Plavix] 75 mg PO DAILY #30 tab 12/12/22 Rx Allergies Allergy/AdvReac Type Severity Reaction Status Date / Time No Known Allergies Allergy Verified 12/11/22 21:23 Physical Exam Vitals: Vital Signs Temp Pulse Resp BP Pulse Ox 12/12/22 04:37 66 18 114/62 98 12/12/22 01:17 70 18 124/73 99 12/11/22 21:21 97.9 F 65 18 120/63 100 Intake and Output 12/11/22 12/12/22 12/12/22 22:59 06:59 14:59 Other: Weight 74.843 kg Results CBC & Chem 7: 12/11/22 23:19 12/11/22 23:19 Labs: Abnormal Lab Results - Last 24 Hours (Table) 12/11/22 12/11/22 Range/Units 23:19 23:19 PT 12.8 H (9.0-12.0) sec INR 1.3 H (<1.2) Sodium 132 L (137-145) mmol/L Creatine Kinase 234 H (55-170) U/L
--- NOTE | 2022-12-12 11:14 | P.CNNES ---
History of Present Illness Consult date: 12/12/22 Requesting physician: Mark Awan Reason for Consult: tia History of Present Illness: A 62-year-old woman with history of DVT who is on Xarelto as well as aspirin presented emergency department because of numbness over the left cheek. Patient stated that yesterday around 4ish pm he was having dinner and he noticed numbness on the left side of the cheek as well as the he felt there is pain in the left upper extremity mostly distal and the whole episode lasted for about an hour. He denies of any weakness, difficulty getting his words out, difficulty swallowing, focal weakness. Denies history of stroke or TIA in the past. Denies history of atrial fibrillation. 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 Some other workup during this hospital visit consisted of: CBC with differential unremarkable Serum glucose is 94, calcium was 9.4, AST ALT is within normal limits Sodium was 132 CT of the head is reported as no acute hemorrhage, hydrocephalus or mass effect. I personally reviewed the CT and I agree there is no acute or subacute ischemia there is no bleed. CT angiography of the head and neck was reported as no significant stenosis EKG is reported as sinus rhythm with first-degree AV block. Review of Systems Review of system: The 12 point system was reviewed and apparent positive and negative per HPI. Past Medical History Past Medical History: Coronary Artery Disease (CAD), Chest Pain / Angina, Deep Vein Thrombosis (DVT), GERD/Reflux, Hyperlipidemia, Myocardial Infarction (CO), Sleep Apnea/CPAP/BIPAP Additional Past Medical History / Comment(s): DVT 2002, uses CPAP Last Myocardial Infarction Date:: 08/2006 History of Any Multi-Drug Resistant Organisms: None Reported Past Surgical History: Heart Catheterization With Stent Additional Past Surgical History / Comment(s): left leg surgery r/t DVT, ORIF right femur septal deviation surgery in 2014, varicose vein removal in the left leg. Past Anesthesia/Blood Transfusion Reactions: No Reported Reaction Additional Past Anesthesia/Blood Transfusion Reaction / Comment(s): no previous transfusion Date of Last Stent Placement:: 2006 Past Psychological History: Anxiety Smoking Status: Former smoker Past Alcohol Use History: None Reported Past Drug Use History: None Reported - Past Family History Mother Family Medical History: COPD, Diabetes Mellitus, Myocardial Infarction (CO) Additional Family Medical History / Comment(s): Mother at age 75 with history of hypertension, renal failure on dialysis, CVA 6, diabetes mellitus type 2, congestive heart failure and COPD. Patient does not know his father. He has no brothers or sisters. He is single and no children. Medications and Allergies Home Medications Medication Instructions Recorded Confirmed Type Aspirin EC [Ecotrin Low Dose] 81 mg PO DAILY 10/06/17 11/27/22 History Cholecalciferol [Vitamin D3 (125 125 mcg PO DAILY 05/27/21 11/27/22 History Mcg = 5000 Iu)] Pantoprazole [Protonix] 40 mg PO BID-W/MEALS 05/27/21 11/27/22 History Rivaroxaban [Xarelto] 20 mg PO W/SUPPER 01/12/22 11/27/22 History Allergies Allergy/AdvReac Type Severity Reaction Status Date / Time No Known Allergies Allergy Verified 12/11/22 21:23 Physical Examination - Vital Signs Vital Signs: Vital Signs Temp Pulse Resp BP Pulse Ox 12/12/22 04:37 66 18 114/62 98 12/12/22 01:17 70 18 124/73 99 12/11/22 21:21 97.9 F 65 18 120/63 100 Intake and Output 12/11/22 12/12/22 12/12/22 22:59 06:59 14:59 Other: Weight 74.843 kg GENERAL: The patient is lying in bed and is not in acute distress. NEUROLOGICAL: Higher mental function: The patient is awake, alert, oriented to self, place and time. Patient is following commands. No aphasia and no neglect. Cranial nerves: The pupils are round, equal and reactive to light and accommodation. Visual grande are full to confrontation throughout. Extraocular movement is intact no nystagmus is noted. Facial sensation is normal to touch throughout. The facial strength is normal throughout. Hearing is mildly decreased bilaterally to hand rub. Tongue is midline and moved [id number] without any difficulty. No dysarthria is noted. Shoulder shrug is normal bilaterally. Motor: The strength is 5 over 5 throughout. Normal tone and bulk. Cerebellum: Normal finger to nose bilaterally. Sensation: Sensation is normal to touch throughout. Reflexes (right/left): 2+ throughout. Plantars are downgoing bilaterally. Results - Laboratory Findings CBC and BMP: 12/11/22 23:19 12/11/22 23:19 Abnormal Lab Findings: Abnormal Labs 12/11/22 12/11/22 23:19 23:19 PT 12.8 H INR 1.3 H Sodium 132 L Creatine Kinase 234 H Assessment and Plan Assessment: This is a [id number] with history of multiple DVTs in the left lower extremity was on Xarelto as well as a baby aspirin who presents emergency de partment because of the numbness in the left side of the cheek as well as some pain in the distal left upper extremity lasting for about a hour. Acute transient episode of numbness on the left sided cheek with some pain over the left upper distal extremity seems probable due to TIA History of multiple DVT on the left lower extremity and is on Xarelto as well as aspirin 81 mg. Plan: 2-D echo, lipid panel is ordered and is pending I ordered TSH, vitamin B12, folate, hemoglobin A1c. I discontinued the aspirin since I felt this is a TIA and he failed aspirin and therefore I placed him on Plavix 75 mg daily. He is to resume his home medication of Xarelto. 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 Consider MRI as outpatient. Continue neuro checks Cardiac monitoring PT and OT is not needed since the patient does not have any focal deficit. We'll defer the rest of the medical management to primary team For DVT prophylaxis patient's to resume his home medication of Xarelto The plan was discussed with the patient and the primary attending Thank you for the consultation Time with Patient: Greater than 30
--- NOTE | 2022-12-12 16:27 | CA ---
Transthoracic Echo Report Name: Yousif Mitchell Age: 62 Gender: M : 1960 Exam Date: 12/12/2022 11:34 Exam Location: [facility] Ht (in): 68 Wt (lb): 165 Ordering Physician: Mark Awan DO Attending/Referring Phys: [id number], Lv Box Builder Cornelia Saldivar RDCS Procedure CPT: Indications: Thrombus Cardiac Hx: Technical Quality: Fair Contrast 1: Total Dose (mL): Contrast 2: Total Dose (mL): MEASUREMENTS (Male / Female) Normal Values 2D ECHO LV Diastolic Diameter PLAX 3.5 cm 4.2 - 5.9 / 3.9 - 5.3 cm LV Systolic Diameter PLAX 2.6 cm IVS Diastolic Thickness 1.0 cm 0.6 - 1.0 / 0.6 - 0.9 cm LVPW Diastolic Thickness 1.1 cm 0.6 - 1.0 / 0.6 - 0.9 cm LV Relative Wall Thickness 0.6 FINDINGS Left Ventricle Limited study. Left ventricular wall thickness normal. Left ventricular cavity size normal. Basal inferior wall hypokinesia with thinning of wall suggestive of old myocardial infarction. Left ventricular ejection fraction is estimated at 50 %. Right Ventricle Right Atrium Left Atrium Mitral Valve Aortic Valve Tricuspid Valve Pulmonic Valve Pericardium No pericardial effusion. Aorta CONCLUSIONS Limited study. Left ventricular ejection fraction is estimated at 50 %. Basal inferior wall hypokinesia with thinning of wall suggestive of old myocardial infarction. No pericardial effusion. No difference in compared to prior echo from 11/28/2022 Previewed by: Dr Angelo Coffman (Electronically Signed) Final Date: 12 December 2022 16:26
[2022-12-12] MEDS ORDERED: ATORVASTATIN 80 MG TAB PO SCH (21:00)
[2022-12-13] MEDS ORDERED: CLOPIDOGREL 75 MG TAB PO SCH (09:00)
== END 2022-12-12 16:04 | disposition home or self-care (01) ==
LOC: EC 21:13 → 6NMEDSUR 23:00
PROVIDERS: ADMIT Hospitalist; ATTEND Hospitalist
DX: U07.1 COVID-19 (principal); E86.1 Hypovolemia; E87.1 Hypo-osmolality and hyponatremia; E86.0 Dehydration; R20.0 Anesthesia of skin; I25.10 Atherosclerotic heart disease of native coronary artery without angina pectoris; K21.9 Gastro-esophageal reflux disease without esophagitis; E78.5 Hyperlipidemia, unspecified; G47.30 Sleep apnea, unspecified; I25.2 Old myocardial infarction; F41.9 Anxiety disorder, unspecified; Z87.891 Personal history of nicotine dependence; Z86.718 Personal history of other venous thrombosis and embolism; Z86.73 Personal history of transient ischemic attack (TIA), and cerebral infarction without residual deficits; Z79.01 Long term (current) use of anticoagulants; Z79.82 Long term (current) use of aspirin; Z79.899 Other long term (current) drug therapy
CPT/HCPCS: 96360; 99285; 36415; 93005; 93308; 80053; 84443; 82607; 82550; 82746; 84484 ×2; 85025; 85610; 85730; 83036; 70496; 70450; 70498; G0378 ×2; Q9967

== ENCOUNTER 2022-12-14 15:33 | Emergency (ER) | payer MEDICARE ==
--- NOTE | 2022-12-14 16:36 | ED ---
General Adult HPI - General Chief complaint: Recheck/Abnormal Lab/Rx Stated complaint: right arm throbbing Time Seen by Provider: 12/14/22 16:36 Source: patient, RN notes reviewed Mode of arrival: ambulatory Limitations: no limitations - History of Present Illness Initial comments: 60-year-old male presents emergency department chief complaint of bruising on his right arm that he noticed today. He states that he was talking on the phone when he flexes arm and felt some his dorsal lateral right forearm. This pain has since resolved. He does note for bruising on his arm. He was recently started on Plavix when he was discharged from the hospital 3 days ago. Denies any numbness, tingling. He is not having any pain at this time. - Related Data Home Medications Medication Instructions Recorded Confirmed Cholecalciferol [Vitamin D3 (125 125 mcg PO DAILY 05/27/21 12/12/22 Mcg = 5000 Iu)] Pantoprazole [Protonix] 40 mg PO BID-W/MEALS 05/27/21 12/12/22 Rivaroxaban [Xarelto] 20 mg PO W/SUPPER 01/12/22 12/12/22 Previous Rx's Medication Instructions Recorded Atorvastatin [Lipitor] 40 mg PO HS #30 tab 12/12/22 Clopidogrel [Plavix] 75 mg PO DAILY #30 tab 12/12/22 Allergies Allergy/AdvReac Type Severity Reaction Status Date / Time No Known Allergies Allergy Verified 12/12/22 11:44 Review of Systems ROS Statement: Those systems with pertinent positive or pertinent negative responses have been documented in the HPI. ROS Other: All systems not noted in ROS Statement are negative. Past Medical History Past Medical History: Coronary Artery Disease (CAD), Chest Pain / Angina, CVA/TIA, Deep Vein Thrombosis (DVT), GERD/Reflux, Hyperlipidemia, Myocardial Infarction (ND), Sleep Apnea/CPAP/BIPAP Additional Past Medical History / Comment(s): DVT 2002, uses CPAP Last Myocardial Infarction Date:: 08/2006 History of Any Multi-Drug Resistant Organisms: None Reported Past Surgical History: Heart Catheterization With Stent Additional Past Surgical History / Comment(s): left leg surgery r/t DVT, ORIF right femur septal deviation surgery in 2015, varicose vein removal in the left leg. Past Anesthesia/Blood Transfusion Reactions: No Reported Reaction Additional Past Anesthesia/Blood Transfusion Reaction / Comment(s): no previous transfusion Date of Last Stent Placement:: 2006 Past Psychological History: Anxiety Smoking Status: Former smoker Past Alcohol Use History: None Reported Past Drug Use History: None Reported - Past Family History Mother Family Medical History: COPD, Diabetes Mellitus, Myocardial Infarction (ND) Additional Family Medical History / Comment(s): Mother at age 75 with history of hypertension, renal failure on dialysis, CVA 6, diabetes mellitus type 2, congestive heart failure and COPD. Patient does not know his father. He has no brothers or sisters. He is single and no children. General Exam Limitations: no limitations General appearance: alert, in no apparent distress Head exam: Present: atraumatic, normocephalic, normal inspection Eye exam: Present: normal appearance, PERRL, EOMI. Absent: scleral icterus, conjunctival injection, periorbital swelling ENT exam: Present: normal exam, mucous membranes moist Neck exam: Present: normal inspection. Absent: tenderness, meningismus, lymphadenopathy Respiratory exam: Present: normal lung sounds bilaterally. Absent: respiratory distress, wheezes, rales, rhonchi, stridor Cardiovascular Exam: Present: regular rate, normal rhythm, normal heart sounds. Absent: systolic murmur, diastolic murmur, rubs, gallop, clicks Extremities exam: Present: full ROM, normal capillary refill, other (2 small ecchymoses to right lateral forearm). Absent: tenderness, pedal edema, joint swelling, calf tenderness Back exam: Present: normal inspection Neurological exam: Present: alert, oriented X3 Psychiatric exam: Present: normal affect, normal mood Skin exam: Present: warm, dry, intact, other (ecchymosis to right arm) Course Vital Signs 12/14/22 12/14/22 16:03 17:25 Temperature 98 F 97.9 F Pulse Rate 65 68 Respiratory 20 18 Rate Blood Pressure 133/75 126/74 O2 Sat by Pulse 98 99 Oximetry Medical Decision Making - Medical Decision Making Was pt. sent in by a medical professional or institution (, PA, DELINQUENCY PREVENTION SOCIAL WORKER, urgent care, hospital, or prison...) When possible be specific @ -No Did you speak to anyone other than the patient for history (EMS, parent, family, police, friend...)? What history was obtained from this source @ -No Did you review nursing and triage notes (agree or disagree)? Why? @ -I reviewed and agree with nursing and triage notes Were old charts reviewed (outside hosp., previous admission, EMS record, old EKG, old radiological studies, urgent care reports/EKG's, prison records)? Report findings @ -No old charts were reviewed Differential Diagnosis (chest pain, altered mental status, abdominal pain women, abdominal pain men, vaginal bleeding, weakness, fever, dyspnea, syncope, hea dache, dizziness, GI bleed, back pain, seizure, CVA, palpatations, mental health, musculoskeletal)? @ -Differential Musculoskeletal Muscular strain, contusion, ligament sprain, fracture, arthritis, septic arthritis, bursitis, cellulitis, muscle spasm, nerve compression, DVT, arterial occlusion, herpes zoster, electrolyte abnormality, tumor.... This is not meant to be in all inclusive list EKG interpreted by me (3pts min.). @ -none X-rays interpreted by me (1pt min.). @ -None done CT interpreted by me (1pt min.). @ -None done U/S interpreted by me (1pt. min.). @ -None done What testing was considered but not performed or refused? (CT, X-rays, U/S, labs)? Why? @ -None What meds were considered but not given or refused? Why? @ -None Did you discuss the management of the patient with other professionals (professionals i.e. , PA, DELINQUENCY PREVENTION SOCIAL WORKER, lab, RT, psych nurse, social media assistant, roastmaster, teacher, targeting acquisition officer, welfare case worker)? Give summary @ -No Was smoking cessation discussed for >3mins.? @ -No Was critical care preformed (if so, how long)? @ -No Were there social determinants of health that impacted care today? How? (Homelessness, low income, unemployed, alcoholism, drug addiction, transportation, low edu. Level, literacy, decrease access to med. care, care home, rehab)? @ -No Was there de-escalation of care discussed even if they declined (Discuss DNR or withdrawal of care, Hospice)? DNR status @ -No What co-morbidities impacted this encounter? (DM, HTN, Smoking, COPD, CAD, Cancer, CVA, ARF, Chemo, Hep., AIDS, mental health diagnosis, sleep apnea, morbid obesity)? @ -None Was patient admitted / discharged? Hospital course, mention meds given and route, prescriptions, significant lab abnormalities, going to OR and other pertinent info. @ -Discharged. Patient presented emergency department chief complaint of ecchymosis to right arm that he noticed today with associated pain. He states the pain has since resolved and only lasts for 1-2 seconds. He is concerned because he just recently started Plavix. There are two areas on his right arm less than .25cm that are non tender, non erythematous. Patient has an appointment with Dr. Jaramillo tomorrow. Advised patient to keep this appointment. Patient stable at time of discharge. Case discussed with Dr. Allen Undiagnosed new problem with uncertain prognosis? @ -No Drug Therapy requiring intensive monitoring for toxicity (Heparin, Nitro, Insulin, Cardizem)? @ -No Were any procedures done? @ -No Diagnosis/symptom? @ -contusion to right arm Acute, or Chronic, or Acute on Chronic? @ -acute Uncomplicated (without systemic symptoms) or Complicated (systemic symptoms)? @ -uncomplicated Side effects of treatment? @ -No Exacerbation, Progression, or Severe Exacerbation? @ -No Poses a threat to life or bodily function? How? (Chest pain, [place], [place], pneumonia, PE, COPD, DKA, ARF, appy, cholecystitis, CVA, Diverticulitis, Homicidal, Suicidal, threat to staff... and all critical care pts) @ -No Disposition Clinical Impression: Ecchymosis Disposition: HOME SELF-CARE Condition: Stable Instructions (If sedation given, give patient instructions): Contusion in Adults (ED) Additional Instructions: Please follow up with Dr. Jaramillo tomorrow as scheduled. Return to the emergency department for new or worsening symptoms. Is patient prescribed a controlled substance at d/c from ED?: No Referrals: Jona Jaramillo [Primary Care Provider] - 1-2 days Time of Disposition: 17:15
[2022-12-14 17:29] VITALS: BP 126/74; PULSE 68; RESP 18; TEMP 97.9
== END 2022-12-14 18:11 | disposition home or self-care (01) ==
LOC: EC 15:33
DX: S40.012A Contusion of left shoulder, initial encounter (principal); I25.10 Atherosclerotic heart disease of native coronary artery without angina pectoris; K21.9 Gastro-esophageal reflux disease without esophagitis; I25.2 Old myocardial infarction; Z86.718 Personal history of other venous thrombosis and embolism; Z86.73 Personal history of transient ischemic attack (TIA), and cerebral infarction without residual deficits; F41.9 Anxiety disorder, unspecified; Z87.891 Personal history of nicotine dependence; Z79.899 Other long term (current) drug therapy; Z79.01 Long term (current) use of anticoagulants; X50.9XXA Other and unspecified overexertion or strenuous movements or postures, initial encounter
CPT/HCPCS: 99283

== ENCOUNTER 2022-12-16 19:08 | Emergency (ER) | payer MEDICARE ==
[2022-12-16 19:19] VITALS: RESP 18
[2022-12-16 20:19] VITALS: TEMP 98.7
--- NOTE | 2022-12-16 20:42 | ED ---
Neuro HPI - General Chief Complaint: Neuro Symptoms/Deficit Stated Complaint: numbness Time Seen by Provider: 12/16/22 20:15 Source: patient Mode of arrival: ambulatory Limitations: no limitations - History of Present Illness Is the patient presenting with stroke symptoms?: No Initial Comments: 62-year-old male presenting with chief complaint of numbness to left side of face and left arm. Upon arrival patient states that symptoms have completely resolved. He states that around 6:00 PM he had this episode that lasted for abo ut 3-4 minutes. He states that he suspected this was due to his seatbelt rubbing against his neck. NIH upon arrival is 0. He denies chest pain, difficulty breathing, headache, vision or hearing changes, weakness, abdominal pain, nausea, vomiting, fever, chills. - Related Data Home Medications: Home Medications Medication Instructions Recorded Confirmed Cholecalciferol [Vitamin D3 (125 125 mcg PO DAILY 05/27/21 12/12/22 Mcg = 5000 Iu)] Pantoprazole [Protonix] 40 mg PO BID-W/MEALS 05/27/21 12/12/22 Rivaroxaban [Xarelto] 20 mg PO W/SUPPER 01/12/22 12/12/22 Previous Rx's Medication Instructions Recorded Atorvastatin [Lipitor] 40 mg PO HS #30 tab 12/12/22 Clopidogrel [Plavix] 75 mg PO DAILY #30 tab 12/12/22 Allergies/Adverse Reactions: Allergies Allergy/AdvReac Type Severity Reaction Status Date / Time No Known Allergies Allergy Verified 12/16/22 19:14 Review of Systems ROS Statement: Those systems with pertinent positive or pertinent negative responses have been documented in the HPI. ROS Other: All systems not noted in ROS Statement are negative. General Exam Limitations: no limitations General appearance: alert, in no apparent distress Head exam: Present: atraumatic, normocephalic, normal inspection Eye exam: Present: normal appearance, PERRL, EOMI. Absent: scleral icterus, conjunctival injection, periorbital swelling Neck exam: Present: normal inspection, full ROM Respiratory exam: Present: normal lung sounds bilaterally. Absent: respiratory distress, wheezes, rales, rhonchi, stridor Cardiovascular Exam: Present: regular rate, normal rhythm, normal heart sounds. Absent: systolic murmur, diastolic murmur, rubs, gallop, clicks Extremities exam: Present: normal inspection, full ROM Neurological exam: Present: alert, oriented X3, CN II-XII intact Expanded Patient oriented to: Present: person, place, time Speech: Present: fluid speech Cranial nerves: EOM's Intact: Normal, Tongue Deviation: Normal, Facial Sensation: Normal Cerebellar function: Finger to Nose: Normal, Heel to Colbert: Normal Motor strength exam: RUE: 5, LUE: 5, RLE: 5, LLE: 5 Eye Response: (4) open spontaneously Motor Response: (6) obeys commands Verbal Response: (5) oriented Rebecca Total: 15 Psychiatric exam: Present: normal affect, normal mood Skin exam: Present: warm, dry, intact, normal color. Absent: rash Stroke MDM - Lab Data Result diagrams: 12/16/22 20:35 12/16/22 20:35 Lab Results 12/16/22 12/16/22 12/16/22 Range/Units 20:35 20:35 20:35 WBC 5.3 (3.8-10.6) k/uL RBC 4.27 L (4.30-5.90) m/uL Hgb 13.3 (13.0-17.5) gm/dL Hct 38.5 L (39.0-53.0) % MCV 90.0 (80.0-100.0) fL MCH 31.2 (25.0-35.0) pg MCHC 34.7 (31.0-37.0) g/dL RDW 12.6 (11.5-15.5) % Plt Count 246 (150-450) k/uL MPV 6.4 Neutrophils % 59 % Lymphocytes % 27 % Monocytes % 10 % Eosinophils % 2 % Basophils % 0 % Neutrophils # 3.1 (1.3-7.7) k/uL Lymphocytes # 1.4 (1.0-4.8) k/uL Monocytes # 0.5 (0-1.0) k/uL Eosinophils # 0.1 (0-0.7) k/uL Basophils # 0.0 (0-0.2) k/uL PT 13.6 H (9.0-12.0) sec INR 1.3 H (<1.2) APTT 28.1 (22.0-30.0) sec Sodium 132 L (137-145) mmol/L Potassium 4.1 (3.5-5.1) mmol/L Chloride 96 L (98-107) mmol/L Carbon Dioxide 26 (22-30) mmol/L Anion Gap 10 mmol/L BUN 17 (9-20) mg/dL Creatinine 1.32 H (0.66-1.25) mg/dL Est GFR (CKD-EPI)AfAm 67 (>60 ml/min/1.73 sqM) Est GFR (CKD-EPI)NonAf 58 (>60 ml/min/1.73 sqM) Glucose 89 (74-99) mg/dL POC Glucose (mg/dL) (70-110) mg/dL POC Glu Historical Manuscripts Curator ID Calcium 9.3 (8.4-10.2) mg/dL Total Bilirubin 0.6 (0.2-1.3) mg/dL AST 26 (17-59) U/L ALT 22 (4-49) U/L Alkaline Phosphatase 57 (38-126) U/L Creatine Kinase 129 (55-170) U/L Troponin I (0.000-0.034) ng/mL Total Protein 6.8 (6.3-8.2) g/dL Albumin 4.0 (3.5-5.0) g/dL 12/16/22 12/16/22 Range/Units 20:35 20:44 WBC (3.8-10.6) k/uL RBC (4.30-5.90) m/uL Hgb (13.0-17.5) gm/dL Hct (39.0-53.0) % MCV (80.0-100.0) fL MCH (25.0-35.0) pg MCHC (31.0-37.0) g/dL RDW (11.5-15.5) % Plt Count (150-450) k/uL MPV Neutrophils % % Lymphocytes % % Monocytes % % Eosinophils % % Basophils % % Neutrophils # (1.3-7.7) k/uL Lymphocytes # (1.0-4.8) k/uL Monocytes # (0-1.0) k/uL Eosinophils # (0-0.7) k/uL Basophils # (0-0.2) k/uL PT (9.0-12.0) sec INR (<1.2) APTT (22.0-30.0) sec Sodium (137-145) mmol/L Potassium (3.5-5.1) mmol/L Chloride (98-107) mmol/L Carbon Dioxide (22-30) mmol/L Anion Gap mmol/L BUN (9-20) mg/dL Creatinine (0.66-1.25) mg/dL Est GFR (CKD-EPI)AfAm (>60 ml/min/1.73 sqM) Est GFR (CKD-EPI)NonAf (>60 ml/min/1.73 sqM) Glucose (74-99) mg/dL POC Glucose (mg/dL) 91 (70-110) mg/dL POC Glu Historical Manuscripts Curator ALIREZA Darlyn Lees Calcium (8.4-10.2) mg/dL Total Bilirubin (0.2-1.3) mg/dL AST (17-59) U/L ALT (4-49) U/L Alkaline Phosphatase (38-126) U/L Creatine Kinase (55-170) U/L Troponin I <0.012 (0.000-0.034) ng/mL Total Protein (6.3-8.2) g/dL Albumin (3.5-5.0) g/dL - Medical Decision Making Was pt. sent in by a medical professional or institution (, PA, FOREST SUPERVISOR, urgent care, hospital, or [place] health care facility...) When possible be specific @ -No Did you speak to anyone other than the patient for history (EMS, parent, family, police, friend...)? What history was obtained from this source @ -No Did you review nursing and triage notes (agree or disagree)? Why? @ -I reviewed and agree with nursing and triage notes Were old charts reviewed (outside hosp., previous admission, EMS record, old EKG, old radiological studies, urgent care reports/EKG's, [place] health care facility records)? Report findings @ -Recent admission notes and neurology consult were reviewed Differential Diagnosis (chest pain, altered mental status, abdominal pain women, abdominal pain men, vaginal bleeding, weakness, fever, dyspnea, syncope, headache, dizziness, GI bleed, back pain, seizure, CVA, palpatations, mental health, musculoskeletal)? @ -Differential CVA Ischemic stroke, hemorrhagic stroke, brain tumor, atypical migraine, Wernicke's encephalopathy, seizure, multiple sclerosis, meningitis, encephalitis, hypoglycemia, Guillain-Person, electrolytes disturbance, myasthenia gravis.... This is not meant to be an all-inclusive list EKG interpreted by me (3pts min.). @ -Sinus rhythm with first-degree AV block. Ventricular rate 66. NV interval 272. QRS 108. QT 394. QTc 407. Normal axis. X-rays interpreted by me (1pt min.). @ -Chest X-ray shows no acute process CT interpreted by me (1pt min.). @ -CT brain without contrast shows no acute intracranial process CT angio head and neck shows no evidence of dissection of the cervical internal carotid arteries or vertebral arteries or any evidence of significant stenosis of the carotid bifurcations. No evidence of intracranial high-grade stenosis or intracranial aneurysm. U/S interpreted by me (1pt. min.). @ -None done What testing was considered but not performed or refused? (CT, X-rays, U/S, labs)? Why? @ -None What meds were considered but not given or refused? Why? @ -None Did you discuss the management of the patient with other professionals (pr ofessionals i.e. , PA, FOREST SUPERVISOR, lab, RT, psych nurse, high school social studies teacher, unit control worker, teacher, ski patrol officer, bilingual patient support caseworker)? Give summary @ -Spoke with the neuro interventionalist who suggested no further recommendations at this time Was smoking cessation discussed for >3mins.? @ -No Was critical care preformed (if so, how long)? @ -No Were there social determinants of health that impacted care today? How? (Homelessness, low income, unemployed, alcoholism, drug addiction, transportation, low edu. Level, literacy, decrease access to med. care, usp, rehab)? @ -No Was there de-escalation of care discussed even if they declined (Discuss DNR or withdrawal of care, Hospice)? DNR status @ -No What co-morbidities impacted this encounter? (DM, HTN, Smoking, COPD, CAD, Cancer, CVA, ARF, Chemo, Hep., AIDS, mental health diagnosis, sleep apnea, morbid obesity)? @ -None Was patient admitted / discharged? Hospital course, mention meds given and route, prescriptions, significant lab abnormalities, going to OR and other pertinent info. @ -62-year-old male presenting with chief complaint of an episode of numbness that affected the left side of the face the left arm that lasted for approximately 3-4 minutes at around 6:00 PM today. On arrival patient states that the symptoms have completely resolved. Physical examination is conducted an NIH score is 0. I immediately discussed this case with my attending Dr. Viera, the decision was made to call code alteplase. Patient's vital signs are WNL. I spoke with the neuro interventionalist who did not suggest any further interventions at this time. Negative CT of the brain without contrast and CTA head and neck. Chest x-ray. Lab work is essentially unremarkable. Alteplase was not administered. On reassessment patient is resting comfortably he continues to remain asymptomatic. Patient was recently admitted for similar symptoms, he was cleared by neurology to follow up in the outpatient setting. He has an ABCD 2 score of 1. Patient would like to be discharged home. Given that the patient is low risk I believe this is reasonable. States that he'll be calling his PCPs office tomorrow. Follow-up with PCP. Report back to ER with any new or worsening symptoms. Discussed return parameters and answered all questions. Patient conveyed verbal understanding and agreed to the plan. I discussed this case in detail with my attending Dr. Viera Undiagnosed new problem with uncertain prognosis? @ -No Drug Therapy requiring intensive monitoring for toxicity (Heparin, Nitro, Insulin, Cardizem)? @ -No Were any procedures done? @ -No Diagnosis/symptom? @ -TIA Acute, or Chronic, or Acute on Chronic? @ -acute Uncomplicated (without systemic symptoms) or Complicated (systemic symptoms)? @ -complicated Side effects of treatment? @ -No Exacerbation, Progression, or Severe Exacerbation? @ -No Poses a threat to life or bodily function? How? (Chest pain, USA, NV, pneumonia, PE, COPD, DKA, ARF, appy, cholecystitis, CVA, Diverticulitis, Homicidal, Suicidal, threat to staff... and all critical care pts) @ -Low risk Past Medical History Past Medical History: Coronary Artery Disease (CAD), Chest Pain / Angina, CVA/TIA, Deep Vein Thrombosis (DVT), GERD/Reflux, Hyperlipidemia, Myocardial Infarction (NV), Sleep Apnea/CPAP/BIPAP Additional Past Medical History / Comment(s): DVT 2002, uses CPAP Last Myocardial Infarction Date:: 08/2006 History of Any Multi-Drug Resistant Organisms: None Reported Past Surgical History: Heart Catheterization With Stent Additional Past Surgical History / Comment(s): left leg surgery r/t DVT, ORIF right femur septal deviation surgery in 2014, varicose vein removal in the left leg. Past Anesthesia/Blood Transfusion Reactions: No Reported Reaction Additional Past Anesthesia/Blood Transfusion Reaction / Comment(s): no previous transfusion Date of Last Stent Placement:: 2006 Past Psychological History: Anxiety Smoking Status: Former smoker Past Alcohol Use History: None Reported Past Drug Use History: None Reported - Past Family History Mother Family Medical History: COPD, Diabetes Mellitus, Myocardial Infarction (NV) Additional Family Medical History / Comment(s): Mother at age 75 with history of hypertension, renal failure on dialysis, CVA 6, diabetes mellitus type 2, congestive heart failure and COPD. Patient does not know his father. He has no brothers or sisters. He is single and no children. Course Vital Signs 12/16/22 12/16/22 12/16/22 19:14 19:17 20:40 Temperature 98.2 F 98.7 F Pulse Rate 70 65 63 Respiratory 18 18 18 Rate Blood Pressure 134/75 142/83 129/79 O2 Sat by Pulse 98 100 99 Oximetry 12/16/22 12/16/22 12/16/22 20:44 20:50 21:40 Temperature Pulse Rate 66 75 Respiratory Rate Blood Pressure 141/82 129/76 O2 Sat by Pulse 97 Oximetry 12/16/22 12/16/22 12/16/22 21:50 22:00 22:10 Temperature Pulse Rate 74 76 79 Respiratory Rate Blood Pressure 124/74 127/76 130/78 O2 Sat by Pulse 100 99 100 Oximetry 12/16/22 12/16/22 12/16/22 22:20 22:30 22:40 Temperature Pulse Rate 77 80 77 Respiratory Rate Blood Pressure 132/81 135/80 139/82 O2 Sat by Pulse 99 98 97 Oximetry 12/16/22 12/16/22 12/16/22 22:50 23:00 23:15 Temperature Pulse Rate 75 83 75 Respiratory 18 18 Rate Blood Pressure 138/80 138/80 144/87 O2 Sat by Pulse 98 99 97 Oximetry Disposition Clinical Impression: TIA (transient ischemic attack) Disposition: HOME SELF-CARE Condition: Fair Instructions (If sedation given, give patient instructions): Transient Ischemic Attack (ED) Additional Instructions: Follow-up with your PCP. Report back to ER with any new or worsening symptoms. Is patient prescribed a controlled substance at d/c from ED?: No Referrals: Jona Jaramillo [Primary Care Provider] - 1-2 days Time of Disposition: 23:06
[2022-12-16 20:45] LABS: Glucose,Whole Blood 91 mg/dL (70-110)
[2022-12-16 20:47] LABS: Basophils % (A) 0 %; Eosinophils # (A) 0.1 k/uL (0-0.7); Eosinophils % (A) 2 %; HCT 38.5 % (39.0-53.0); HGB 13.3 gm/dL (13.0-17.5); Lymphocytes # (A) 1.4 k/uL (1.0-4.8); Lymphocytes % (A) 27 %; MCH 31.2 pg (25.0-35.0); MCHC 34.7 g/dL (31.0-37.0); Mean Platelet Volume 6.4; Monocytes # (A) 0.5 k/uL (0-1.0); Monocytes % (A) 10 %; Neutrophils # (A) 3.1 k/uL (1.3-7.7); Neutrophils % (A) 59 %; Platelet Count 246 k/uL (150-450); RBC 4.27 m/uL (4.30-5.90); RDW 12.6 % (11.5-15.5); WBC 5.3 k/uL (3.8-10.6)
[2022-12-16 21:05] LABS: INR 1.3 (<1.2); Partial Thromboplastin Time 28.1 sec (22.0-30.0); Prothrombin Time 13.6 sec (9.0-12.0)
--- NOTE | 2022-12-16 21:18 | CT ---
EXAMINATION TYPE: CT brain wo con CT DLP: 1173.4 mGycm, Automated exposure control for dose reduction was used. DATE OF EXAM: 12/16/2022 9:01 PM COMPARISON: 12/11/2022. CLINICAL INDICATION:Male, 62 years old with history of Neuro deficit, acute, stroke suspected, CODE S TROKE, weakness TECHNIQUE: Brain: Axial CT images of the brain were obtained with coronal and sagittal reformats created and rev iewed. Contrast used: None. Oral contrast used: None. FINDINGS: Brain: Extra-axial spaces: No abnormal extra-axial fluid collections. Ventricular system: Within normal limits Cerebral parenchyma: No acute intraparenchymal hemorrhage or mass effect. The khan-white junction is well differentiated. Cerebellum: Unremarkable. Mass effect: No evidence of midline shift. Intracranial vasculature: unremarkable Soft tissues: Normal. Calvarium/osseous structures: No depressed skull fracture. Paranasal sinuses and mastoid air cells: Mild scattered paranasal sinus disease. Visualized orbits: Orbital contents are intact. IMPRESSION: No acute intracranial process.
[2022-12-16 21:23] LABS: ALT 22 U/L (4-49); AST 26 U/L (17-59); African American GFR (CKD) 67 (>60 ml/min/1.73 sqM); Alkaline Phosphatase 57 U/L (38-126); Anion Gap 10 mmol/L; Blood Urea Nitrogen 17 mg/dL (9-20); Calcium 9.3 mg/dL (8.4-10.2); Carbon Dioxide 26 mmol/L (22-30); Chloride 96 mmol/L (98-107); Creatine Kinase 129 U/L (55-170); Glucose 89 mg/dL (74-99); Non-African American GFR(CKD) 58 (>60 ml/min/1.73 sqM); Potassium 4.1 mmol/L (3.5-5.1); Sodium 132 mmol/L (137-145); Total Bilirubin 0.6 mg/dL (0.2-1.3); Total Protein 6.8 g/dL (6.3-8.2)
--- NOTE | 2022-12-16 21:46 | CT ---
EXAMINATION TYPE: CT angio head neck CT DLP: 304.40 mGycm, Automated exposure control for dose reduction was used. DATE OF EXAM: 12/16/2022 9:33 PM COMPARISON: . CLINICAL INDICATION:Male, 62 years old with history of Neuro deficit, acute, stroke suspected; PHH, N euro deficit, acute, stroke suspected TECHNIQUE: Axially acquired helical CT angiogram of the head and neck was obtained with contrast. Axi al images are supplemented with 3D reconstructions [facility] NASCET criteria used. Contrast used:65ml mL of Isovue 370 with IV Contrast, Oral contrast used: None. FINDINGS: CTA HEAD: No evidence of acute intracranial hemorrhage, mass effect, or midline shift. The ventricles, sulci, a nd cisterns are unremarkable. The visualized portions of the internal carotid arteries, middle cerebral arteries, anterior cerebral arteries, and posterior cerebral arteries are patent. The basilar and vertebral arteries are patent. CTA NECK: Right Carotid System: The common carotid artery and external carotid artery are patent. The carotid bifurcation demonstrate s no evidence of hemodynamically significant stenosis. The remaining portions of the internal carotid artery demonstrate normal size without significant narrowing. Left Carotid System: The common carotid artery and external carotid artery are patent. The carotid bifurcation demonstrate s no evidence of hemodynamically significant stenosis. The remaining portions of the internal carotid artery demonstrate normal size without significant narrowing. Vertebral arteries are patent without evidence hemodynamically significant stenosis. There is a three-vessel aortic arch. The origins of the great vessels are patent. No evidence of hemo dynamically significant stenosis. Upper thorax: IMPRESSION: 1. No evidence of dissection of the cervical internal carotid arteries or vertebral arteries or any e vidence of significant stenosis at the carotid bifurcations. 2. No evidence of intracranial high-grade stenosis or intracranial aneurysm.
--- NOTE | 2022-12-16 22:33 | XR ---
EXAMINATION TYPE: XR chest 2V DATE OF EXAM: 12/16/2022 COMPARISON: Prior chest x-ray November 27, 2022 HISTORY: Left arm and facial numbness TECHNIQUE: Frontal and lateral views of the chest are obtained. FINDINGS: There is no focal air space opacity, pleural effusion, or pneumothorax seen. Underlying em physematous change is not excluded. The cardiac silhouette size is stable and within normal limits. Overlying EKG leads are redemonstrated. The osseous structures are intact. IMPRESSION: No acute cardiopulmonary process. No significant change from prior.
[2022-12-16 23:23] VITALS: BP 144/87; PULSE 75
== END 2022-12-16 23:22 | disposition home or self-care (01) ==
LOC: EC 19:08
DX: G45.9 Transient cerebral ischemic attack, unspecified (principal); I25.10 Atherosclerotic heart disease of native coronary artery without angina pectoris; K21.9 Gastro-esophageal reflux disease without esophagitis; I25.2 Old myocardial infarction; G47.30 Sleep apnea, unspecified; Z86.59 Personal history of other mental and behavioral disorders; Z87.891 Personal history of nicotine dependence; Z79.01 Long term (current) use of anticoagulants; Z79.899 Other long term (current) drug therapy
CPT/HCPCS: 36415; 93005; 80053; 82550; 84484; 85025; 85610; 85730; 71046; 70496; 70450; 70498; 99285; Q9967

== ENCOUNTER 2023-01-02 17:30 | Emergency (ER) | payer MEDICARE ==
[2023-01-02 17:59] VITALS: BP 124/78; PULSE 67; RESP 18; TEMP 98.3
--- NOTE | 2023-01-02 20:32 | XR ---
EXAMINATION TYPE: XR chest 2V DATE OF EXAM: 01/02/2023 8:24 PM CLINICAL INDICATION:Male, 62 years old with history of abdominal pain; [facility] COMPARISON: Chest radiographs from 2422 TECHNIQUE: XR chest 2V Frontal and lateral views of the chest. FINDINGS: Lungs/Pleura: There is no evidence of pleural effusion, focal consolidation, or pneumothorax. Pulmonary vascularity: Unremarkable. Heart/mediastinum: Cardiomediastinal silhouette is unremarkable. Musculoskeletal: No acute osseous pathology. IMPRESSION: No acute cardiopulmonary disease/process.
[2023-01-02 20:36] LABS: ALT 19 U/L (4-49); AST 25 U/L (17-59); African American GFR (CKD) 87 (>60 ml/min/1.73 sqM); Albumin 4.1 g/dL (3.5-5.0); Alkaline Phosphatase 56 U/L (38-126); Amylase 135 U/L (30-110); Blood Urea Nitrogen 20 mg/dL (9-20); Calcium 9.3 mg/dL (8.4-10.2); Carbon Dioxide 26 mmol/L (22-30); Chloride 99 mmol/L (98-107); Glucose 91 mg/dL (74-99); Lipase 195 U/L (23-300); Non-African American GFR(CKD) 75 (>60 ml/min/1.73 sqM); Total Bilirubin 0.5 mg/dL (0.2-1.3); Total Protein 6.7 g/dL (6.3-8.2)
[2023-01-02 20:39] LABS: Basophils % (A) 1 %; Eosinophils # (A) 0.2 k/uL (0-0.7); Eosinophils % (A) 2 %; HCT 40.3 % (39.0-53.0); HGB 13.6 gm/dL (13.0-17.5); Lymphocytes # (A) 1.7 k/uL (1.0-4.8); Lymphocytes % (A) 26 %; MCH 30.7 pg (25.0-35.0); MCHC 33.7 g/dL (31.0-37.0); Mean Platelet Volume 6.3; Monocytes # (A) 0.5 k/uL (0-1.0); Monocytes % (A) 7 %; Neutrophils % (A) 61 %; Platelet Count 262 k/uL (150-450); RBC 4.43 m/uL (4.30-5.90); RDW 12.7 % (11.5-15.5); WBC 6.5 k/uL (3.8-10.6)
[2023-01-02 20:50] LABS: Anion Gap 10 mmol/L; Potassium 4.1 mmol/L (3.5-5.1); Sodium 135 mmol/L (137-145)
--- NOTE | 2023-01-02 21:01 | ED ---
General Adult HPI - General Chief complaint: Abdominal Pain Stated complaint: R side Rib Pain Time Seen by Provider: 01/02/23 17:52 Source: patient, RN notes reviewed, old records reviewed Mode of arrival: ambulatory Limitations: no limitations - History of Present Illness Initial comments: Patient is a 62-year-old male with past medical history remarkable for CAD, cardiac stent, hyperlipidemia, who presents emergency Department with sudden onset right-sided rib/chest discomfort while eating green beans earlier this evening. Denies any abdominal pain. Denies any nausea or vomiting with it. Lasted a few minutes and subsided on its own. Currently asymptomatic. No dyspnea. No sweating. No radiation the pain. Is able to pinpoint and over the right inferior aspect of his chest. Denies any fevers, chills, cough. Has no other acute complaints at this time. Presents for evaluation.Patient states the pain was somewhat reproducible on palpation was present. Unknown if it is related to being recently treated for bronchitis with azithromycin, which she completed yesterday. - Related Data Home Medications Medication Instructions Recorded Confirmed Pantoprazole [Protonix] 40 mg PO BID-W/MEALS 05/27/21 01/02/23 Rivaroxaban [Xarelto] 20 mg PO W/SUPPER 01/12/22 01/02/23 Albuterol Inhaler [Ventolin Hfa 2 puff INHALATION RT-Q6H PRN 01/02/23 01/02/23 Inhaler] Nitroglycerin Sl Tabs [Nitrostat] 0.4 mg SUBLINGUAL Q5M PRN 01/02/23 01/02/23 Ondansetron Odt [Zofran Odt] 4 mg PO Q6H PRN 01/02/23 01/02/23 Previous Rx's Medication Instructions Recorded Clopidogrel [Plavix] 75 mg PO DAILY #30 tab 12/12/22 Allergies Allergy/AdvReac Type Severity Reaction Status Date / Time atorvastatin [From Lipitor] AdvReac muscle Verified 01/02/23 21:07 aches & pains Review of Systems ROS Statement: Those systems with pertinent positive or pertinent negative responses have been documented in the HPI. Review of Systems: CONST: Denies fever EYES: Denies blurry vision ENT: Denies nasal congestion C/V: Denies Chest pain RESP: Denies shortness of breath GI: Denies abdominal pain : Denies dysuria SKIN: Denies rash. MSK: Denies joint pain. NEURO: Denies headache ROS Other: All systems not noted in ROS Statement are negative. Past Medical History Past Medical History: Coronary Artery Disease (CAD), Chest Pain / Angina, CVA/TIA, Deep Vein Thrombosis (DVT), GERD/Reflux, Hyperlipidemia, Myocardial Infarction (LA), Sleep Apnea/CPAP/BIPAP Additional Past Medical History / Comment(s): DVT 2002, uses CPAP Last Myocardial Infarction Date:: 08/2006 History of Any Multi-Drug Resistant Organisms: None Reported Past Surgical History: Heart Catheterization With Stent Additional Past Surgical History / Comment(s): left leg surgery r/t DVT, ORIF right femur septal deviation surgery in 2014, varicose vein removal in the left leg. Past Anesthesia/Blood Transfusion Reactions: No Reported Reaction Additional Past Anesthesia/Blood Transfusion Reaction / Comment(s): no previous transfusion Date of Last Stent Placement:: 2006 Past Psychological History: Anxiety Smoking Status: Former smoker Past Alcohol Use History: None Reported Past Drug Use History: None Reported - Past Family History Mother Family Medical History: COPD, Diabetes Mellitus, Myocardial Infarction (LA) Additional Family Medical History / Comment(s): Mother at age 75 with history of hypertension, renal failure on dialysis, CVA 6, diabetes mellitus type 2, congestive heart failure and COPD. Patient does not know his father. He has no brothers or sisters. He is single and no children. General Exam - General Exam Comments Initial Comments: General: Appears in no acute distress. HEAD: Normal with no signs of head trauma. EYES: PERRLA, EOMI, conjunctiva normal, no discharge. ENT: Hearing grossly intact, normal oropharynx. RESPIRATORY: Clear breath sounds bilaterally. No wheezes, rales, or rhonchi. C/V: Regular rate and rhythm. S1 and S2 auscultated, no edema, peripheral pulses 2+ and intact throughout ABD: Abd is soft, nontender, nondistended EXT: Normal range of motion, no obvious deformity SKIN: No rashes or lesions observed on exposed skin. NEURO: Alert and oriented 4. Limitations: no limitations Course Vital Signs 01/02/23 17:56 Temperature 98.3 F Pulse Rate 67 Respiratory 18 Rate Blood Pressure 124/78 O2 Sat by Pulse 100 Oximetry Medical Decision Making - Medical Decision Making Was pt. sent in by a medical professional or institution (DIANA Peterson, NEWS DEPARTMENT INTERN, urgent care, hospital, or [facility]...) When possible be specific @ -No Did you speak to anyone other than the patient for history (EMS, parent, family, police, friend...)? What history was obtained from this source @ -No Did you review nursing and triage notes (agree or disagree)? Why? @ -I reviewed and agree with nursing and triage notes Were old charts reviewed (outside hosp., previous admission, EMS record, old EKG, old radiological studies, urgent care reports/EKG's, [facility] records)? Report findings @ -Old charts reviewed. Differential Diagnosis (chest pain, altered mental status, abdominal pain women, abdominal pain men, vaginal bleeding, weakness, fever, dyspnea, syncope, headache, dizziness, GI bleed, back pain, seizure, CVA, palpatations, mental health, musculoskeletal)? @ -Chest wall pain, acute intra-abdominal process, gallbladder pathology, ACS. This list is not all-inclusive. EKG interpreted by me (3pts min.). @ -As above X-rays interpreted by me (1pt min.). @ -Chest x-ray reveals no obvious acute cardio pulmonary process. CT interpreted by me (1pt min.). @ -None done U/S interpreted by me (1pt. min.). @ -None done What testing was considered but not performed or refused? (CT, X-rays, U/S, labs)? Why? @ -None What meds were considered but not given or refused? Why? @ -None Did you discuss the management of the patient with other professionals (jatinder burch i.e. DIANA Peterson, NEWS DEPARTMENT INTERN, lab, RT, psych nurse, 7th grade social studies teacher, frame changer, teacher, police liaison officer, binder caser)? Give summary @ -No Was smoking cessation discussed for >3mins.? @ -No Was critical care preformed (if so, how long)? @ -No Were there social determinants of health that impacted care today? How? (Homelessness, low income, unemployed, alcoholism, drug addiction, transpor tation, low edu. Level, literacy, decrease access to med. care, custodial, rehab)? @ -No Was there de-escalation of care discussed even if they declined (Discuss DNR or withdrawal of care, Hospice)? DNR status @ -No What co-morbidities impacted this encounter? (DM, HTN, Smoking, COPD, CAD, Cancer, CVA, ARF, Chemo, Hep., AIDS, mental health diagnosis, sleep apnea, morbid obesity)? @ -None Was patient admitted / discharged? Hospital course, mention meds given and route, prescriptions, significant lab abnormalities, going to OR and other pertinent info. @ -Based on the patient's presentation and physical exam, presents complaining of resolved symptoms of some chest wall discomfort. No current complaints. Discussed at length and we will obtain screening abdominal labs as well as cardiac labs. He was in agreement with this plan. Vital signs within acceptable limits. EKG showed no signs of acute ischemia. Chest x-ray unremarkable. Patient's labs are also all within acceptable limits. Troponin is undetectable. No other concerning laboratory studies at this time. Reevaluation come patient remains asymptomatic. Return if symptoms throughout his stay. He would like to go home. I believe this is reasonable with his atypical chest wall pain. Strict return precautions discussed. I instructed the patient to follow up with their PCP in the next 1-3 days. I explained that the patient should return to the emergency department if they e xperience any worsening symptoms. Strict return precautions were discussed with the patient. The patient expressed understanding of these instructions. I answered all questions that the patient had. The patient was discharged home in good condition with their prescriptions and follow up information. Undiagnosed new problem with uncertain prognosis? @ -No Drug Therapy requiring intensive monitoring for toxicity (Heparin, Nitro, Insulin, Cardizem)? @ -No Were any procedures done? @ -No Diagnosis/symptom? @ -Chest wall pain, atypical chest pain Acute, or Chronic, or Acute on Chronic? @ -Acute Uncomplicated (without systemic symptoms) or Complicated (systemic symptoms)? @ -Uncomplicated Side effects of treatment? @ -No Exacerbation, Progression, or Severe Exacerbation? @ -No Poses a threat to life or bodily function? How? (Chest pain, USA, [place], pneumonia, PE, COPD, DKA, ARF, appy, cholecystitis, CVA, Diverticulitis, Homicidal, Suicidal, threat to staff... and all critical care pts) @ -Unlikely - Lab Data Result diagrams: 01/02/23 20:12 01/02/23 20:12 Lab Results 01/02/23 01/02/2323 Range/Units 20:12 20:12 20:12 WBC 6.5 (3.8-10.6) k/uL RBC 4.43 (4.30-5.90) m/uL Hgb 13.6 (13.0-17.5) gm/dL Hct 40.3 (39.0-53.0) % MCV 91.0 (80.0-100.0) fL MCH 30.7 (25.0-35.0) pg MCHC 33.7 (31.0-37.0) g/dL RDW 12.7 (11.5-15.5) % Plt Count 262 (150-450) k/uL MPV 6.3 Neutrophils % 61 % Lymphocytes % 26 % Monocytes % 7 % Eosinophils % 2 % Basophils % 1 % Neutrophils # 4.0 (1.3-7.7) k/uL Lymphocytes # 1.7 (1.0-4.8) k/uL Monocytes # 0.5 (0-1.0) k/uL Eosinophils # 0.2 (0-0.7) k/uL Basophils # 0.0 (0-0.2) k/uL Sodium 135 L (137-145) mmol/L Potassium 4.1 (3.5-5.1) mmol/L Chloride 99 (98-107) mmol/L Carbon Dioxide 26 (22-30) mmol/L Anion Gap 10 mmol/L BUN 20 (9-20) mg/dL Creatinine 1.06 (0.66-1.25) mg/dL Est GFR (CKD-EPI)AfAm 87 (>60 ml/min/1.73 sqM) Est GFR (CKD-EPI)NonAf 75 (>60 ml/min/1.73 sqM) Glucose 91 (74-99) mg/dL Calcium 9.3 (8.4-10.2) mg/dL Total Bilirubin 0.5 (0.2-1.3) mg/dL AST 25 (17-59) U/L ALT 19 (4-49) U/L Alkaline Phosphatase 56 (38-126) U/L Troponin I <0.012 (0.000-0.034) ng/mL Total Protein 6.7 (6.3-8.2) g/dL Albumin 4.1 (3.5-5.0) g/dL Amylase 135 H (30-110) U/L Lipase 195 (23-300) U/L Disposition Clinical Impression: Atypical chest pain, Chest wall pain Disposition: HOME SELF-CARE Condition: Good Instructions (If sedation given, give patient instructions): Chest Wall Pain (ED) Is patient prescribed a controlled substance at d/c from ED?: No Referrals: Marques Peacock MD [Primary Care Provider] - 1-2 days Time of Disposition: 20:55
== END 2023-01-02 21:20 | disposition home or self-care (01) ==
LOC: EC 17:30
DX: I44.0 Atrioventricular block, first degree (principal); I25.10 Atherosclerotic heart disease of native coronary artery without angina pectoris; I25.2 Old myocardial infarction; K21.9 Gastro-esophageal reflux disease without esophagitis; Z79.01 Long term (current) use of anticoagulants; Z79.899 Other long term (current) drug therapy; Z95.5 Presence of coronary angioplasty implant and graft; Z88.8 Allergy status to other drugs, medicaments and biological substances; Z86.718 Personal history of other venous thrombosis and embolism; Z86.73 Personal history of transient ischemic attack (TIA), and cerebral infarction without residual deficits; Z87.891 Personal history of nicotine dependence
CPT/HCPCS: 36415; 71046; 80053; 82150; 83690; 84484; 85025; 93005; 99285

== ENCOUNTER 2023-01-10 21:39 | Emergency (ER) | payer MEDICARE ==
[2023-01-10 22:07] VITALS: TEMP 97.9
--- NOTE | 2023-01-10 22:23 | ED ---
General Adult HPI - General Source: patient, RN notes reviewed Mode of arrival: ambulatory Limitations: no limitations <Jada Pantoja - Last Filed: 01/10/23 22:22> <Gerardo Voss - Last Filed: 01/11/23 00:58> - General Chief complaint: Recheck/Abnormal Lab/Rx Stated complaint: Hot flashes, dry mouth Time Seen by Provider: 01/10/23 22:22 - History of Present Illness Initial comments: Patient is a 62-year-old male who presents the emergency department for hot flashes and dry mouth. It started this evening. Patient is very anxious and he is concerned his symptoms are related to possibly taking extra Xarelto tonight. Patient also on plavix. Denies other symptoms at this time. (Jada Pantoja) 62-year-old male presented to the ED with a chief complaint of hot flash. Patient states after dinner today to do think that he may have taken an extra dose of his Xarelto. Patient then states he started to feel face and his body become hot and flushed and his mouth became dry. As of now, patient states symptoms are mostly resolved. Denied any feelings of chest pain or shortness of breath during this. No other complaints. (Gerardo Voss) - Related Data Home Medications Medication Instructions Recorded Confirmed Pantoprazole [Protonix] 40 mg PO BID-W/MEALS 05/27/21 01/02/23 Rivaroxaban [Xarelto] 20 mg PO W/SUPPER 01/12/22 01/02/23 Albuterol Inhaler [Ventolin Hfa 2 puff INHALATION RT-Q6H PRN 01/02/23 01/02/23 Inhaler] Nitroglycerin Sl Tabs [Nitrostat] 0.4 mg SUBLINGUAL Q5M PRN 01/02/23 01/02/23 Ondansetron Odt [Zofran Odt] 4 mg PO Q6H PRN 01/02/23 01/02/23 Previous Rx's Medication Instructions Recorded Clopidogrel [Plavix] 75 mg PO DAILY #30 tab 12/12/22 Allergies Allergy/AdvReac Type Severity Reaction Status Date / Time atorvastatin [From Lipitor] AdvReac muscle Verified 01/10/23 21:48 aches & pains Review of Systems ROS Other: All systems not noted in ROS Statement are negative. <Jada Pantoja - Last Filed: 01/10/23 22:22> ROS Other: All systems not noted in ROS Statement are negative. <Gerardo Voss - Last Filed: 01/11/23 00:58> ROS Statement: Those systems with pertinent positive or pertinent negative responses have been documented in the HPI. Past Medical History Past Medical History: Coronary Artery Disease (CAD), Chest Pain / Angina, CVA/TIA, Deep Vein Thrombosis (DVT), GERD/Reflux, Hyperlipidemia, Myocardial Infarction ([place]), Sleep Apnea/CPAP/BIPAP Additional Past Medical History / Comment(s): DVT 2002, uses CPAP Last Myocardial Infarction Date:: 08/2006 History of Any Multi-Drug Resistant Organisms: None Reported Past Surgical History: Heart Catheterization With Stent, Hernia Repair Additional Past Surgical History / Comment(s): left leg surgery r/t DVT, ORIF right femur septal deviation surgery in 2014, varicose vein removal in the left leg. Past Anesthesia/Blood Transfusion Reactions: No Reported Reaction Additional Past Anesthesia/Blood Transfusion Reaction / Comment(s): no previous transfusion Date of Last Stent Placement:: 2006 Past Psychological History: Anxiety Smoking Status: Former smoker Past Alcohol Use History: None Reported Past Drug Use History: None Reported - Past Family History Mother Family Medical History: COPD, Diabetes Mellitus, Myocardial Infarction (AL) Additional Family Medical History / Comment(s): Mother at age 75 with history of hypertension, renal failure on dialysis, CVA 6, diabetes mellitus type 2, congestive heart failure and COPD. Patient does not know his father. He has no brothers or sisters. He is single and no children. <Jada Pantoja - Last Filed: 01/10/23 22:22> General Exam Limitations: no limitations <Jada Pantoja - Last Filed: 01/10/23 22:22> General appearance: alert, in no apparent distress ENT exam: Present: mucous membranes moist Neck exam: Present: normal inspection Respiratory exam: Present: normal lung sounds bilaterally Cardiovascular Exam: Present: regular rate, normal rhythm GI/Abdominal exam: Present: soft Neurological exam: Present: alert, oriented X3 Skin exam: Present: warm, dry <Gerardo Voss - Last Filed: 01/11/23 00:58> - General Exam Comments Initial Comments: Visual Physical Exam Vital signs reviewed General: Well-appearing, nontoxic, no acute distress. Head: Normocephalic, atraumatic Eyes: PERRLA, EOMI ENT: Airway patent Chest: Nonlabored breathing Skin: No visual rash, normal skin tone Neuro: Alert and oriented 3 Musculoskeletal: No gross abnormalities (Jada Pantoja) Course Vital Signs 01/10/23 01/11/23 21:48 00:10 Temperature 97.9 F 97.9 F Pulse Rate 70 74 Respiratory 16 18 Rate Blood Pressure 131/83 129/73 O2 Sat by Pulse 98 98 Oximetry Medical Decision Making <Jada Pantoja - Last Filed: 01/10/23 22:22> - Lab Data Result diagrams: 01/10/23 22:40 01/10/23 22:40 <Gerardo Voss - Last Filed: 01/11/23 00:58> - Medical Decision Making I performed the QuickNote portion of this chart - Jada Pantoja PA-C (Jada Pantoja) Was pt. sent in by a medical professional or institution (DIANA Peterson, ENTRY LEVEL ACCOUNTANT, urgent care, hospital, or long-term...) When possible be specific @ -No Did you speak to anyone other than the patient for history (EMS, parent, family, police, friend...)? What history was obtained from this source @ -No Did you review nursing and triage notes (agree or disagree)? Why? @ -I reviewed and agree with nursing and triage notes Were old charts reviewed (outside hosp., previous admission, EMS record, old EKG, old radiological studies, urgent care reports/EKG's, long-term records)? Report findings @ -No old charts were reviewed Differential Diagnosis (chest pain, altered mental status, abdominal pain women, abdominal pain men, vaginal bleeding, weakness, fever, dyspnea, syncope, headache, dizziness, GI bleed, back pain, seizure, CVA, palpatations, mental health, musculoskeletal)? @ -Differential Dizziness: Benign paroxysmal positional Vertigo, Menieres disease, otitis media, acoustic neuroma, vertebrobasilar insufficiency, cerebellar stroke, encephalitis, hypovolemic, arrhythmia, coronary artery syndrome, anemia, this is not meant to be an all-inclusive list EKG interpreted by me (3pts min.). @ -As above X-rays interpreted by me (1pt min.). @ -None done CT interpreted by me (1pt min.). @ -None done U/S interpreted by me (1pt. min.). @ -None done What testing was considered but not performed or refused? (CT, X-rays, U/S, labs)? Why? @ -None What meds were considered but not given or refused? Why? @ -None Did you discuss the management of the patient with other professionals (professionals i.e. , PA, ENTRY LEVEL ACCOUNTANT, lab, RT, psych nurse, high school social studies teacher, metalizing machine operator, teacher, quality officer, hospice case manager)? Give summary @ -No Was smoking cessation discussed for >3mins.? @ -No Was critical care preformed (if so, how long)? @ -No Were there social determinants of health that impacted care today? How? (Homelessness, low income, unemployed, alcoholism, drug addiction, transportation, low edu. Level, literacy, decrease access to med. care, retirement, rehab)? @ -No Was there de-escalation of care discussed even if they declined (Discuss DNR or withdrawal of care, Hospice)? DNR status @ -No What co-morbidities impacted this encounter? (DM, HTN, Smoking, COPD, CAD, Cancer, CVA, ARF, Chemo, Hep., AIDS, mental health diagnosis, sleep apnea, morbid obesity)? @ -None Was patient admitted / discharged? Hospital course, mention meds given and route, prescriptions, significant lab abnormalities, going to OR and other pertinent info. @ -Discharge 62-year-old male presenting to the ED after an episode where his face became flushed which shortly spread to his entire body and he felt hot and as if his mouth became dry. As of now, symptoms resolved. Laboratory studies unremarkable. EKG shows a normal sinus rhythm without acute ST-T wave changes. Symptoms likely due to anxiety. Discharged home in stable condition. Discussed return cautions patient verbalizes agreement. Undiagnosed new problem with uncertain prognosis? @ -No Drug Therapy requiring intensive monitoring for toxicity (Heparin, Nitro, Insulin, Cardizem)? @ -No Were any procedures done? @ -No Diagnosis/symptom? @ -Anxiety Acute, or Chronic, or Acute on Chronic? @ -Acute Uncomplicated (without systemic symptoms) or Complicated (systemic symptoms)? @ -Uncomplicated Side effects of treatment? @ -No Exacerbation, Progression, or Severe Exacerbation? @ -No Poses a threat to life or bodily function? How? (Chest pain, USA, AL, pneumonia, PE, COPD, DKA, ARF, appy, cholecystitis, CVA, Diverticulitis, Homicidal, Suicidal, threat to staff... and all critical care pts) @ -No (Gerardo Voss) - Lab Data Lab Results 01/10/23 01/10/23 01/10/23 Range/Units 22:40 22:40 22:40 WBC 5.8 (3.8-10.6) k/uL RBC 4.46 (4.30-5.90) m/uL Hgb 13.7 (13.0-17.5) gm/dL Hct 39.8 (39.0-53.0) % MCV 89.3 (80.0-100.0) fL MCH 30.7 (25.0-35.0) pg MCHC 34.4 (31.0-37.0) g/dL RDW 12.5 (11.5-15.5) % Plt Count 236 (150-450) k/uL MPV 6.6 Neutrophils % 63 % Lymphocytes % 26 % Monocytes % 7 % Eosinophils % 2 % Basophils % 0 % Neutrophils # 3.7 (1.3-7.7) k/uL Lymphocytes # 1.5 (1.0-4.8) k/uL Monocytes # 0.4 (0-1.0) k/uL Eosinophils # 0.1 (0-0.7) k/uL Basophils # 0.0 (0-0.2) k/uL PT (10.0-12.5) sec INR (<1.2) APTT (22.0-30.0) sec Sodium 133 L (137-145) mmol/L Potassium 3.8 (3.5-5.1) mmol/L Chloride 99 (98-107) mmol/L Carbon Dioxide 26 (22-30) mmol/L Anion Gap 8 mmol/L BUN 17 (9-20) mg/dL Creatinine 1.07 (0.66-1.25) mg/dL Est GFR (CKD-EPI)AfAm 86 (>60 ml/min/1.73 sqM) Est GFR (CKD-EPI)NonAf 75 (>60 ml/min/1.73 sqM) Glucose 93 (74-99) mg/dL Calcium 9.2 (8.4-10.2) mg/dL Total Bilirubin 0.7 (0.2-1.3) mg/dL AST 25 (17-59) U/L ALT 20 (4-49) U/L Alkaline Phosphatase 62 (38-126) U/L Total Protein 6.8 (6.3-8.2) g/dL Albumin 4.2 (3.5-5.0) g/dL Urine Color Colorless Urine Appearance Clear (Clear) Urine pH 5.5 (5.0-8.0) Ur Specific [place] 1.003 (1.001-1.035) Urine Protein Negative (Negative) Urine Glucose (UA) Negative (Negative) Urine Ketones Negative (Negative) Urine Blood Negative (Negative) Urine Nitrite Negative (Negative) Urine Bilirubin Negative (Negative) Urine Urobilinogen <2.0 (<2.0) mg/dL Ur Leukocyte Esterase Negative (Negative) 01/10/23 Range/Units 22:40 WBC (3.8-10.6) k/uL RBC (4.30-5.90) m/uL Hgb (13.0-17.5) gm/dL Hct (39.0-53.0) % MCV (80.0-100.0) fL MCH (25.0-35.0) pg MCHC (31.0-37.0) g/dL RDW (11.5-15.5) % Plt Count (150-450) k/uL MPV Neutrophils % % Lymphocytes % % Monocytes % % Eosinophils % % Basophils % % Neutrophils # (1.3-7.7) k/uL Lymphocytes # (1.0-4.8) k/uL Monocytes # (0-1.0) k/uL Eosinophils # (0-0.7) k/uL Basophils # (0-0.2) k/uL PT 13.2 H (10.0-12.5) sec INR 1.3 H (<1.2) APTT 28.0 (22.0-30.0) sec Sodium (137-145) mmol/L Potassium (3.5-5.1) mmol/L Chloride (98-107) mmol/L Carbon Dioxide (22-30) mmol/L Anion Gap mmol/L BUN (9-20) mg/dL Creatinine (0.66-1.25) mg/dL Est GFR (CKD-EPI)AfAm (>60 ml/min/1.73 sqM) Est GFR (CKD-EPI)NonAf (>60 ml/min/1.73 sqM) Glucose (74-99) mg/dL Calcium (8.4-10.2) mg/dL Total Bilirubin (0.2-1.3) mg/dL AST (17-59) U/L ALT (4-49) U/L Alkaline Phosphatase (38-126) U/L Total Protein (6.3-8.2) g/dL Albumin (3.5-5.0) g/dL Urine Color Urine Appearance (Clear) Urine pH (5.0-8.0) Ur Specific [place] (1.001-1.035) Urine Protein (Negative) Urine Glucose (UA) (Negative) Urine Ketones (Negative) Urine Blood (Negative) Urine Nitrite (Negative) Urine Bilirubin (Negative) Urine Urobilinogen (<2.0) mg/dL Ur Leukocyte Esterase (Negative) - EKG Data EKG Comments: EKG shows a sinus rhythm at 70 bpm, WI 255, QRS 105, QT/QTC 391/412. (Gerardo Voss) Disposition <Jada Pantoja - Last Filed: 01/10/23 22:22> Is patient prescribed a controlled substance at d/c from ED?: No Time of Disposition: 00:57 <Gerardo Voss - Last Filed: 01/11/23 00:58> Clinical Impression: Anxiety Disposition: HOME SELF-CARE Condition: Good Additional Instructions: Please return to the Emergency Department if symptoms worsen or any other concerns. Referrals: Marques Peacock MD [Primary Care Provider] - 1-2 days
[2023-01-10 23:01] LABS: Basophils % (A) 0 %; Eosinophils # (A) 0.1 k/uL (0-0.7); Eosinophils % (A) 2 %; HCT 39.8 % (39.0-53.0); HGB 13.7 gm/dL (13.0-17.5); Lymphocytes # (A) 1.5 k/uL (1.0-4.8); Lymphocytes % (A) 26 %; MCH 30.7 pg (25.0-35.0); MCHC 34.4 g/dL (31.0-37.0); MCV 89.3 fL (80.0-100.0); Mean Platelet Volume 6.6; Monocytes # (A) 0.4 k/uL (0-1.0); Monocytes % (A) 7 %; Neutrophils # (A) 3.7 k/uL (1.3-7.7); Neutrophils % (A) 63 %; Platelet Count 236 k/uL (150-450); RBC 4.46 m/uL (4.30-5.90); RDW 12.5 % (11.5-15.5); WBC 5.8 k/uL (3.8-10.6)
[2023-01-10 23:11] LABS: INR 1.3 (<1.2); Prothrombin Time 13.2 sec (10.0-12.5)
[2023-01-10 23:16] LABS: Appearance,Urine Clear (Clear); Bilirubin,Urine Negative (Negative); Blood,Urine Negative (Negative); Color,Urine Colorless; Glucose,Urine (UA) Negative (Negative); Ketones,Urine Negative (Negative); Leukocyte Esterase,Urine Negative (Negative); Nitrite,Urine Negative (Negative); PH, Urine 5.5 (5.0-8.0); Protein,Urine Negative (Negative); Specific Gravity,Urine 1.003 (1.001-1.035); Urobilinogen,Urine <2.0 mg/dL (<2.0)
[2023-01-10 23:49] LABS: ALT 20 U/L (4-49); AST 25 U/L (17-59); African American GFR (CKD) 86 (>60 ml/min/1.73 sqM); Albumin 4.2 g/dL (3.5-5.0); Alkaline Phosphatase 62 U/L (38-126); Anion Gap 8 mmol/L; Blood Urea Nitrogen 17 mg/dL (9-20); Calcium 9.2 mg/dL (8.4-10.2); Carbon Dioxide 26 mmol/L (22-30); Chloride 99 mmol/L (98-107); Glucose 93 mg/dL (74-99); Non-African American GFR(CKD) 75 (>60 ml/min/1.73 sqM); Potassium 3.8 mmol/L (3.5-5.1); Sodium 133 mmol/L (137-145); Total Bilirubin 0.7 mg/dL (0.2-1.3); Total Protein 6.8 g/dL (6.3-8.2)
[2023-01-11 00:23] VITALS: BP 129/73; PULSE 74; RESP 18
== END 2023-01-11 01:24 | disposition home or self-care (01) ==
LOC: EC 21:39
DX: F41.9 Anxiety disorder, unspecified (principal); I25.10 Atherosclerotic heart disease of native coronary artery without angina pectoris; K21.9 Gastro-esophageal reflux disease without esophagitis; G47.30 Sleep apnea, unspecified; I21.9 Acute myocardial infarction, unspecified; Z79.899 Other long term (current) drug therapy; Z87.891 Personal history of nicotine dependence; Z88.8 Allergy status to other drugs, medicaments and biological substances
CPT/HCPCS: 36415; 80053; 81003; 85025; 85610; 85730; 93005; 99283

== ENCOUNTER 2023-01-19 19:08 | Emergency (ER) | payer MEDICARE ==
[2023-01-19 19:33] VITALS: TEMP 97.8
--- NOTE | 2023-01-19 20:05 | ED ---
Chest Pain HPI - General Chief Complaint: Chest Pain Stated Complaint: RIB PAIN Time Seen by Provider: 01/19/23 20:04 Source: patient Mode of arrival: ambulatory Limitations: no limitations - History of Present Illness Initial Comments: 62-year-old male presenting with chief complaint of rib pain. Patient states that he bent over and felt a pop over his sternum. Pain lasted for 15-20 minutes and has completely dissipated. Patient states that it felt like a soreness to the inferior chest wall. No shortness of breath, cough, fevers, palpitations, weakness, abdominal pain, nausea, vomiting, dizziness, syncope. - Related Data Home Medications Medication Instructions Recorded Confirmed Pantoprazole [Protonix] 40 mg PO BID-W/MEALS 05/27/21 01/02/23 Rivaroxaban [Xarelto] 20 mg PO W/SUPPER 01/12/22 01/02/23 Albuterol Inhaler [Ventolin Hfa 2 puff INHALATION RT-Q6H PRN 01/02/23 01/02/23 Inhaler] Nitroglycerin Sl Tabs [Nitrostat] 0.4 mg SUBLINGUAL Q5M PRN 01/02/23 01/02/23 Ondansetron Odt [Zofran Odt] 4 mg PO Q6H PRN 01/02/23 01/02/23 Previous Rx's Medication Instructions Recorded Clopidogrel [Plavix] 75 mg PO DAILY #30 tab 12/12/22 Allergies Allergy/AdvReac Type Severity Reaction Status Date / Time atorvastatin [From Lipitor] AdvReac muscle Verified 01/19/23 19:18 aches & pains Review of Systems ROS Statement: Those systems with pertinent positive or pertinent negative responses have been documented in the HPI. ROS Other: All systems not noted in ROS Statement are negative. Past Medical History Past Medical History: Coronary Artery Disease (CAD), Chest Pain / Angina, CVA/TIA, Deep Vein Thrombosis (DVT), GERD/Reflux, Hyperlipidemia, Myocardial Infarction ([place]), Sleep Apnea/CPAP/BIPAP Additional Past Medical History / Comment(s): DVT 2002, uses CPAP Last Myocardial Infarction Date:: 08/2006 History of Any Multi-Drug Resistant Organisms: None Reported Past Surgical History: Heart Catheterization With Stent, Hernia Repair Additional Past Surgical History / Comment(s): left leg surgery r/t DVT, ORIF right femur septal deviation surgery in 2015, varicose vein removal in the left leg. Past Anesthesia/Blood Transfusion Reactions: No Reported Reaction Additional Past Anesthesia/Blood Transfusion Reaction / Comment(s): no previous transfusion Date of Last Stent Placement:: 2006 Past Psychological History: Anxiety Smoking Status: Former smoker Past Alcohol Use History: None Reported Past Drug Use History: None Reported - Past Family History Mother Family Medical History: COPD, Diabetes Mellitus, Myocardial Infarction ([place]) Additional Family Medical History / Comment(s): Mother at age 75 with history of hypertension, renal failure on dialysis, CVA 6, diabetes mellitus type 2, congestive heart failure and COPD. Patient does not know his father. He has no brothers or sisters. He is single and no children. General Exam - General Exam Comments Initial Comments: Visual Physical Exam Vital signs reviewed General: Well-appearing, nontoxic, no acute distress. Head: Normocephalic, atraumatic Eyes: PERRLA, EOMI ENT: Airway patent Chest: Nonlabored breathing Skin: No visual rash, normal skin tone Neuro: Alert and oriented 3 Musculoskeletal: No gross abnormalities Limitations: no limitations General appearance: alert, in no apparent distress Head exam: Present: atraumatic, normocephalic, normal inspection Eye exam: Present: normal appearance, EOMI Neck exam: Present: normal inspection, full ROM Respiratory exam: Present: normal lung sounds bilaterally. Absent: respiratory distress, wheezes, rales, rhonchi, stridor, chest wall tenderness Cardiovascular Exam: Present: regular rate, normal rhythm, normal heart sounds. Absent: systolic murmur, diastolic murmur, rubs, gallop, clicks Neurological exam: Present: alert, oriented X3 Psychiatric exam: Present: normal affect, normal mood Skin exam: Present: warm, dry, intact, normal color. Absent: rash Course Vital Signs 01/19/23 01/19/23 19:18 21:13 Temperature 97.8 F Pulse Rate 83 69 Respiratory 16 18 Rate Blood Pressure 111/68 121/71 O2 Sat by Pulse 98 100 Oximetry Chest Pain MDM - MDM Was pt. sent in by a medical professional or institution (, PA, MEDICAL CLINIC MANAGER, urgent care, hospital, or assisted...) When possible be specific @ -No Did you speak to anyone other than the patient for history (EMS, parent, family, police, friend...)? What history was obtained from this source @ -No Did you review nursing and triage notes (agree or disagree)? Why? @ -I reviewed and agree with nursing and triage notes Were old charts reviewed (outside hosp., previous admission, EMS record, old EKG, old radiological studies, urgent care reports/EKG's, assisted records)? Report findings @ -No old charts were reviewed Differential Diagnosis (chest pain, altered mental status, abdominal pain women, abdominal pain men, vaginal bleeding, weakness, fever, dyspnea, syncope, headache, dizziness, GI bleed, back pain, seizure, CVA, palpatations, mental health, musculoskeletal)? @ -MDM Differential Chest Pain: Stable Angina, Unstable Angina, STEMI, NSTEMI Aortic Dissection, Pneumothorax, Musculoskeletal, Esophageal Spasm GERD, Cholecystitis, Pancreatitis, Zoster This is not meant to be an all-inclusive list. EKG interpreted by me (3pts min.). @ -As above X-rays interpreted by me (1pt min.). @ -Negative chest x-ray CT interpreted by me (1pt min.). @ -None done U/S interpreted by me (1pt. min.). @ -None done What testing was considered but not performed or refused? (CT, X-rays, U/S, labs)? Why? @ -None What meds were considered but not given or refused? Why? @ -None Did you discuss the management of the patient with other professionals (pro fessionals i.e. , PA, MEDICAL CLINIC MANAGER, lab, RT, psych nurse, mental health social worker, general office worker, teacher, police officer crime prevention, catalytic case operator)? Give summary @ -No Was smoking cessation discussed for >3mins.? @ -No Was critical care preformed (if so, how long)? @ -No Were there social determinants of health that impacted care today? How? (Homelessness, low income, unemployed, alcoholism, drug addiction, transportation, low edu. Level, literacy, decrease access to med. care, skilled nursing, rehab)? @ -No Was there de-escalation of care discussed even if they declined (Discuss DNR or withdrawal of care, Hospice)? DNR status @ -No What co-morbidities impacted this encounter? (DM, HTN, Smoking, COPD, CAD, Cancer, CVA, ARF, Chemo, Hep., AIDS, mental health diagnosis, sleep apnea, morbid obesity)? @ -None Was patient admitted / discharged? Hospital course, mention meds given and route, prescriptions, significant lab abnormalities, going to OR and other pertinent info. @ -62-year-old male presenting with chief complaint of chest wall pain. Patient states that when he bent over earlier tonight he felt a pop over his chest. He had some soreness for about 15-20 minutes which has now completely dissipated. He is having no shortness of breath and is asymptomatic at this time. Physical exam is conducted. Negative chest x-ray. On reassessment patient is resting comfortably. Likely musculoskeletal chest wall pain. Discharged home educated on alarms symptoms that should prompt immediate reevaluation. Follow-up with PCP. Report back to ER with any new or worsening symptoms. Discussed return parameters and answered all questions. Patient conveyed verbal understanding and agreed to the plan. I discussed this case in detail with my attending Dr. Viera Undiagnosed new problem with uncertain prognosis? @ -No Drug Therapy requiring intensive monitoring for toxicity (Heparin, Nitro, Insulin, Cardizem)? @ -No Were any procedures done? @ -No Diagnosis/symptom? @ -Chest wall pain Acute, or Chronic, or Acute on Chronic? @ -Acute Uncomplicated (without systemic symptoms) or Complicated (systemic symptoms)? @ -Complicated Side effects of treatment? @ -No Exacerbation, Progression, or Severe Exacerbation? @ -No Poses a threat to life or bodily function? How? (Chest pain, [place], [place], pneumonia, PE, COPD, DKA, ARF, appy, cholecystitis, CVA, Diverticulitis, Homicidal, Suicidal, threat to staff... and all critical care pts) @ -Low likelihood Disposition Clinical Impression: Chest wall pain Disposition: HOME SELF-CARE Condition: Good Instructions (If sedation given, give patient instructions): Chest Wall Pain (ED) Additional Instructions: Follow-up with PCP. Report back to ER with any new or worsening symptoms. Is patient prescribed a controlled substance at d/c from ED?: No Referrals: Marques Peacock MD [Primary Care Provider] - 1-2 days Time of Disposition: 20:50
--- NOTE | 2023-01-19 20:11 | XR ---
EXAMINATION TYPE: XR chest 1V portable DATE OF EXAM: 01/19/2023 7:28 PM CLINICAL INDICATION:Male, 62 years old with history of pain; COMPARISON: Chest radiographs from 01/02/2023 TECHNIQUE: XR chest 1V portable Frontal view of the chest. FINDINGS: Lungs/Pleura: There is no evidence of pleural effusion, focal consolidation, or pneumothorax. Pulmonary vascularity: Unremarkable. Heart/mediastinum: Cardiomediastinal silhouette is unremarkable. Musculoskeletal: No acute osseous pathology. IMPRESSION: No acute cardiopulmonary disease/process.
[2023-01-19 21:18] VITALS: BP 121/71; PULSE 69; RESP 18
== END 2023-01-19 21:14 | disposition home or self-care (01) ==
LOC: EC 19:08
DX: R07.89 Other chest pain (principal); I25.2 Old myocardial infarction; I25.10 Atherosclerotic heart disease of native coronary artery without angina pectoris; K21.9 Gastro-esophageal reflux disease without esophagitis; Z86.59 Personal history of other mental and behavioral disorders; Z87.891 Personal history of nicotine dependence; Z79.899 Other long term (current) drug therapy; Z79.01 Long term (current) use of anticoagulants; Z88.8 Allergy status to other drugs, medicaments and biological substances
CPT/HCPCS: 71045; 99284

== ENCOUNTER 2023-01-21 18:25 | Emergency (ER) | payer MEDICARE ==
--- NOTE | 2023-01-21 18:27 | ED ---
General Adult HPI - General Stated complaint: abd pain Time Seen by Provider: 01/21/23 18:26 Source: RN notes reviewed - History of Present Illness Initial comments: 62-year-old male with no significant past medical history presents the emergency department with a chief complaint of right upper quadrant abdominal pain. Patient reports he cannot even bend over. Denies any known fevers, nausea, vomiting. He believes that something wrong with his skull bladder. He is recently seen here for a rib pain. Has not taken anything at home. - Related Data Home Medications Medication Instructions Recorded Confirmed Pantoprazole [Protonix] 40 mg PO BID-W/MEALS 05/27/21 01/02/23 Rivaroxaban [Xarelto] 20 mg PO W/SUPPER 01/12/22 01/02/23 Albuterol Inhaler [Ventolin Hfa 2 puff INHALATION RT-Q6H PRN 01/02/23 01/02/23 Inhaler] Nitroglycerin Sl Tabs [Nitrostat] 0.4 mg SUBLINGUAL Q5M PRN 01/02/23 01/02/23 Ondansetron Odt [Zofran Odt] 4 mg PO Q6H PRN 01/02/23 01/02/23 Previous Rx's Medication Instructions Recorded Clopidogrel [Plavix] 75 mg PO DAILY #30 tab 12/12/22 Ibuprofen [Motrin] 800 mg PO Q6HR #30 tab 01/21/23 Allergies Allergy/AdvReac Type Severity Reaction Status Date / Time atorvastatin [From Lipitor] AdvReac muscle Verified 01/19/23 19:18 aches & pains Review of Systems ROS Statement: Those systems with pertinent positive or pertinent negative responses have been documented in the HPI. ROS Other: All systems not noted in ROS Statement are negative. Past Medical History Past Medical History: Coronary Artery Disease (CAD), Chest Pain / Angina, CVA/TIA, Deep Vein Thrombosis (DVT), GERD/Reflux, Hyperlipidemia, Myocardial Infarction ([place]), Sleep Apnea/CPAP/BIPAP Additional Past Medical History / Comment(s): DVT 2002, uses CPAP Last Myocardial Infarction Date:: 08/2006 History of Any Multi-Drug Resistant Organisms: None Reported Past Surgical History: Heart Catheterization With Stent, Hernia Repair Additional Past Surgical History / Comment(s): left leg surgery r/t DVT, ORIF right femur septal deviation surgery in 2015, varicose vein removal in the left leg. Past Anesthesia/Blood Transfusion Reactions: No Reported Reaction Additional Past Anesthesia/Blood Transfusion Reaction / Comment(s): no previous transfusion Date of Last Stent Placement:: 2006 Past Psychological History: Anxiety Smoking Status: Former smoker Past Alcohol Use History: None Reported Past Drug Use History: None Reported - Past Family History Mother Family Medical History: COPD, Diabetes Mellitus, Myocardial Infarction ([place]) Additional Family Medical History / Comment(s): Mother at age 75 with history of hypertension, renal failure on dialysis, CVA 6, diabetes mellitus type 2, congestive heart failure and COPD. Patient does not know his father. He has no brothers or sisters. He is single and no children. General Exam - General Exam Comments Initial Comments: Visual Physical Exam Vital signs reviewed General: Well-appearing, nontoxic, no acute distress. Head: Normocephalic, atraumatic Eyes: PERRLA, EOMI ENT: Airway patent Chest: Nonlabored breathing Skin: No visual rash, normal skin tone Neuro: Alert and oriented 3 Musculoskeletal: No gross abnormalities I performed the quick note portion of this exam, verbal signature Fadia Perry PA-C General: Alert, in no acute distress Head: atraumatic normocephalic. Eyes PERRL, EOMI intact, mucous membranes moist Respiratory: Lungs clear to auscultation bilaterally Cardiovascular: Heart rate regular rate and rhythm Abdominal: Soft without guarding or rebound, mild right upper quadrant tenderness negative Montalvo sign. Extremities: Normal inspection with full range of motion and normal capillary refill Neuroogic: alert and oriented 3, CN II-XII intact, able to ambulate with steady gait Skin: warm dry and intact with normal color Course Vital Signs 01/21/23 01/21/23 18:39 22:32 Temperature 98.5 F 98.0 F Pulse Rate 69 70 Respiratory 16 18 Rate Blood Pressure 125/63 133/77 O2 Sat by Pulse 98 100 Oximetry - Reevaluation(s) Reevaluation #1: 01/21/23 22:49 Patient reevaluated. Patient reports resolution of symptoms. He is agreeable with the plan for discharge home. Medical Decision Making - Medical Decision Making Was pt. sent in by a medical professional or institution (, PA, THREAD WEAVER, urgent care, hospital, or usp...) When possible be specific @ -[No] Did you speak to anyone other than the patient for history (EMS, parent, family, police, friend...)? What history was obtained from this source @ -[No] Did you review nursing and triage notes (agree or disagree)? Why? @ -[I reviewed and agree with nursing and triage notes] Were old charts reviewed (outside hosp., previous admission, EMS record, old EKG, old radiological studies, urgent care reports/EKG's, usp records)? Report findings @ -Yees from 01/19/2023 Differential Diagnosis (chest pain, altered mental status, abdominal pain women, abdominal pain men, vaginal bleeding, weakness, fever, dyspnea, syncope, headache, dizziness, GI bleed, back pain, seizure, CVA, palpatations, mental health, musculoskeletal)? @ -[not applicable] EKG interpreted by me (3pts min.). @ -[As above] X-rays interpreted by me (1pt min.). @ -[None done] CT interpreted by me (1pt min.). @ -[None done] U/S interpreted by me (1pt. min.). @ Gallbladder ultrasound does not reveal any cholelithiasis What testing was considered but not performed or refused? (CT, X-rays, U/S, labs)? Why? @ -[None] What meds were considered but not given or refused? Why? @ -[None] Did you discuss the management of the patient with other professionals (professionals i.e. , PA, THREAD WEAVER, lab, RT, psych nurse, psychotherapist social worker, biology teacher, teacher, commercial account officer, nurse outreach case manager)? Give summary @ -[No] Was smoking cessation discussed for >3mins.? @ -[No] Was critical care preformed (if so, how long)? @ -[No] Were there social determinants of health that impacted care today? How? (Homelessness, low income, unemployed, alcoholism, drug addiction, transportation, low edu. Level, literacy, decrease access to med. care, fdc, rehab)? @ -[No] Was there de-escalation of care discussed even if they declined (Discuss DNR or withdrawal of care, Hospice)? DNR status @ -[No] What co-morbidities impacted this encounter? (DM, HTN, Smoking, COPD, CAD, Cancer, CVA, ARF, Chemo, Hep., AIDS, mental health diagnosis, sleep apnea, morbid obesity)? @ -[None] Was patient admitted / discharged? Hospital course, mention meds given and route, prescriptions, significant lab abnormalities, going to OR and other pertinent info. @ Discharged. This is a 62-year-old male who presents the emergency department with right upper quadrant abdominal pain. Patient had a thorough history and physical exam performed on the ED. Physical exam essentially unremarkable. Heart rate regular rate and rhythm, lungs are to auscultation bilaterally abdomen is soft with mild right upper quadrant tenderness. Negative Montalvo's sign. Patient had laboratory and ultrasound studies performed which were essentially unremarkable. He was provided GI cocktail and Toradol was symptomatically improvement. Agreeable with the plan for discharge with recommended close follow-up with his PCP in 1-2 days. Case is discussed with ABDOULAYE Ortega who agrees with plan of care Undiagnosed new problem with uncertain prognosis? @ -[No] Drug Therapy requiring intensive monitoring for toxicity (Heparin, Nitro, Insulin, Cardizem)? @ -[No] Were any procedures done? @ -[No] Diagnosis/symptom? @ -RUQ abdominal Pain Acute, or Chronic, or Acute on Chronic? @ -Acute Uncomplicated (without systemic symptoms) or Complicated (systemic symptoms)? @ -Uncomplicated Side effects of treatment? @ -[No] Exacerbation, Progression, or Severe Exacerbation? @ -[No] Poses a threat to life or bodily function? How? (Chest pain, [place], [place], pneumonia, PE, COPD, DKA, ARF, appy, cholecystitis, CVA, Diverticulitis, Homicidal, Suicidal, threat to staff... and all critical care pts) @ -Low likelihood - Lab Data Result diagrams: 01/21/23 18:43 01/21/23 18:43 Lab Results 01/21/23 01/21/23 01/21/23 Range/Units 18:43 18:43 18:43 WBC 5.1 (3.8-10.6) k/uL RBC 4.33 (4.30-5.90) m/uL Hgb 13.4 (13.0-17.5) gm/dL Hct 39.2 (39.0-53.0) % MCV 90.5 (80.0-100.0) fL MCH 30.9 (25.0-35.0) pg MCHC 34.1 (31.0-37.0) g/dL RDW 12.6 (11.5-15.5) % Plt Count 244 (150-450) k/uL MPV 6.5 Neutrophils % 56 % Lymphocytes % 32 % Monocytes % 8 % Eosinophils % 2 % Basophils % 0 % Neutrophils # 2.8 (1.3-7.7) k/uL Lymphocytes # 1.6 (1.0-4.8) k/uL Monocytes # 0.4 (0-1.0) k/uL Eosinophils # 0.1 (0-0.7) k/uL Basophils # 0.0 (0-0.2) k/uL Sodium 135 L (137-145) mmol/L Potassium 4.2 (3.5-5.1) mmol/L Chloride 98 (98-107) mmol/L Carbon Dioxide 27 (22-30) mmol/L Anion Gap 10 mmol/L BUN 20 (9-20) mg/dL Creatinine 1.22 (0.66-1.25) mg/dL Est GFR (CKD-EPI)AfAm 73 (>60 ml/min/1.73 sqM) Est GFR (CKD-EPI)NonAf 63 (>60 ml/min/1.73 sqM) Glucose 88 (74-99) mg/dL Plasma Lactic Acid [place] (0.7-2.0) mmol/L Calcium 9.2 (8.4-10.2) mg/dL Total Bilirubin 0.7 (0.2-1.3) mg/dL AST 23 (17-59) U/L ALT 18 (4-49) U/L Alkaline Phosphatase 56 (38-126) U/L Total Protein 6.9 (6.3-8.2) g/dL Albumin 4.2 (3.5-5.0) g/dL Amylase 100 (30-110) U/L Lipase 125 (23-300) U/L Urine Color Colorless Urine Appearance Clear (Clear) Urine pH 6.0 (5.0-8.0) Ur Specific [place] 1.010 (1.001-1.035) Urine Protein Negative (Negative) Urine Glucose (UA) Negative (Negative) Urine Ketones Negative (Negative) Urine Blood Negative (Negative) Urine Nitrite Negative (Negative) Urine Bilirubin Negative (Negative) Urine Urobilinogen <2.0 (<2.0) mg/dL Ur Leukocyte Esterase Negative (Negative) Influenza Type A (PCR) (Not Detectd) Influenza Type B (PCR) (Not Detectd) RSV (PCR) (Not Detectd) SARS-CoV-2 (PCR) (Not Detectd) 01/21/23 01/21/23 Range/Units 18:43 18:43 WBC (3.8-10.6) k/uL RBC (4.30-5.90) m/uL Hgb (13.0-17.5) gm/dL Hct (39.0-53.0) % MCV (80.0-100.0) fL MCH (25.0-35.0) pg MCHC (31.0-37.0) g/dL RDW (11.5-15.5) % Plt Count (150-450) k/uL MPV Neutrophils % % Lymphocytes % % Monocytes % % Eosinophils % % Basophils % % Neutrophils # (1.3-7.7) k/uL Lymphocytes # (1.0-4.8) k/uL Monocytes # (0-1.0) k/uL Eosinophils # (0-0.7) k/uL Basophils # (0-0.2) k/uL Sodium (137-145) mmol/L Potassium (3.5-5.1) mmol/L Chloride (98-107) mmol/L Carbon Dioxide (22-30) mmol/L Anion Gap mmol/L BUN (9-20) mg/dL Creatinine (0.66-1.25) mg/dL Est GFR (CKD-EPI)AfAm (>60 ml/min/1.73 sqM) Est GFR (CKD-EPI)NonAf (>60 ml/min/1.73 sqM) Glucose (74-99) mg/dL Plasma Lactic Acid [place] 1.4 (0.7-2.0) mmol/L Calcium (8.4-10.2) mg/dL Total Bilirubin (0.2-1.3) mg/dL AST (17-59) U/L ALT (4-49) U/L Alkaline Phosphatase (38-126) U/L Total Protein (6.3-8.2) g/dL Albumin (3.5-5.0) g/dL Amylase (30-110) U/L Lipase (23-300) U/L Urine Color Urine Appearance (Clear) Urine pH (5.0-8.0) Ur Specific [place] (1.001-1.035) Urine Protein (Negative) Urine Glucose (UA) (Negative) Urine Ketones (Negative) Urine Blood (Negative) Urine Nitrite (Negative) Urine Bilirubin (Negative) Urine Urobilinogen (<2.0) mg/dL Ur Leukocyte Esterase (Negative) Influenza Type A (PCR) Not Detected (Not Detectd) Influenza Type B (PCR) Not Detected (Not Detectd) RSV (PCR) Not Detected (Not Detectd) SARS-CoV-2 (PCR) Not Detected (Not Detectd) Disposition Clinical Impression: RUQ abdominal pain Disposition: HOME SELF-CARE Condition: Stable Additional Instructions: Please return to the nearest emergency department if symptoms worsen or persist Prescriptions: Ibuprofen [Motrin] 800 mg PO Q6HR #30 tab Is patient prescribed a controlled substance at d/c from ED?: No Referrals: Marques Peacock MD [Primary Care Provider] - 1-2 days Time of Disposition: 22:49
[2023-01-21 19:15] LABS: Basophils % (A) 0 %; Eosinophils # (A) 0.1 k/uL (0-0.7); Eosinophils % (A) 2 %; HCT 39.2 % (39.0-53.0); HGB 13.4 gm/dL (13.0-17.5); Lymphocytes # (A) 1.6 k/uL (1.0-4.8); Lymphocytes % (A) 32 %; MCH 30.9 pg (25.0-35.0); MCHC 34.1 g/dL (31.0-37.0); MCV 90.5 fL (80.0-100.0); Mean Platelet Volume 6.5; Monocytes # (A) 0.4 k/uL (0-1.0); Monocytes % (A) 8 %; Neutrophils # (A) 2.8 k/uL (1.3-7.7); Neutrophils % (A) 56 %; Platelet Count 244 k/uL (150-450); RBC 4.33 m/uL (4.30-5.90); RDW 12.6 % (11.5-15.5); WBC 5.1 k/uL (3.8-10.6)
[2023-01-21 19:30] LABS: Appearance,Urine Clear (Clear); Bilirubin,Urine Negative (Negative); Color,Urine Colorless; Glucose,Urine (UA) Negative (Negative); Ketones,Urine Negative (Negative); Protein,Urine Negative (Negative)
[2023-01-21 19:31] LABS: ALT 18 U/L (4-49); AST 23 U/L (17-59); African American GFR (CKD) 73 (>60 ml/min/1.73 sqM); Albumin 4.2 g/dL (3.5-5.0); Alkaline Phosphatase 56 U/L (38-126); Amylase 100 U/L (30-110); Anion Gap 10 mmol/L; Blood Urea Nitrogen 20 mg/dL (9-20); Blood,Urine Negative (Negative); Calcium 9.2 mg/dL (8.4-10.2); Carbon Dioxide 27 mmol/L (22-30); Chloride 98 mmol/L (98-107); Glucose 88 mg/dL (74-99); Leukocyte Esterase,Urine Negative (Negative); Lipase 125 U/L (23-300); Nitrite,Urine Negative (Negative); Non-African American GFR(CKD) 63 (>60 ml/min/1.73 sqM); Potassium 4.2 mmol/L (3.5-5.1); Sodium 135 mmol/L (137-145); Total Bilirubin 0.7 mg/dL (0.2-1.3); Total Protein 6.9 g/dL (6.3-8.2); Urobilinogen,Urine <2.0 mg/dL (<2.0)
--- NOTE | 2023-01-21 19:46 | US ---
EXAMINATION TYPE: US gallbladder DATE OF EXAM: 01/21/2023 COMPARISON: CT: 05/15/17 CLINICAL INDICATION: Male, 62 years old with history of RUQ pain; RUQ pain x 1 day TECHNIQUE: Multiple sonographic images of the right upper quadrant are obtained. FINDINGS: EXAM MEASUREMENTS: Liver Length: 14.1 cm Gallbladder Wall: 0.18 cm CBD: 0.31 cm Right Kidney: 10.7 x 4.5 x 4.7 cm Pancreas: Only the head was visible and appeared within normal limits. Liver: Within normal limits. Gallbladder: Within normal limits. Evidence for sonographic Montalvo's sign: No CBD: Within normal limits. Right Kidney: inferior pole obscured by bowel gas, otherwise appears wnl IMPRESSION: No acute process.
[2023-01-21] MEDS ORDERED: MAG HYDROX/AL HYDROX/SIMETH 30 ML, HYOSCYAMINE ELIXIR 10 ML, LIDOCAINE 2% GLYDO JELLY 1... PO STA ×3 (21:49)
[2023-01-21] MEDS ORDERED: KETOROLAC 15 MG/ML 1 ML VIAL IM STA (21:49)
[2023-01-21 22:50] VITALS: BP 133/77; PULSE 70; RESP 18; TEMP 98
== END 2023-01-21 23:02 | disposition home or self-care (01) ==
LOC: EC 18:25
DX: R10.11 Right upper quadrant pain (principal); K21.9 Gastro-esophageal reflux disease without esophagitis; I25.10 Atherosclerotic heart disease of native coronary artery without angina pectoris; I25.2 Old myocardial infarction; Z79.01 Long term (current) use of anticoagulants; Z79.899 Other long term (current) drug therapy; Z88.8 Allergy status to other drugs, medicaments and biological substances; Z20.822 Contact with and (suspected) exposure to COVID-19; Z87.891 Personal history of nicotine dependence; Z86.718 Personal history of other venous thrombosis and embolism; Z86.73 Personal history of transient ischemic attack (TIA), and cerebral infarction without residual deficits; Z95.5 Presence of coronary angioplasty implant and graft
CPT/HCPCS: 36415; 80053; 82150; 83605; 83690; 85025; 81003; 87636; 76705; 99285; 96372; J1885

== ENCOUNTER 2023-01-25 10:01 | Emergency (ER) | payer MEDICARE ==
[2023-01-25 10:14] VITALS: RESP 18
--- NOTE | 2023-01-25 11:13 | ED ---
General Adult HPI - General Chief complaint: Extremity Problem,Nontraumatic Stated complaint: L arm spasm Time Seen by Provider: 01/25/23 10:43 Source: patient Mode of arrival: ambulatory Limitations: no limitations - History of Present Illness Initial comments: The patient is a 62-year-old gentleman with a history of sleep apnea, hypertension, coronary artery disease presents to the emergency room with complaints of spasms in the left hand and concern that his CPAP machine is malfunctioning. Patient states that he woke up this morning and felt as though he was swallowing air from the CPAP machine. He is concerned it is not functioning appropriately so he tried to follow-up with his primary care physician to have the CPAP machine rechecked. He states on the way to the doctor's office he started to have muscle spasms in the left hand. States it had resolved by the time he got to the emergency room. He has no muscle spasms or pain at this time. He denies any weakness. Patient states that he may have felt short of breath when he felt as though he was "swallowing air" with the CPAP machine. Patient denies any recent cough congestion or fevers. Denies any paralysis of the extremities. He denies any headache vision changes or other focal deficits. Patient has no complaints at this time. - Related Data Home Medications Medication Instructions Recorded Confirmed Pantoprazole [Protonix] 40 mg PO BID-W/MEALS 05/27/21 01/02/23 Rivaroxaban [Xarelto] 20 mg PO W/SUPPER 01/12/22 01/02/23 Albuterol Inhaler [Ventolin Hfa 2 puff INHALATION RT-Q6H PRN 01/02/23 01/02/23 Inhaler] Nitroglycerin Sl Tabs [Nitrostat] 0.4 mg SUBLINGUAL Q5M PRN 01/02/23 01/02/23 Ondansetron Odt [Zofran Odt] 4 mg PO Q6H PRN 01/02/23 01/02/23 Previous Rx's Medication Instructions Recorded Clopidogrel [Plavix] 75 mg PO DAILY #30 tab 12/12/22 Ibuprofen [Motrin] 800 mg PO Q6HR #30 tab 01/21/23 Allergies Allergy/AdvReac Type Severity Reaction Status Date / Time atorvastatin [From Lipitor] AdvReac muscle Verified 01/25/23 10:14 aches & pains Review of Systems ROS Statement: Those systems with pertinent positive or pertinent negative responses have been documented in the HPI. ROS Other: All systems not noted in ROS Statement are negative. Past Medical History Past Medical History: Coronary Artery Disease (CAD), Chest Pain / Angina, CVA/TIA, Deep Vein Thrombosis (DVT), GERD/Reflux, Hyperlipidemia, Myocardial In farction ([place]), Sleep Apnea/CPAP/BIPAP Additional Past Medical History / Comment(s): DVT 2002, uses CPAP Last Myocardial Infarction Date:: 08/2006 History of Any Multi-Drug Resistant Organisms: None Reported Past Surgical History: Heart Catheterization With Stent, Hernia Repair Additional Past Surgical History / Comment(s): left leg surgery r/t DVT, ORIF right femur septal deviation surgery in 2014, varicose vein removal in the left leg. Past Anesthesia/Blood Transfusion Reactions: No Reported Reaction Additional Past Anesthesia/Blood Transfusion Reaction / Comment(s): no previous transfusion Date of Last Stent Placement:: 2006 Past Psychological History: Anxiety Smoking Status: Former smoker Past Alcohol Use History: None Reported Past Drug Use History: None Reported - Past Family History Mother Family Medical History: COPD, Diabetes Mellitus, Myocardial Infarction ([place]) Additional Family Medical History / Comment(s): Mother at age 75 with history of hypertension, renal failure on dialysis, CVA 6, diabetes mellitus type 2, congestive heart failure and COPD. Patient does not know his father. He has no brothers or sisters. He is single and no children. General Exam Limitations: no limitations General appearance: alert, in no apparent distress Head exam: Present: atraumatic Eye exam: Present: normal appearance ENT exam: Present: normal exam Neck exam: Present: normal inspection, full ROM Respiratory exam: Present: normal lung sounds bilaterally Cardiovascular Exam: Present: regular rate, bradycardia GI/Abdominal exam: Present: soft Extremities exam: Present: full ROM Back exam: Present: full ROM Neurological exam: Present: alert, oriented X3, CN II-XII intact Psychiatric exam: Present: normal affect, normal mood Skin exam: Present: warm, dry (What) Course Vital Signs 01/25/23 01/25/23 01/25/23 10:11 11:35 13:36 Temperature 98 F 967.9 F H 97.9 F Pulse Rate 78 66 77 Respiratory 18 18 18 Rate Blood Pressure 123/75 136/72 113/76 O2 Sat by Pulse 99 100 99 Oximetry - Reevaluation(s) Reevaluation #1: 01/25/23 1301 The patient is well appearing in the ED. the patient has had no further symptoms or complaints. EKG Findings - EKG Comments: EKG Findings:: EKG shows sinus rhythm with first-degree AV block rate of 62 bpm, no acute ST segment elevation or T-wave changes Medical Decision Making - Medical Decision Making Was pt. sent in by a medical professional or institution (, PA, ELECTRICAL INSTALLATION INSPECTOR, urgent care, hospital, or fci...) When possible be specific @ -[No] Did you speak to anyone other than the patient for history (EMS, parent, family, police, friend...)? What history was obtained from this source @ -[No] Did you review nursing and triage notes (agree or disagree)? Why? @ -[I reviewed and agree with nursing and triage notes] Were old charts reviewed (outside hosp., previous admission, EMS record, old EKG, old radiological studies, urgent care reports/EKG's, fci records)? Report findings @ -Yes old charts were reviewed Differential Diagnosis (chest pain, altered mental status, abdominal pain women, abdominal pain men, vaginal bleeding, weakness, fever, dyspnea, syncope, headache, dizziness, GI bleed, back pain, seizure, CVA, palpatations, mental health, musculoskeletal)? @ -Muscle spasms, anxiety, dyspnea, CPAP malfunctioned EKG interpreted by me (3pts min.). @ -EKG shows sinus rhythm with first-degree AV block rate of 62 bpm, X-rays interpreted by me (1pt min.). @ -X-rays negative for any pneumothorax, pneumonia or other acute changes. Radiology report is pending for confirmation of these acute changes. CT interpreted by me (1pt min.). @ -[None done] U/S interpreted by me (1pt. min.). @ -[None done] What testing was considered but not performed or refused? (CT, X-rays, U/S, labs)? Why? @ -[None] What meds were considered but not given or refused? Why? @ -[None] Did you discuss the management of the patient with other professionals (professionals i.e. , DIANA, ELECTRICAL INSTALLATION INSPECTOR, lab, RT, psych nurse, social human services assistants, transport engineer, teacher, community liaison officer, casework manager)? Give summary @ -I discussed patient's symptoms are And disposition with attending ED physician Dr. Hernandez today. Was smoking cessation discussed for >3mins.? @ -[No] Was critical care preformed (if so, how long)? @ -[No] Were there social determinants of health that impacted care today? How? (Homelessness, low income, unemployed, alcoholism, drug addiction, transportation, low edu. Level, literacy, decrease access to med. care, assisted, rehab)? @ -[No] Was there de-escalation of care discussed even if they declined (Discuss DNR or withdrawal of care, Hospice)? DNR status @ -[No] What co-morbidities impacted this encounter? (DM, HTN, Smoking, COPD, CAD, Cancer, CVA, ARF, Chemo, Hep., AIDS, mental health diagnosis, sleep apnea, morbid obesity)? @ -[None] Was patient admitted / discharged? Hospital course, mention meds given and route, prescriptions, significant lab abnormalities, going to OR and other pertinent info. @ -patient's well appearing in emergency room. He has had no further symptoms while in the emergency room and has no complaints at this time. Patient is very anxious about his CPAP machine. I discussed following up with the company and with PCP for further evaluation of the machine and use. Discussed signs to return to the emergency room. Patient is stable to follow up as an outpatient at this time. There is no indication hospitalization is required. He does u nderstand signs return. Undiagnosed new problem with uncertain prognosis? @ -[No] Drug Therapy requiring intensive monitoring for toxicity (Heparin, Nitro, Insulin, Cardizem)? @ -[No] Were any procedures done? @ -[No] Diagnosis/symptom? @ -medical evaluation, muscle spasms resolved, request for CPAP evaluation Acute, or Chronic, or Acute on Chronic? @ -[acute] Uncomplicated (without systemic symptoms) or Complicated (systemic symptoms)? @ -[default] Side effects of treatment? @ -[No] Exacerbation, Progression, or Severe Exacerbation? @ -[No] Poses a threat to life or bodily function? How? (Chest pain, [place], [place], pneumonia, PE, COPD, DKA, ARF, appy, cholecystitis, CVA, Diverticulitis, Homicidal, Suicidal, threat to staff... and all critical care pts) @ -[No] - Lab Data Result diagrams: 01/25/23 11:19 01/25/23 11:19 Lab Results 01/25/23 01/25/23 01/25/23 Range/Units 11:19 11:19 11:19 WBC 4.1 (3.8-10.6) k/uL RBC 4.46 (4.30-5.90) m/uL Hgb 13.6 (13.0-17.5) gm/dL Hct 39.9 (39.0-53.0) % MCV 89.5 (80.0-100.0) fL MCH 30.6 (25.0-35.0) pg MCHC 34.2 (31.0-37.0) g/dL RDW 12.5 (11.5-15.5) % Plt Count 229 (150-450) k/uL MPV 6.4 Neutrophils % 64 % Lymphocytes % 23 % Monocytes % 10 % Eosinophils % 1 % Basophils % 0 % Neutrophils # 2.6 (1.3-7.7) k/uL Lymphocytes # 0.9 L (1.0-4.8) k/uL Monocytes # 0.4 (0-1.0) k/uL Eosinophils # 0.0 (0-0.7) k/uL Basophils # 0.0 (0-0.2) k/uL Sodium 135 L (137-145) mmol/L Potassium 4.1 (3.5-5.1) mmol/L Chloride 100 (98-107) mmol/L Carbon Dioxide 27 (22-30) mmol/L Anion Gap 8 mmol/L BUN 18 (9-20) mg/dL Creatinine 0.95 (0.66-1.25) mg/dL Est GFR (CKD-EPI)AfAm >90 (>60 ml/min/1.73 sqM) Est GFR (CKD-EPI)NonAf 86 (>60 ml/min/1.73 sqM) Glucose 88 (74-99) mg/dL Uric Acid 6.2 (3.5-8.5) mg/dL Calcium 9.2 (8.4-10.2) mg/dL Magnesium 2.1 (1.6-2.3) mg/dL Total Bilirubin 0.7 (0.2-1.3) mg/dL AST 21 (17-59) U/L ALT 18 (4-49) U/L Alkaline Phosphatase 51 (38-126) U/L CK-MB (CK-2) 1.0 (0.0-3.4) ng/mL Total Protein 6.8 (6.3-8.2) g/dL Albumin 4.1 (3.5-5.0) g/dL - EKG Data -: EKG Interpreted by Fl - Radiology Data Radiology results: report reviewed, image reviewed Disposition Clinical Impression: Muscle spasm, Difficulty with CPAP use Disposition: HOME SELF-CARE Condition: Good Instructions (If sedation given, give patient instructions): Muscle Spasm (ED) Is patient prescribed a controlled substance at d/c from ED?: No Referrals: Marques Peacock MD [Primary Care Provider] - 1-2 days Time of Disposition: 13:33
[2023-01-25 11:34] LABS: Basophils % (A) 0 %; Eosinophils % (A) 1 %; HCT 39.9 % (39.0-53.0); HGB 13.6 gm/dL (13.0-17.5); Lymphocytes # (A) 0.9 k/uL (1.0-4.8); Lymphocytes % (A) 23 %; MCH 30.6 pg (25.0-35.0); MCHC 34.2 g/dL (31.0-37.0); MCV 89.5 fL (80.0-100.0); Mean Platelet Volume 6.4; Monocytes # (A) 0.4 k/uL (0-1.0); Monocytes % (A) 10 %; Neutrophils # (A) 2.6 k/uL (1.3-7.7); Neutrophils % (A) 64 %; Platelet Count 229 k/uL (150-450); RBC 4.46 m/uL (4.30-5.90); RDW 12.5 % (11.5-15.5); WBC 4.1 k/uL (3.8-10.6)
--- NOTE | 2023-01-25 11:37 | XR ---
EXAMINATION TYPE: XR chest 2V DATE OF EXAM: 01/25/2023 11:34 AM COMPARISON: Chest radiographs from 01/19/2023 TECHNIQUE: XR chest 2V Frontal and lateral views of the chest. CLINICAL INDICATION:Male, 62 years old with history of pain; FINDINGS: Lungs/Pleura: There is no evidence of pleural effusion, focal consolidation, or pneumothorax. Pulmonary vascularity: Unremarkable. Heart/mediastinum: Cardiomediastinal silhouette is unremarkable. Musculoskeletal: No acute osseous pathology. IMPRESSION: No acute cardiopulmonary disease/process.
[2023-01-25 12:12] LABS: ALT 18 U/L (4-49); AST 21 U/L (17-59); African American GFR (CKD) >90 (>60 ml/min/1.73 sqM); Albumin 4.1 g/dL (3.5-5.0); Alkaline Phosphatase 51 U/L (38-126); Anion Gap 8 mmol/L; Blood Urea Nitrogen 18 mg/dL (9-20); Calcium 9.2 mg/dL (8.4-10.2); Carbon Dioxide 27 mmol/L (22-30); Chloride 100 mmol/L (98-107); Glucose 88 mg/dL (74-99); Magnesium 2.1 mg/dL (1.6-2.3); Non-African American GFR(CKD) 86 (>60 ml/min/1.73 sqM); Potassium 4.1 mmol/L (3.5-5.1); Sodium 135 mmol/L (137-145); Total Bilirubin 0.7 mg/dL (0.2-1.3); Total Protein 6.8 g/dL (6.3-8.2); Uric Acid 6.2 mg/dL (3.5-8.5)
[2023-01-25 14:01] VITALS: BP 113/76; PULSE 77; TEMP 97.9
== END 2023-01-25 13:40 | disposition home or self-care (01) ==
LOC: EC 10:01
DX: M62.838 Other muscle spasm (principal); I44.0 Atrioventricular block, first degree; I10 Essential (primary) hypertension; I25.10 Atherosclerotic heart disease of native coronary artery without angina pectoris; I25.2 Old myocardial infarction; K21.9 Gastro-esophageal reflux disease without esophagitis; Z79.01 Long term (current) use of anticoagulants; Z79.899 Other long term (current) drug therapy; Z88.8 Allergy status to other drugs, medicaments and biological substances; Z86.718 Personal history of other venous thrombosis and embolism; Z95.5 Presence of coronary angioplasty implant and graft; Z86.73 Personal history of transient ischemic attack (TIA), and cerebral infarction without residual deficits; Z87.891 Personal history of nicotine dependence
CPT/HCPCS: 36415; 71046; 80053; 82553; 83735; 84550; 85025; 99284

== ENCOUNTER 2023-02-26 20:09 | Emergency (ER) | payer MEDICARE ==
[2023-02-26 21:46] VITALS: RESP 18; TEMP 98.6
--- NOTE | 2023-02-26 22:56 | ED ---
General Adult HPI - General Source: patient Mode of arrival: ambulatory Limitations: no limitations <Gerardo Voss - Last Filed: 02/26/23 22:57> <Jeremi Alberts - Last Filed: 02/27/23 03:20> - General Chief complaint: Urogenital Stated complaint: abd pain Time Seen by Provider: 02/26/23 22:56 - History of Present Illness Initial comments: 62-year-old male presenting to the ED with a chief complaint of groin pain. Patient states he was at rest when he felt a sharp pain in his groin. Also notes that his urine has been darker than usual. Denies pain with urination. (Gerardo Voss) Dictation was produced using [employer] dictation software. please excuse any grammatical, word or spelling errors. Chief Complaint: 62-year-old male presents emergency department for episode of lower abdominal pain History of Present Illness: Patient 62-year-old male states that earlier today he had pain right above his penis. He states it is in his groin radiated upward. States that he is not having that symptom anymore. States that he's been feeling constipated for the last 2-3 days. No nausea vomiting or abdominal pain currently. Denies any diarrhea. No fever or chills or constitutional symptoms. Pain is not worse with cough. Denies any testicular pain. The ROS documented in this emergency department record has been reviewed and confirmed by me. Those systems with pertinent positive or negative responses have been documented in the HPI. All other systems are other negative and/or noncontributory. (Jeremi Alberts) - Related Data Home Medications Medication Instructions Recorded Confirmed Pantoprazole [Protonix] 40 mg PO BID-W/MEALS 05/27/21 01/02/23 Rivaroxaban [Xarelto] 20 mg PO W/SUPPER 01/12/22 01/02/23 Albuterol Inhaler [Ventolin Hfa 2 puff INHALATION RT-Q6H PRN 01/02/23 01/02/23 Inhaler] Nitroglycerin Sl Tabs [Nitrostat] 0.4 mg SUBLINGUAL Q5M PRN 01/02/23 01/02/23 Ondansetron Odt [Zofran Odt] 4 mg PO Q6H PRN 01/02/23 01/02/23 Previous Rx's Medication Instructions Recorded Clopidogrel [Plavix] 75 mg PO DAILY #30 tab 12/12/22 Ibuprofen [Motrin] 800 mg PO Q6HR #30 tab 01/21/23 polyethylene glycoL 3350 [Miralax] 17 gm PO DAILY 2 Days #2 packet 02/27/23 Allergies Allergy/AdvReac Type Severity Reaction Status Date / Time atorvastatin [From Lipitor] AdvReac muscle Verified 02/26/23 21:44 aches & pains Review of Systems ROS Other: All systems not noted in ROS Statement are negative. <Gerardo Voss - Last Filed: 02/26/23 22:57> ROS Other: All systems not noted in ROS Statement are negative. <Jeremi Alberts - Last Filed: 02/27/23 03:20> ROS Statement: Those systems with pertinent positive or pertinent negative responses have been documented in the HPI. Past Medical History Past Medical History: Coronary Artery Disease (CAD), Chest Pain / Angina, CVA/TIA, Deep Vein Thrombosis (DVT), GERD/Reflux, Hyperlipidemia, Myocardial Infarction ([place]), Sleep Apnea/CPAP/BIPAP Additional Past Medical History / Comment(s): DVT 2002, uses CPAP Last Myocardial Infarction Date:: 08/2006 History of Any Multi-Drug Resistant Organisms: None Reported Past Surgical History: Heart Catheterization With Stent, Hernia Repair Additional Past Surgical History / Comment(s): left leg surgery r/t DVT, ORIF ri ght femur septal deviation surgery in 2014, varicose vein removal in the left leg. Past Anesthesia/Blood Transfusion Reactions: No Reported Reaction Additional Past Anesthesia/Blood Transfusion Reaction / Comment(s): no previous transfusion Date of Last Stent Placement:: 2006 Past Psychological History: Anxiety Smoking Status: Former smoker Past Alcohol Use History: None Reported Past Drug Use History: None Reported - Past Family History Mother Family Medical History: COPD, Diabetes Mellitus, Myocardial Infarction ([place]) Additional Family Medical History / Comment(s): Mother at age 75 with history of hypertension, renal failure on dialysis, CVA 6, diabetes mellitus type 2, congestive heart failure and COPD. Patient does not know his father. He has no brothers or sisters. He is single and no children. <Gerardo Voss - Last Filed: 02/26/23 22:57> General Exam Limitations: no limitations <Gerardo Voss - Last Filed: 02/26/23 22:57> <Jeremi Alberts - Last Filed: 02/27/23 03:20> - General Exam Comments Initial Comments: PHYSICAL EXAM: General Impression: Alert and oriented x3, not in acute distress HEENT: Normocephalic atraumatic, extra-ocular movements intact, pupils equal and reactive to light bilaterally, mucous membranes moist. Cardiovascular: Heart regular rate and rhythm Chest: Able to complete full sentences, no retractions, no tachypnea Abdomen: abdomen soft, non-tender, non-distended, no organomegaly Musculoskeletal: Pulses present and equal in all extremities, no peripheral edema Motor: no focal deficits noted Neurological: CN II-XII grossly intact, no focal motor or sensory deficits noted Skin: Intact with no visualized rashes Psych: Normal affect and mood (Jeremi Alberts) Course Vital Signs 02/26/23 21:43 Temperature 98.6 F Pulse Rate 77 Respiratory 18 Rate Blood Pressure 128/72 O2 Sat by Pulse 99 Oximetry Medical Decision Making <Gerardo Voss - Last Filed: 02/26/23 22:57> <Jeremi Alberts - Last Filed: 02/27/23 03:20> - Medical Decision Making Quicknote portion performed. Signed Gerardo Voss PA-C (Gerardo Voss) Was pt. sent in by a medical professional or institution (DIANA Peterson, COMMERCIAL SERVICE TECHNICIAN, urgent care, hospital, or alf...) When possible be specific @ -No Did you speak to anyone other than the patient for history (EMS, parent, family, police, friend...)? What history was obtained from this source @ -No Did you review nursing and triage notes (agree or disagree)? Why? @ -I reviewed and agree with nursing and triage notes Were old charts reviewed (outside hosp., previous admission, EMS record, old EKG, old radiological studies, urgent care reports/EKG's, alf records)? Report findings @ -No old charts were reviewed Differential Diagnosis (chest pain, altered mental status, abdominal pain women, abdominal pain men, vaginal bleeding, musculoskeletal, weakness, fever, dyspnea, syncope, headache, dizziness, GI bleed, back pain, seizure, CVA, palpatations, mental health)? @ -Differential Abdominal Pain Men: Appendicitis, cholecystitis, diverticulosis, ischemic bowel, pancreatitis, hepatitis, UTI, gastroenteritis, AAA, incarcerated hernia, bowel obstruction, constipation, inflammatory bowel, hepatitis, peptic ulcer disease, splenic infarction, perforated viscus, testicular torsion, this is not meant to be an all-inclusive list EKG interpreted by me (3pts min.). @ -None done X-rays interpreted by me (1pt min.). @ -X-ray shows nonobstructive bowel gas pattern. There does appear to be some stool burden. No free air. CT interpreted by me (1pt min.). @ -None done U/S interpreted by me (1pt. min.). @ -None done What testing was considered but not performed or refused? (CT, X-rays, U/S, labs)? Why? @ -None What meds were considered but not given or refused? Why? @ -None Did you discuss the management of the patient with other professionals (professionals i.e. , PA, COMMERCIAL SERVICE TECHNICIAN, lab, RT, psych nurse, social media strategist, air crew member, teacher, traffic division commanding officer, case resource manager)? Give summary @ -No Was smoking cessation discussed for >3mins.? @ -No Was critical care preformed (if so, how long)? @ -No Were there social determinants of health that impacted care today? How? (Homelessness, low income, unemployed, alcoholism, drug addiction, transportation, low edu. Level, literacy, decrease access to med. care, retirement, rehab)? @ -No Was there de-escalation of care discussed even if they declined (Discuss DNR or withdrawal of care, Hospice)? DNR status @ -No What co-morbidities impacted this encounter? (DM, HTN, Smoking, COPD, CAD, Cancer, CVA, ARF, Chemo, Hep., AIDS, mental health diagnosis, sleep apnea, morbid obesity)? @ -None Was patient admitted / discharged? Hospital course, mention meds given and route, prescriptions, significant lab abnormalities, going to OR and other pertinent info. @ -62Year-old male with chief complaint of episode groin pain. All signs stable. Physical examination is benign. Bladder scan is normal. She does report having difficulty emptying his bladder and sometimes he has a small stream. Perhaps that his symptoms may be secondary to some mild case of urinary retention. Bladder scan was 42. Does not have feeling like he can't fully empty his urinary bladder. Patient given prescription for laxatives. Patient discharged Undiagnosed new problem with uncertain prognosis? @ -No Drug Therapy requiring intensive monitoring for toxicity (Heparin, Nitro, Insulin, Cardizem)? @ -No Were any procedures done? @ -No Diagnosis/symptom? Acute, or Chronic, or Acute on Chronic? Uncomplicated (without systemic symptoms) or Complicated (systemic symptoms)? @ -Constipation Side effects of treatment? @ -No Exacerbation, Progression, or Severe Exacerbation? @ -No Poses a threat to life or bodily function? How? (Chest pain, [place], [place], pneumonia, PE, COPD, DKA, ARF, appy, cholecystitis, CVA, Diverticulitis, Homicidal, Suicidal, threat to staff... and all critical care pts) @ -No (Jeremi Alberts) - Lab Data Lab Results 02/26/23 Range/Units 23:01 Urine Color Yellow Urine Appearance Clear (Clear) Urine pH 5.5 (5.0-8.0) Ur Specific [place] 1.020 (1.001-1.035) Urine Protein Negative (Negative) Urine Glucose (UA) Negative (Negative) Urine Ketones Negative (Negative) Urine Blood Negative (Negative) Urine Nitrite Negative (Negative) Urine Bilirubin Negative (Negative) Urine Urobilinogen <2.0 (<2.0) mg/dL Ur Leukocyte Esterase Negative (Negative) Urine RBC 1 (0-5) /hpf Urine WBC <1 (0-5) /hpf Ur Squamous Epith Cells <1 (0-4) /hpf Urine Mucus Rare H (None) /hpf Disposition <Gerardo Voss - Last Filed: 02/26/23 22:57> Is patient prescribed a controlled substance at d/c from ED?: No Time of Disposition: 03:20 <Jeremi Alberts - Last Filed: 02/27/23 03:20> Clinical Impression: Groin pain Disposition: HOME SELF-CARE Condition: Good Instructions (If sedation given, give patient instructions): Constipation (DC) Prescriptions: polyethylene glycoL 3350 [Miralax] 17 gm PO DAILY 2 Days #2 packet Referrals: Marques Peacock MD [Primary Care Provider] - 1-2 days
[2023-02-26 23:29] LABS: Appearance,Urine Clear (Clear); Color,Urine Yellow; Mucus,Urine Rare /hpf; PH, Urine 5.5 (5.0-8.0); RBC,Urine 1 /hpf (0-5); Squamous Epithelial Cell,Urine <1 /hpf (0-4); WBC,Urine <1 /hpf (0-5)
[2023-02-26 23:30] LABS: Bilirubin,Urine Negative (Negative); Blood,Urine Negative (Negative); Glucose,Urine (UA) Negative (Negative); Ketones,Urine Negative (Negative); Leukocyte Esterase,Urine Negative (Negative); Nitrite,Urine Negative (Negative); Protein,Urine Negative (Negative); Urobilinogen,Urine <2.0 mg/dL (<2.0)
--- NOTE | 2023-02-27 03:35 | XR ---
EXAM: XR Abdomen, 1 View CLINICAL HISTORY: ITS.REASON XR Reason: lower abdominal pain, constipation TECHNIQUE: Frontal supine view of the abdomen/pelvis. COMPARISON: No relevant prior studies available. FINDINGS: Gastrointestinal tract: Prominent of stool burden consistent with constipation. No dilated loops of small bowel. Bones/joints: No acute osseous abnormalities. IMPRESSION: Prominent of stool burden consistent with constipation.
[2023-02-27 04:06] VITALS: BP 143/79; PULSE 63
== END 2023-02-27 03:46 | disposition home or self-care (01) ==
LOC: EC 20:09
DX: K59.00 Constipation, unspecified (principal); I25.10 Atherosclerotic heart disease of native coronary artery without angina pectoris; K21.9 Gastro-esophageal reflux disease without esophagitis; I25.2 Old myocardial infarction; G47.30 Sleep apnea, unspecified; Z86.73 Personal history of transient ischemic attack (TIA), and cerebral infarction without residual deficits; Z79.02 Long term (current) use of antithrombotics/antiplatelets; Z79.899 Other long term (current) drug therapy; Z88.8 Allergy status to other drugs, medicaments and biological substances; Z86.59 Personal history of other mental and behavioral disorders; Z87.891 Personal history of nicotine dependence
CPT/HCPCS: 51798; 74018; 81003; 99284

== ENCOUNTER → 2023-03-20 | Outpatient (CLI) | payer MEDICARE ==
--- NOTE | 2023-03-21 08:36 | MR ---
EXAMINATION TYPE: MR cervical spine wo/w con DATE OF EXAM: 03/20/2023 12:04 PM CLINICAL INDICATION:Male, 62 years old with history of M54.12, R29.2; PHH, Cervical radiculopathy COMPARISON: None. TECHNIQUE: Multi planar, multi sequence imaging was performed utilizing: T1-weighted, T2-weighted, an d turbo inversion recovery imaging of the cervical spine. IV Contrast: 7.5 cc Gadavist (none if empty) FINDINGS: Alignment: The cervical vertebral bodies have preserved heights. Alignment is within normal limits gi lulú patient positioning. Bones: Bone signal is within normal limits. Minimal degeneration with osteophyte formation and disc s pace narrowing. No abnormal bone marrow edema on inversion recovery sequences. No abnormal postcontra st enhancement. Cord: The spinal cord is unremarkable with regards to their signal intensity and morphology. No abnor mal postcontrast enhancement. Discs: Multilevel disc desiccation is present. C2-C3: No significant disc pathology. The spinal canal is patent. No neural foraminal stenosis. C3-C4: No significant disc pathology. The spinal canal is patent. Bilateral facet and uncovertebral joint arthropathy are present with mild bilateral neural foraminal stenosis. C4-C5: No significant disc pathology. The spinal canal is patent. Bilateral facet and uncovertebral joint arthropathy are present with mild bilateral neural foraminal stenosis. C5-C6: No significant disc pathology. The spinal canal is patent. Bilateral facet and uncovertebral joint arthropathy are present with mild bilateral neural foraminal stenosis. C6-C7: No significant disc pathology. The spinal canal is patent. No neural foraminal stenosis. C7-T1: No significant disc pathology. The spinal canal is patent. No neural foraminal stenosis. Other: None. IMPRESSION: 1. No evidence for disc herniation or significant spinal canal stenosis. No abnormal postcontrast enh ancement. 2. Mild disc degeneration with associated osteoarthritic changes. No significant neural foraminal fany nosis identified.
== END | disposition home or self-care (01) ==
LOC: RADMRIMAIN 10:47
PROVIDERS: ATTEND Psychiatry & Neurology Neurology
DX: M47.22 Other spondylosis with radiculopathy, cervical region (principal); M50.10 Cervical disc disorder with radiculopathy, unspecified cervical region; R29.2 Abnormal reflex
CPT/HCPCS: 72156; A9585

== ENCOUNTER 2023-04-12 01:42 | Emergency (ER) | payer MEDICARE, OTHER ==
[2023-04-12 02:46] VITALS: BP 140/70; PULSE 79; RESP 18; TEMP 98.2
--- NOTE | 2023-04-12 04:19 | ED ---
Dizziness HPI - General Chief Complaint: Dizziness Stated Complaint: Elevated BP Source: patient Mode of arrival: ambulatory Limitations: no limitations - History of Present Illness Initial Comments: 62-year-old male presenting to the ED with a chief complaint of hypertension. Patient states that he woke up from his sleep and notes that he stood up too fast. After this states she started a little lightheaded and went and sat down. Upon sitting for a minute states that this resolved however due to this checked his blood pressure and found it to be elevated at 150-160 systolic. States that he was instructed by his nurse to worry about a blood pressure this high and due to his primary office being closed, came to the ED for further evaluation. Denies any chest pain shortness of breath headache. No other complaints at this time. - Related Data Home Medications Medication Instructions Recorded Confirmed Pantoprazole [Protonix] 40 mg PO BID-W/MEALS 05/27/21 01/02/23 Rivaroxaban [Xarelto] 20 mg PO W/SUPPER 01/12/22 01/02/23 Albuterol Inhaler [Ventolin Hfa 2 puff INHALATION RT-Q6H PRN 01/02/23 01/02/23 Inhaler] Nitroglycerin Sl Tabs [Nitrostat] 0.4 mg SUBLINGUAL Q5M PRN 01/02/23 01/02/23 Ondansetron Odt [Zofran Odt] 4 mg PO Q6H PRN 01/02/23 01/02/23 Previous Rx's Medication Instructions Recorded Clopidogrel [Plavix] 75 mg PO DAILY #30 tab 12/12/22 Ibuprofen [Motrin] 800 mg PO Q6HR #30 tab 01/21/23 polyethylene glycoL 3350 [Miralax] 17 gm PO DAILY 2 Days #2 packet 02/27/23 Allergies Allergy/AdvReac Type Severity Reaction Status Date / Time atorvastatin [From Lipitor] AdvReac muscle Verified 02/26/23 21:44 aches & pains Review of Systems ROS Statement: Those systems with pertinent positive or pertinent negative responses have been documented in the HPI. ROS Other: All systems not noted in ROS Statement are negative. Past Medical History Past Medical History: Coronary Artery Disease (CAD), Chest Pain / Angina, CVA/TIA, Deep Vein Thrombosis (DVT), GERD/Reflux, Hyperlipidemia, Myocardial Infarction ([place]), Sleep Apnea/CPAP/BIPAP Additional Past Medical History / Comment(s): DVT 2002, uses CPAP Last Myocardial Infarction Date:: 08/2006 History of Any Multi-Drug Resistant Organisms: None Reported Past Surgical History: Heart Catheterization With Stent, Hernia Repair Additional Past Surgical History / Comment(s): left leg surgery r/t DVT, ORIF right femur septal deviation surgery in 2015, varicose vein removal in the left leg. Past Anesthesia/Blood Transfusion Reactions: No Reported Reaction Additional Past Anesthesia/Blood Transfusion Reaction / Comment(s): no previous transfusion Date of Last Stent Placement:: 2006 Past Psychological History: No Psychological Hx Reported, Anxiety Smoking Status: Former smoker Past Alcohol Use History: None Reported Past Drug Use History: None Reported - Past Family History Mother Family Medical History: COPD, Diabetes Mellitus, Myocardial Infarction ([place]) Additional Family Medical History / Comment(s): Mother at age 75 with history of hypertension, renal failure on dialysis, CVA 6, diabetes mellitus type 2, congestive heart failure and COPD. Patient does not know his father. He has no brothers or sisters. He is single and no children. General Exam Limitations: no limitations General appearance: alert, in no apparent distress Eye exam: Present: normal appearance Neck exam: Present: normal inspection Respiratory exam: Present: normal lung sounds bilaterally Cardiovascular Exam: Present: regular rate, normal rhythm GI/Abdominal exam: Present: soft Neurological exam: Present: alert Skin exam: Present: warm, dry Course Vital Signs 04/12/23 02:28 Temperature 98.2 F Pulse Rate 79 Respiratory 18 Rate Blood Pressure 140/70 O2 Sat by Pulse 98 Oximetry Medical Decision Making - Medical Decision Making Was pt. sent in by a medical professional or institution (, PA, ORGANIZATIONAL EFFECTIVENESS DIRECTOR, urgent care, hospital, or custodial...) When possible be specific @ -No Did you speak to anyone other than the patient for history (EMS, parent, family, police, friend...)? What history was obtained from this source @ -No Did you review nursing and triage notes (agree or disagree)? Why? @ -I reviewed and agree with nursing and triage notes Were old charts reviewed (outside hosp., previous admission, EMS record, old EKG, old radiological studies, urgent care reports/EKG's, custodial records)? Report findings @ -No old charts were reviewed Differential Diagnosis (chest pain, altered mental status, abdominal pain women, abdominal pain men, vaginal bleeding, weakness, fever, dyspnea, syncope, headache, dizziness, GI bleed, back pain, seizure, CVA, palpatations, mental health, musculoskeletal)? @ -Differential Chest Pain: Stable Angina, Unstable Angina, STEMI, NSTEMI Aortic Dissection, Pneumothorax, Musculoskeletal, Esophageal Spasm GERD, Cholecystitis, Pancreatitis, Zoster, this is not meant to be an all-inclusive list. EKG interpreted by me (3pts min.). @ -None X-rays interpreted by me (1pt min.). @ -None done CT interpreted by me (1pt min.). @ -None done U/S interpreted by me (1pt. min.). @ -None done What testing was considered but not performed or refused? (CT, X-rays, U/S, labs)? Why? @ -None What meds were considered but not given or refused? Why? @ -None Did you discuss the management of the patient with other professionals (professionals i.e. , PA, ORGANIZATIONAL EFFECTIVENESS DIRECTOR, lab, RT, psych nurse, social media editor, sales team member, teacher, fisheries officer, top case assembler)? Give summary @ -No Was smoking cessation discussed for >3mins.? @ -No Was critical care preformed (if so, how long)? @ -No Were there social determinants of health that impacted care today? How? ( Homelessness, low income, unemployed, alcoholism, drug addiction, transportation, low edu. Level, literacy, decrease access to med. care, detention, rehab)? @ -No Was there de-escalation of care discussed even if they declined (Discuss DNR or withdrawal of care, Hospice)? DNR status @ -No What co-morbidities impacted this encounter? (DM, HTN, Smoking, COPD, CAD, Cancer, CVA, ARF, Chemo, Hep., AIDS, mental health diagnosis, sleep apnea, morbid obesity)? @ -None Was patient admitted / discharged? Hospital course, mention meds given and route, prescriptions, significant lab abnormalities, going to OR and other pertinent info. @ -Discharge 62-year-old male presenting after he noted some hypertension in the 150s to 160s systolic at home. Vital signs here show a blood pressure of 140/70. The remainder of his vital signs also appear stable as well. Patient reassured. Discharged home and advised follow-up with his PCP. Discussed return precautions with patient who verbalizes agreement. Undiagnosed new problem with uncertain prognosis? @ -No Drug Therapy requiring intensive monitoring for toxicity (Heparin, Nitro, Insulin, Cardizem)? @ -No Were any procedures done? @ -No Diagnosis/symptom? @ -Hypertension Acute, or Chronic, or Acute on Chronic? @ -Acute on chronic Uncomplicated (without systemic symptoms) or Complicated (systemic symptoms)? @ -Uncomplicated Side effects of treatment? @ -No Exacerbation, Progression, or Severe Exacerbation? @ -No Poses a threat to life or bodily function? How? (Chest pain, [place], [place], pneumonia, PE, COPD, DKA, ARF, appy, cholecystitis, CVA, Diverticulitis, Homicidal, Suicidal, threat to staff... and all critical care pts) @ -No Disposition Clinical Impression: HTN (hypertension) Disposition: HOME SELF-CARE Condition: Good Instructions (If sedation given, give patient instructions): Hypertensive Crisis (ED), Lightheadedness (ED) Additional Instructions: Please return to the Emergency Department if symptoms worsen or any other concerns. Please follow-up with your primary care provider. Is patient prescribed a controlled substance at d/c from ED?: No Referrals: Marques Peacock MD [Primary Care Provider] - 1-2 days Time of Disposition: 04:22
== END 2023-04-12 04:42 | disposition home or self-care (01) ==
LOC: EC 01:42
DX: I10 Essential (primary) hypertension (principal); I25.10 Atherosclerotic heart disease of native coronary artery without angina pectoris; I25.2 Old myocardial infarction; G47.30 Sleep apnea, unspecified; K21.9 Gastro-esophageal reflux disease without esophagitis; Z88.8 Allergy status to other drugs, medicaments and biological substances; Z87.891 Personal history of nicotine dependence; Z79.01 Long term (current) use of anticoagulants; Z86.73 Personal history of transient ischemic attack (TIA), and cerebral infarction without residual deficits; Z79.899 Other long term (current) drug therapy
CPT/HCPCS: 99283

== ENCOUNTER 2023-09-20 16:38 | Emergency (ER) | payer MEDICARE ==
[2023-09-20 16:41] VITALS: TEMP 97.5
--- NOTE | 2023-09-20 17:53 | XR ---
EXAMINATION TYPE: XR KUB DATE OF EXAM: 09/20/2023 5:22 PM CLINICAL INDICATION:Male, 63 years old with history of abdominal pain; [facility] COMPARISON: 02/27/2023. TECHNIQUE: One radiographic view of the abdomen was obtained. FINDINGS: The bowel gas pattern is nonspecific without dilated loops of small or large bowel. There i s no evidence for organomegaly or pneumoperitoneum. The osseous structures are intact. No abnormal calcifications are present. Fecal material and gas are demonstrated throughout the colon and rectum. Surgical anchors are seen in the in the pelvis.. IMPRESSION: Nonspecific bowel gas pattern without radiographic evidence for acute process.
--- NOTE | 2023-09-20 18:34 | ED ---
Abdominal Pain HPI - General Chief Complaint: Abdominal Pain Stated Complaint: Diarrhea Time Seen by Provider: 09/20/23 17:50 Source: patient Mode of arrival: ambulatory Limitations: no limitations - History of Present Illness Initial Comments: 63-year-old male presents emergency department with diarrhea. States that over the past couple of days he has had a few episodes of loose watery stool. He denies any sick contacts with similar symptoms. No history of C. difficile. No recent antibiotic use. Denies any black or bloody stools. He did take Imodium today and it seemed like it helped. He denies history of inflammatory bowel disease. No vomiting. Patient continues to eat and drink without difficulty. No other alleviating, precipitating or modifying factors - Related Data Home Medications Medication Instructions Recorded Confirmed Pantoprazole [Protonix] 40 mg PO BID-W/MEALS 05/27/21 01/02/23 Rivaroxaban [Xarelto] 20 mg PO W/SUPPER 01/12/22 01/02/23 Albuterol Inhaler [Ventolin Hfa 2 puff INHALATION RT-Q6H PRN 01/02/23 01/02/23 Inhaler] Nitroglycerin Sl Tabs [Nitrostat] 0.4 mg SUBLINGUAL Q5M PRN 01/02/23 01/02/23 Ondansetron Odt [Zofran Odt] 4 mg PO Q6H PRN 01/02/23 01/02/23 Previous Rx's Medication Instructions Recorded Clopidogrel [Plavix] 75 mg PO DAILY #30 tab 12/12/22 Ibuprofen [Motrin] 800 mg PO Q6HR #30 tab 01/21/23 polyethylene glycoL 3350 [Miralax] 17 gm PO DAILY 2 Days #2 packet 02/27/23 Allergies Allergy/AdvReac Type Severity Reaction Status Date / Time atorvastatin [From Lipitor] AdvReac muscle Verified 09/20/23 16:41 aches & pains Review of Systems ROS Statement: Those systems with pertinent positive or pertinent negative responses have been documented in the HPI. ROS Other: All systems not noted in ROS Statement are negative. Past Medical History Past Medical History: Coronary Artery Disease (CAD), Chest Pain / Angina, CVA/TIA, Deep Vein Thrombosis (DVT), GERD/Reflux, Hyperlipidemia, Myocardial Infarction ([place]), Sleep Apnea/CPAP/BIPAP Additional Past Medical History / Comment(s): DVT 2002, uses CPAP Last Myocardial Infarction Date:: 08/2006 History of Any Multi-Drug Resistant Organisms: None Reported Past Surgical History: Heart Catheterization With Stent, Hernia Repair Additional Past Surgical History / Comment(s): left leg surgery r/t DVT, ORIF right femur septal deviation surgery in 2015, varicose vein removal in the left leg. Past Anesthesia/Blood Transfusion Reactions: No Reported Reaction Additional Past Anesthesia/Blood Transfusion Reaction / Comment(s): no previous transfusion Date of Last Stent Placement:: 2006 Past Psychological History: No Psychological Hx Reported, Anxiety Smoking Status: Former smoker Past Alcohol Use History: None Reported Past Drug Use History: None Reported - Past Family History Mother Family Medical History: COPD, Diabetes Mellitus, Myocardial Infarction ([place]) Additional Family Medical History / Comment(s): Mother at age 75 with history of hypertension, renal failure on dialysis, CVA 6, diabetes mellitus type 2, congestive heart failure and COPD. Patient does not know his father. He has no brothers or sisters. He is single and no children. General Exam Limitations: no limitations General appearance: alert, in no apparent distress Head exam: Present: atraumatic, normocephalic, normal inspection Eye exam: Present: normal appearance, PERRL, EOMI. Absent: scleral icterus, conjunctival injection, periorbital swelling ENT exam: Present: normal exam, mucous membranes moist Neck exam: Present: normal inspection. Absent: tenderness, meningismus, lymphadenopathy Respiratory exam: Present: normal lung sounds bilaterally. Absent: respiratory distress, wheezes, rales, rhonchi, stridor Cardiovascular Exam: Present: regular rate, normal rhythm, normal heart sounds. Absent: systolic murmur, diastolic murmur, rubs, gallop, clicks GI/Abdominal exam: Present: soft, normal bowel sounds. Absent: distended, tenderness, guarding, rebound, rigid Extremities exam: Present: normal inspection, full ROM, normal capillary refill. Absent: tenderness, pedal edema, joint swelling, calf tenderness Back exam: Present: normal inspection Neurological exam: Present: alert, oriented X3, CN II-XII intact Psychiatric exam: Present: normal affect, normal mood Skin exam: Present: warm, dry, intact, normal color. Absent: rash Course Vital Signs 09/20/23 09/20/23 16:39 20:34 Temperature 97.5 F L Pulse Rate 76 62 Respiratory 18 16 Rate Blood Pressure 136/74 130/79 O2 Sat by Pulse 97 97 Oximetry Medical Decision Making - Medical Decision Making Was pt. sent in by a medical professional or institution (DIANA Peterson, PRINTING GREY CLOTH TENDER, urgent care, hospital, or usp...) When possible be specific @ -No Did you speak to anyone other than the patient for history (EMS, parent, family, police, friend...)? What history was obtained from this source @ -No Did you review nursing and triage notes (agree or disagree)? Why? @ -I reviewed and agree with nursing and triage notes Were old charts reviewed (outside hosp., previous admission, EMS record, old EKG, old radiological studies, urgent care reports/EKG's, usp records)? Report findings @ -No old charts were reviewed Differential Diagnosis (chest pain, altered mental status, abdominal pain women, abdominal pain men, vaginal bleeding, weakness, fever, dyspnea, syncope, heada sawyer, dizziness, GI bleed, back pain, seizure, CVA, palpatations, mental health, musculoskeletal)? @ -C. difficile, GI bleed, gastroenteritis, inflammatory bowel disease EKG interpreted by me (3pts min.). @ -Not done X-rays interpreted by me (1pt min.). @ -Yes and demonstrates no acute process CT interpreted by me (1pt min.). @ -None done U/S interpreted by me (1pt. min.). @ -None done What testing was considered but not performed or refused? (CT, X-rays, U/S, labs)? Why? @ -None What meds were considered but not given or refused? Why? @ -None Did you discuss the management of the patient with other professionals (professionals i.e. DIANA Peterson, PRINTING GREY CLOTH TENDER, lab, RT, psych nurse, social media specialist, rn navigator, teacher, eeo officer, caseworker intake)? Give summary @ -No Was smoking cessation discussed for >3mins.? @ -No Was critical care preformed (if so, how long)? @ -No Were there social determinants of health that impacted care today? How? (Homelessness, low income, unemployed, alcoholism, drug addiction, transportation, low edu. Level, literacy, decrease access to med. care, [facility], rehab)? @ -No Was there de-escalation of care discussed even if they declined (Discuss DNR or withdrawal of care, Hospice)? DNR status @ -No What co-morbidities impacted this encounter? (DM, HTN, Smoking, COPD, CAD, Cancer, CVA, ARF, Chemo, Hep., AIDS, mental health diagnosis, sleep apnea, morbid obesity)? @ -None Was patient admitted / discharged? Hospital course, mention meds given and route, prescriptions, significant lab abnormalities, going to OR and other pertinent info. @ -Upon arrival patient seen and evaluated in hallway 11. Thorough history and physical exam was performed. IV was established. Laboratory studies were conducted. Patient goes for an x-ray. He is able to provide a stool sample. It is negative for C. difficile. Patient is instructed to stay hydrated. He may take Imodium for his continued diarrhea. Follow-up with GI and return for any new or worsening symptoms Undiagnosed new problem with uncertain prognosis? @ -No Drug Therapy requiring intensive monitoring for toxicity (Heparin, Nitro, Insulin, Cardizem)? @ -No Were any procedures done? @ -No Diagnosis/symptom? @ -Acute diarrhea Acute, or Chronic, or Acute on Chronic? @ -Acute Uncomplicated (without systemic symptoms) or Complicated (systemic symptoms)? @ -Complicated Side effects of treatment? @ -No Exacerbation, Progression, or Severe Exacerbation? @ -No Poses a threat to life or bodily function? How? (Chest pain, [place], [place], pneumonia, PE, COPD, DKA, ARF, appy, cholecystitis, CVA, Diverticulitis, Homicidal, Suicidal, threat to staff... and all critical care pts) @ -No - Lab Data Result diagrams: 09/20/23 18:59 09/20/23 18:59 Lab Results 09/20/23 09/20/23 09/20/23 Range/Units 18:39 18:39 18:59 WBC 9.4 (3.8-10.6) k/uL RBC 4.86 (4.30-5.90) m/uL Hgb 14.4 (13.0-17.5) gm/dL Hct 44.8 (39.0-53.0) % MCV 92.3 (80.0-100.0) fL MCH 29.7 (25.0-35.0) pg MCHC 32.2 (31.0-37.0) g/dL RDW 12.5 (11.5-15.5) % Plt Count 236 (150-450) k/uL MPV 7.0 Neutrophils % 72 % Lymphocytes % 18 % Monocytes % 7 % Eosinophils % 1 % Basophils % 0 % Neutrophils # 6.8 (1.3-7.7) k/uL Lymphocytes # 1.7 (1.0-4.8) k/uL Monocytes # 0.6 (0-1.0) k/uL Eosinophils # 0.1 (0-0.7) k/uL Basophils # 0.0 (0-0.2) k/uL Sodium (137-145) mmol/L Potassium (3.5-5.1) mmol/L Chloride (98-107) mmol/L Carbon Dioxide (22-30) mmol/L Anion Gap mmol/L BUN (9-20) mg/dL Creatinine (0.66-1.25) mg/dL Est GFR (CKD-EPI)AfAm (>60 ml/min/1.73 sqM) Est GFR (CKD-EPI)NonAf (>60 ml/min/1.73 sqM) Glucose (74-99) mg/dL Calcium (8.4-10.2) mg/dL Magnesium (1.6-2.3) mg/dL Total Bilirubin (0.2-1.3) mg/dL AST (17-59) U/L ALT (4-49) U/L Alkaline Phosphatase (38-126) U/L Total Protein (6.3-8.2) g/dL Albumin (3.5-5.0) g/dL Amylase (30-110) U/L Lipase (23-300) U/L Urine Color Colorless Urine Appearance Clear (Clear) Urine pH 5.5 (5.0-8.0) Ur Specific [place] 1.001 (1.001-1.035) Urine Protein Negative (Negative) Urine Glucose (UA) Negative (Negative) Urine Ketones Negative (Negative) Urine Blood Negative (Negative) Urine Nitrite Negative (Negative) Urine Bilirubin Negative (Negative) Urine Urobilinogen <2.0 (<2.0) mg/dL Ur Leukocyte Esterase Negative (Negative) C. difficile (EIA) Intrp Negative (Negative) 09/20/23 09/20/23 Range/Units 18:59 18:59 WBC (3.8-10.6) k/uL RBC (4.30-5.90) m/uL Hgb (13.0-17.5) gm/dL Hct (39.0-53.0) % MCV (80.0-100.0) fL MCH (25.0-35.0) pg MCHC (31.0-37.0) g/dL RDW (11.5-15.5) % Plt Count (150-450) k/uL MPV Neutrophils % % Lymphocytes % % Monocytes % % Eosinophils % % Basophils % % Neutrophils # (1.3-7.7) k/uL Lymphocytes # (1.0-4.8) k/uL Monocytes # (0-1.0) k/uL Eosinophils # (0-0.7) k/uL Basophils # (0-0.2) k/uL Sodium 131 L (137-145) mmol/L Potassium 3.7 (3.5-5.1) mmol/L Chloride 96 L (98-107) mmol/L Carbon Dioxide 27 (22-30) mmol/L Anion Gap 8 mmol/L BUN 22 H (9-20) mg/dL Creatinine 0.88 (0.66-1.25) mg/dL Est GFR (CKD-EPI)AfAm >90 (>60 ml/min/1.73 sqM) Est GFR (CKD-EPI)NonAf >90 (>60 ml/min/1.73 sqM) Glucose 92 (74-99) mg/dL Calcium 9.6 (8.4-10.2) mg/dL Magnesium 1.9 (1.6-2.3) mg/dL Total Bilirubin 1.0 (0.2-1.3) mg/dL AST 24 (17-59) U/L ALT 19 (4-49) U/L Alkaline Phosphatase 66 (38-126) U/L Total Protein 7.3 (6.3-8.2) g/dL Albumin 4.6 (3.5-5.0) g/dL Amylase 81 (30-110) U/L Lipase 77 (23-300) U/L Urine Color Urine Appearance (Clear) Urine pH (5.0-8.0) Ur Specific [place] (1.001-1.035) Urine Protein (Negative) Urine Glucose (UA) (Negative) Urine Ketones (Negative) Urine Blood (Negative) Urine Nitrite (Negative) Urine Bilirubin (Negative) Urine Urobilinogen (<2.0) mg/dL Ur Leukocyte Esterase (Negative) C. difficile (EIA) Intrp (Negative) Disposition Clinical Impression: Diarrhea Disposition: HOME SELF-CARE Condition: Stable Instructions (If sedation given, give patient instructions): Acute Diarrhea (ED) Additional Instructions: We will call you with the rest of your test results. You may continue taking immodium for now for your symptoms. Is patient prescribed a controlled substance at d/c from ED?: No Referrals: Marques Peacock MD [Primary Care Provider] - 1-2 days Time of Disposition: 20:22
[2023-09-20 19:08] LABS: Appearance,Urine Clear (Clear); Bilirubin,Urine Negative (Negative); Blood,Urine Negative (Negative); Color,Urine Colorless; Glucose,Urine (UA) Negative (Negative); Ketones,Urine Negative (Negative); Leukocyte Esterase,Urine Negative (Negative); Nitrite,Urine Negative (Negative); PH, Urine 5.5 (5.0-8.0); Protein,Urine Negative (Negative); Specific Gravity,Urine 1.001 (1.001-1.035); Urobilinogen,Urine <2.0 mg/dL (<2.0)
[2023-09-20 19:29] LABS: Basophils % (A) 0 %; Eosinophils # (A) 0.1 k/uL (0-0.7); Eosinophils % (A) 1 %; HCT 44.8 % (39.0-53.0); HGB 14.4 gm/dL (13.0-17.5); Lymphocytes # (A) 1.7 k/uL (1.0-4.8); Lymphocytes % (A) 18 %; MCH 29.7 pg (25.0-35.0); MCHC 32.2 g/dL (31.0-37.0); MCV 92.3 fL (80.0-100.0); Monocytes # (A) 0.6 k/uL (0-1.0); Monocytes % (A) 7 %; Neutrophils # (A) 6.8 k/uL (1.3-7.7); Neutrophils % (A) 72 %; Platelet Count 236 k/uL (150-450); RBC 4.86 m/uL (4.30-5.90); RDW 12.5 % (11.5-15.5); WBC 9.4 k/uL (3.8-10.6)
[2023-09-20 20:06] LABS: ALT 19 U/L (4-49); AST 24 U/L (17-59); African American GFR (CKD) >90 (>60 ml/min/1.73 sqM); Albumin 4.6 g/dL (3.5-5.0); Alkaline Phosphatase 66 U/L (38-126); Amylase 81 U/L (30-110); Anion Gap 8 mmol/L; Blood Urea Nitrogen 22 mg/dL (9-20); Calcium 9.6 mg/dL (8.4-10.2); Carbon Dioxide 27 mmol/L (22-30); Chloride 96 mmol/L (98-107); Glucose 92 mg/dL (74-99); Lipase 77 U/L (23-300); Non-African American GFR(CKD) >90 (>60 ml/min/1.73 sqM); Potassium 3.7 mmol/L (3.5-5.1); Sodium 131 mmol/L (137-145); Total Protein 7.3 g/dL (6.3-8.2)
[2023-09-20 20:36] VITALS: BP 130/79; PULSE 62; RESP 16
== END 2023-09-20 20:35 | disposition home or self-care (01) ==
LOC: EC 16:38
DX: R19.7 Diarrhea, unspecified (principal); Z87.891 Personal history of nicotine dependence; Z86.73 Personal history of transient ischemic attack (TIA), and cerebral infarction without residual deficits; Z88.8 Allergy status to other drugs, medicaments and biological substances
CPT/HCPCS: 36415; 74018; 80053; 81003; 82150; 83690; 83735; 85025; 87045; 87046; 87324; 99284

== ENCOUNTER → 2023-10-21 | Outpatient (CLI) | payer MEDICARE ==
--- NOTE | 2023-10-22 08:01 | US ---
EXAMINATION TYPE: US thyroid st tissue head/neck DATE OF EXAM: 10/21/2023 COMPARISON: NONE CLINICAL INDICATION: Male, 63 years old with history of D34 BENIGN NEOPLASM OF THYROID GLAND; GLAND SIZE: Right Lobe: 5.0 x 1.8 x 2.1 cm Overall Parenchyma: heterogeneous Left Lobe: 5.4 x 2.0 x 1.6 cm Overall Parenchyma: heterogeneous Isthmus Thickness: 0.3 cm NODULES RIGHT: # of nodules measured on right: 0 LEFT: # of nodules measured on left: 0 ISTHMUS: # of nodules measured in the isthmus: 0 Bilateral neck scanned, no evidence of lymphadenopathy. IMPRESSION: Thyroid glandular heterogeneity is nonspecific. Correlate with thyroid function testing. 2017 ACR TI-RADS LEVEL: *Highest TI-RADS level nodule reported
== END | disposition home or self-care (01) ==
LOC: RADUSWWP 15:28
PROVIDERS: ATTEND Internal Medicine Geriatric Medicine
DX: D34 Benign neoplasm of thyroid gland (principal)
CPT/HCPCS: 76536

== ENCOUNTER 2024-04-17 23:17 | Emergency (ER) | payer MEDICARE ==
[2024-04-17 23:22] VITALS: RESP 18; TEMP 97.5
[2024-04-18 00:03] LABS: Glucose,Whole Blood 111 mg/dL (70-110)
--- NOTE | 2024-04-18 00:19 | ED ---
General Adult HPI - General Chief complaint: Recheck/Abnormal Lab/Rx Stated complaint: [place] Time Seen by Provider: 04/17/24 23:32 Source: patient Mode of arrival: ambulatory - History of Present Illness Initial comments: Patient is a 63-year-old gentleman the past medical history of sleep apnea, hypertension presenting today for shaking episode. Patient states that he was sleeping this evening when he woke felt by shaking. This lasted for few minutes. He got out of bed went to the bathroom cannot have a movement and felt fine. He denies any additional symptoms including shortness of breath, chest pain, headache, new numbness or weakness, changes in vision, abdominal pain, nausea, vomiting, melena, medic easier, fevers or chills. Patient currently states that he is asymptomatic and thinks he may have had an apneic period from his sleep apnea. - Related Data Home Medications Medication Instructions Recorded Confirmed Pantoprazole [Protonix] 40 mg PO BID-W/MEALS 05/27/21 01/02/23 Rivaroxaban [Xarelto] 20 mg PO W/SUPPER 01/12/22 01/02/23 Albuterol Inhaler [Ventolin Hfa 2 puff INHALATION RT-Q6H PRN 01/02/23 01/02/23 Inhaler] Nitroglycerin Sl Tabs [Nitrostat] 0.4 mg SUBLINGUAL Q5M PRN 01/02/23 01/02/23 Ondansetron Odt [Zofran Odt] 4 mg PO Q6H PRN 01/02/23 01/02/23 Previous Rx's Medication Instructions Recorded Clopidogrel [Plavix] 75 mg PO DAILY #30 tab 12/12/22 Ibuprofen [Motrin] 800 mg PO Q6HR #30 tab 01/21/23 polyethylene glycoL 3350 [Miralax] 17 gm PO DAILY 2 Days #2 packet 02/27/23 Allergies Allergy/AdvReac Type Severity Reaction Status Date / Time atorvastatin [From Lipitor] AdvReac muscle Verified 04/17/24 23:22 aches & pains Review of Systems ROS Statement: Those systems with pertinent positive or pertinent negative responses have been documented in the HPI. ROS Other: All systems not noted in ROS Statement are negative. Past Medical History Past Medical History: Coronary Artery Disease (CAD), Chest Pain / Angina, CVA/TIA, Deep Vein Thrombosis (DVT), GERD/Reflux, Hyperlipidemia, Myocardial Infarction ([place]), Sleep Apnea/CPAP/BIPAP Additional Past Medical History / Comment(s): DVT 2002, uses CPAP Last Myocardial Infarction Date:: 08/2006 History of Any Multi-Drug Resistant Organisms: None Reported Past Surgical History: Heart Catheterization With Stent, Hernia Repair Additional Past Surgical History / Comment(s): left leg surgery r/t DVT, ORIF right femur septal deviation surgery in 2014, varicose vein removal in the left leg. Past Anesthesia/Blood Transfusion Reactions: No Reported Reaction Additional Past Anesthesia/Blood Transfusion Reaction / Comment(s): no previous transfusion Date of Last Stent Placement:: 2006 Past Psychological History: No Psychological Hx Reported, Anxiety Smoking Status: Former smoker Past Alcohol Use History: None Reported Past Drug Use History: None Reported - Past Family History Mother Family Medical History: COPD, Diabetes Mellitus, Myocardial Infarction ([place]) Additional Family Medical History / Comment(s): Mother at age 75 with history of hypertension, renal failure on dialysis, CVA 6, diabetes mellitus type 2, congestive heart failure and COPD. Patient does not know his father. He has no brothers or sisters. He is single and no children. General Exam - General Exam Comments Initial Comments: PE: CONSTITUTIONAL: [no apparent distress, well appearing] SKIN: [warm, dry, no jaundice, hives or petechiae] EYES:[ pupils are equally round, extraocular movements intact without nystagmus, clear conjunctiva, non-icteric sclera] HENT: [normocephalic, atraumatic, moist mucus membranes, oropharynx clear without exudates] NECK: , [Full range of motion, normal appearance] PULMONARY: [clear to auscultation without wheezes, rhonchi, or rales, normal excursion, no accessory muscle use and no stridor] CARDIOVASCULAR:[ regular rate, rhythm, normal S1 and S2. No appreciated murmurs, rubs or gallops. Strong radial pulses with intact distal perfusion. No lower extremity edema] GASTROINTESTINAL: [soft, active bowel sounds throughout, non-tender, non- distended, no palpable masses, no rebound or guarding. No hepatosplenomegaly] GENITOURINARY: MUSCULOSKELETAL: [Extremities have no gross deformity, no edema, redness, or swelling. No calf swelling ] NEUROLOGIC: [_a/o x 3, GCS 15, normal mentation and speech. Moves all extremities x 4 without motor or sensory deficit] PSYCHIATRIC:[ _normal mood and affect, thought process is clear and linear] Course Vital Signs 04/17/24 23:19 Temperature 97.5 F L Pulse Rate 75 Respiratory 18 Rate Blood Pressure 124/75 O2 Sat by Pulse 99 Oximetry Medical Decision Making - Medical Decision Making Was pt. sent in by a medical professional or institution (, DIANA, DAMAGE INSIDE ADJUSTER, urgent care, hospital, or assisted...) When possible be specific @ -[No] Did you speak to anyone other than the patient for history (EMS, parent, family, police, friend...)? What history was obtained from this source @ -[No] Did you review nursing and triage notes (agree or disagree)? Why? @ -[I reviewed nursing and triage notes] Were old charts reviewed (outside hosp., previous admission, EMS record, old EKG, old radiological studies, urgent care reports/EKG's, assisted records)? Report findings @ -[Medical records reviewed] Differential Diagnosis (chest pain, altered mental status, abdominal pain women, abdominal pain men, vaginal bleeding, weakness, fever, dyspnea, syncope, headache, dizziness, GI bleed, back pain, seizure, CVA, palpatations, mental health, musculoskeletal)? @Differential diagnose buffy broad over top considerations include apneic period from sleep apnea, hypoglycemia, rigors, EKG interpreted by me (3pts min.). @ -[As above] X-rays interpreted by me (1pt min.). @ -[None done] CT interpreted by me (1pt min.). @ -[None done] U/S interpreted by me (1pt. min.). @ -[None done] What testing was considered but not performed or refused? (CT, X-rays, U/S, labs)? Why? @ EKG and basic labs were considered, however patient politely declined, stated that he felt fine What meds were considered but not given or refused? Why? @ -[None] Did you discuss the management of the patient with other professionals (blanca mendoza i.e. , DIANA, DAMAGE INSIDE ADJUSTER, lab, RT, psych nurse, certified social workers in health care, hydraulic specialist, teacher, project officer, skilled nursing case manager)? Give summary @ -[No] Was smoking cessation discussed for >3mins.? @ -[No] Was critical care preformed (if so, how long)? @ -[No] Were there social determinants of health that impacted care today? How? (Homelessness, low income, unemployed, alcoholism, drug addiction, transportation, low edu. Level, literacy, decrease access to med. care, prison, rehab)? @ -[No] Was there de-escalation of care discussed even if they declined (Discuss DNR or withdrawal of care, Hospice)? @ -[No] What co-morbidities impacted this encounter? (DM, HTN, Smoking, COPD, CAD, Cancer, CVA, ARF, Chemo, Hep., AIDS, mental health diagnosis, sleep apnea, morbid obesity)? @ -[None] Was patient admitted / discharged? Hospital course, mention meds given and route, prescriptions, significant lab abnormalities, going to OR and other pertinent info. @ -[hospital course] patient is a pleasant 63-year-old woman presenting today for shaking episode, otherwise asymptomatic. Asymptomatic on arrival. Complete history and physical exam are performed. Patient is no focal neurologic deficits, no seizure-like activity, no murmurs rubs or gallops on cardiac exam. I did discuss sitting obtaining an EKG and basic labs however patient states that he currently feels fine and prefers discharge home. We able to do blood glucose to ensure no episodes of hypoglycemia and on discharge. Undiagnosed new problem with uncertain prognosis? @ -[No] Drug Therapy requiring intensive monitoring for toxicity (Heparin, Nitro, Insulin, Cardizem)? @ -[No] Were any procedures done? @ -[No] Diagnosis/symptom? @Shaking episode Acute, or Chronic, or Acute on Chronic? @Acute Uncomplicated (without systemic symptoms) or Complicated (systemic symptoms)? @ -uncomplicated Side effects of treatment? @ -[No] Exacerbation, Progression, or Severe Exacerbation? @ -[No] Poses a threat to life or bodily function? How? (Chest pain, [place], [place], pneumonia, PE, COPD, DKA, ARF, appy, cholecystitis, CVA, Diverticulitis, Homicidal, Suicidal, threat to staff... and all critical care pts) @ -[No] - Lab Data Lab Results 04/18/24 Range/Units 00:01 POC Glucose (mg/dL) 111 H (70-110) mg/dL POC Glu Etiologist ID Latoya Haney Disposition Clinical Impression: Episode of shaking Disposition: HOME SELF-CARE Condition: Stable Additional Instructions: Every disease is a spectrum and a small chance still exists that a serious condition could develop, for this reason, please monitor yourself closely for new, changing or worsening symptoms, difficulty in breathing, chest pain, feeling like you are going to pass out or episodes of passing out, numbness, weakness, changes in vision, slurred speech fever, inability to tolerate/keep down fluids or your medications, inability to follow up with outpatient providers as instructed and should you experience these symptoms or should you have any further concerns for your wellbeing please return to the ED or call 911 immediately. PLEASE call your primary care physician as soon as possible to arrange / discuss plan for followup appointment. Appointment in the next 1-3 days is strongly encouraged if possible. PLEASE let us know here before you leave if there is anything further we can do to be of any assistance. Take care and feel Better! Is patient prescribed a controlled substance at d/c from ED?: No Referrals: Marques Peacock MD [Primary Care Provider] - 1-2 days
[2024-04-18 00:33] VITALS: BP 114/71; PULSE 67
== END 2024-04-18 00:32 | disposition home or self-care (01) ==
LOC: EC 23:17
DX: R25.1 Tremor, unspecified (principal); I10 Essential (primary) hypertension; G47.30 Sleep apnea, unspecified; Z87.891 Personal history of nicotine dependence; Z88.8 Allergy status to other drugs, medicaments and biological substances
CPT/HCPCS: 36415; 99285

== ENCOUNTER 2024-04-19 21:46 | Emergency (ER) | payer MEDICARE ==
[2024-04-19 21:51] VITALS: BP 143/80; PULSE 83; RESP 18; TEMP 97.8
== END 2024-04-19 21:55 | disposition left against medical advice (07) ==
LOC: EC 21:46
DX: Z53.21 Procedure and treatment not carried out due to patient leaving prior to being seen by health care provider (principal)
CPT/HCPCS: 99499

== ENCOUNTER 2024-04-23 19:35 | Outpatient (CLI) | payer MEDICARE ==
--- NOTE | 2024-04-30 18:14 | P.PCN ---
Date of Procedure: 04/23/24 Operative Findings: CPAP titration Date of service is 04/23/2024 History This is a 63-year-old male patient with known history of obstructive sleep apnea, severe with an AHI of 77. He is also noted COPD, coronary artery disease and hyperlipidemia. The patient was having difficulties with air swallowing and abdominal distention while being on APAP therapy. He was utilizing a AirTouch fullface mask with a settings of 10/15 cm of water. During his last compliancy evaluation, the patient was noted to have residual obstructive respiratory events with an AHI of 21. His 95th percentile pressure was 14. He was extremely compliant to his treatment averaging around 8.8 hours of CPAP use per night. Based on ongoing difficulties with air swallowing, gastric distention and residual obstructive sleep apnea, another titration was ordered. Physical findings The patient's weight is 176 pounds and the patient's height is 5 feet and 8 inches with a body mass index of 26.8 Technical description The patient was studied using a standard complex polysomnography protocol that included recording of the Lead II EKG, Central, occipital and frontal EEG, right and left outer canthus EOG, submental EMG, right and left anterior tibialis EMG, respiratory airflow by thermocouple and or pressure/flow transducer, respiratory efforts by abdominal and thoracic PVDF belts, oxygen saturation by cable oximetry. Position by observation synchronized the PSG. Equipment used: Convozine. Stepwise CPAP titration was done to eliminate all obstructive respiratory events Sleep architecture The recording time was 379 minutes. The total sleep time was 250 minutes. The wake after sleep onset was 124.5 minutes. The overall sleep efficiency was 56.7%. The latency to sleep onset was 38.5 minutes. The sleep architecture was characterized by 0.9% stage I, 51.6% stage II, 30.9% stage III, 16.5% REM sleep. The total arousal index was 9.2. The latest REM onset was 72 minutes. Respiratory analysis The patient was started on CPAP therapy initiated pressure of 7 cm of water and the pressure was gradually increased by increments of 1 cm to reach a maximum CPAP pressure of 14 cm of water. It was noted that while on CPAP therapy, the patient continued to have obstructive respiratory events and oxygen desaturations. AHI was high. At that point, the patient was tried on a BiPAP and utilize BiPAP pressures were 21/16 and 22/17, 23/18 and 23/19 and 24 over 20 cm of water. I carefully reviewed the titration taken, the patient's sleep stage and body position. Noted overall sleep efficiency was poor. It was clear to me that the patient did not better while being on a BiPAP compared to the CPAP. The various BiPAP pressures utilized were effective in eliminating the obstructive respiratory events keeping the patient's oxygen saturation above 90%. Nevertheless, utilize pressures were quite high and I am concerned that the patient may encounter gastric sensation while being a dose there is BiPAP pressures. Noted the measurements were done while the patient was assuming a nonsupine body position as the patient slept on his right side for the majority of the sleep study. Study was done in REM and non-REM sleep Sleep continuity The total number of arousals were 33 with an arousal index of 9.2. The respiratory arousal index was 4.5 Periodic limb movements No significant periodic limb movement activity identified Cardiac summary Average heart rate was 56 and the rhythm was sinus. Assessment Severe symptomatic obstructive sleep apnea with an AHI of 77. The patient failed CPAP therapy as the patient was having residual obstructive respiratory events and was encountering significant abdominal distention and air swallowing while being on a higher CPAP pressures. The BiPAP titration was quite successful as the patient had completed elimination of the obstructive respiratory events while being on a BiPAP maintaining oxygen saturation above 90%. Plan Will initiate BiPAP therapy. I recommend a VPAP auto with an EPAP minimum of 10 and a maximum of 20 and a pressure support of 4. The patient will be given an AirTouch fullface mask medium size. The patient was seen back in office in 30 to 90 days to assess clinical response and compliancy. Will make further adjustments in the BiPAP setting based on the overall clinical response. In summary, the patient will be switched from CPAP to BiPAP to improve efficacy of the treatment and improved tolerability.
== END 2024-04-24 05:25 | disposition home or self-care (01) ==
LOC: 3 N SLEEP 19:35
PROVIDERS: ATTEND Internal Medicine Critical Care Medicine
DX: G47.33 Obstructive sleep apnea (adult) (pediatric) (principal); R14.0 Abdominal distension (gaseous); Z88.8 Allergy status to other drugs, medicaments and biological substances; Z87.891 Personal history of nicotine dependence
CPT/HCPCS: 95811

== ENCOUNTER 2024-06-17 11:24 | Emergency (ER) | payer MEDICARE ==
[2024-06-17 11:53] VITALS: PULSE 76; RESP 18
--- NOTE | 2024-06-17 12:10 | ED ---
Male Urogenital HPI - General Chief complaint: Urogenital Stated complaint: Groin pain Time Seen by Provider: 06/17/24 12:09 Source: patient, RN notes reviewed Mode of arrival: ambulatory Limitations: no limitations - History of Present Illness Initial comments: 64-year-old male presented the ER for evaluation of right groin discomfort. Patient reports yesterday while on his nightly walk he felt a pop in his right groin. He states he has been having a burning discomfort to the area since then. He denies any radiation of this discomfort, aggravating or precipitating factors. Patient does report a right inguinal hernia repair with mesh approximately 2 years ago this was completed at [facility]. Patient reports normal bowel movements, flatulence since incident. He denies any scrotal pain or swelling. No urinary complaints. No fevers, chills, nausea or vomiting. Patient has not taken anything for his discomfort at this time. No other complaints. - Related Data Home Medications Medication Instructions Recorded Confirmed Pantoprazole [Protonix] 40 mg PO BID-W/MEALS 05/27/21 01/02/23 Rivaroxaban [Xarelto] 20 mg PO W/SUPPER 01/12/22 01/02/23 Albuterol Inhaler [Ventolin Hfa 2 puff INHALATION RT-Q6H PRN 01/02/23 01/02/23 Inhaler] Nitroglycerin Sl Tabs [Nitrostat] 0.4 mg SUBLINGUAL Q5M PRN 01/02/23 01/02/23 Ondansetron Odt [Zofran Odt] 4 mg PO Q6H PRN 01/02/23 01/02/23 Previous Rx's Medication Instructions Recorded Clopidogrel [Plavix] 75 mg PO DAILY #30 tab 12/12/22 Ibuprofen [Motrin] 800 mg PO Q6HR #30 tab 01/21/23 polyethylene glycoL 3350 [Miralax] 17 gm PO DAILY 2 Days #2 packet 02/27/23 Allergies Allergy/AdvReac Type Severity Reaction Status Date / Time atorvastatin [From Lipitor] AdvReac muscle Verified 06/17/24 11:53 aches & pains Review of Systems ROS Statement: Those systems with pertinent positive or pertinent negative responses have been documented in the HPI. ROS Other: All systems not noted in ROS Statement are negative. Past Medical History Past Medical History: Coronary Artery Disease (CAD), Chest Pain / Angina, CVA/TIA, Deep Vein Thrombosis (DVT), GERD/Reflux, Hyperlipidemia, Myocardial Infarction ([place]), Sleep Apnea/CPAP/BIPAP Additional Past Medical History / Comment(s): DVT 2002, uses CPAP Last Myocardial Infarction Date:: 08/2006 History of Any Multi-Drug Resistant Organisms: None Reported Past Surgical History: Heart Catheterization With Stent, Hernia Repair Additional Past Surgical History / Comment(s): left leg surgery r/t DVT, ORIF right femur septal deviation surgery in 2014, varicose vein removal in the left leg. Past Anesthesia/Blood Transfusion Reactions: No Reported Reaction Additional Past Anesthesia/Blood Transfusion Reaction / Comment(s): no previous transfusion Date of Last Stent Placement:: 2006 Past Psychological History: No Psychological Hx Reported, Anxiety Smoking Status: Former smoker Past Alcohol Use History: None Reported Past Drug Use History: None Reported - Past Family History Mother Family Medical History: COPD, Diabetes Mellitus, Myocardial Infarction ([place]) Additional Family Medical History / Comment(s): Mother at age 75 with history of hypertension, renal failure on dialysis, CVA 6, diabetes mellitus type 2, congestive heart failure and COPD. Patient does not know his father. He has no brothers or sisters. He is single and no children. General Exam - General Exam Comments Initial Comments: Visual Physical Exam Vital signs reviewed General: Well-appearing, nontoxic, no acute distress. Head: Normocephalic, atraumatic Eyes: PERRLA, EOMI ENT: Airway patent Chest: Nonlabored breathing Skin: No visual rash, normal skin tone Neuro: Alert and oriented 3 Musculoskeletal: No gross abnormalities Limitations: no limitations General appearance: alert, in no apparent distress Respiratory exam: Present: normal lung sounds bilaterally. Absent: respiratory distress, wheezes, rales, rhonchi, stridor Cardiovascular Exam: Present: regular rate, normal rhythm, normal heart sounds. Absent: systolic murmur, diastolic murmur, rubs, gallop, clicks GI/Abdominal exam: Present: soft, normal bowel sounds. Absent: distended, tenderness, guarding, rebound, rigid exam: Present: normal inspection, other (No lymphadenopathy) External exam: Present: normal external exam, other (No inguinal hernia. No scrotal abnormality or tenderness.) Neurological exam: Present: alert, oriented X3, CN II-XII intact Skin exam: Present: warm, dry, intact, normal color. Absent: rash Course Vital Signs 06/17/24 06/17/24 11:50 16:17 Temperature 97.7 F 97.8 F Pulse Rate 76 76 Respiratory 18 18 Rate Blood Pressure 126/76 124/76 O2 Sat by Pulse 99 99 Oximetry - Reevaluation(s) Reevaluation #1: 06/18/24 16:51 Hernia exam chaperones by Es Mercado RN. Medical Decision Making - Medical Decision Making I performed the quick note portion of this chart. Electronically signed by Estella Ulrich PA-C Was pt. sent in by a medical professional or institution (, DIANA, AIR VICE MARSHAL, urgent care, hospital, or correction...) When possible be specific @ -No Did you speak to anyone other than the patient for history (EMS, parent, family, police, friend...)? What history was obtained from this source @ -No Did you review nursing and triage notes (agree or disagree)? Why? @ -I reviewed and agree with nursing and triage notes Were old charts reviewed (outside hosp., previous admission, EMS record, old EKG, old radiological studies, urgent care reports/EKG's, correction records)? Report findings @ -No old charts were reviewed Differential Diagnosis (chest pain, altered mental status, abdominal pain women, abdominal pain men, vaginal bleeding, weakness, fever, dyspnea, syncope, headache, dizziness, GI bleed, back pain, seizure, CVA, palpatations, mental health, musculoskeletal)? @ -Hernia, UTI, testicular torsion, bowel obstruction... This list is not meant to be all-inclusive EKG interpreted by me (3pts min.). @ -None done X-rays interpreted by me (1pt min.). @ -None done CT interpreted by me (1pt min.). @ -None done U/S interpreted by me (1pt. min.). @ -None done What testing was considered but not performed or refused? (CT, X-rays, U/S, labs)? Why? @ -Imaging considered but not performed as there was no hernia noted on exam. There is no pain with hip ROM. No lymphadenopathy. What meds were considered but not given or refused? Why? @ -None Did you discuss the management of the patient with other professionals (professionals i.e. , PA, AIR VICE MARSHAL, lab, RT, psych nurse, adoption social worker, corporate security manager, teacher, district resource officer, complex case manager)? Give summary @ -No Was smoking cessation discussed for >3mins.? @ -No Was critical care preformed (if so, how long)? @ -No Were there social determinants of health that impacted care today? How? (Homelessness, low income, unemployed, alcoholism, drug addiction, transportation, low edu. Level, literacy, decrease access to med. care, custodial, rehab)? @ -No Was there de-escalation of care discussed even if they declined (Discuss DNR or withdrawal of care, Hospice)? DNR status @ -No What co-morbidities impacted this encounter? (DM, HTN, Smoking, COPD, CAD, Cancer, CVA, ARF, Chemo, Hep., AIDS, mental health diagnosis, sleep apnea, morbid obesity)? @ -None Was patient admitted / discharged? Hospital course, mention meds given and route, prescriptions, significant lab abnormalities, going to OR and other pertinent info. @ -Discharge. 64-year-old male presented the ER for evaluation of right groin pain. Vitals within acceptable limits. Urinalysis unremarkable, no urinary complaints. Exam negative for abdominal tenderness, hernias, scrotal abnormalities, or lymphadenopathy. Painless hip range of motion. Patient is neurovascularly intact. Patient will follow-up outpatient with PCP. Conservative treatment options completed. Return parameters discussed. Patient verbally expressed understanding and agreement with care plan. Case discussed with ED attending, Dr. Awan. Undiagnosed new problem with uncertain prognosis? @ -No Drug Therapy requiring intensive monitoring for toxicity (Heparin, Nitro, Insulin, Cardizem)? @ -No Were any procedures done? @ -No Diagnosis/symptom? @ -Groin pain Acute, or Chronic, or Acute on Chronic? @ -Acute Uncomplicated (without systemic symptoms) or Complicated (systemic symptoms)? @ -Uncomplicated Side effects of treatment? @ -No Exacerbation, Progression, or Severe Exacerbation? @ -No Poses a threat to life or bodily function? How? (Chest pain, [place], [place], pneumonia, PE, COPD, DKA, ARF, appy, cholecystitis, CVA, Diverticulitis, Homicidal, Suicidal, threat to staff... and all critical care pts) @ -No - Lab Data Lab Results 06/17/24 Range/Units 12:16 Urine Color Colorless Urine Appearance Clear (Clear) Urine pH 5.0 (5.0-8.0) Ur Specific [place] 1.010 (1.001-1.035) Urine Protein Negative (Negative) Urine Glucose (UA) Negative (Negative) Urine Ketones Negative (Negative) Urine Blood Negative (Negative) Urine Nitrite Negative (Negative) Urine Bilirubin Negative (Negative) Urine Urobilinogen <2.0 (<2.0) mg/dL Ur Leukocyte Esterase Negative (Negative) Disposition Clinical Impression: Groin pain Disposition: HOME SELF-CARE Condition: Stable Additional Instructions: Follow-up with surgeon and PCP. Return to the ER for any new or worsening concerns. Is patient prescribed a controlled substance at d/c from ED?: No Referrals: Marques Peacock MD [Primary Care Provider] - 1-2 days Time of Disposition: 16:03
[2024-06-17 12:44] LABS: Appearance,Urine Clear (Clear); Bilirubin,Urine Negative (Negative); Blood,Urine Negative (Negative); Color,Urine Colorless; Glucose,Urine (UA) Negative (Negative); Ketones,Urine Negative (Negative); Leukocyte Esterase,Urine Negative (Negative); Nitrite,Urine Negative (Negative); Protein,Urine Negative (Negative); Urobilinogen,Urine <2.0 mg/dL (<2.0)
[2024-06-17 16:17] VITALS: BP 124/76; TEMP 97.8
== END 2024-06-17 16:18 | disposition home or self-care (01) ==
LOC: EC 11:24
DX: R10.31 Right lower quadrant pain (principal); Z87.891 Personal history of nicotine dependence; Z88.8 Allergy status to other drugs, medicaments and biological substances
CPT/HCPCS: 81003; 99283

== ENCOUNTER 2024-07-02 13:25 | Emergency (ER) | payer MEDICARE ==
[2024-07-02 13:37] VITALS: TEMP 97.5
--- NOTE | 2024-07-02 13:40 | ED ---
General Adult HPI - General Chief complaint: Chest Pain Stated complaint: heartburn Time Seen by Provider: 07/02/24 13:38 Source: patient Mode of arrival: wheelchair Limitations: no limitations - History of Present Illness Initial comments: Patient presents to the ED stating that after eating some cereal this morning, he became "very bloated". Patient states that he then began to experience symptoms of "heartburn" in his chest about 2 hours or so ago. Patient states that he burped a few times, and he states that his heartburn has since completely resolved. Patient denies having any symptoms at all currently. Patient states that he recently switched from CPAP to BiPAP for management of his obstructive sleep apnea, and he is concerned that the BiPAP may be causing him to be bloated. Patient denies trauma or injury, fever or chills, headache, focal neuro deficit, neck/arm/jaw/back pain, pleuritic pain, dyspnea, cough or cold symptoms, palpitations, dizziness, nausea/vomiting/diaphoresis, abdominal pain, diarrhea or constipation, bloody or melanotic stool, dysuria or urinary symptoms, decreased urine output, leg or calf swelling or pain, or any other symptoms or complaints. Patient states that he is on Xarelto anticoagulation therapy. - Related Data Home Medications Medication Instructions Recorded Confirmed Pantoprazole [Protonix] 40 mg PO BID-W/MEALS 05/27/21 01/02/23 Rivaroxaban [Xarelto] 20 mg PO W/SUPPER 01/12/22 01/02/23 Albuterol Inhaler [Ventolin Hfa 2 puff INHALATION RT-Q6H PRN 01/02/23 01/02/23 Inhaler] Nitroglycerin Sl Tabs [Nitrostat] 0.4 mg SUBLINGUAL Q5M PRN 01/02/23 01/02/23 Ondansetron Odt [Zofran Odt] 4 mg PO Q6H PRN 01/02/23 01/02/23 Previous Rx's Medication Instructions Recorded Clopidogrel [Plavix] 75 mg PO DAILY #30 tab 12/12/22 Ibuprofen [Motrin] 800 mg PO Q6HR #30 tab 01/21/23 polyethylene glycoL 3350 [Miralax] 17 gm PO DAILY 2 Days #2 packet 02/27/23 Allergies Allergy/AdvReac Type Severity Reaction Status Date / Time atorvastatin [From Lipitor] AdvReac muscle Verified 07/02/24 13:37 aches & pains Review of Systems ROS Statement: Those systems with pertinent positive or pertinent negative responses have been documented in the HPI. ROS Other: All systems not noted in ROS Statement are negative. Past Medical History Past Medical History: Coronary Artery Disease (CAD), Chest Pain / Angina, CVA/TIA, Deep Vein Thrombosis (DVT), GERD/Reflux, Hyperlipidemia, Myocardial Infarction ([place]), Sleep Apnea/CPAP/BIPAP Additional Past Medical History / Comment(s): DVT 2002, uses CPAP Last Myocardial Infarction Date:: 08/2006 History of Any Multi-Drug Resistant Organisms: None Reported Past Surgical History: Heart Catheterization With Stent, Hernia Repair Additional Past Surgical History / Comment(s): left leg surgery r/t DVT, ORIF right femur septal deviation surgery in 2014, varicose vein removal in the left leg. Past Anesthesia/Blood Transfusion Reactions: No Reported Reaction Additional Past Anesthesia/Blood Transfusion Reaction / Comment(s): no previous transfusion Date of Last Stent Placement:: 2006 Past Psychological History: Anxiety Smoking Status: Former smoker Past Alcohol Use History: None Reported Past Drug Use History: None Reported - Past Family History Mother Family Medical History: COPD, Diabetes Mellitus, Myocardial Infarction ([place]) Additional Family Medical History / Comment(s): Mother at age 75 with history of hypertension, renal failure on dialysis, CVA 6, diabetes mellitus type 2, congestive heart failure and COPD. Patient does not know his father. He has no brothers or sisters. He is single and no children. General Exam Limitations: no limitations General appearance: alert, in no apparent distress Head exam: Present: atraumatic Eye exam: Present: normal appearance ENT exam: Present: mucous membranes moist Neck exam: Present: other (Trachea is in midline) Respiratory exam: Present: normal lung sounds bilaterally. Absent: respiratory distress, wheezes, rales, rhonchi, stridor, chest wall tenderness Cardiovascular Exam: Present: regular rate, normal rhythm, normal heart sounds, other (Normal radial pulses bilaterally) GI/Abdominal exam: Present: soft. Absent: distended, tenderness, guarding Extremities exam: Present: other (Negative Homans' sign bilaterally). Absent: tenderness, pedal edema, calf tenderness Neurological exam: Present: alert, oriented X3 Skin exam: Present: warm, dry, normal color Course Vital Signs 07/02/24 07/02/24 07/02/24 13:31 15:28 17:29 Temperature 97.5 F L Pulse Rate 82 74 75 Respiratory 20 18 18 Rate Blood Pressure 133/74 136/85 152/84 O2 Sat by Pulse 96 99 99 Oximetry 07/02/24 18:03 Temperature Pulse Rate 74 Respiratory 16 Rate Blood Pressure 141/80 O2 Sat by Pulse 96 Oximetry - Reevaluation(s) Reevaluation #1: 07/02/24 18:33 Patient remains alert and breathing comfortably with a normal room air oxygen saturation. Patient continues to deny having any pain or symptoms while in the ED. Patient is aware of his test results, and he feels comfortable with being discharged home at this time. He was counseled about chest pain/GERD, and he was clearly explained return and follow-up instructions. He was instructed to follow-up closely with his primary care provider. He feels comfortable with this plan. EKG Findings - EKG Comments: EKG Findings:: ED physician interpretation (interpreted by me): Sinus rhythm with first-degree AV block, no ectopy, ventricular rate of 74 bpm, VA interval of 255 ms, normal QRS duration, normal QT interval, normal axis, no ST or T wave abnormality Medical Decision Making - Medical Decision Making Was pt. sent in by a medical professional or institution (DIANA Peterson, [employer], urgent care, hospital, or correction...) When possible be specific @ -No Did you speak to anyone other than the patient for history (EMS, parent, family, police, friend...)? What history was obtained from this source @ -No Did you review nursing and triage notes (agree or disagree)? Why? @ -I reviewed and agree with nursing and triage notes Were old charts reviewed (outside hosp., previous admission, EMS record, old EKG, old radiological studies, urgent care reports/EKG's, correction records)? Report findings @ -No old charts were reviewed Differential Diagnosis (chest pain, altered mental status, abdominal pain women, abdominal pain men, vaginal bleeding, weakness, fever, dyspnea, syncope, headache, dizziness, GI bleed, back pain, seizure, CVA, palpatations, mental health, musculoskeletal)? @ -Differential Chest Pain: Stable Angina, Unstable Angina, STEMI, NSTEMI, Pneumothorax, Musculoskeletal, Esophageal Spasm, GERD, gas, this is not meant to be an all-inclusive list. EKG interpreted by me (3pts min.). @ -As above X-rays interpreted by me (1pt min.). @ -Chest x-ray was reviewed myself and shows no acute cardiopulmonary abnormality. I agree with the radiologist's interpretation as above. CT interpreted by me (1pt min.). @ -None done U/S interpreted by me (1pt. min.). @ -None done What testing was considered but not performed or refused? (CT, X-rays, U/S, lab s)? Why? @ -None What meds were considered but not given or refused? Why? @ -None Did you discuss the management of the patient with other professionals (professionals i.e. , PA, [employer], lab, RT, psych nurse, social science professor, event technician, teacher, aviation safety officer, therapeutic case manager)? Give summary @ -No Was smoking cessation discussed for >3mins.? @ -No Was critical care preformed (if so, how long)? @ -No Were there social determinants of health that impacted care today? How? (Homelessness, low income, unemployed, alcoholism, drug addiction, transportation, low edu. Level, literacy, decrease access to med. care, [facility], rehab)? @ -No Was there de-escalation of care discussed even if they declined (Discuss DNR or withdrawal of care, Hospice)? DNR status @ -No What co-morbidities impacted this encounter? (DM, HTN, Smoking, COPD, CAD, Cancer, CVA, ARF, Chemo, Hep., AIDS, mental health diagnosis, sleep apnea, morbid obesity)? @ -None Was patient admitted / discharged? Hospital course, mention meds given and route, prescriptions, significant lab abnormalities, going to OR and other pertinent info. @ -Patient attributes his "heartburn" to GERD and increased gas. Patient reports improvement in his symptoms after burping. Patient has not had any chest pain or symptoms while in the ED. Patient's EKG and chest x-ray are unremarkable. Patient has had 3 normal troponins (each drawn about 2 hours apart) while in the ED. Patient's initial troponin was undetectable, but his first repeat troponin was in the detectable range although still normal. Patient declined hospital admission, but was agreeable to have another repeat troponin drawn while in the ED. Patient's third troponin returned lower than his second troponin and still in the normal range. Given the patient's third troponin was not increasing, I am less concerned about his symptoms being from an AL. The rest of the patient's labs are fairly unremarkable. I do not think that the patient's symptoms are likely cardiac in etiology, and I do not suspect an emergent medical condition at this time. Will discharge patient home at this time with instructions to follow-up closely with his primary care provider. Patient feels comfortable with this plan. Undiagnosed new problem with uncertain prognosis? @ -No Drug Therapy requiring intensive monitoring for toxicity (Heparin, Nitro, Insulin, Cardizem)? @ -No Were any procedures done? @ -No Diagnosis/symptom? @ -Heartburn Acute, or Chronic, or Acute on Chronic? @ -Acute Uncomplicated (without systemic symptoms) or Complicated (systemic symptoms)? @ -Default Side effects of treatment? @ -No Exacerbation, Progression, or Severe Exacerbation? @ -No Poses a threat to life or bodily function? How? (Chest pain, [place], [place], pneumonia, PE, COPD, DKA, ARF, appy, cholecystitis, CVA, Diverticulitis, Homicidal, Suicidal, threat to staff... and all critical care pts) @ -No - Lab Data Result diagrams: 07/02/24 13:58 07/02/24 13:58 Lab Results 07/02/24 07/02/24 07/02/24 Range/Units 13:58 13:58 13:58 WBC 5.2 (3.8-10.6) k/uL RBC 4.66 (4.30-5.90) m/uL Hgb 13.7 (13.0-17.5) gm/dL Hct 41.4 (39.0-53.0) % MCV 88.9 (80.0-100.0) fL MCH 29.4 (25.0-35.0) pg MCHC 33.1 (31.0-37.0) g/dL RDW 12.8 (11.5-15.5) % Plt Count 252 (150-450) k/uL MPV 6.9 Neutrophils % 65 % Lymphocytes % 21 % Monocytes % 8 % Eosinophils % 3 % Basophils % 1 % Neutrophils # 3.4 (1.3-7.7) k/uL Lymphocytes # 1.1 (1.0-4.8) k/uL Monocytes # 0.4 (0-1.0) k/uL Eosinophils # 0.1 (0-0.7) k/uL Basophils # 0.0 (0-0.2) k/uL PT 11.5 (10.0-12.5) sec INR 1.1 (<1.2) APTT 22.7 (22.0-30.0) sec Sodium 136 L (137-145) mmol/L Potassium 4.0 (3.5-5.1) mmol/L Chloride 101 (98-107) mmol/L Carbon Dioxide 25 (22-30) mmol/L Anion Gap 10 mmol/L BUN 19 (9-20) mg/dL Creatinine 0.94 (0.66-1.25) mg/dL Est GFR (CKD-EPI)AfAm >90 (>60 ml/min/1.73 sqM) Est GFR (CKD-EPI)NonAf 86 (>60 ml/min/1.73 sqM) Glucose 116 H (74-99) mg/dL Calcium 9.8 (8.4-10.2) mg/dL Magnesium 1.9 (1.6-2.3) mg/dL Total Bilirubin 0.6 (0.2-1.3) mg/dL AST 19 (17-59) U/L ALT 17 (4-49) U/L Alkaline Phosphatase 57 (38-126) U/L Troponin I (0.000-0.034) ng/mL NT-Pro-B Natriuret Pep 223 pg/mL Total Protein 7.1 (6.3-8.2) g/dL Albumin 4.3 (3.5-5.0) g/dL 07/02/24 07/02/24 07/02/24 Range/Units 13:58 16:05 17:58 WBC (3.8-10.6) k/uL RBC (4.30-5.90) m/uL Hgb (13.0-17.5) gm/dL Hct (39.0-53.0) % MCV (80.0-100.0) fL MCH (25.0-35.0) pg MCHC (31.0-37.0) g/dL RDW (11.5-15.5) % Plt Count (150-450) k/uL MPV Neutrophils % % Lymphocytes % % Monocytes % % Eosinophils % % Basophils % % Neutrophils # (1.3-7.7) k/uL Lymphocytes # (1.0-4.8) k/uL Monocytes # (0-1.0) k/uL Eosinophils # (0-0.7) k/uL Basophils # (0-0.2) k/uL PT (10.0-12.5) sec INR (<1.2) APTT (22.0-30.0) sec Sodium (137-145) mmol/L Potassium (3.5-5.1) mmol/L Chloride (98-107) mmol/L Carbon Dioxide (22-30) mmol/L Anion Gap mmol/L BUN (9-20) mg/dL Creatinine (0.66-1.25) mg/dL Est GFR (CKD-EPI)AfAm (>60 ml/min/1.73 sqM) Est GFR (CKD-EPI)NonAf (>60 ml/min/1.73 sqM) Glucose (74-99) mg/dL Calcium (8.4-10.2) mg/dL Magnesium (1.6-2.3) mg/dL Total Bilirubin (0.2-1.3) mg/dL AST (17-59) U/L ALT (4-49) U/L Alkaline Phosphatase (38-126) U/L Troponin I <0.012 0.017 0.014 (0.000-0.034) ng/mL NT-Pro-B Natriuret Pep pg/mL Total Protein (6.3-8.2) g/dL Albumin (3.5-5.0) g/dL - Radiology Data Chest x-ray: No acute cardiopulmonary disease/process. Disposition Clinical Impression: Heartburn Disposition: HOME SELF-CARE Condition: Stable Instructions (If sedation given, give patient instructions): Chest Pain (ED), GERD (Gastroesophageal Reflux Disease) (ED) Additional Instructions: Return to the ER should you develop new or worsening pain, shortness of breath, feeling dizzy or faint, vomiting, a fever, or new or worsening symptoms. Follow-up closely with your primary care provider. Is patient prescribed a controlled substance at d/c from ED?: No Referrals: Marques Peacock MD [Primary Care Provider] - 1-2 days Time of Disposition: 18:36
[2024-07-02 14:16] LABS: ALT 17 U/L (4-49); AST 19 U/L (17-59); African American GFR (CKD) >90 (>60 ml/min/1.73 sqM); Albumin 4.3 g/dL (3.5-5.0); Alkaline Phosphatase 57 U/L (38-126); Anion Gap 10 mmol/L; Blood Urea Nitrogen 19 mg/dL (9-20); Calcium 9.8 mg/dL (8.4-10.2); Carbon Dioxide 25 mmol/L (22-30); Chloride 101 mmol/L (98-107); Glucose 116 mg/dL (74-99); Magnesium 1.9 mg/dL (1.6-2.3); Non-African American GFR(CKD) 86 (>60 ml/min/1.73 sqM); Sodium 136 mmol/L (137-145); Total Bilirubin 0.6 mg/dL (0.2-1.3); Total Protein 7.1 g/dL (6.3-8.2)
[2024-07-02 14:20] LABS: Basophils % (A) 1 %; Eosinophils # (A) 0.1 k/uL (0-0.7); Eosinophils % (A) 3 %; HCT 41.4 % (39.0-53.0); HGB 13.7 gm/dL (13.0-17.5); Lymphocytes # (A) 1.1 k/uL (1.0-4.8); Lymphocytes % (A) 21 %; MCH 29.4 pg (25.0-35.0); MCHC 33.1 g/dL (31.0-37.0); MCV 88.9 fL (80.0-100.0); Mean Platelet Volume 6.9; Monocytes # (A) 0.4 k/uL (0-1.0); Monocytes % (A) 8 %; Neutrophils # (A) 3.4 k/uL (1.3-7.7); Neutrophils % (A) 65 %; Platelet Count 252 k/uL (150-450); RBC 4.66 m/uL (4.30-5.90); RDW 12.8 % (11.5-15.5); WBC 5.2 k/uL (3.8-10.6)
--- NOTE | 2024-07-02 14:21 | XR ---
EXAMINATION TYPE: XR chest 2V DATE OF EXAM: 07/02/2024 2:16 PM COMPARISON: Multiple prior chest radiograph, most recently dated 01/25/2023. CLINICAL INDICATION: Male, 64 years old with history of Chest Pain; [facility] TECHNIQUE: XR chest 2V Frontal and lateral views of the chest. FINDINGS: Lungs/Pleura: There is no evidence of pleural effusion, focal consolidation, or pneumothorax. Pulmonary vascularity: Unremarkable. Heart/mediastinum: Cardiomediastinal silhouette is unremarkable. Musculoskeletal: No acute osseous pathology. Other findings: None IMPRESSION: No acute cardiopulmonary disease/process. [facility], , 07/02/2024 2:19 PM
[2024-07-02 14:25] LABS: NT-Pro-B-Type Natriuretic Pept 223 pg/mL
[2024-07-02 14:26] LABS: INR 1.1 (<1.2); Partial Thromboplastin Time 22.7 sec (22.0-30.0); Prothrombin Time 11.5 sec (10.0-12.5)
[2024-07-02 18:04] VITALS: RESP 16
[2024-07-02 18:42] VITALS: BP 133/87; PULSE 92
== END 2024-07-02 18:50 | disposition home or self-care (01) ==
LOC: EC 13:25
DX: R12 Heartburn (principal); I44.0 Atrioventricular block, first degree; Z88.8 Allergy status to other drugs, medicaments and biological substances; Z86.73 Personal history of transient ischemic attack (TIA), and cerebral infarction without residual deficits; Z87.891 Personal history of nicotine dependence
CPT/HCPCS: 36415; 71046; 80053; 83735; 83880; 84484; 85025; 85610; 85730; 93005; 99285

== ENCOUNTER 2024-07-04 06:53 | Emergency (ER) | payer MEDICARE ==
[2024-07-04 06:58] VITALS: TEMP 97.4
--- NOTE | 2024-07-04 07:14 | ED ---
SOB HPI - General Chief Complaint: Shortness of Breath Stated Complaint: SOB Time Seen by Provider: 07/04/24 07:00 Source: patient, RN notes reviewed Mode of arrival: ambulatory Limitations: no limitations - History of Present Illness Initial Comments: This is a 64-year-old male who presents to the emergency department for an episode of shortness of breath. States that about an hour prior to arrival he was woken up by feeling hot and clammy and felt like he could not breathe. This lasted for a couple of minutes and then resolved. He used to be on a BiPAP for his obstructive sleep apnea and was just switched to a CPAP machine. He states he received a new CPAP machine this week. He initially thought that the sensation was related to his machine, as he did have it happen at one point with his BiPAP. However, he states that after changing the filter when he had the BiPAP, the problem resolved. He looked at the filter and water reserve on the CPAP and advised that it looked fine. He is unsure if this sensation was related to his machine or if there is something else going on. MD Complaint: shortness of breath - Related Data Home Medications Medication Instructions Recorded Confirmed Pantoprazole [Protonix] 40 mg PO BID-W/MEALS 05/27/21 01/02/23 Rivaroxaban [Xarelto] 20 mg PO W/SUPPER 01/12/22 01/02/23 Albuterol Inhaler [Ventolin Hfa 2 puff INHALATION RT-Q6H PRN 01/02/23 01/02/23 Inhaler] Nitroglycerin Sl Tabs [Nitrostat] 0.4 mg SUBLINGUAL Q5M PRN 01/02/23 01/02/23 Ondansetron Odt [Zofran Odt] 4 mg PO Q6H PRN 01/02/23 01/02/23 Previous Rx's Medication Instructions Recorded Clopidogrel [Plavix] 75 mg PO DAILY #30 tab 12/12/22 Ibuprofen [Motrin] 800 mg PO Q6HR #30 tab 01/21/23 polyethylene glycoL 3350 [Miralax] 17 gm PO DAILY 2 Days #2 packet 02/27/23 Allergies Allergy/AdvReac Type Severity Reaction Status Date / Time atorvastatin [From Lipitor] AdvReac muscle Verified 07/04/24 06:58 aches & pains Review of Systems ROS Statement: Those systems with pertinent positive or pertinent negative responses have been documented in the HPI. ROS Other: All systems not noted in ROS Statement are negative. Past Medical History Past Medical History: Coronary Artery Disease (CAD), Chest Pain / Angina, CVA/TIA, Deep Vein Thrombosis (DVT), GERD/Reflux, Hyperlipidemia, Myocardial Infarction ([place]), Sleep Apnea/CPAP/BIPAP Additional Past Medical History / Comment(s): DVT 2002, uses CPAP Last Myocardial Infarction Date:: 08/2006 History of Any Multi-Drug Resistant Organisms: None Reported Past Surgical History: Heart Catheterization With Stent, Hernia Repair Additional Past Surgical History / Comment(s): left leg surgery r/t DVT, ORIF right femur septal deviation surgery in 2014, varicose vein removal in the left leg. Past Anesthesia/Blood Transfusion Reactions: No Reported Reaction Additional Past Anesthesia/Blood Transfusion Reaction / Comment(s): no previous transfusion Date of Last Stent Placement:: 2006 Past Psychological History: Anxiety Smoking Status: Former smoker Past Alcohol Use History: None Reported Past Drug Use History: None Reported - Past Family History Mother Family Medical History: COPD, Diabetes Mellitus, Myocardial Infarction ([place]) Additional Family Medical History / Comment(s): Mother at age 75 with history of hypertension, renal failure on dialysis, CVA 6, diabetes mellitus type 2, congestive heart failure and COPD. Patient does not know his father. He has no brothers or sisters. He is single and no children. General Exam Limitations: no limitations General appearance: alert, in no apparent distress Head exam: Present: atraumatic, normocephalic, normal inspection Respiratory exam: Present: normal lung sounds bilaterally. Absent: respiratory distress, wheezes, rales, rhonchi, stridor Cardiovascular Exam: Present: regular rate, normal rhythm Neurological exam: Present: alert, oriented X3, CN II-XII intact Psychiatric exam: Present: normal affect, normal mood Skin exam: Present: warm, dry, intact, normal color. Absent: rash Course Vital Signs 07/04/24 07/04/24 06:54 08:20 Temperature 97.4 F L Pulse Rate 67 66 Respiratory 18 20 Rate Blood Pressure 124/77 135/85 O2 Sat by Pulse 100 99 Oximetry Medical Decision Making - Medical Decision Making This is a 64-year-old male who presents to the emergency department for shortness of breath. Was pt. sent in by a medical professional or institution? @ -No Did you speak to anyone other than the patient for history? @ -No Did you review nursing and triage notes? @ -Yes, and I agree, it is accurate with regards to the patient's symptoms. Were old charts reviewed? @ -No Differential Diagnosis? @ -Differential Dyspnea: Coronary syndrome, arrhythmia, tamponade, asthma, COPD, pulmonary embolism, pneumonia, pneumothorax, pulmonary effusion, anaphylaxis, diabetic ketoacidosis, flailed chest, pulmonary contusion, diaphragmatic rupture, anemia, neuromuscular, this is not meant to be an all-inclusive list. EKG interpreted by me (3pts min.)? @ -EKG interpreted by me demonstrating the following: Sinus rhythm. Ventricular rate 64 bpm, FL interval 233 ms, QRS duration 118 ms, QTc 410 ms. X-rays interpreted by me (1pt min.)? @ -Chest x-ray obtained, my interpretation identifies no localized consolidations or infiltrates. CT interpreted by me (1pt min.)? @ -Not obtained U/S interpreted by me (1pt. min.)? @ -Not obtained What testing was considered but not performed? (CT, X-rays, U/S, labs)? Why? @ -None What meds were considered but not given? Why? @ -None Did you discuss the management of the patient with other professionals? @ -No Did you reconcile home meds? @ -No Was smoking cessation discussed for >3mins.? @ -No Was critical care preformed (if so, how long)? @ -No Were there social determinants of health that impacted care today? How? (Homelessness, low income, unemployed, alcoholism, drug addiction, transport ation, low edu. Level, literacy, decrease access to med. care, correction, rehab)? @ -No Was there de-escalation of care discussed even if they declined? (Discuss DNR or withdrawal of care, Hospice)? @ -No What co-morbidities impacted this encounter? (DM, HTN, Smoking, COPD, CAD, Cancer, CVA, Hep., AIDS, mental health diagnosis, sleep apnea, morbid obesity)? @ -CAD, BRENDAN Was patient admitted / discharged? @ -Discharged. Lab work unremarkable. Chest x-ray reveals no acute process. Patient remained asymptomatic in the emergency department. Respiratory therapy came down to discuss his concerns with him and answer any questions he had. They reviewed the patient's settings and discussed proper usage as well. They did advise he discuss this with the medical supplier in the event there is something wrong with the new machine. Patient is in agreement with this plan and he was discharged home in stable condition. Case discussed with ED attending Dr. Alberts. Return precautions reviewed in depth, the patient is instructed to return to the emergency department with any new, worsening, or concerning symptoms. Patient verbalized understanding. Undiagnosed new problem with uncertain prognosis? @ -None Drug Therapy requiring intensive monitoring for toxicity (Heparin, Nitro, Insulin, Cardizem)? @ -None Were any procedures done? @ -None Diagnosis/symptom? @ -BRENDAN Acute, or Chronic, or Acute on Chronic? @ -Chronic Uncomplicated (without systemic symptoms) or Complicated (systemic symptoms)? @ -Uncomplicated Side effects of treatment? @ -None Exacerbation, Progression, or Severe Exacerbation] @ -Not applicable Poses a threat to life or bodily function? @ -No - Lab Data Result diagrams: 07/04/24 07:57 07/04/24 07:57 Lab Results 07/04/24 07/04/24 07/04/24 Range/Units 07:57 07:57 07:57 WBC 4.12 L (4.50-10.00) 10*3/uL RBC 4.37 L (4.40-5.60) 10*6/uL Hgb 13.4 (13.0-17.0) g/dL Hct 38.4 L (39.6-50.0) % MCV 87.9 (80.0-97.0) fL MCH 30.7 (27.0-32.0) pg MCHC 34.9 (32.0-37.0) g/dL Plt Count 208 (140-440) 10*3/uL MPV 8.6 L (9.5-12.2) fL Immature Gran % (Auto) 0.2 % Neutrophils % 57.3 % Lymphocytes % 26.2 % Monocytes % 11.7 % Eosinophils % 4.1 % Basophils % 0.5 % Immature Gran # 0.01 (0.00-0.04) 10*3/uL Neutrophils # 2.36 (1.80-7.70) 10*3/uL Lymphocytes # 1.08 (0.90-5.00) 10*3/uL Monocytes # 0.48 (0.20-1.00) 10*3/uL Eosinophils # 0.17 (0.04-0.35) 10*3/uL Basophils # 0.02 (0.00-0.10) 10*3/uL Sodium 136 L (137-145) mmol/L Potassium 4.0 (3.5-5.1) mmol/L Chloride 101 (98-107) mmol/L Carbon Dioxide 28 (22-30) mmol/L Anion Gap 7 mmol/L BUN 23 H (9-20) mg/dL Creatinine 0.95 (0.66-1.25) mg/dL Est GFR (CKD-EPI)AfAm >90 (>60 ml/min/1.73 sqM) Est GFR (CKD-EPI)NonAf 85 (>60 ml/min/1.73 sqM) Glucose 100 H (74-99) mg/dL Calcium 9.4 (8.4-10.2) mg/dL Total Bilirubin 0.8 (0.2-1.3) mg/dL AST 19 (17-59) U/L ALT 17 (4-49) U/L Alkaline Phosphatase 60 (38-126) U/L Troponin I <0.012 (0.000-0.034) ng/mL Total Protein 6.8 (6.3-8.2) g/dL Albumin 4.1 (3.5-5.0) g/dL - Radiology Data Radiology results: report reviewed, image reviewed Disposition Clinical Impression: BRENDAN (obstructive sleep apnea), CPAP use counseling Disposition: HOME SELF-CARE Additional Instructions: Return to the emergency department with any new, worsening, or concerning symptoms. Make sure you have your CPAP machine evaluated. Is patient prescribed a controlled substance at d/c from ED?: No Referrals: Marques Peacock MD [Primary Care Provider] - 1-2 days Time of Disposition: 09:23
--- NOTE | 2024-07-04 07:30 | XR ---
EXAMINATION TYPE: XR chest 2V DATE OF EXAM: 07/04/2024 7:19 AM COMPARISON: 07/02/2024 CLINICAL INDICATION: Male, 64 years old with history of [place], TECHNIQUE: XR chest 2V view(s) obtained. FINDINGS: The heart size is normal. The pulmonary vasculature is normal. The lungs are clear. IMPRESSION: 1. No acute pulmonary process. [facility], , 07/04/2024 7:28 AM
[2024-07-04 08:16] LABS: Basophils # (A) 0.02 10*3/uL (0.00-0.10); Basophils % (A) 0.5 %; Eosinophils # (A) 0.17 10*3/uL (0.04-0.35); Eosinophils % (A) 4.1 %; HCT 38.4 % (39.6-50.0); HGB 13.4 g/dL (13.0-17.0); Lymphocytes # (A) 1.08 10*3/uL (0.90-5.00); Lymphocytes % (A) 26.2 %; MCH 30.7 pg (27.0-32.0); MCHC 34.9 g/dL (32.0-37.0); MCV 87.9 fL (80.0-97.0); Mean Platelet Volume 8.6 fL (9.5-12.2); Monocytes # (A) 0.48 10*3/uL (0.20-1.00); Monocytes % (A) 11.7 %; Neutrophils # (A) 2.36 10*3/uL (1.80-7.70); Neutrophils % (A) 57.3 %; Platelet Count 208 10*3/uL (140-440); RBC 4.37 10*6/uL (4.40-5.60); RDW 11.9 % (11.5-14.5); WBC 4.12 10*3/uL (4.50-10.00)
[2024-07-04 08:22] VITALS: BP 135/85; PULSE 66; RESP 20
[2024-07-04 08:34] LABS: ALT 17 U/L (4-49); AST 19 U/L (17-59); African American GFR (CKD) >90 (>60 ml/min/1.73 sqM); Albumin 4.1 g/dL (3.5-5.0); Alkaline Phosphatase 60 U/L (38-126); Anion Gap 7 mmol/L; Blood Urea Nitrogen 23 mg/dL (9-20); Calcium 9.4 mg/dL (8.4-10.2); Carbon Dioxide 28 mmol/L (22-30); Chloride 101 mmol/L (98-107); Glucose 100 mg/dL (74-99); Non-African American GFR(CKD) 85 (>60 ml/min/1.73 sqM); Sodium 136 mmol/L (137-145); Total Bilirubin 0.8 mg/dL (0.2-1.3); Total Protein 6.8 g/dL (6.3-8.2)
== END 2024-07-04 09:25 | disposition home or self-care (01) ==
LOC: EC 06:53
DX: G47.33 Obstructive sleep apnea (adult) (pediatric) (principal); Z71.89 Other specified counseling; Z86.73 Personal history of transient ischemic attack (TIA), and cerebral infarction without residual deficits; Z87.891 Personal history of nicotine dependence; Z88.8 Allergy status to other drugs, medicaments and biological substances
CPT/HCPCS: 36415; 71046; 80053; 84484; 85025; 93005; 99285

== ENCOUNTER 2024-07-16 06:40 | Emergency (ER) | payer MEDICARE ==
--- NOTE | 2024-07-16 07:26 | ED ---
Chest Pain HPI - General Chief Complaint: Chest Pain Stated Complaint: heartburn Time Seen by Provider: 07/16/24 06:55 Source: patient, RN notes reviewed Mode of arrival: ambulatory Limitations: no limitations - History of Present Illness Initial Comments: 64-year-old male presents emergency department with chief complaint of heartburn. Patient has been in ER with similar complaints. He states he is not on any daily medications for this he states usually happens when he uses CPAP. Patient denies any current complaints he states once he stopped using the attack sometimes having 1 away. Patient denies any fever chills/shortness of breath no headache or dizziness no other associated symptoms. - Related Data Home Medications Medication Instructions Recorded Confirmed Pantoprazole [Protonix] 40 mg PO BID-W/MEALS 05/27/21 01/02/23 Rivaroxaban [Xarelto] 20 mg PO W/SUPPER 01/12/22 01/02/23 Albuterol Inhaler [Ventolin Hfa 2 puff INHALATION RT-Q6H PRN 01/02/23 01/02/23 Inhaler] Nitroglycerin Sl Tabs [Nitrostat] 0.4 mg SUBLINGUAL Q5M PRN 01/02/23 01/02/23 Ondansetron Odt [Zofran Odt] 4 mg PO Q6H PRN 01/02/23 01/02/23 Previous Rx's Medication Instructions Recorded Clopidogrel [Plavix] 75 mg PO DAILY #30 tab 12/12/22 Ibuprofen [Motrin] 800 mg PO Q6HR #30 tab 01/21/23 polyethylene glycoL 3350 [Miralax] 17 gm PO DAILY 2 Days #2 packet 02/27/23 Famotidine [Pepcid] 20 mg PO BID #28 tablet 07/16/24 Allergies Allergy/AdvReac Type Severity Reaction Status Date / Time atorvastatin [From Lipitor] AdvReac muscle Verified 07/16/24 06:42 aches & pains Review of Systems ROS Statement: Those systems with pertinent positive or pertinent negative responses have been documented in the HPI. ROS Other: All systems not noted in ROS Statement are negative. EKG Findings - EKG Comments: EKG Findings:: EKG performed at 6: 53 sinus rhythm first-degree block rate of 67 [place] 269 QRS 106 QT/QTc 389/405 - EKG Results: EKG: interpreted by CROW Past Medical History Past Medical History: Coronary Artery Disease (CAD), Chest Pain / Angina, CVA/TIA, Deep Vein Thrombosis (DVT), GERD/Reflux, Hyperlipidemia, Myocardial Infarction ([place]), Sleep Apnea/CPAP/BIPAP Additional Past Medical History / Comment(s): DVT 2002, uses CPAP Last Myocardial Infarction Date:: 08/2006 History of Any Multi-Drug Resistant Organisms: None Reported Past Surgical History: Heart Catheterization With Stent, Hernia Repair Additional Past Surgical History / Comment(s): left leg surgery r/t DVT, ORIF right femur septal deviation surgery in 2014, varicose vein removal in the left leg. Past Anesthesia/Blood Transfusion Reactions: No Reported Reaction Additional Past Anesthesia/Blood Transfusion Reaction / Comment(s): no previous transfusion Date of Last Stent Placement:: 2006 Past Psychological History: Anxiety Smoking Status: Former smoker Past Alcohol Use History: None Reported Past Drug Use History: None Reported - Past Family History Mother Family Medical History: COPD, Diabetes Mellitus, Myocardial Infarction ([place]) Additional Family Medical History / Comment(s): Mother at age 75 with history of hypertension, renal failure on dialysis, CVA 6, diabetes mellitus type 2, congestive heart failure and COPD. Patient does not know his father. He has no brothers or sisters. He is single and no children. General Exam Limitations: no limitations General appearance: alert, in no apparent distress Head exam: Present: atraumatic, normocephalic, normal inspection Eye exam: Present: normal appearance, PERRL, EOMI. Absent: scleral icterus, conjunctival injection, periorbital swelling ENT exam: Present: normal exam, normal oropharynx, mucous membranes moist Neck exam: Present: normal inspection, full ROM. Absent: tenderness, meningismus, lymphadenopathy Respiratory exam: Present: normal lung sounds bilaterally. Absent: respiratory distress, wheezes, rales, rhonchi, stridor Cardiovascular Exam: Present: regular rate, normal rhythm, normal heart sounds. Absent: systolic murmur, diastolic murmur, rubs, gallop, clicks GI/Abdominal exam: Present: soft, normal bowel sounds. Absent: distended, tenderness, guarding, rebound, rigid Neurological exam: Present: alert, oriented X3, CN II-XII intact, reflexes normal. Absent: motor sensory deficit Skin exam: Present: warm, dry, intact, normal color. Absent: rash Course Vital Signs 07/16/24 07/16/24 06:42 08:08 Temperature 97.7 F 97.9 F Pulse Rate 69 70 Respiratory 16 16 Rate Blood Pressure 155/76 138/74 O2 Sat by Pulse 99 98 Oximetry Chest Pain MDM - MDM Was pt. sent in by a medical professional or institution (, [facility], PUBLIC SERVICES LIBRARIAN, urgent care, hospital, or residential...) When possible be specific @ -No Did you speak to anyone other than the patient for history (EMS, parent, family, police, friend...)? What history was obtained from this source @ -No Did you review nursing and triage notes (agree or disagree)? Why? @ -I reviewed and agree with nursing and triage notes Were old charts reviewed (outside hosp., previous admission, EMS record, old EKG, old radiological studies, urgent care reports/EKG's, residential records)? Report findings @ -No old charts were reviewed Differential Diagnosis (chest pain, altered mental status, abdominal pain women, abdominal pain men, vaginal bleeding, weakness, fever, dyspnea, syncope, headache, dizziness, GI bleed, back pain, seizure, CVA, palpatations, mental health, musculoskeletal)? @ -Differential Abdominal Pain Men: Appendicitis, cholecystitis, diverticulosis, ischemic bowel, pancreatitis, hepatitis, UTI, gastroenteritis, AAA, incarcerated hernia, bowel obstruction, constipation, inflammatory bowel, hepatitis, peptic ulcer disease, splenic infarction, perforated viscus, testicular torsion, this is not meant to be an all-inclusive list EKG interpreted by me (3pts min.). @ -As above X-rays interpreted by me (1pt min.). @ -None done CT interpreted by me (1pt min.). @ -None done U/S interpreted by me (1pt. min.). @ -None done What testing was considered but not performed or refused? (CT, X-rays, U/S, lab s)? Why? @ -None What meds were considered but not given or refused? Why? @ -None Did you discuss the management of the patient with other professionals (professionals i.e. DIANA Peterson, PUBLIC SERVICES LIBRARIAN, lab, RT, psych nurse, geriatric social worker, support specialist, teacher, chief digital media officer, keycase assembler)? Give summary @ -No Was smoking cessation discussed for >3mins.? @ -No Was critical care preformed (if so, how long)? @ -No Were there social determinants of health that impacted care today? How? (Homelessness, low income, unemployed, alcoholism, drug addiction, transportation, low edu. Level, literacy, decrease access to med. care, correction, rehab)? @ -No Was there de-escalation of care discussed even if they declined (Discuss DNR or withdrawal of care, Hospice)? DNR status @ -No What co-morbidities impacted this encounter? (DM, HTN, Smoking, COPD, CAD, Cancer, CVA, ARF, Chemo, Hep., AIDS, mental health diagnosis, sleep apnea, morbid obesity)? @ -CAD Was patient admitted / discharged? Hospital course, mention meds given and route, prescriptions, significant lab abnormalities, going to OR and other pertinent info. @ -Discharge patient presented after having heartburn last night he has been completely asymptomatic since last night after taking Tums. This has been a recurrent issue has had several ER visits for same complaint. Patient remains to be asymptomatic EKG unchanged, labs unremarkable. Patient was discharged on Pepcid and patient will follow-up with PCP return parameters discussed Undiagnosed new problem with uncertain prognosis? @ -No Drug Therapy requiring intensive monitoring for toxicity (Heparin, Nitro, Insulin, Cardizem)? @ -No Were any procedures done? @ -No Diagnosis/symptom? @ -GERD Acute, or Chronic, or Acute on Chronic? @ -Acute Uncomplicated (without systemic symptoms) or Complicated (systemic symptoms)? @ -Uncomplicated Side effects of treatment? @ -No Exacerbation, Progression, or Severe Exacerbation? @ -No Poses a threat to life or bodily function? How? (Chest pain, [place], [place], pneumonia, PE, COPD, DKA, ARF, appy, cholecystitis, CVA, Diverticulitis, Homicidal, Suicidal, threat to staff... and all critical care pts) @ -No Disposition Clinical Impression: GERD (gastroesophageal reflux disease) Disposition: HOME SELF-CARE Condition: Stable Instructions (If sedation given, give patient instructions): Diet for Stomach Ulcers and Gastritis (ED), GERD (Gastroesophageal Reflux Disease) (ED) Additional Instructions: Please return to the Emergency Department if symptoms worsen or any other concerns. Prescriptions: Famotidine [Pepcid] 20 mg PO BID #28 tablet Is patient prescribed a controlled substance at d/c from ED?: No Referrals: Marques Peacock MD [Primary Care Provider] - 1-2 days Time of Disposition: 08:22
[2024-07-16 07:39] LABS: Basophils # (A) 0.02 10*3/uL (0.00-0.10); Basophils % (A) 0.5 %; Eosinophils # (A) 0.15 10*3/uL (0.04-0.35); Eosinophils % (A) 3.9 %; HCT 39.8 % (39.6-50.0); HGB 13.3 g/dL (13.0-17.0); Lymphocytes # (A) 1.14 10*3/uL (0.90-5.00); Lymphocytes % (A) 29.9 %; MCH 29.6 pg (27.0-32.0); MCHC 33.4 g/dL (32.0-37.0); MCV 88.6 fL (80.0-97.0); Mean Platelet Volume 8.2 fL (9.5-12.2); Monocytes # (A) 0.43 10*3/uL (0.20-1.00); Monocytes % (A) 11.3 %; Neutrophils # (A) 2.06 10*3/uL (1.80-7.70); Neutrophils % (A) 54.1 %; Platelet Count 205 10*3/uL (140-440); RBC 4.49 10*6/uL (4.40-5.60); RDW 12.1 % (11.5-14.5); WBC 3.81 10*3/uL (4.50-10.00)
[2024-07-16 07:52] LABS: INR 1.1 (<1.2); Partial Thromboplastin Time 23.4 sec (22.0-30.0)
[2024-07-16 07:55] LABS: ALT 16 U/L (4-49); AST 20 U/L (17-59); African American GFR (CKD) 90 (>60 ml/min/1.73 sqM); Albumin 4.1 g/dL (3.5-5.0); Alkaline Phosphatase 59 U/L (38-126); Anion Gap 6 mmol/L; Blood Urea Nitrogen 21 mg/dL (9-20); Calcium 9.7 mg/dL (8.4-10.2); Carbon Dioxide 31 mmol/L (22-30); Chloride 100 mmol/L (98-107); Glucose 104 mg/dL (74-99); Lipase 101 U/L (23-300); Magnesium 2.1 mg/dL (1.6-2.3); Non-African American GFR(CKD) 78 (>60 ml/min/1.73 sqM); Potassium 4.5 mmol/L (3.5-5.1); Sodium 137 mmol/L (137-145); Total Bilirubin 0.9 mg/dL (0.2-1.3); Total Protein 6.6 g/dL (6.3-8.2)
[2024-07-16] MEDS: PANTOPRAZOLE 40 MG/10 ML VIAL IVP STA (08:37)
[2024-07-16 08:47] VITALS: BP 135/74; PULSE 72; RESP 18; TEMP 98.1
== END 2024-07-16 08:47 | disposition home or self-care (01) ==
LOC: EC 06:40
DX: K21.9 Gastro-esophageal reflux disease without esophagitis (principal); I25.10 Atherosclerotic heart disease of native coronary artery without angina pectoris; Z86.73 Personal history of transient ischemic attack (TIA), and cerebral infarction without residual deficits; Z87.891 Personal history of nicotine dependence; Z88.8 Allergy status to other drugs, medicaments and biological substances
CPT/HCPCS: 36415; 93005; 80053; 83690; 83735; 84484; 85025; 85610; 85730; 99285; J2470